=== PATIENT | female | born 1955 | race Caucasian/White ===

== ENCOUNTER → 2016-04-25 | Outpatient (CLI) | payer MEDICARE, OTHER ==
[2016-04-25 14:31] LABS: CH 32.6; CHCM 29.2; HCT 39.5 % (34.0-46.0); HDW 2.77; HGB 11.6 gm/dL (11.4-16.0); Hypochromasia Marked; MCHC 29.4 g/dL (31.0-37.0); MCV 112.2 fL (80.0-100.0); Macrocytosis Marked; Mean Platelet Volume 6.6; RBC 3.52 m/uL (3.80-5.40); RDW 13.8 % (11.5-15.5)
[2016-04-25 14:50] LABS: Bilirubin, Delta 0.5 mg/dL (0.0-0.2); Total Bilirubin 0.8 mg/dL (0.2-1.3); Total Protein 8.5 g/dL (6.3-8.2)
[2016-04-28 07:08] LABS: Hepatits C Virus RNA, Quant <12 IU/mL (<12); LOG HCV IU/mL <1.08 (<1.08)
== END | disposition home or self-care (01) ==
LOC: LABWHC1 13:56
PROVIDERS: ATTEND Physician Assistant
DX: B18.2 Chronic viral hepatitis C (principal)
CPT/HCPCS: 36415; 80076; 85027; 87522

== ENCOUNTER → 2016-06-02 | Outpatient (CLI) | payer MEDICARE, OTHER ==
[2016-06-02 11:44] LABS: CH 33.1; HDW 2.73; HGB 11.4 gm/dL (11.4-16.0); Hypochromasia Marked; MCH 33.3 pg (25.0-35.0); MCHC 30.1 g/dL (31.0-37.0); MCV 110.7 fL (80.0-100.0); Macrocytosis Marked; Mean Platelet Volume 6.9; RBC 3.43 m/uL (3.80-5.40); RDW 13.4 % (11.5-15.5); WBC 5.3 k/uL (3.8-10.6)
[2016-06-02 12:21] LABS: Bilirubin, Delta 0.4 mg/dL (0.0-0.2); Total Bilirubin 0.7 mg/dL (0.2-1.3)
[2016-06-03 15:25] LABS: Hepatits C Virus RNA, Quant <12 IU/mL (<12); LOG HCV IU/mL <1.08 (<1.08)
== END | disposition home or self-care (01) ==
LOC: LABWHC1 11:20
PROVIDERS: ATTEND Physician Assistant
DX: B18.2 Chronic viral hepatitis C (principal)
CPT/HCPCS: 36415; 80076; 85027; 87522

== ENCOUNTER → 2016-06-28 | Outpatient (CLI) | payer MEDICARE, OTHER ==
--- NOTE | 2016-06-30 15:29 | PE ---
Nuclear medicine PET/CT HISTORY: Lung carcinoma, solitary lung nodule Patient received 15 mCi F-18 FDG intravenously delayed scanning performed from the skull base to the mid thighs. Localization and attenuation correction CT scan was performed, exam correlated to prior n [facility] PET/CT 16 February 2016 Neck and chest: No evident cervical or mediastinal adenopathy. There are coronary artery calcificatio ns present. No pleural or pericardial effusion. Nodular density in the left upper lobe measures appro ximately 15 mm. This is diminished in size as compared to previous exam. Only minimal hypermetabolic uptake present, SUV 1.4 Abdomen pelvis: Patient is post cholecystectomy. No adrenal mass. No suspicious hypermetabolic uptake . Postop change status post aortic bypass graft. Ostomy present in the right lower quadrant containin g some bowel loop. IMPRESSION: There is improvement in the size and metabolic activity of patient's left upper lobe lung nodule.
== END | disposition home or self-care (01) ==
LOC: RADPETMAIN 09:40
PROVIDERS: ATTEND Radiology Radiation Oncology
DX: R91.1 Solitary pulmonary nodule (principal)
CPT/HCPCS: 78815; A9552

== ENCOUNTER → 2016-07-23 | Outpatient (CLI) | payer MEDICARE, OTHER ==
[2016-07-23 14:53] LABS: Bilirubin, Delta 0.4 mg/dL (0.0-0.2); Total Bilirubin 0.9 mg/dL (0.2-1.3); Total Protein 8.8 g/dL (6.3-8.2)
[2016-07-23 14:55] LABS: CHCM 29.2; HCT 42.5 % (34.0-46.0); HDW 2.57; HGB 12.5 gm/dL (11.4-16.0); Hypochromasia Marked; MCH 33.4 pg (25.0-35.0); MCHC 29.5 g/dL (31.0-37.0); MCV 113.3 fL (80.0-100.0); Macrocytosis Marked; Mean Platelet Volume 7.7; RBC 3.75 m/uL (3.80-5.40); RDW 12.9 % (11.5-15.5)
[2016-07-24 14:37] LABS: Hepatits C Virus RNA, Quant <12 IU/mL (<12); LOG HCV IU/mL <1.08 (<1.08)
== END | disposition home or self-care (01) ==
LOC: LABWHC1 13:49
PROVIDERS: ATTEND Physician Assistant
DX: B18.2 Chronic viral hepatitis C (principal)
CPT/HCPCS: 36415; 80076; 85027; 87522

== ENCOUNTER → 2016-09-17 | Outpatient (CLI) | payer MEDICARE, OTHER ==
[2016-09-17 13:10] LABS: Blood Urea Nitrogen 17 mg/dL (7-17); Non-African American GFR(MDRD) 59 (>60 ml/min/1.73 sqM)
--- NOTE | 2016-09-17 13:50 | CT ---
EXAMINATION TYPE: CT chest w con DATE OF EXAM: 09/17/2016 COMPARISON: 09/10/2015 HISTORY: Lung cancer CT DLP: 622 mGycm, Automated exposure control for dose reduction was used. CONTRAST: Performed injected with 100 ml mL of Omnipaque 300. TECHNIQUE: Axial images were obtained at 5 mm thick sections. Reconstructed images are reviewed on meevl computer in the coronal plane. FINDINGS: Portion of the thyroid visualized is normal. There is suspicious area of increased density with spiculated margins on lung windows within the post erior lingula series 4 image 25. This area measures approximately 1.4 x 1.1 cm size. This appears les s nodular than the comparison of previous year. No enlarged mediastinal or hilar adenopathy is evident. Small pretracheal lymph nodes are present. The ascending aorta diameter at the level of the main pulmonary artery is 3.4 cm. The main pulmonary artery diameter at the bifurcation is 2.[address] sections are obtained through the upper abdomen. Abdomen is essentially unremarkable. Postcontrast imaging is performed. The thyroid is visualized appears normal. IMPRESSIONS: 1. Focal area of pneumonitis or masslike area within the posterior lingula left midlung. This is impr oving in appearance from 09/10/2015. Continued follow-up is recommended.
== END | disposition home or self-care (01) ==
LOC: RADCTMAIN 12:16
PROVIDERS: ATTEND Radiology Radiation Oncology
DX: C34.10 Malignant neoplasm of upper lobe, unspecified bronchus or lung (principal)
CPT/HCPCS: 82565; 84520; 71260; 36415; Q9967

== ENCOUNTER → 2016-10-02 | Outpatient (CLI) | payer MEDICARE, OTHER ==
[2016-10-02 14:29] LABS: CH 32.3; CHCM 32.6; HCT 45.9 % (34.0-46.0); HDW 2.65; HGB 15.6 gm/dL (11.4-16.0); MCH 33.7 pg (25.0-35.0); MCV 99.2 fL (80.0-100.0); Mean Platelet Volume 7.4; RBC 4.63 m/uL (3.80-5.40); RDW 12.1 % (11.5-15.5); WBC 4.7 k/uL (3.8-10.6)
[2016-10-02 14:30] LABS: Bilirubin, Delta 0.4 mg/dL (0.0-0.2); Total Bilirubin 0.4 mg/dL (0.2-1.3); Total Protein 7.7 g/dL (6.3-8.2)
[2016-10-03 14:57] LABS: Hepatits C Virus RNA, Quant <12 IU/mL (<12); LOG HCV IU/mL <1.08 (<1.08)
== END | disposition home or self-care (01) ==
LOC: LABWHC1 13:41
PROVIDERS: ATTEND Physician Assistant
DX: B18.2 Chronic viral hepatitis C (principal)
CPT/HCPCS: 36415; 80076; 85027; 87522

== ENCOUNTER → 2016-12-26 | Outpatient (CLI) | payer MEDICARE, OTHER ==
[2016-12-26 10:32] LABS: Blood Urea Nitrogen 17 mg/dL (7-17); Non-African American GFR(MDRD) >60 (>60 ml/min/1.73 sqM)
--- NOTE | 2016-12-26 12:00 | CT ---
EXAMINATION TYPE: CT chest w con DATE OF EXAM: 12/26/2016 COMPARISON: 12/26/2016 HISTORY: Malignant neoplasm of upper lobe unspecified CT DLP: 499 mGycm Automated exposure control for dose reduction was used. CONTRAST: CT scan of the chest is performed with IV Contrast, patient injected with 100 ml mL of Omnipaque 300. FINDINGS: LUNGS: Hyperinflation of the lungs is compatible with COPD. Linear changes involving the lungs are co mpatible with scar or atelectasis. Groundglass changes and changes in density within the lingular seg ment left upper lobe are unchanged in appearance measuring 1.4 x 1 cm. MEDIASTINUM: There are no greater than 1 cm hilar or mediastinal lymph nodes. No pericardial effusi on is seen. The ascending aorta diameter at the level of the main pulmonary artery is 3.4 cm. The ma in pulmonary artery diameter at the bifurcation is 2.7 cm. OTHER: Limited CT sections are obtained through the upper abdomen. Abdomen is essentially unremarkab le. Apart 1 cm area of density along the anterior margin of the scapula on the right image 11. This m ay represent a small lymph node. Posterior to the axilla. Hypertrophic and degenerative change of the spine noted. There is eccentric irregular atherosclerotic changes involving the upper abdominal aort a and lower thoracic aorta. IMPRESSION: 1. Groundglass changes and vague nodular density left upper lobe issuable compared to the previous ex am. 2. There is a nodular density anterior to the scapula posterior to the axilla image 11 measuring 1.2 cm. May represent a area of lymph node or possibly intramuscular etiology. It is retrospectively stab le from the previous exam as well as the exam of 09/10/2015.
== END | disposition home or self-care (01) ==
LOC: RADCTMAIN 09:50
PROVIDERS: ATTEND Radiology Radiation Oncology
DX: C34.10 Malignant neoplasm of upper lobe, unspecified bronchus or lung (principal); J98.4 Other disorders of lung
CPT/HCPCS: 82565; 84520; 71260; 36415; Q9967

== ENCOUNTER → 2017-04-27 | Outpatient (CLI) | payer MEDICARE, OTHER ==
[2017-04-27 10:44] LABS: Blood Urea Nitrogen 16 mg/dL (7-17)
--- NOTE | 2017-04-27 11:44 | CT ---
EXAMINATION TYPE: CT soft tissue neck w con DATE OF EXAM: 04/27/2017 COMPARISON: PET CT 06/28/2016 and 02/16/2016. CT chest 12/26/2016 HISTORY: 62-year-old female Follow up study for known lung CA. TECHNIQUE: Contiguous axial scanning of the neck performed with IV Contrast, patient injected with 10 0 mL of Omnipaque 300. Coronal/sagittal reconstructions performed. CT DLP: 227.2 mGycm Automated exposure control for dose reduction was used. FINDINGS: Visualized intracranial structures show no gross abnormality. Orbits and globes and paranasal sinuses appear clear. Left mastoid air cells hypoplastic. Rightward nasal septal deviation. Nasopharynx appears relatively clear. There is some crowding of structures here due to an elevated so ft palate. Oropharynx appears clear. There is some right-sided posterior impression due to retropharyngeal cours e of the right ICA. Assessment of the glottic structures shows asymmetric thickening of the left aryepiglottic fold which may be positional (axial image 35). Small nodularity in the left visceral space fat at this same lev el is unchanged back to 02/16/2016 where no discrete FDG uptake was seen. The vertebral soft tissues and epiglottis appear normal. The tracheal column is clear. Thyroid and submandibular glands as well as the mildly atrophic parotid glands appear satisfactory. Mild to moderate prostatic calcifications at the carotid bifurcations. Scattered nonenlarged cervical lymph nodes are present on both sides measuring up to 7 mm on the left, coronal image 35. No suspici ous lymphadenopathy by CT size criteria. IMPRESSION: 1. SOME ASYMMETRIC THICKENING OF THE LEFT ARYEPIGLOTTIC FOLD MAY BE POSITIONAL. CONSIDER DIRECT VISUA LIZATION TO EXCLUDE A MUCOSAL LESION HERE. 2. CROWDED NASOPHARYNGEAL STRUCTURES DUE TO ELEVATION OF THE SOFT PALATE WITHOUT ANY DEFINITE SUSPIC IOUS FINDING. 3. NO CERVICAL LYMPHADENOPATHY.
--- NOTE | 2017-04-27 12:25 | CT ---
EXAMINATION TYPE: CT ChestAbdPelvis w con DATE OF EXAM: 04/27/2017 COMPARISON: CT chest 12/26/[address] 06/28/2016 HISTORY: 62-year-old female follow-up up study for known lung CA. TECHNIQUE: Contiguous axial scanning of the chest, abdomen, and pelvis performed with IV Contrast, pa tient injected with 100 mL of Omnipaque 300. Delayed images through the kidneys were obtained. Carter l/sagittal reconstructions performed. CT DLP: 543.9 mGycm Automated exposure control for dose reduction was used. FINDINGS: Chest: Heart normal size without pericardial effusion. Coronary vessel calcifications are present in remarka ble for coronary artery disease. [id number] aortic valvular calcifications are noted Aorta is normal caliber with a aberrant direct takeoff of the left vertebral artery directly from the aortic arch. Mild atherosclerotic arch calcifications. No thoracic lymphadenopathy by CT size criteria. Prominent 7 mm precarinal lymph node is unchanged. Evaluation the lungs redemonstrates the focal patchy peripheral left upper lobe density representing the site of patient's treated disease. Minimal nodularity appears unchanged. Mild diffuse bronchial wall thickening and mild centrilobular emphysema. No new pulmonary nodules are seen. No consolidation or pleural effusion. Some patchy atelectasis basilar right middle lobe. Some lateral periareolar left breast soft tissue thickening axial image 24, probably relates to ammon l fibroglandular tissue but may be slightly increased and can be correlated with physical exam findin gs and mammographic evaluation. ABDOMEN: No focal liver lesion or biliary ductal dilatation. Small amount of focal fat along the anterior falc iform ligament. Portal venous system is patent. Cholecystectomy clips. Adrenal glands, kidneys, spleen with anterior splenule, and pancreas appear within normal limits. Aortobifemoral bypass graft remains patent. Moderate focal areas of calcifications in the upper abdom inal aorta. No mesenteric or retroperitoneal lymphadenopathy. There appears to be prior colectomy with Mckinney's pouch. Right lower quadrant ostomy with similar mi ld ascites fluid within the small 3.5 cm parastomal hernia which also contains a couple small bowel l oops. Similar mild mass effect onto the underlying abdominal wall musculature. Pelvis: Uterus is retroverted. Multiple pelvic phleboliths. Ovaries are visualized. No abnormal fluid collect ion the pelvis or pelvic lymphadenopathy seen. Bones: Degenerative changes throughout the lumbar spine. No osseous destructive process seen. IMPRESSION: 1. COPD WITH MILD EMPHYSEMA AND RELATIVELY STABLE FOCAL PATCHY NODULARITY PERIPHERAL LEFT UPPER LOBE REPRESENTING SITE OF PATIENT'S TREATED DISEASE. NO INCREASING NODULARITY TO SUGGEST LOCAL RECURRENCE AT THIS TIME. 2. LEFT LATERAL SUBAREOLAR BREAST TISSUE DENSITY MAY BE SLIGHTLY INCREASED. CORRELATE WITH PHYSICAL E XAM FINDINGS AND DIAGNOSTIC MAMMOGRAM TO ENSURE STABLE FINDINGS. 3. STATUS POST COLECTOMY WITH MCKINNEY'S POUCH AND RIGHT-SIDED OSTOMY. STABLE 3.5 CM SMALL PARASTOMAL HERNIA CONTAINING MILD ASCITES AND A FEW SMALL BOWEL LOOPS. GIVEN THE FLUID IN THE HERNIA SAC, CORREL ATE FOR POSSIBLE CHRONIC HERNIA INCARCERATION.
== END | disposition home or self-care (01) ==
LOC: RADCTMAIN 10:01
PROVIDERS: ATTEND Radiology Radiation Oncology
DX: C34.90 Malignant neoplasm of unspecified part of unspecified bronchus or lung (principal); J44.9 Chronic obstructive pulmonary disease, unspecified; J43.9 Emphysema, unspecified; J98.4 Other disorders of lung; K43.5 Parastomal hernia without obstruction or gangrene; R18.8 Other ascites; Z90.49 Acquired absence of other specified parts of digestive tract; K82.8 Other specified diseases of gallbladder; Z98.890 Other specified postprocedural states; Z91.09 Other allergy status, other than to drugs and biological substances
CPT/HCPCS: 82565; 84520; 70491; 71260; 74177; 36415; Q9967

== ENCOUNTER → 2017-05-12 | Outpatient (CLI) | payer MEDICARE, OTHER ==
[2017-05-12 14:38] LABS: HCT 45.5 % (34.0-46.0); HGB 14.8 gm/dL (11.4-16.0); MCH 34.3 pg (25.0-35.0); MCHC 32.5 g/dL (31.0-37.0); MCV 105.6 fL (80.0-100.0); Macrocytosis Slight; Mean Platelet Volume 7.2; Platelet Count 207 k/uL (150-450); RBC 4.31 m/uL (3.80-5.40); RDW 12.7 % (11.5-15.5); WBC 5.5 k/uL (3.8-10.6)
[2017-05-12 14:45] LABS: Albumin 4.3 g/dL (3.5-5.0); Bilirubin, Delta 0.4 mg/dL (0.0-0.2); Total Bilirubin 0.4 mg/dL (0.2-1.3); Total Protein 7.2 g/dL (6.3-8.2)
[2017-05-13 15:50] LABS: Hepatits C Virus RNA Not detected (Not detected); Hepatits C Virus RNA, Quant <12 IU/mL (<12); LOG HCV IU/mL <1.08 (<1.08)
== END | disposition home or self-care (01) ==
LOC: LABWHC1 13:56
PROVIDERS: ATTEND Physician Assistant
DX: B18.2 Chronic viral hepatitis C (principal)
CPT/HCPCS: 36415; 80076; 85027; 87522

== ENCOUNTER → 2017-07-29 | Outpatient (CLI) | payer MEDICARE, OTHER ==
--- NOTE | 2017-07-29 15:27 | CT ---
EXAMINATION TYPE: CT chest abdomen wo con DATE OF EXAM: 07/29/2017 COMPARISON: Chest abdomen pelvis dated 04/27/2017 and PET/CT dated 06/28/2016. CT thorax dated 7. HISTORY: Lung Cancer CT DLP: 236 mGycm Automated exposure control for dose reduction was used. FINDINGS: LUNGS: There is mild centrilobular emphysematous changes of the lung apices. The previously seen foca l pleural thickening of the left upper lung posterior medially has resolved. There remains focal pleu ral thickening along the lateral left lung on series 4 image 24 that is similar to the prior exam wit h a focal area of nodularity measuring approximately 6 mm with surrounding groundglass attenuation. T his appears unchanged from the prior exam of 04/27/2017. Right apical pleural parenchymal scarring is noted. No new pulmonary nodules are identified. MEDIASTINUM: There are no greater than 1 cm hilar or mediastinal lymph nodes. No pericardial effusi on is seen. No cardiomegaly. Mild coronary artery calcifications. The left vertebral artery incident ally originates from the aortic arch, a normal anatomic variant. Ascending thoracic aorta is within n ormal limits of size measuring 3.3 cm. BONES: No suspicious osseous lesions. Grade 1 anterolisthesis of L3 on L4 is seen. Moderate multileve l degenerative changes of the thoracic spine and lumbar spine are present. LIVER/GALLBLADDER: No focal hepatic lesion is seen. Gallbladder surgically absent. No intrahepatic bi liary ductal dilatation. SPLEEN: No splenomegaly. ADRENAL GLANDS: No nodularity or thickening. KIDNEYS: No nephrolithiasis or hydronephrosis. Kidneys are overall symmetric. BOWEL: Right lower quadrant ostomy is seen. No bowel dilatation is noted. ADENOPATHY: Evaluation is slightly limited secondary to lack of intravenous contrast, however no marlene s evidence of lymph nodes greater than 1 cm in short axis seen within the abdomen. VASCULATURE: Extensive calcific atheromatous changes are seen of the distal descending thoracic aorta and upper abdominal aorta with aorto biiliac bypass graft material noted. IMPRESSION: 1. UNCHANGED FINDINGS WITHIN THE LEFT MIDLUNG AT THE SITE OF PRIOR RADIATION FOR A NEOPLASTIC PULMONA RY NODULE IN COMPARISON TO THE MOST RECENT EXAM DATED 04/27/2017, HOWEVER PLEURAL THICKENING IN THE NO DULAR COMPONENT APPEAR MORE PRONOUNCED THAN ON THE EXAM OF 12/26/2016 AND THEREFORE CONTINUED SURVEILL ANCE IS RECOMMENDED. 2. NO NEW ADENOPATHY WITHIN THE CHEST ARE ABDOMEN. 3. UNENHANCED ABDOMEN DEMONSTRATES NO GROSS EVIDENCE OF VISCERAL METASTASIS.
== END | disposition home or self-care (01) ==
LOC: RADCTMAIN 12:55
PROVIDERS: ATTEND Radiology Radiation Oncology
DX: C34.12 Malignant neoplasm of upper lobe, left bronchus or lung (principal); J92.9 Pleural plaque without asbestos
CPT/HCPCS: 71250; 74150

== ENCOUNTER → 2017-11-04 | Outpatient (CLI) | payer MEDICARE, OTHER ==
[2017-11-04 13:46] LABS: HCT 42.2 % (34.0-46.0); HGB 13.5 gm/dL (11.4-16.0); MCH 33.1 pg (25.0-35.0); MCHC 32.1 g/dL (31.0-37.0); MCV 103.3 fL (80.0-100.0); Macrocytosis Slight; Mean Platelet Volume 7.7; Platelet Count 249 k/uL (150-450); RBC 4.08 m/uL (3.80-5.40); RDW 12.8 % (11.5-15.5); WBC 6.6 k/uL (3.8-10.6)
[2017-11-04 13:51] LABS: Albumin 4.3 g/dL (3.5-5.0); Bilirubin, Delta 1.1 mg/dL (0.0-0.2); Bilirubin,Unconjugated 0.1 mg/dL (0.0-1.1); Total Bilirubin 1.2 mg/dL (0.2-1.3); Total Protein 7.4 g/dL (6.3-8.2)
--- NOTE | 2017-11-04 14:47 | CT ---
EXAMINATION TYPE: CT soft tissue neck w con DATE OF EXAM: 11/04/2017 HISTORY: F/U FOR LUNG CA COMPARISON: CT neck April 27, 2017 and older studies. PET/CT June 28, 2016. CT DLP: 302 mGycm. Automated Exposure Control for Dose Reduction was Utilized. TECHNIQUE: CT scan of the neck is performed with IV Contrast, patient injected with 50 mL of Isovue 300, axial images are obtained, coronal and sagittal reformatted images are reviewed. FINDINGS: Airway: There is new asymmetric thickening or near complete obliteration of the air filled left pirif orm sinus and left laryngeal ventricle axial image 36. No suspicious thickening left aryepiglottic fo ld on current study image 43 is present. Parotid/submandibular glands: No gross abnormality seen. Carotid/Vascular Structures: Mild to moderate calcified plaque left carotid bulb and mild calcified p laque at right carotid bulb are redemonstrated. Osseous Structures: Reversal of normal cervical curvature with moderate multilevel disc space narrowi ng C3-C4 through C6-C7 levels with mild to moderate multilevel spurring is redemonstrated. Other: No definitive new greater than 1 cm lymph nodes are identified. IMPRESSION: Worsening fullness left piriform sinus and left laryngeal ventricle without obvious mass or adenopathy. Consider repeat PET/CT or direct visualization to exclude malignant neoplastic involve ment at this level.
--- NOTE | 2017-11-04 15:06 | CT ---
EXAMINATION TYPE: CT chest abdomen w con DATE OF EXAM: 11/04/2017 COMPARISON: CT chest and abdomen July 29, 2017 and older studies. PET/CT June 28, 2016 and older [facility]. HISTORY: F/U FOR LUNG CA. Completed radiation treatment March 2016. CT DLP: 350.5 mGycm. Automated Exposure Control for Dose Reduction was Utilized. CONTRAST: CT scan of the thorax and abdomen are performed with oral and with IV Contrast, patient injected with 50 mL of Isovue 300. FINDINGS: LUNGS: Background mild underlying emphysematous change is redemonstrated. There is lateral left upper to midlung scarring again seen. No new suspicious nodularity is identified at this level. New anteri or mid lung linear scarring and/or atelectasis near axial image 35 now identified. There are scattere d bibasilar linear scarring and/or atelectasis near diaphragms redemonstrated. No pleural effusion or pneumothorax is present. No new suspicious nodules or masses are clearly seen. MEDIASTINUM: There are no new greater than 1 cm hilar or mediastinal lymph nodes. Prominent borderlin e paracarinal lymph node axial image 25 is unchanged from several prior studies. No cardiomegaly or pericardial effusion is seen. Some contrast noted in distal esophagus could reflect product of gastr oesophageal reflux, correlate clinically. OTHER: No additional significant abnormality is seen. LIVER/GB: Cholecystectomy clips are redemonstrated. PANCREAS: No significant abnormality is seen. SPLEEN: No significant abnormality is seen. ADRENALS: No significant abnormality is seen. KIDNEYS: Cortical scarring lower pole level right kidney is redemonstrated. BOWEL: Oral contrast does not reach the colostomy. There is prominence with mild to moderate wall thi ckening involving small bowel loops in the left mid to lower abdomen. Small bowel loops right abdomen show no suspicious dilatation. There is parastomal hernia redemonstrated containing fluid and bowel. Right mid abdominal colostomy is again seen. LYMPH NODES: No greater than 1cm abdominal or pelvic lymph nodes are appreciated. OSSEOUS STRUCTURES: Osseous structures are demineralized. Underlying levoconvex scoliosis in the uppe r mid lumbar spine is redemonstrated. There is moderate to advanced disc space narrowing with subchon dral cystic change and spurring right L2-L3 levels. There is disc space narrowing with vacuum disc ph enomenon and mild spurring at L5-S1 level. Multilevel facet arthropathy mid to lower lumbar levels is seen. OTHER: There is redemonstration of occluded distal abdominal aorta with patent stent graft into iliac arteries partially imaged. IMPRESSION: 1. No new suspicious mass or adenopathy is seen to suggest neoplastic recurrence.
[2017-11-05 15:36] LABS: Hepatits C Virus RNA Not detected (Not detected); Hepatits C Virus RNA, Quant <12 IU/mL (<12); LOG HCV IU/mL <1.08 (<1.08)
== END | disposition home or self-care (01) ==
LOC: RADCTMAIN 12:53
PROVIDERS: ATTEND Radiology Radiation Oncology
DX: C34.12 Malignant neoplasm of upper lobe, left bronchus or lung (principal)
CPT/HCPCS: 87522; 80076; 82565; 84520; 85027; 70491; 71260; 74160; 36415; Q9967

== ENCOUNTER → 2018-01-25 | Outpatient (CLI) | payer MEDICARE, OTHER ==
--- NOTE | 2018-01-26 09:28 | CT ---
EXAMINATION TYPE: CT ChestAbdPelvis w con DATE OF EXAM: 01/25/2018 COMPARISON: 11/04/2017 and 04/27/2017 HISTORY: Follow up for Lung CA. CT DLP: 451.2 mGycm. Automated Exposure Control for Dose Reduction was Utilized. CONTRAST: CT scan of the thorax, abdomen and pelvis is performed with IV Contrast, patient injected with 100ml mL of Isovue M300. FINDINGS: LUNGS: Linear left midlung pleural parenchymal scar is redemonstrated with pleural thickness unchange d from the prior measuring up to 3 mm. Mild centrilobular background emphysema is again noted. No pul monary mass or new pulmonary nodule. MEDIASTINUM: There are no greater than 1 cm hilar or mediastinal lymph nodes. Pretracheal lymph nodes node measures 8 mm in short axis. Precarinal lymph node also is again borderline measuring 8 mm in s hort axis unchanged from prior exams. No pericardial effusion is seen. There is normal variant anato my with the left vertebral artery originating directly from the aortic arch. LIVER/GB: No significant abnormality is appreciated. Gallbladder surgically absent. PANCREAS: No significant abnormality is seen. No pancreatic ductal dilatation. SPLEEN: No significant abnormality is seen. No splenomegaly. ADRENALS: No significant abnormality is seen. KIDNEYS: Lobulated contour and cortical scarring is again seen. No suspicious lesion. BOWEL: Right-sided colostomy is been performed with total colectomy. Small bowel appears unremarkable and nondilated. Small fat containing parastomal hernia is noted. LYMPH NODES: No greater than 1cm abdominal or pelvic lymph nodes are appreciated. OSSEOUS STRUCTURES: Multilevel degenerative changes of the thoracolumbar spine are again noted as wel l as a levoconvex curvature of the lumbar spine. No new suspicious osseous lesion is seen. Degenerati ve disc disease is greatest at L2-L3 and L5-S1. OTHER: Again there is severe atherosclerosis of the suprarenal abdominal aorta and an infrarenal aort oiliac stent graft with [place] aortic total occlusion. Single surgical clip is seen in the posterior cul-de-sac. IMPRESSION: Stable left pulmonary scarring and pleural thickening) posttreatment change) with no new findings to suggest metastatic disease in the chest, abdomen, or pelvis.
== END | disposition home or self-care (01) ==
LOC: RADCTMAIN 14:00
PROVIDERS: ATTEND Internal Medicine Hematology & Oncology
DX: C34.12 Malignant neoplasm of upper lobe, left bronchus or lung (principal); J92.9 Pleural plaque without asbestos
CPT/HCPCS: 71260; 74177; Q9967

== ENCOUNTER → 2018-03-08 | Outpatient (CLI) | payer MEDICARE, OTHER ==
--- NOTE | 2018-03-08 15:04 | CT ---
EXAMINATION TYPE: CT ChestAbdPelvis wo/w con DATE OF EXAM: 03/08/2018 COMPARISON: 01/25/2018 HISTORY: Malignant neoplasm of upper lobe CT DLP: 778.3 mGycm Automated exposure control for dose reduction was used. CONTRAST: CT scan of the chest, abdomen and pelvis is performed with Oral Contrast and without and with IV Cont rast, patient injected with 100 mL of Isovue 300. FINDINGS: LUNGS: Linear left midlung pleural parenchymal scar is redemonstrated with pleural thickness unchange d from the prior measuring up to 3 mm. Mild centrilobular background emphysema is again noted. There is a 2 mm nodule right middle lobe. MEDIASTINUM: There are no greater than 1 cm hilar or mediastinal lymph nodes. No pericardial effusi on is seen. Pretracheal lymph nodes node measures 8 mm in short axis. Precarinal lymph node also is again borderline measuring 8 mm in short axis unchanged from prior exams. No pericardial effusion is seen. There is normal variant anatomy with the left vertebral artery originating directly from the ao rtic arch OTHER: No additional significant abnormality is seen. LIVER/GB: No significant abnormality is appreciated. PANCREAS: No significant abnormality is seen. SPLEEN: No significant abnormality is seen. ADRENALS: No significant abnormality is seen. KIDNEYS: No hydronephrosis or nephrolithiasis. Lobulated contour and cortical scarring noted which is compatible with chronic medical renal disease. Subcentimeter hypodensities within both kidneys are t oo small to characterize but most typical of simple cysts and stable. BOWEL: Right-sided colostomy is been performed with total colectomy. Small bowel appears unremarkabl e and nondilated. Small fat containing parastomal hernia is noted. LYMPH NODES: No greater than 1 cm abdominal or pelvic lymph nodes are appreciated. OSSEOUS STRUCTURES: Multilevel degenerative changes of the thoracolumbar spine are again noted as wel l as a levoconvex curvature of the lumbar spine. No new suspicious osseous lesion is seen. Degenerati ve disc disease is greatest at L2- L3 and L5-S1. Air within the spinal canal likely related to vacuum disc and severe degenerative disc disease. Findings are suggestive central stenosis at L4-5 and L5-S 1. Central disc protrusions are suspected. Grade 1 anterolisthesis of L3 on L4 noted with central herberth nosis also suspected. Retrolisthesis at L2-L3 also suspicious for central stenosis with suspicion of central disc protrusion. OTHER: Again there is severe atherosclerosis of the suprarenal abdominal aorta and an infrarenal aort oiliac stent graft with [place] aortic total occlusion. Single surgical clip is seen in the posterior cul-de-sac. IMPRESSION: 1. Stable left pulmonary scarring and pleural thickening) posttreatment change) with no new findings to suggest metastatic disease in the chest, abdomen, or pelvis. 2. There is a 2 mm nodule right middle lobe axial image 29 not definitively seen on previous exam. To o small to characterize recommend 6 month follow-up for stability. 3. Multilevel severe degenerative disc disease and disc protrusions with suspected multilevel canal s tenosis.
== END | disposition home or self-care (01) ==
LOC: RADCTMAIN 12:10
PROVIDERS: ATTEND Radiology Radiation Oncology
DX: C34.12 Malignant neoplasm of upper lobe, left bronchus or lung (principal); J92.9 Pleural plaque without asbestos; R91.1 Solitary pulmonary nodule; F17.210 Nicotine dependence, cigarettes, uncomplicated; Z92.3 Personal history of irradiation
CPT/HCPCS: 71270; 74178; Q9967

== ENCOUNTER → 2018-05-27 | Outpatient (CLI) | payer MEDICARE, OTHER ==
[2018-05-27 13:09] LABS: HCT 42.7 % (34.0-46.0); MCH 34.4 pg (25.0-35.0); MCHC 32.8 g/dL (31.0-37.0); MCV 104.8 fL (80.0-100.0); Macrocytosis Slight; Mean Platelet Volume 7.2; Platelet Count 269 k/uL (150-450); RBC 4.08 m/uL (3.80-5.40); RDW 12.3 % (11.5-15.5); WBC 4.5 k/uL (3.8-10.6)
[2018-05-27 19:23] LABS: ALT 23 U/L (8-44); AST 27 U/L (13-35); Albumin/Globulin Ratio 1.71 (1.60-3.17); Alkaline Phosphatase 85 U/L (41-126); Bilirubin, Conjugated <0.20 mg/dL (0.20-0.40); Globulin 2.4 g/dL (1.6-3.3); Total Bilirubin 0.2 mg/dL (0.2-1.2); Total Protein 6.5 g/dL (6.2-8.2)
[2018-05-28 16:04] LABS: Hepatits C Virus RNA Not detected (Not detected); Hepatits C Virus RNA, Quant <12 IU/mL (<12); LOG HCV IU/mL <1.08 (<1.08)
== END | disposition home or self-care (01) ==
LOC: LABWHC1 12:35
PROVIDERS: ATTEND Physician Assistant
DX: B18.2 Chronic viral hepatitis C (principal)
CPT/HCPCS: 36415; 80076; 85027; 87522

== ENCOUNTER → 2018-06-15 | Outpatient (CLI) | payer MEDICARE, OTHER ==
--- NOTE | 2018-06-15 15:57 | CT ---
EXAMINATION TYPE: CT ChestAbdPelvis wo con DATE OF EXAM: 06/15/2018 COMPARISON: 03/08/2018 HISTORY: Hx Lt lobe lung ca. Malignant neoplasm. CT DLP: 707 mGycm. Automated Exposure Control for Dose Reduction was Utilized. TECHNIQUE: CT scan of the thorax, abdomen and pelvis is performed without IV contrast. Lack of contrast limits a ssessment of abdominal viscera mass or metastasis and limits evaluation of the bowel. FINDINGS: LUNGS: Linear left midlung pleural parenchymal scar is redemonstrated with pleural thickness unchange d from the prior measuring up to 3 mm. Mild centrilobular background emphysema is again noted. There is a 2 mm nodule right middle lobe. Emphysematous changes are noted and there is linear changes invol ving the right upper lobe pleural thickening scarring. MEDIASTINUM: There are no greater than 1 cm hilar or mediastinal lymph nodes. No pericardial effusi on is seen. Pretracheal lymph nodes node measures 8 mm in short axis. Precarinal lymph node also is again borderline measuring 8 mm in short axis unchanged from prior exams. No pericardial effusion is seen. There is normal variant anatomy with the left vertebral artery originating directly from the ao rtic arch Atherosclerotic change of the aorta and calcification the tracheobronchial tree noted. OTHER: No additional significant abnormality is seen. LIVER/GB: Postcholecystectomy changes noted. PANCREAS: No significant abnormality is seen. SPLEEN: No significant abnormality is seen. ADRENALS: No significant abnormality is seen. KIDNEYS:No hydronephrosis or nephrolithiasis. Lobulated contour and cortical scarring noted which is compatible with chronic medical renal disease. Subcentimeter hypodensities within both kidneys are to o small to characterize but most typical of simple cysts and stable. BOWEL: Right-sided colostomy is been performed with total colectomy. Small bowel appears unremarkabl e and nondilated. Small fat containing parastomal hernia is noted. Stomach is distended. LYMPH NODES: No greater than 1cm abdominal or pelvic lymph nodes are appreciated. OSSEOUS STRUCTURES: Multilevel degenerative changes of the thoracolumbar spine are again noted as wel l as a levoconvex curvature of the lumbar spine. No new suspicious osseous lesion is seen. Degenerati ve disc disease is greatest at L2- L3 and L5-S1. Air within the spinal canal likely related to vacuum disc and severe degenerative disc disease. Findings are suggestive central stenosis at L4 -5 and L5- S1. Central disc protrusions are suspected. Grade 1 anterolisthesis of L3 on L4 noted with central st enosis also suspected. Retrolisthesis at L2-L3 also suspicious for central stenosis with suspicion of central disc protrusion. OTHER: Severe atherosclerotic change of the abdominal aorta and there is a aortoiliac stent graft wit h [place] aortic occlusion. Surgical clip in the posterior cul-de-sac. IMPRESSION: 1. Stable left pulmonary scarring and pleural thickening ( posttreatment change ) with no new finding s to suggest metastatic disease in the chest, abdomen, or pelvis. 2. There is a 2 mm nodule right middle lobe too small to characterize but stable. 3. Multilevel severe degenerative disc disease and disc protrusions with suspected multilevel canal s tenosis. 4. Severe atherosclerotic changes of the aorta proximal to the aortic stent graft. 5. Multilevel degenerative severe disc disease with scoliotic curvature and suspected multilevel marcelo l stenosis. 6 the stomach is distended correlate for gastroparesis. Most likely consideration would b e gastric outlet obstruction.
== END | disposition home or self-care (01) ==
LOC: RADCTMAIN 15:09
PROVIDERS: ATTEND Radiology Radiation Oncology
DX: J98.4 Other disorders of lung (principal); J94.8 Other specified pleural conditions; R91.1 Solitary pulmonary nodule; I70.0 Atherosclerosis of aorta; C34.12 Malignant neoplasm of upper lobe, left bronchus or lung
CPT/HCPCS: 71250; 74176

== ENCOUNTER 2018-06-28 10:18 | Day surgery (SDC) | payer MEDICARE, OTHER ==
[2018-06-23 12:13] VITALS: BMI 19.7
[~2018-06-28 10:18] MED LIST: LACTATED RINGERS 1,000 ML IV SCH; LIDOCAINE 1% 20 ML VIAL (10MG/ML) FOR IV START INTRADERMA PRN; MIDAZOLAM (PF) 2 MG/2 ML VIAL IV PRN
[2018-06-28 10:34] VITALS: RESP 16; TEMP 97.1
[2018-06-28] MEDS ORDERED: LIDOCAINE 1% 20 ML VIAL (10MG/ML) FOR IV START SQ ONE (10:34)
[2018-06-28] MEDS ORDERED: LIDOCAINE 1% INJ 10MG/ML (20 ML MDV) ONE (10:53)
[2018-06-28] MEDS ORDERED: PROPOFOL 10 MG/ML 20 ML VIAL IV ONE (10:53)
--- NOTE | 2018-06-28 11:30 | P.PCN ---
Date of Procedure: 06/28/18 Procedure(s) Performed: Procedure: Esophagogastroduodenoscopy and biopsy. Preoperative diagnosis: Abnormal CT of the abdomen. Postoperative diagnosis: 1. Mild gastritis and duodenitis with no evidence of gastric outlet obstruction or gastroparesis. 2. Biopsies obtained from the antrum. Preparation and sedation: Was provided by anesthesia. Brief clinical history: The patient is 63-year-old female with history of lung cancer for which she received radiation therapy. The patient had regular follow-up computed tomography scan. On her exam earlier this month there was suggestion of gastroparesis versus gastric outlet obstruction. The patient is not having any specific GI complaints at this time. Procedure: With the patient on her left lateral decubitus position and after informed consent and adequate sedation, I passed the Olympus-GIF H 190 video upper endoscope through the cricopharyngeus down the esophagus. The esophagus appeared healthy with no obvious erosions, ulcers, strictures or Soni's esophagus. The endoscope was then passed into the stomach which was insufflated with air and inspected in detail including the retroflex view in the cardia. There was mottling and erythema noted in the stomach, mostly in the antrum and prepyloric, area but no ulcers or erosions. Pyloric channel did not show any ulcers. Duodenal bulb showed some erythema and friability but no ulcers or erosions. Post bulbar area and descending duodenum appeared within normal limits. There was no evidence of gastric outlet obstruction or gastroparesis. There were no retained food or phytobezoar in the stomach. I obtained biopsies from the antrum then the endoscope was withdrawn. The patient tolerated the procedure well. Plan: The patient was reassured. She will follow-up with you as planned. Further plans based on her course.
[2018-06-28 11:38] VITALS: BP 132/73; PULSE 64
== END 2018-06-28 11:53 | disposition home or self-care (01) ==
LOC: ORWHC2ENDO 10:18
DX: K29.50 Unspecified chronic gastritis without bleeding (principal); K29.80 Duodenitis without bleeding; Z85.118 Personal history of other malignant neoplasm of bronchus and lung; Z92.3 Personal history of irradiation; I25.10 Atherosclerotic heart disease of native coronary artery without angina pectoris; J44.9 Chronic obstructive pulmonary disease, unspecified; I10 Essential (primary) hypertension; M19.90 Unspecified osteoarthritis, unspecified site; F17.200 Nicotine dependence, unspecified, uncomplicated; Z79.1 Long term (current) use of non-steroidal anti-inflammatories (NSAID); Z79.82 Long term (current) use of aspirin; Z79.891 Long term (current) use of opiate analgesic; Z79.899 Other long term (current) drug therapy
CPT/HCPCS: 88305; 43239; J2001; J2704

== ENCOUNTER → 2018-09-23 | Outpatient (CLI) | payer MEDICARE, OTHER ==
--- NOTE | 2018-09-23 13:50 | CT ---
EXAMINATION TYPE: CT chest wo con DATE OF EXAM: 09/23/2018 COMPARISON: 06/15/2018 HISTORY: Lung CA CT DLP: 117.6 mGycm. Automated Exposure Control for Dose Reduction was Utilized. TECHNIQUE: CT scan of the thorax is performed without IV contrast. FINDINGS: Linear left midlung pleural parenchymal scar is redemonstrated with pleural thickness unchanged from the prior measuring up to 3 mm. Mild centrilobular background emphysema is again noted. There is a 2 mm nodule right middle lobe. Emphysematous changes are noted and there is linear changes involving th e right upper lobe pleural thickening scarring. Subsegmental changes are seen bilaterally most typica l scar or atelectasis. MEDIASTINUM: There are no greater than 1 cm hilar or mediastinal lymph nodes. No pericardial effusion is seen. Pretracheal lymph nodes node measures 8 mm in short axis. Precarinal lymph node also is aga in borderline measuring 8 mm in short axis unchanged from prior exams. No pericardial effusion is seen. There is normal variant anatomy with the left vertebral artery origi nating directly from the aortic arch. Atherosclerotic change of the aorta and calcification the tracheobronchial tree noted. Coronary uriah ry calcification noted. OTHER: Hypertrophic and degenerative change of the spine.. Post cholecystectomy changes are noted. At herosclerotic change of the aorta. Question aortic stent. IMPRESSION: 1. Stable bilateral pulmonary consolidation most typical scarring or atelectasis with no evidence to suggest metastatic disease. 2. Stable 2 mm right middle lobe pulmonary nodule. 3. There is severe calcified plaque within the upper abdominal aorta proximal to the aortic stent sug gested a significant stenosis of the aorta. Correlate clinically.
== END | disposition home or self-care (01) ==
LOC: RADCTMAIN 13:21
PROVIDERS: ATTEND Radiology Radiation Oncology
DX: R91.1 Solitary pulmonary nodule (principal); I70.0 Atherosclerosis of aorta; F17.210 Nicotine dependence, cigarettes, uncomplicated; Z92.3 Personal history of irradiation
CPT/HCPCS: 71250

== ENCOUNTER 2018-12-21 17:31 | Inpatient (IN) | payer MEDICARE, OTHER ==
[2018-12-21] MEDS ORDERED: SODIUM CHLORIDE 0.9% 1,000 ML IV STA ×2 (18:07)
[2018-12-21] MEDS ORDERED: MORPHINE SULFATE 4 MG/ML SYRINGE IV STA (18:07)
[2018-12-21] MEDS ORDERED: SODIUM CHLORIDE 0.9% 500 ML 500 ML IV STA (18:07)
--- NOTE | 2018-12-21 18:10 | ED ---
Weakness HPI - General Chief complaint: Weakness Stated complaint: Weak not able to walk Time Seen by Provider: 12/21/18 18:02 Source: patient, RN notes reviewed, old records reviewed Mode of arrival: wheelchair Limitations: no limitations - History of Present Illness Initial comments: This is a 63-year-old female the ER for evaluation. Patient presented with increasing weakness 3 days. Patient has history of lung cancer last treatment 3 years ago. Patient currently going to treatment denies fevers. Is complaining of increasing weakness decreased strength decreased ability to amylase. Patient is able to urinate but appetite has been severely diminished weight loss is increased as of late. She is continuing to lose weight secondary to no appetite. No recent change in medications. Family has noticed progressive weakness but over the last 3 days inability to get up and down vertigo downstairs activities of daily living significantly decreased MD Complaint: generalized weakness, lack of energy, difficulty walking -: days(s) (3) Location: generalized, LLE, RLE Severity: moderate Severity scale (1-10): 7 Quality: aching ((4 quadrant abdominal pain), sharp (Left lower quadrant abdomin al pain) Consistency: constant Improves with: none Worsens with: none Context: recent illness, history of similar Associated Symptoms: loss of appetite, nausea/vomiting - Related Data Home Medications Medication Instructions Recorded Confirmed ALPRAZolam [Xanax] 0.5 mg PO TID PRN 08/14/15 12/21/18 Aspirin EC [Ecotrin Low Dose] 81 mg PO BID 08/14/15 12/21/18 HYDROcodone/APAP 10-325MG [[place] 1 tab PO Q6H PRN 08/14/15 12/21/18 10-325] Methocarbamol [Robaxin] 500 mg PO BID PRN 08/14/15 12/21/18 Metoprolol Tartrate [Lopressor] 25 mg PO BID 08/14/15 12/21/18 Meloxicam [Mobic] 7.5 mg PO BID 03/14/16 12/21/18 Oxybutynin Chloride [Ditropan XL] 10 mg PO DAILY 06/23/18 12/21/18 Albuterol Sulfate [Proventil Hfa] 1 puff INHALATION RT-DAILY 12/21/18 12/21/18 Beclomethasone Dipropionate [Qvar 1 puff INHALATION RT-DAILY 12/21/18 12/21/18 40 mcg Redihaler] Calcium Carbonate [Calcium] 1,200 mg PO DAILY 12/21/18 12/21/18 Cholecalciferol (Vitamin D3) 2,000 unit PO DAILY 12/21/18 12/21/18 [Vitamin D3] Dronabinol [Marinol] 5 mg PO HS 12/21/18 12/21/18 Ipratropium-Albuterol Nebulize 3 ml INHALATION RT-DAILY 12/21/18 12/21/18 [Duoneb 0.5 mg-3 mg/3 ml Soln] traZODone HCL [Desyrel] 100 mg PO HS 12/21/18 12/21/18 Allergies Allergy/AdvReac Type Severity Reaction Status Date / Time No Known Allergies Allergy Verified 12/21/18 17:57 Review of Systems ROS Statement: Those systems with pertinent positive or pertinent negative responses have been documented in the HPI. ROS Other: All systems not noted in ROS Statement are negative. Past Medical History Past Medical History: Coronary Artery Disease (CAD), Cancer, Chest Pain / Angina, COPD, Hearing Disorder / Deafness, Hypertension, Liver Disease, Osteoarthritis (OA) Additional Past Medical History / Comment(s): HX of Hepatitis C with [place]., emphysema, restless leg syndrome, has colostomy. lung cancer with radiation tx (2016), oxygen prn ? 2 liters, Hx stomach ulcer., Back pain, left leg numb., Hearing loss right ear. History of Any Multi-Drug Resistant Organisms: None Reported Past Surgical History: Appendectomy, Bowel Resection, Cholecystectomy Additional Past Surgical History / Comment(s): HX OF AORTO BIFEMORAL GRAFT- FEM PAP BYPASS (THIS INFORMATION TAKEN FROM PREVIOUS HEALTH HX), COLOSTOMY. Past Anesthesia/Blood Transfusion Reactions: No Reported Reaction Past Psychological History: Anxiety Smoking Status: Current every day smoker Past Alcohol Use History: Occasional Past Drug Use History: Marijuana - Past Family History Father Family Medical History: Cancer Additional Family Medical History / Comment(s): Prostate CA. Daughter(s) Family Medical History: Cancer Additional Family Medical History / Comment(s): BONE CANCER General Exam Limitations: no limitations General appearance: alert, in no apparent distress Head exam: Present: atraumatic, normocephalic, normal inspection Eye exam: Present: normal appearance, EOMI. Absent: scleral icterus, conjunctival injection, periorbital swelling ENT exam: Present: normal exam, mucous membranes dry Neck exam: Present: normal inspection. Absent: tenderness, meningismus, lymphadenopathy Respiratory exam: Present: normal lung sounds bilaterally. Absent: respiratory distress, wheezes, rales, rhonchi, stridor Cardiovascular Exam: Present: normal rhythm, tachycardia, normal heart sounds. Absent: systolic murmur, diastolic murmur, rubs, gallop, clicks GI/Abdominal exam: Present: soft, tenderness (Left lower quadrant tenderness), normal bowel sounds. Absent: distended, guarding, rebound, rigid Extremities exam: Present: normal inspection, full ROM, normal capillary refill. Absent: tenderness, pedal edema, joint swelling, calf tenderness Back exam: Present: normal inspection Neurological exam: Present: alert, oriented X3, CN II-XII intact Psychiatric exam: Present: normal affect, normal mood Skin exam: Present: warm, dry, intact, normal color. Absent: rash Course Vital Signs 12/21/18 17:44 Temperature 97.7 F Pulse Rate 103 H Respiratory 18 Rate Blood Pressure 90/66 O2 Sat by Pulse 95 Oximetry - Reevaluation(s) Reevaluation #1: 12/21/18 18:10 Medical records reviewed Reevaluation #2: 12/21/18 19:42 Patient feeling better with pain control and hydration - Consultations Consultation #1: spoke with Dr. Skaggs, will admit to ICU spoke with Dr. Arreaga agreeable for ICU placement EKG Findings - EKG Comments: EKG Findings:: EKG shows sinus rhythm rate of 94, MD 120, QRS 90, QTc 445 Medical Decision Making - Medical Decision Making 53 female the ER for evaluation of weakness difficulty medication Acute renal failure hyponatremia. Patient be admitted for continued pain control hydration and nephrology evaluation, place ICU for significant left foot drainage - Lab Data Result diagrams: 12/21/18 18:13 12/21/18 18:13 Lab Results 12/21/18 12/21/18 12/21/18 Range/Units 18:13 18:13 18:13 WBC 11.1 H (3.8-10.6) k/uL RBC 4.73 (3.80-5.40) m/uL Hgb 16.3 H (11.4-16.0) gm/dL Hct 45.9 (34.0-46.0) % MCV 97.2 (80.0-100.0) fL MCH 34.4 (25.0-35.0) pg MCHC 35.4 (31.0-37.0) g/dL RDW 13.9 (11.5-15.5) % Plt Count 287 (150-450) k/uL Neutrophils % 78 % Lymphocytes % 13 % Monocytes % 5 % Eosinophils % 2 % Basophils % 1 % Neutrophils # 8.7 H (1.3-7.7) k/uL Lymphocytes # 1.5 (1.0-4.8) k/uL Monocytes # 0.6 (0-1.0) k/uL Eosinophils # 0.2 (0-0.7) k/uL Basophils # 0.1 (0-0.2) k/uL PT (9.0-12.0) sec INR (<1.2) APTT (22.0-30.0) sec Sodium 119 L* (137-145) mmol/L Potassium 6.6 H* (3.5-5.1) mmol/L Chloride 83 L (98-107) mmol/L Carbon Dioxide 16 L (22-30) mmol/L Anion Gap 20 mmol/L BUN 54 H (7-17) mg/dL Creatinine 3.07 H (0.52-1.04) mg/dL Est GFR (CKD-EPI)AfAm 18 (>60 ml/min/1.73 sqM) Est GFR (CKD-EPI)NonAf 16 (>60 ml/min/1.73 sqM) Glucose 117 H (74-99) mg/dL Plasma Lactic Acid Adarsh 1.4 (0.7-2.0) mmol/L Calcium 9.2 (8.4-10.2) mg/dL Phosphorus 6.2 H (2.5-4.5) mg/dL Magnesium 1.4 L (1.6-2.3) mg/dL Total Bilirubin 0.8 (0.2-1.3) mg/dL AST 75 H (14-36) U/L ALT 37 (9-52) U/L Alkaline Phosphatase 66 (38-126) U/L Creatine Kinase 1261 H* (30-135) U/L Troponin I (0.000-0.034) ng/mL NT-Pro-B Natriuret Pep pg/mL Total Protein 8.3 H (6.3-8.2) g/dL Albumin 4.9 (3.5-5.0) g/dL 12/21/18 12/21/18 12/21/18 Range/Units 18:13 18:13 18:13 WBC (3.8-10.6) k/uL RBC (3.80-5.40) m/uL Hgb (11.4-16.0) gm/dL Hct (34.0-46.0) % MCV (80.0-100.0) fL MCH (25.0-35.0) pg MCHC (31.0-37.0) g/dL RDW (11.5-15.5) % Plt Count (150-450) k/uL Neutrophils % % Lymphocytes % % Monocytes % % Eosinophils % % Basophils % % Neutrophils # (1.3-7.7) k/uL Lymphocytes # (1.0-4.8) k/uL Monocytes # (0-1.0) k/uL Eosinophils # (0-0.7) k/uL Basophils # (0-0.2) k/uL PT 9.7 (9.0-12.0) sec INR 0.9 (<1.2) APTT 24.3 (22.0-30.0) sec Sodium (137-145) mmol/L Potassium (3.5-5.1) mmol/L Chloride (98-107) mmol/L Carbon Dioxide (22-30) mmol/L Anion Gap mmol/L BUN (7-17) mg/dL Creatinine (0.52-1.04) mg/dL Est GFR (CKD-EPI)AfAm (>60 ml/min/1.73 sqM) Est GFR (CKD-EPI)NonAf (>60 ml/min/1.73 sqM) Glucose (74-99) mg/dL Plasma Lactic Acid Adarsh (0.7-2.0) mmol/L Calcium (8.4-10.2) mg/dL Phosphorus (2.5-4.5) mg/dL Magnesium (1.6-2.3) mg/dL Total Bilirubin (0.2-1.3) mg/dL AST (14-36) U/L ALT (9-52) U/L Alkaline Phosphatase (38-126) U/L Creatine Kinase (30-135) U/L Troponin I 0.029 (0.000-0.034) ng/mL NT-Pro-B Natriuret Pep 1880 pg/mL Total Protein (6.3-8.2) g/dL Albumin (3.5-5.0) g/dL - Radiology Data Radiology results: report reviewed (CT of pelvis negative for significant acute disease), image reviewed Critical Care Time Critical Care Time: Yes Total Critical Care Time: 31 Disposition Clinical Impression: Hyponatremia, Dehydration, Acute renal failure, Rhabdomyolysis Disposition: ADMITTED IP TO THIS [facility] Condition: Fair Is patient prescribed a controlled substance at d/c from ED?: No Referrals: Anton Skaggs MD [Primary Care Provider] - 1-2 days
[2018-12-21 18:28] LABS: Basophils # (A) 0.1 k/uL (0-0.2); Basophils % (A) 1 %; Eosinophils # (A) 0.2 k/uL (0-0.7); Eosinophils % (A) 2 %; HCT 45.9 % (34.0-46.0); HGB 16.3 gm/dL (11.4-16.0); Lymphocytes # (A) 1.5 k/uL (1.0-4.8); Lymphocytes % (A) 13 %; MCH 34.4 pg (25.0-35.0); MCHC 35.4 g/dL (31.0-37.0); MCV 97.2 fL (80.0-100.0); Mean Platelet Volume 7.6; Monocytes # (A) 0.6 k/uL (0-1.0); Monocytes % (A) 5 %; Neutrophils # (A) 8.7 k/uL (1.3-7.7); Neutrophils % (A) 78 %; Platelet Count 287 k/uL (150-450); RBC 4.73 m/uL (3.80-5.40); RDW 13.9 % (11.5-15.5); WBC 11.1 k/uL (3.8-10.6)
[2018-12-21 18:34] LABS: Albumin 4.9 g/dL (3.5-5.0); Calcium 9.2 mg/dL (8.4-10.2); Magnesium 1.4 mg/dL (1.6-2.3); Phosphorus 6.2 mg/dL (2.5-4.5); Total Bilirubin 0.8 mg/dL (0.2-1.3); Total Protein 8.3 g/dL (6.3-8.2)
[2018-12-21 18:39] LABS: INR 0.9 (<1.2); Partial Thromboplastin Time 24.3 sec (22.0-30.0); Prothrombin Time 9.7 sec (9.0-12.0)
[2018-12-21 18:42] LABS: Potassium 6.6 mmol/L (3.5-5.1)
--- NOTE | 2018-12-21 19:16 | XR ---
EXAMINATION TYPE: XR chest 2V DATE OF EXAM: 12/21/2018 COMPARISON: 08/14/2015 HISTORY: Weakness TECHNIQUE: Frontal and lateral views of the chest are obtained. FINDINGS: There is some mild linear 3 x 1 cm infiltrate in the periphery left midlung. The other teetee g andrews are clear. There is flattening of the diaphragm. There is pulmonary hyperinflation. Heart si ze is normal. There is no pleural effusion. Bony thorax is intact. IMPRESSION: Linear infiltrate and atelectasis left upper lobe. This is seen area of nodular infiltra te on old chest x-ray. This could relate to old scarring. Normal heart. COPD.
--- NOTE | 2018-12-21 19:22 | CT ---
EXAMINATION TYPE: CT abdomen pelvis wo con DATE OF EXAM: 12/21/2018 COMPARISON: 06/15/2018 HISTORY: Weakness, nausea and vomiting x3 days. CT DLP: 259 mGycm Automated exposure control for dose reduction was used. TECHNIQUE: Helical acquisition of images was performed from the lung bases through the pelvis. FINDINGS: Lung bases are clear of consolidation. Heart size is normal. Liver shows no focal defect. Spleen appe ars normal. Stomach is intact. There are clips from cholecystectomy. There is extensive calcification in the abdominal aorta. There is aorto femoral bypass graft. There is no evidence of pancreatic mass. There is no adrenal mass. Kidneys have normal size. There is no hydronephrosis. There is no retroperitoneal adenopathy. There is ileostomy in the right mid abdom en. There is peristomal hernia that contains loops of bowel. I see no evidence of a mechanical bowel obstruction. There is no ascites. There is no sign of free air. There is spondylotic changes in the l umbar spine with sclerosis and spur formation. There is disc space narrowing at L2-3 and L4-5 with sp urring and vacuum disc. There is no compression fracture. Bony pelvis appears intact. IMPRESSION: EXTENSIVE ATHEROSCLEROTIC OCCLUSIVE DISEASE OF THE ABDOMINAL AORTA AND ILIAC ARTERIES. ILEOSTOMY. THE RE IS A NEW PARASTOMAL HERNIA COMPARED TO OLD EXAM. NO EVIDENCE OF A BOWEL OBSTRUCTION.
[2018-12-21] MEDS ORDERED: NALOXONE 0.4 MG/ML 1 ML VIAL IV PRN (19:36)
[2018-12-21] MEDS ORDERED: MORPHINE SULFATE 4 MG/ML SYRINGE IV PRN (19:36)
[2018-12-21] MEDS ORDERED: DEXTROSE 5%-0.9% NACL 1,000 ML IV SCH (19:45)
[2018-12-21 21:13] LABS: Glucose,Whole Blood 116 mg/dL (75-99)
[2018-12-21] MEDS ORDERED: ALBUTEROL NEBULIZED (CONC) 10 MG, SODIUM CHLORIDE 0.9% NEBULIZ 3 ML INHALATION STA ×4 (22:36→23:50)
[2018-12-21] MEDS ORDERED: INSULIN REGULAR 100 UNIT/ML VIAL IV ONE (22:38)
[2018-12-21] MEDS ORDERED: DEXTROSE 50% SYRINGE 50 ML IVP STA (22:39)
[2018-12-21] MEDS ORDERED: SODIUM POLYSTYRENE SULFONATE 15 GM/60 ML BOTTLE PO STA (22:41)
[2018-12-21] MEDS ORDERED: FUROSEMIDE 10 MG/ML 2 ML VIAL IV STA (22:43)
[2018-12-21] MEDS ORDERED: CALCIUM GLUCONATE 2 GM in SODIUM CHLORIDE 0.9% 100 ML IVPB ONE (22:45)
[2018-12-21] MEDS: DEXTROSE 10 % IN WATER 250 ML IV SCH ×2 (23:19→23:28)
[2018-12-21] MEDS ORDERED: ALBUTEROL NEBULIZED 2.5 MG/3 ML INHALATION STA (23:54)
[2018-12-22 03:18] LABS: Basophils % (A) 1 %; Eosinophils # (A) 0.1 k/uL (0-0.7); Eosinophils % (A) 2 %; HCT 40.4 % (34.0-46.0); HGB 13.8 gm/dL (11.4-16.0); Lymphocytes # (A) 0.9 k/uL (1.0-4.8); Lymphocytes % (A) 16 %; MCH 33.9 pg (25.0-35.0); MCV 99.6 fL (80.0-100.0); Monocytes # (A) 0.5 k/uL (0-1.0); Monocytes % (A) 8 %; Neutrophils % (A) 72 %; Platelet Count 189 k/uL (150-450); RBC 4.06 m/uL (3.80-5.40); RDW 13.7 % (11.5-15.5); WBC 5.6 k/uL (3.8-10.6)
[2018-12-22 03:33] LABS: Albumin 3.4 g/dL (3.5-5.0); Calcium 8.4 mg/dL (8.4-10.2); Magnesium 1.3 mg/dL (1.6-2.3); Phosphorus 4.6 mg/dL (2.5-4.5); Potassium 4.4 mmol/L (3.5-5.1); Total Bilirubin 0.4 mg/dL (0.2-1.3); Total Protein 6.1 g/dL (6.3-8.2)
[2018-12-22] MEDS ORDERED: SODIUM CHLORIDE 0.45% 1,000 ML IV SCH (04:00)
[2018-12-22] MEDS ORDERED: Magnesium Replacement Protocol 1 EACH MISC MISCELLANE PRN (04:13)
[2018-12-22] MEDS: MAGNESIUM SULFATE-D5W PMX 1 GM in DEXTROSE/WATER 1 100ML.BAG IVPB SCH ×3 (04:28→06:36)
[2018-12-22] MEDS ORDERED: ONDANSETRON 4 MG/2 ML VIAL IVP PRN (04:42)
[2018-12-22] MEDS: ALPRAZolam 0.5 MG TAB PO PRN ×3 (05:21→20:42)
[2018-12-22 07:26] LABS: Glucose,Whole Blood 144 mg/dL (75-99)
[2018-12-22] MEDS: IPRATROPIUM-ALBUTEROL 3 ML NEB INHALATION PRN ×2 (07:26→20:10)
[2018-12-22] MEDS: HYDROcodone/APAP 10-325MG 1 EACH TAB PO PRN ×3 (07:37→20:42)
[2018-12-22] MEDS ORDERED: ENOXAPARIN 40 MG/0.4 ML SYRINGE SQ SCH (09:00)
[2018-12-22] MEDS ORDERED: PANTOPRAZOLE 40 MG/10 ML VIAL IV SCH (09:00)
[2018-12-22 10:26] VITALS: BMI 18.6
[2018-12-22 13:16] LABS: Calcium 8.1 mg/dL (8.4-10.2); Potassium 5.4 mmol/L (3.5-5.1)
--- NOTE | 2018-12-22 13:29 | P.NPCON ---
History of Present Illness - Reason for Consult acute renal failure, hyponatremia - History of Present Illness Reason for consultation: Acute kidney injury and hyponatremia History of present illness: Patient is a 63-year-old female seen in renal consultation for acute kidney injury and hyponatremia. Patient's sodium level on admission on December 21 at 6 PM was 119. She was started on normal saline and sodium level increased to 126. Diabetes fluids were switched to half-normal saline and repeat sodium level from noon today is 129. Creatinine was 3.07 on admission and is down to 1.24 today. Hyperkalemia has improved significantly. She is nonoliguric. She denies hematuria or dysuria. Patient was brought to the hospital by the family due to generalized weakness. Patient states her oral intake has been quite poor and she's been losing weight as well. She denies regular use of nonsteroidals. Denies any prior history of kidney disease. No family history of renal disease. She did undergo CT of the abdomen and pelvis in the ER which revealed a new parastomal hernia. No evidence of hydronephrosis was noted. No evidence of bowel obstruction was noted either Vital signs are stable. General: The patient appeared well nourished and normally developed. HEENT: Head exam is unremarkable. Neck is without jugular venous distension. LUNGS: Lungs are clear to auscultation and percussion. Breath sounds decreased. HEART: Rate and Rhythm are regular. First and second heart sounds normal. No murmurs, rubs or gallops. ABDOMEN: Abdominal exam reveals normal bowel sounds. Non-tender and non- distended. No evidence of peritonitis. EXTREMITITES: No clubbing, cyanosis, or edema. Past Medical History Past Medical History: Coronary Artery Disease (CAD), Cancer, Chest Pain / Angina, COPD, Hearing Disorder / Deafness, Hypertension, Liver Disease, Os teoarthritis (OA) Additional Past Medical History / Comment(s): HX of Hepatitis C with TX., emphysema, restless leg syndrome, has colostomy. lung cancer with radiation tx (2016), oxygen prn 2 liters, Hx stomach ulcer., Back pain, hearing loss right ear History of Any Multi-Drug Resistant Organisms: None Reported Past Surgical History: Appendectomy, Bowel Resection, Cholecystectomy Additional Past Surgical History / Comment(s): HX OF AORTO BIFEMORAL GRAFT- FEM PAP BYPASS, COLOSTOMY . Past Anesthesia/Blood Transfusion Reactions: No Reported Reaction Past Psychological History: Anxiety Smoking Status: Current every day smoker Past Alcohol Use History: Occasional Additional Past Alcohol Use History / Comment(s): SMOKES 1/2 PPD, HX OF 1 PPD., SMOKING FOR OVER 50 years. Past Drug Use History: Marijuana Additional Drug Use History / Comment(s): CURRENT MARIJUANA USE. - Past Family History Father Family Medical History: Cancer Additional Family Medical History / Comment(s): Prostate CA. Daughter(s) Family Medical History: Cancer Additional Family Medical History / Comment(s): BONE CANCER Medications and Allergies Home Medications Medication Instructions Recorded Confirmed Type ALPRAZolam [Xanax] 0.5 mg PO TID PRN 08/14/15 12/21/18 History Aspirin EC [Ecotrin Low Dose] 81 mg PO BID 08/14/15 12/21/18 History HYDROcodone/APAP 10-325MG [[place] 1 tab PO Q6H PRN 08/14/15 12/21/18 History 10-325] Methocarbamol [Robaxin] 500 mg PO BID PRN 08/14/15 12/21/18 History Metoprolol Tartrate [Lopressor] 25 mg PO BID 08/14/15 12/21/18 History Meloxicam [Mobic] 7.5 mg PO BID 03/14/16 12/21/18 History Oxybutynin Chloride [Ditropan XL] 10 mg PO DAILY 06/23/18 12/21/18 History Albuterol Sulfate [Proventil Hfa] 1 puff INHALATION RT-DAILY 12/21/18 12/21/18 History Beclomethasone Dipropionate [Qvar 1 puff INHALATION RT-DAILY 12/21/18 12/21/18 History 40 mcg Redihaler] Calcium Carbonate [Calcium] 1,200 mg PO DAILY 12/21/18 12/21/18 History Cholecalciferol (Vitamin D3) 2,000 unit PO DAILY 12/21/18 12/21/18 History [Vitamin D3] Dronabinol [Marinol] 5 mg PO HS 12/21/18 12/21/18 History Ipratropium-Albuterol Nebulize 3 ml INHALATION RT-DAILY 12/21/18 12/21/18 History [Duoneb 0.5 mg-3 mg/3 ml Soln] traZODone HCL [Desyrel] 100 mg PO HS 12/21/18 12/21/18 History Allergies Allergy/AdvReac Type Severity Reaction Status Date / Time No Known Allergies Allergy Verified 12/21/18 17:57 Physical Exam Vitals: Vital Signs Temp Pulse Resp BP Pulse Ox 12/22/18 12:00 98 F 67 12 129/78 97 12/22/18 11:30 77 14 111/55 98 12/22/18 11:00 74 15 101/61 95 12/22/18 10:30 69 15 90/65 97 12/22/18 10:00 82 18 99/61 96 12/22/18 09:30 82 19 112/65 96 12/22/18 09:00 80 17 112/77 97 12/22/18 08:30 82 15 91/63 97 12/22/18 08:00 98.2 F 83 13 123/70 99 12/22/18 07:37 97 12/22/18 07:30 79 15 91/74 96 12/22/18 07:29 100 12/22/18 07:00 90 13 100/79 96 12/22/18 06:00 87 14 126/75 99 12/22/18 05:00 95 14 144/80 95 12/22/18 04:00 98.2 F 72 13 110/64 98 12/22/18 03:00 77 13 107/64 94 L 12/22/18 02:00 92 16 101/53 97 12/22/18 01:00 98 19 102/59 96 12/22/18 00:02 74 16 12/22/18 00:00 97.6 F 86 15 91/55 96 12/21/18 23:00 80 20 96/65 95 12/21/18 22:00 73 12 96/63 96 12/21/18 21:30 97.5 F L 94 14 98/75 94 L 12/21/18 17:44 97.7 F 103 H 18 90/66 95 Intake and Output 12/21/18 12/22/18 12/22/18 22:59 06:59 14:59 Intake Total 185 1630 600 Output Total 0 2300 550 Balance 185 -670 50 Intake: IV 500 Sodium Chloride 0.45% 1, 500 000 ml @ 100 mls/hr IV . Q10H [facility] Rx#:[id number] Intake, IV Titration 185 1630 100 Amount Calcium Gluconate 2 gm In 100 Sodium Chloride 0.9% 100 ml @ 100 mls/hr IVPB ONCE ONE Rx#:[id number] Dextrose 10 % in Water 250 250 ml @ 1000 mls/hr IV . Q15M [facility] Rx#:[id number] Dextrose 5%-0.9% NaCl 1, 85 380 000 ml @ 85 mls/hr IV . [id number] [facility] Rx#:[id number] Magnesium Sulfate-D5w Pmx 100 1 gm In Dextrose/Water 1 100ml.bag @ 100 mls/hr IVPB Q1H [facility] Rx#: [id number] Sodium Chloride 0.45% 1, 200 100 000 ml @ 100 mls/hr IV . Q10H [facility] Rx#:[id number] Sodium Chloride 0.9% 1, 100 600 000 ml @ 100 mls/hr IV . Q10H [facility] Rx#:[id number] Output: Urine 0 2150 550 Stool 150 Other: Voiding Method Bedpan Bedpan # Voids 0 Weight 40.823 kg 46.2 kg 46.2 kg Results - Lab Results Most recent lab results Calcium 8.1 mg/dL (8.4-10.2) L 12/22/18 11:56 Phosphorus 4.6 mg/dL (2.5-4.5) H 12/22/18 02:44 Magnesium 1.3 mg/dL (1.6-2.3) L 12/22/18 02:44 12/22/18 02:44 12/22/18 11:56 Assessment and Plan Plan: Assessment: 1. Hypovolemic hyponatremia improving with IV hydration. Sodium level was 119 on admission as of yesterday evening and was up to 129 when checked at noon today. 2. Hyperkalemia secondary to acute kidney injury and metabolic acidosis. Improved. 3. Acute kidney injury mostly prerenal due to poor oral intake and hypotension improving with IV hydration. Creatinine was over 3 on admission and is down to 1.24 today. Baseline creatinine near 1. No evidence of hydronephrosis noted. Patient denies use of nonsteroidals however I do not meloxicam and her home medications. 4. Hypomagnesemia from poor oral intake. Being replaced. 5. Poor oral intake and weight loss. No acute changes noted on CAT scan. 6. Metabolic acidosis secondary to acute kidney injury. Better. Plan: I will change IV fluids to D5W at 100 mL an hour to slowly correction of hyponatremia. Repeat sodium level at 6 PM today. Encouraged oral intake. Avoid nephrotoxins. Check urinalysis. Thank you for the consultation. I will continue to follow the patient with you during her hospital stay.
[2018-12-22] MEDS ORDERED: DEXTROSE 5% IN WATER 1,000 ML IV SCH (13:30)
--- NOTE | 2018-12-22 14:49 | HP ---
HISTORY AND PHYSICAL CHIEF COMPLAINT: Weakness, inability to ambulate, dehydration, COPD and history of carcinoma of the lung. HISTORY OF PRESENT ILLNESS: This is another admission for this 63-year-old white female with COPD and CA of the lung. She has been doing reasonably well at home since her diagnosis of her malignancy. She continues to smoke. She came in the emergency room because she became progressively weak and was unable ambulate. In the ER, she was extremely dehydrated and electrolytes are abnormal. Sodium was 119 and potassium 6.6. Chloride is 83 and CO2 is 16. BNP was 1880 and BUN was 54 with a creatinine of 3.07. REVIEW OF SYSTEMS: She denied headaches, chest pain, hemoptysis, abdominal pain, nausea, vomiting, diarrhea, etc. Past medical history, family history personal and social histories reveal that she is not ALLERGIES: Any medication and she has been on metoprolol 25 mg twice a day, Ropinirole 0.5 one or two tablets at bedtime, meloxicam 7.5 twice a day, updrafts with DuoNeb q.i.d. p.r.n., trazodone 150 mg at bedtime, oxybutynin ER 10 mg once a day, methocarbamol 500 mg twice a day p.r.n., vitamin D 50,000 units a month, Ventolin HFA MDI, benazepril 10 mg once a day, Symbicort 160/4.5 two puffs twice a day, 81 mg aspirin, Vicodin 10-325 q.4 p.r.n., and Xanax 0.5 t.i.d. p.r.n. Remainder of her history is unremarkable. PHYSICAL EXAMINATION: Blood pressure is 91/63 with a pulse of 103. She is afebrile. In general, she appeared to be dehydrated and chronically ill. Skin was tanned. Head, ears, eyes, nose, mouth, and throat were normal except for dry mucous membranes. Chest is clear. Cardiac exam demonstrates sinus tachycardia. Abdomen is soft, nontender without any masses. Extremities are normal and neurologically she was intact but very weak. She is admitted to the hospital with diagnosis:: 1. Generalized weakness and debility. 2. Dehydration. 3. Electrolyte imbalance. 4. Hypotension. 5. Renal failure. 6. Possible congestive heart failure. PLAN: 1. Bed rest. 2. Rehydrate. 3. Correct electrolyte imbalance. 4. Consider consult with Oncology and Nephrology depending on how she responds to IV fluids. MMODL / IJN: [id number] /
--- NOTE | 2018-12-22 15:10 | PN ---
PROGRESS NOTE CHIEF COMPLAINT: General debility, weakness and dehydration. HISTORY OF PRESENT ILLNESS: This lady still feels extremely weak. She is not nauseated. She has no pain. She is not short of breath. PHYSICAL EXAM: Breath sounds are heard bilaterally with occasional rales and rhonchi. Cardiac exam is normal and the. Abdomen is soft. She remains dehydrated. IMPRESSION: 1. Dehydration. 2. General debility and weakness. 3. History of carcinoma of the lung. 4. Chronic obstructive pulmonary disease. 5. Renal failure. PLAN: Continue with IV fluids and rehydration and continue to follow labs. MMODL / IJN: [id number] /
[2018-12-22 17:31] LABS: Hemoglobin A1C 5.5 % (4.0-6.0)
--- NOTE | 2018-12-22 17:41 | P.CNPUL ---
History of Present Illness Consult date: 12/22/18 (Critical care time spent 45 minutes) Reason for consult: dyspnea, cough, COPD, lung mass Chief complaint: Feeling weak and not eating or drinking for last 3 days History of present illness: This is a 63-year-old female well-known to me patient has a long-standing history of end-stage lung disease. 2 COPD emphysema on chronic nocturnal oxygen and breathing treatments he also has a history of ischemic bowel requiring colostomy postoperatively, patient has a history of lung cancer treated with radiation therapy 3 years ago she is being actively followed closely with radiation therapist and oncologist and myself as well her respiratory status remains marginal require breathing treatments for the last 3 days she has not been eating and drinking much, feeling poor appetite, complaining of increasing weakness decreased strength decreased ability to ambulate. Patient is able to urinate but appetite has been severely diminished weight loss is increased as of late. She is continuing to lose weight secondary to no appetite. No recent change in medications. Family has noticed progressive weakness but over the last 3 days inability to get up and down vertigo downstairs activities of daily living significantly decreased, on arrival her laboratory data was significant for leukocytosis severe hyponatremia and hyperkalemia with acute renal failure of urine were 54 and creatinine 3.07 total CK were elevated to over 1200 highly suggests suggestive of acute rhabdomyolysis phosphorous was 6.2 as well potassium was noted to be 6.6 with T-wave changes on EKG requiring emergent treatment of hyperkalemia, sodium was noted to 119, her chest x-ray did not show any acute finding but 80 of left upper lobe bandlike scar was seen likely related to prior radiation-induced lung injury, her abdominal CT noted to have atherosclerosis in the abdominal aorta and iliac artery some parastomal hernia was noted Review of Systems All systems: negative Past Medical History Past Medical History: Coronary Artery Disease (CAD), Cancer, Chest Pain / Angina, COPD, Hearing Disorder / Deafness, Hypertension, Liver Disease, Osteoarthritis (OA) Additional Past Medical History / Comment(s): HX of Hepatitis C with TX., emph ysema, restless leg syndrome, has colostomy. lung cancer with radiation tx (2016), oxygen prn 2 liters, Hx stomach ulcer., Back pain, hearing loss right ear History of Any Multi-Drug Resistant Organisms: None Reported Past Surgical History: Appendectomy, Bowel Resection, Cholecystectomy Additional Past Surgical History / Comment(s): HX OF AORTO BIFEMORAL GRAFT- FEM PAP BYPASS, COLOSTOMY . Past Anesthesia/Blood Transfusion Reactions: No Reported Reaction Past Psychological History: Anxiety Smoking Status: Current every day smoker Past Alcohol Use History: Occasional Additional Past Alcohol Use History / Comment(s): SMOKES 1/2 PPD, HX OF 1 PPD., SMOKING FOR OVER 50 years. Past Drug Use History: Marijuana Additional Drug Use History / Comment(s): CURRENT MARIJUANA USE. - Past Family History Father Family Medical History: Cancer Additional Family Medical History / Comment(s): Prostate CA. Daughter(s) Family Medical History: Cancer Additional Family Medical History / Comment(s): BONE CANCER Medications and Allergies Home Medications Medication Instructions Recorded Confirmed Type ALPRAZolam [Xanax] 0.5 mg PO TID PRN 08/14/15 12/21/18 History Aspirin EC [Ecotrin Low Dose] 81 mg PO BID 08/14/15 12/21/18 History HYDROcodone/APAP 10-325MG [[place] 1 tab PO Q6H PRN 08/14/15 12/21/18 History 10-325] Methocarbamol [Robaxin] 500 mg PO BID PRN 08/14/15 12/21/18 History Metoprolol Tartrate [Lopressor] 25 mg PO BID 08/14/15 12/21/18 History Meloxicam [Mobic] 7.5 mg PO BID 03/14/16 12/21/18 History Oxybutynin Chloride [Ditropan XL] 10 mg PO DAILY 06/23/18 12/21/18 History Albuterol Sulfate [Proventil Hfa] 1 puff INHALATION RT-DAILY 12/21/18 12/21/18 History Beclomethasone Dipropionate [Qvar 1 puff INHALATION RT-DAILY 12/21/18 12/21/18 History 40 mcg Redihaler] Calcium Carbonate [Calcium] 1,200 mg PO DAILY 12/21/18 12/21/18 History Cholecalciferol (Vitamin D3) 2,000 unit PO DAILY 12/21/18 12/21/18 History [Vitamin D3] Dronabinol [Marinol] 5 mg PO HS 12/21/18 12/21/18 History Ipratropium-Albuterol Nebulize 3 ml INHALATION RT-DAILY 12/21/18 12/21/18 History [Duoneb 0.5 mg-3 mg/3 ml Soln] traZODone HCL [Desyrel] 100 mg PO HS 12/21/18 12/21/18 History Allergies Allergy/AdvReac Type Severity Reaction Status Date / Time No Known Allergies Allergy Verified 12/21/18 17:57 Physical Exam Vitals: Vital Signs Temp Pulse Resp BP Pulse Ox 12/22/18 16:00 98.2 F 67 17 114/83 95 12/22/18 15:00 94 13 103/83 94 L 12/22/18 14:00 87 16 104/71 96 12/22/18 13:30 90 15 89/61 96 12/22/18 13:00 87 13 111/80 95 12/22/18 12:30 87 15 95 12/22/18 12:00 98 F 67 12 129/78 97 12/22/18 11:30 77 14 111/55 98 12/22/18 11:00 74 15 101/61 95 12/22/18 10:30 69 15 90/65 97 12/22/18 10:00 82 18 99/61 96 12/22/18 09:30 82 19 112/65 96 12/22/18 09:00 80 17 112/77 97 12/22/18 08:30 82 15 91/63 97 12/22/18 08:00 98.2 F 83 13 123/70 99 12/22/18 07:37 97 12/22/18 07:30 79 15 91/74 96 12/22/18 07:29 100 12/22/18 07:00 90 13 100/79 96 12/22/18 06:00 87 14 126/75 99 12/22/18 05:00 95 14 144/80 95 12/22/18 04:00 98.2 F 72 13 110/64 98 12/22/18 03:00 77 13 107/64 94 L 12/22/18 02:00 92 16 101/53 97 12/22/18 01:00 98 19 102/59 96 12/22/18 00:02 74 16 12/22/18 00:00 97.6 F 86 15 91/55 96 12/21/18 23:00 80 20 96/65 95 12/21/18 22:00 73 12 96/63 96 12/21/18 21:30 97.5 F L 94 14 98/75 94 L 12/21/18 17:44 97.7 F 103 H 18 90/66 95 Intake and Output 12/22/18 12/22/18 12/22/18 06:59 14:59 22:59 Intake Total 1630 800 200 Output Total 2300 550 400 Balance -670 250 -200 Intake: IV 700 200 Dextrose 5% in Water 1, 100 200 000 ml @ 100 mls/hr IV . Q10H [facility] Rx#:[id number] Sodium Chloride 0.45% 1, 600 000 ml @ 100 mls/hr IV . Q10H [facility] Rx#:[id number] Intake, IV Titration 1630 100 Amount Calcium Gluconate 2 gm In 100 Sodium Chloride 0.9% 100 ml @ 100 mls/hr IVPB ONCE ONE Rx#:[id number] Dextrose 10 % in Water 250 250 ml @ 1000 mls/hr IV . Q15M [facility] Rx#:[id number] Dextrose 5%-0.9% NaCl 1, 380 000 ml @ 85 mls/hr IV . [id number] [facility] Rx#:[id number] Magnesium Sulfate-D5w Pmx 100 1 gm In Dextrose/Water 1 100ml.bag @ 100 mls/hr IVPB Q1H [facility] Rx#: [id number] Sodium Chloride 0.45% 1, 200 100 000 ml @ 100 mls/hr IV . Q10H [facility] Rx#:[id number] Sodium Chloride 0.9% 1, 600 000 ml @ 100 mls/hr IV . Q10H [facility] Rx#:[id number] Output: Urine 2150 550 250 Stool 150 150 Other: Voiding Method Bedpan Bedpan # Voids 0 0 Weight 46.2 kg 46.2 kg - Constitutional General appearance: average body habitus, cooperative, disheveled, no acute distress, thin - EENT Eyes: EOMI, PERRLA, poor dentition ENT: normal oropharynx Ears: bilateral: normal - Neck Neck: normal ROM Carotids: bilateral: upstroke normal Thyroid: bilateral: normal size - Respiratory Respiratory: bilateral: diminished, wheezing (Findings bilateral), negative: dullness, rales, rhonchi - Cardiovascular Rhythm: regular Heart sounds: normal: S1, S2 - Gastrointestinal General gastrointestinal: decreased bowel sounds, soft - Neurologic Neurologic: CNII-XII intact - Musculoskeletal Musculoskeletal: gait normal, generalized weakness, strength equal bilaterally - Psychiatric Psychiatric: A&O x's 3, appropriate affect, intact judgment & insight Colostomy intact Results - Laboratory Findings CBC and BMP: 12/22/18 02:44 12/22/18 11:56 PT/INR, D-dimer PT 9.7 sec (9.0-12.0) 12/21/18 18:13 INR 0.9 (<1.2) 12/21/18 18:13 Abnormal lab findings: Abnormal Labs 12/21/18 12/21/18 12/21/18 18:13 18:13 21:11 WBC 11.1 H Hgb 16.3 H Neutrophils # 8.7 H Lymphocytes # Sodium 119 L* Potassium 6.6 H* Chloride 83 L Carbon Dioxide 16 L BUN 54 H Creatinine 3.07 H Glucose 117 H POC Glucose (mg/dL) 116 H Calcium Phosphorus 6.2 H Magnesium 1.4 L AST 75 H Creatine Kinase 1261 H* Total Protein 8.3 H Albumin 12/22/18 12/22/18 12/22/18 02:44 02:44 07:07 WBC Hgb Neutrophils # Lymphocytes # 0.9 L Sodium 126 L Potassium Chloride 96 L Carbon Dioxide 20 L BUN 44 H Creatinine 1.67 H Glucose POC Glucose (mg/dL) 144 H Calcium Phosphorus 4.6 H Magnesium 1.3 L AST 57 H Creatine Kinase Total Protein 6.1 L Albumin 3.4 L 12/22/18 11:56 WBC Hgb Neutrophils # Lymphocytes # Sodium 129 L Potassium 5.4 H Chloride 95 L Carbon Dioxide 21 L BUN 35 H Creatinine 1.24 H Glucose POC Glucose (mg/dL) Calcium 8.1 L Phosphorus Magnesium AST Creatine Kinase Total Protein Albumin - Diagnostic Findings Chest x-ray: report reviewed, image reviewed (Area of the radiation-induced lung injury on left upper lobe) Assessment and Plan Assessment: Acute rhabdomyolysis Acute hyperkalemia Acute renal failure Severe hyponatremia Hypophosphatemia Cachexia and weight loss 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 oxygen dependent and nebulizer dependent History of left upper lobe multiple nodular is, lung cancer status post XRT Plan: Therapy of hyperkalemia and hyponatremia given potassium is normalized, sodium levels are improved see orders for details Continue bronchodilators Hold on steroids Hold on antibiotics Continue gentle hydration Obtain a computed tomography scan of the chest as she is due for computed tomography scan of the chest Further evaluations pending further recommendations as per clinical response DVT prophylaxis Peptic ulcer disease prophylaxis Time with Patient: Greater than 30
--- NOTE | 2018-12-22 18:17 | CT ---
EXAMINATION TYPE: CT chest wo con DATE OF EXAM: 12/22/2018 COMPARISON: 09/23/2018 HISTORY: Coughing, DAVID mass CT DLP: 196.9 mGycm. Automated Exposure Control for Dose Reduction was Utilized. TECHNIQUE: CT scan of the thorax is performed without IV contrast. FINDINGS: There is pulmonary hyperinflation and flattening of the diaphragm. There is no pleural effusion. Hear t size is normal. There is no pericardial effusion. Thoracic aorta is atheromatous. There are no valentino r masses. There is no mediastinal adenopathy. There is coarse linear interstitial density in the late ral aspect of the left midlung. This is involving mainly the posterior segment of the left upper lobe and extends to the superior segment of the left lower lobe. There is no discrete mass. Total area of density is approximately 7 x 3 cm. The thoracic spine is intact. Ribs appear intact. I see no bony d estructive process. There is moderate spondylosis at L1-2 disc. There are clips from cholecystectomy. IMPRESSION: There is chronic coarse interstitial density in the lateral aspect left upper lobe consis tent with scarring that is unchanged compared to old exam. There is clearing of the patchy atelectasi s lateral left lung base compared to old exam. No suspicious pulmonary density. There is probably RN CHARGE D. Significant atherosclerotic plaque formation in the upper abdominal aorta. Aortic stent noted.
[2018-12-22 20:20] LABS: Appearance,Urine Clear (Clear); Bacteria,Urine Occasional /hpf; Bilirubin,Urine Negative (Negative); Blood,Urine Negative (Negative); Budding Yeast,Urine Occasional /hpf; Color,Urine Light Yellow; Glucose,Urine (UA) Negative (Negative); Hyaline Casts,Urine 1 /lpf (0-2); Ketones,Urine Negative (Negative); Leukocyte Esterase,Urine Large (Negative); Nitrite,Urine Negative (Negative); PH, Urine 5.5 (5.0-8.0); Protein,Urine Negative (Negative); RBC,Urine 1 /hpf (0-5); Specific Gravity,Urine 1.007 (1.001-1.035); Squamous Epithelial Cell,Urine 7 /hpf (0-4); Urobilinogen,Urine <2.0 mg/dL (<2.0)
[2018-12-23] MEDS: HYDROcodone/APAP 10-325MG 1 EACH TAB PO PRN ×4 (05:05→23:32)
[2018-12-23 06:49] LABS: Calcium 8.3 mg/dL (8.4-10.2); Potassium 4.6 mmol/L (3.5-5.1)
[2018-12-23] MEDS: ALPRAZolam 0.5 MG TAB PO PRN ×3 (06:59→20:36)
[2018-12-23] MEDS: PANTOPRAZOLE 40 MG TABLET PO SCH (07:47)
[2018-12-23] MEDS: ENOXAPARIN 30 MG/0.3 ML SYRINGE SQ SCH (07:47)
[2018-12-23] MEDS: IPRATROPIUM-ALBUTEROL 3 ML NEB INHALATION PRN ×2 (07:53→16:10)
--- NOTE | 2018-12-23 13:08 | PN ---
PROGRESS NOTE DATE OF SERVICE: 12/23/2018. CHIEF COMPLAINT: Dehydration, exacerbation of COPD and pneumonitis. HISTORY OF PRESENT ILLNESS: This lady is doing a little bit better. Hydration is improved and she feels better. She is not having any trouble with abdominal pain, nausea, vomiting, etc. Renal function is improving. PHYSICAL EXAMINATION: Chest demonstrates poor breath sounds, but there are no significant rales or rhonchi. Cardiac exam is normal. Abdomen is soft, nontender. Hydration is improved. IMPRESSION: 1. Pneumonitis. 2. Chronic obstructive pulmonary disease. 3. Dehydration. 4. Electrolyte imbalance. PLAN: 1. Repeat laboratory studies. 2. Increase activity and diet. 3. She wants to be a DO NOT RESUSCITATE in this order was given. MMODL / IJN: [id number] /
--- NOTE | 2018-12-23 15:09 | CDI ---
Documentation Clarification Form Date: 12/23/2018 3:01:30 PM From: Tawny BeckerFLORY fraga, CCDS Admit Date: 12/21/2018 7:37:00 PM Patient Name: Madeline Zapata V Visit Number: [id number] Discharge Date: ATTENTION: The Clinical Documentation Specialists (CDI) and [facility] Coding Staff appreciate your assistance in clarifying documentation. Please respond to the clarification below the line at the bottom and electronically sign. The CDI & [facility] Coding staff will review the response and follow-up if needed. Please note: Queries are made part of the Legal Health Record. If you have any questions, please contact the author of this message via ITS. Dr. Anton Skaggs: Per the Nephrology Consult: Poor oral intake & weight loss. Per the Pulmonary Consult: Cachexia & weight loss. History/Risk Factors: Lung CA, Hypertension, CAD, OA, COPD, O2 dependent. Clinical Indicators: Presented with weakness & inability to walk. Appetite severely diminished, not eating or drinking x3 days. Labs: WBC 11.1^, Hgb 16.3^, Neut 8.7^, Na 119, K 6.6^^, CO2 16*, BUN 54^, Cr 3.07^, Glucose 117^, Phosphorus 6.2^, Mag 1.4*, AST 75^, Creatine Kinase 1261^^, Total Protein 8.3^. Current BMI: 18.6* Nutritional assessment: Unintended weight loss, decreased appetite & intake past year. 11% involuntary weight loss. Treatment: IV Ms, IV fluid bolus, IV fluid 100, INH Albuterol, IV Dextrose, IV Insulin, IV Lasix, IV Calcium gluconate, Ensure Enlive TID. In your professional opinion, can you please clarify if these findings signify one of the following conditions? Mild Protein-Calorie Malnutrition Moderate Protein-Calorie Malnutrition Severe Protein-Calorie Malnutrition Other condition, please specify Unable to determine (Last Revision: October 2018) MTDD
--- NOTE | 2018-12-23 15:17 | P.PN ---
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 oxygen dependent and nebulizer dependent History of left upper lobe multiple nodular is, lung cancer status post XRT 12/23/2018, patient seen and evaluated examined during the rounds computed tomography scan of the chest has been reviewed there is radiation scar is present, consistent with the radiation induced lung injury which is about 7 x 3 cm in size no discrete mass is present no significant hilar or mediastinal adenopathy has been identified overall finding on the computed tomography scan are very much similar to the prior scan This is a 63-year-old female well-known to me patient has a long-standing history of end-stage lung disease. 2 COPD emphysema on chronic nocturnal oxygen and breathing treatments he also has a history of ischemic bowel requiring colo stomy postoperatively, patient has a history of lung cancer treated with radiation therapy 3 years ago she is being actively followed closely with radiation therapist and oncologist and myself as well her respiratory status remains marginal require breathing treatments for the last 3 days she has not been eating and drinking much, feeling poor appetite, complaining of increasing weakness decreased strength decreased ability to ambulate. Patient is able to urinate but appetite has been severely diminished weight loss is increased as of late. She is continuing to lose weight secondary to no appetite. No recent change in medications. Family has noticed progressive weakness but over the last 3 days inability to get up and down vertigo downstairs activities of daily living significantly decreased, on arrival her laboratory data was significant for leukocytosis severe hyponatremia and hyperkalemia with acute renal failure of urine were 54 and creatinine 3.07 total CK were elevated to over 1200 highly suggests suggestive of acute rhabdomyolysis phosphorous was 6.2 as well potassium was noted to be 6.6 with T-wave changes on EKG requiring emergent treatment of hyperkalemia, sodium was noted to 119, her chest x-ray did not show any acute finding but 80 of left upper lobe bandlike scar was seen likely related to prior radiation-induced lung injury, her abdominal CT noted to have atherosclerosis in the abdominal aorta and iliac artery some parastomal hernia was noted Objective - Vital Signs Vital signs: Vital Signs Temp 97.7 F 12/23/18 06:53 Pulse 112 H 12/23/18 08:07 Resp 17 12/23/18 06:53 BP 120/80 12/23/18 06:53 Pulse Ox 93 L 12/23/18 06:53 Intake & Output 12/22/18 12/23/18 12/23/18 18:59 06:59 18:59 Intake Total 1000 400 Output Total 950 602 Balance 50 -202 Weight 46.2 kg Intake: IV 900 400 Dextrose 5% in Water 1, 300 400 000 ml @ 100 mls/hr IV . Q10H ELLEN Rx#:[id number] Sodium Chloride 0.45% 1, 600 000 ml @ 100 mls/hr IV . Q10H ELLEN Rx#:[id number] Intake, IV Titration 100 Amount Sodium Chloride 0.45% 1, 100 000 ml @ 100 mls/hr IV . Q10H ELLEN Rx#:[id number] Output: Urine 800 Stool 150 602 Other: Voiding Method Bedpan Bedpan Bedside Commode # Voids 0 3 - Exam - Constitutional General appearance: average body habitus, cooperative, disheveled, no acute distress, thin - EENT Eyes: EOMI, PERRLA, poor dentition ENT: normal oropharynx Ears: bilateral: normal - Neck Neck: normal ROM Carotids: bilateral: upstroke normal Thyroid: bilateral: normal size - Respiratory Respiratory: bilateral: diminished, wheezing (Findings bilateral), negative: dullness, rales, rhonchi - Cardiovascular Rhythm: regular Heart sounds: normal: S1, S2 - Gastrointestinal General gastrointestinal: decreased bowel sounds, soft - Neurologic Neurologic: CNII-XII intact - Musculoskeletal Musculoskeletal: gait normal, generalized weakness, strength equal bilaterally - Psychiatric Psychiatric: A&O x's 3, appropriate affect, intact judgment & insight Colostomy intact - Labs CBC & Chem 7: 12/22/18 02:44 12/23/18 05:15 Labs: Abnormal Lab Results - Last 24 Hours (Table) 12/22/18 12/22/18 12/23/18 Range/Units 18:50 20:07 05:15 Sodium 127 L 132 L (137-145) mmol/L Chloride 96 L (98-107) mmol/L BUN 37 H (7-17) mg/dL Calcium 8.3 L (8.4-10.2) mg/dL Ur Leukocyte Esterase Large H (Negative) Urine WBC 7 H (0-5) /hpf Ur Squamous Epith Cells 7 H (0-4) /hpf Urine Bacteria Occasional H (None) /hpf Urine Yeast (Budding) Occasional H (None) /hpf Assessment and Plan Assessment: Acute rhabdomyolysis Acute hyperkalemia Acute renal failure Severe hyponatremia Hypophosphatemia Cachexia and weight loss 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 oxygen dependent and nebulizer dependent History of left upper lobe multiple nodular is, lung cancer status post XRT, now residual left upper lobe scarring due to radiation-induced lung injury Plan: Therapy of hyperkalemia and hyponatremia given potassium is normalized, sodium levels are improved see orders for details Continue bronchodilators Hold on steroids Hold on antibiotics Continue gentle hydration Computed tomography scan of the chest reviewed finding as noted above Further evaluations pending further recommendations as per clinical response DVT prophylaxis Peptic ulcer disease prophylaxis Time with Patient: Greater than 30
[2018-12-23] MEDS: ASPIRIN 81 MG PO SCH (20:19)
[2018-12-24] MEDS: HYDROcodone/APAP 10-325MG 1 EACH TAB PO PRN ×4 (05:15→23:58)
[2018-12-24] MEDS: ALPRAZolam 0.5 MG TAB PO PRN ×3 (05:34→20:57)
[2018-12-24] MEDS: IPRATROPIUM-ALBUTEROL 3 ML NEB INHALATION SCH (08:00)
[2018-12-24] MEDS: CALCIUM CARBONATE 500 MG CHEWABLE PO SCH (09:57)
[2018-12-24] MEDS: ASPIRIN 81 MG PO SCH ×2 (09:57→20:56)
[2018-12-24] MEDS: PANTOPRAZOLE 40 MG TABLET PO SCH (09:57)
[2018-12-24] MEDS: ENOXAPARIN 30 MG/0.3 ML SYRINGE SQ SCH (09:58)
--- NOTE | 2018-12-24 14:30 | P.PN ---
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 oxygen dependent and nebulizer dependent History of left upper lobe multiple nodular is, lung cancer status post XRT 12/24/2018, and seen eval reexamined during the rounds labs reviewed medications reviewed renal function continued to improve so as the electrolytes respiratory status stable patient likely will be discharged later on today computed tomography scan finding as noted previously 12/23/2018, patient seen and evaluated examined during the rounds computed tomog sylvia scan of the chest has been reviewed there is radiation scar is present, consistent with the radiation induced lung injury which is about 7 x 3 cm in size no discrete mass is present no significant hilar or mediastinal adenopathy has been identified overall finding on the computed tomography scan are very much similar to the prior scan This is a 63-year-old female well-known to me patient has a long-standing history of end-stage lung disease. 2 COPD emphysema on chronic nocturnal oxygen and breathing treatments he also has a history of ischemic bowel requiring colostomy postoperatively, patient has a history of lung cancer treated with radiation therapy 3 years ago she is being actively followed closely with radiation therapist and oncologist and myself as well her respiratory status remains marginal require breathing treatments for the last 3 days she has not been eating and drinking much, feeling poor appetite, complaining of increasing weakness decreased strength decreased ability to ambulate. Patient is able to urinate but appetite has been severely diminished weight loss is increased as of late. She is continuing to lose weight secondary to no appetite. No recent pacheco nge in medications. Family has noticed progressive weakness but over the last 3 days inability to get up and down vertigo downstairs activities of daily living significantly decreased, on arrival her laboratory data was significant for leukocytosis severe hyponatremia and hyperkalemia with acute renal failure of urine were 54 and creatinine 3.07 total CK were elevated to over 1200 highly suggests suggestive of acute rhabdomyolysis phosphorous was 6.2 as well potassium was noted to be 6.6 with T-wave changes on EKG requiring emergent treatment of hyperkalemia, sodium was noted to 119, her chest x-ray did not show any acute finding but 80 of left upper lobe bandlike scar was seen likely relat ed to prior radiation-induced lung injury, her abdominal CT noted to have atherosclerosis in the abdominal aorta and iliac artery some parastomal hernia was noted Objective - Vital Signs Vital signs: Vital Signs Temp 98.2 F 12/24/18 05:47 Pulse 96 12/24/18 08:16 Resp 18 12/24/18 05:47 BP 119/75 12/24/18 05:47 Pulse Ox 94 L 12/24/18 05:47 Intake & Output 12/23/18 12/24/18 12/24/18 18:59 06:59 18:59 Output Total 3 Balance -3 Weight 46.2 kg Output: Urine 3 Other: Voiding Method Bedside Commode Toilet Toilet # Voids 4 2 # Bowel Movements 1 - Exam - Constitutional General appearance: average body habitus, cooperative, disheveled, no acute distress, thin - EENT Eyes: EOMI, PERRLA, poor dentition ENT: normal oropharynx Ears: bilateral: normal - Neck Neck: normal ROM Carotids: bilateral: upstroke normal Thyroid: bilateral: normal size - Respiratory Respiratory: bilateral: diminished, wheezing (Findings bilateral), negative: dullness, rales, rhonchi - Cardiovascular Rhythm: regular Heart sounds: normal: S1, S2 - Gastrointestinal General gastrointestinal: decreased bowel sounds, soft - Neurologic Neurologic: CNII-XII intact - Musculoskeletal Musculoskeletal: gait normal, generalized weakness, strength equal bilaterally - Psychiatric Psychiatric: A&O x's 3, appropriate affect, intact judgment & insight Colostomy intact - Labs CBC & Chem 7: 12/22/18 02:44 12/23/18 05:15 Assessment and Plan Assessment: Acute rhabdomyolysis Acute hyperkalemia Acute renal failure Severe hyponatremia Hypophosphatemia Cachexia and weight loss 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 oxygen dependent and nebulizer dependent History of left upper lobe multiple nodular is, lung cancer status post XRT, now residual left upper lobe scarring due to radiation-induced lung injury Plan: Therapy of hyperkalemia and hyponatremia given potassium is normalized, sodium levels are improved see orders for details Continue bronchodilators Hold on steroids Hold on antibiotics Continue gentle hydration Computed tomography scan of the chest reviewed finding as noted above Further evaluations pending further recommendations as per clinical response DVT prophylaxis Peptic ulcer disease prophylaxis Reviewed discharge planning follow-up in office in 1-2 weeks Time with Patient: Greater than 30
--- NOTE | 2018-12-24 15:02 | P.CONS ---
History of Present Illness - Reason for Consult Consult date: 12/24/18 Hx NSCLCA Requesting physician: Anton Skaggs - Chief Complaint Weakness - History of Present Illness Madeline was diagnosed with NSCLC in January 2016: then was discovered to have DAVID nodule > was seen by Dr Stinson at [facility], PET Scan revealed SUV of 14.6 with overall size in DAVID. CT-Guided Bx at [facility] revealed poorly-differentiated NSCLC favoring Adenocarcinoma. The patient was then seen by Dr Corey at [facility] > had SBRT with excellent overall tolerance > repeat PET Scan June 2016 revealed decreased lesion size to 1.5cm with SUV of only 1.4. Known to smoke 1/2 PPD, smoked 1 PPD X 40 years and is known to have advanced COPD, FEV1 0.44. She was last seen by De. Moran in July 2018. Imaging in June 2018 failed to show evidence of recurrent or active disease. Review of Systems A 14 point review of systems was assessed and completed and are all negative except for HPI Past Medical History Past Medical History: Coronary Artery Disease (CAD), Cancer, Chest Pain / Angina, COPD, Hearing Disorder / Deafness, Hypertension, Liver Disease, Osteoart hritis (OA) Additional Past Medical History / Comment(s): HX of Hepatitis C with [place]., emphysema, restless leg syndrome, has colostomy. lung cancer with radiation tx (2015), oxygen prn 2 liters, Hx stomach ulcer., Back pain, hearing loss right ear History of Any Multi-Drug Resistant Organisms: None Reported Past Surgical History: Appendectomy, Bowel Resection, Cholecystectomy Additional Past Surgical History / Comment(s): HX OF AORTO BIFEMORAL GRAFT- FEM PAP BYPASS, COLOSTOMY . Past Anesthesia/Blood Transfusion Reactions: No Reported Reaction Past Psychological History: Anxiety Smoking Status: Current every day smoker Past Alcohol Use History: Occasional Additional Past Alcohol Use History / Comment(s): SMOKES 1/2 PPD, HX OF 1 PPD., SMOKING FOR OVER 50 years. Past Drug Use History: Marijuana Additional Drug Use History / Comment(s): CURRENT MARIJUANA USE. - Past Family History Father Family Medical History: Cancer Additional Family Medical History / Comment(s): Prostate CA. Daughter(s) Family Medical History: Cancer Additional Family Medical History / Comment(s): BONE CANCER Medications and Allergies Home Medications Medication Instructions Recorded Confirmed Type ALPRAZolam [Xanax] 0.5 mg PO TID PRN 08/14/15 12/21/18 History Aspirin EC [Ecotrin Low Dose] 81 mg PO BID 08/14/15 12/21/18 History HYDROcodone/APAP 10-325MG [Derby 1 tab PO Q6H PRN 08/14/15 12/21/18 History 10-325] Methocarbamol [Robaxin] 500 mg PO BID PRN 08/14/15 12/21/18 History Metoprolol Tartrate [Lopressor] 25 mg PO BID 08/14/15 12/21/18 History Meloxicam [Mobic] 7.5 mg PO BID 03/14/16 12/21/18 History Oxybutynin Chloride [Ditropan XL] 10 mg PO DAILY 06/23/18 12/21/18 History Albuterol Sulfate [Proventil Hfa] 1 puff INHALATION RT-DAILY 12/21/18 12/21/18 History Beclomethasone Dipropionate [Qvar 1 puff INHALATION RT-DAILY 12/21/18 12/21/18 History 40 mcg Redihaler] Calcium Carbonate [Calcium] 1,200 mg PO DAILY 12/21/18 12/21/18 History Cholecalciferol (Vitamin D3) 2,000 unit PO DAILY 12/21/18 12/21/18 History [Vitamin D3] Dronabinol [Marinol] 5 mg PO HS 12/21/18 12/21/18 History Ipratropium-Albuterol Nebulize 3 ml INHALATION RT-DAILY 12/21/18 12/21/18 History [Duoneb 0.5 mg-3 mg/3 ml Soln] traZODone HCL [Desyrel] 100 mg PO HS 12/21/18 12/21/18 History Allergies Allergy/AdvReac Type Severity Reaction Status Date / Time No Known Allergies Allergy Verified 12/21/18 17:57 Physical Exam Vitals: Vital Signs Temp Pulse Pulse Resp BP Pulse Ox 12/24/18 08:16 96 12/24/18 08:02 88 12/24/18 05:47 98.2 F 89 18 119/75 94 L 12/23/18 21:28 97.9 F 89 16 116/79 97 12/23/18 16:21 94 12/23/18 16:10 95 12/23/18 15:00 97.9 F 84 16 143/83 93 L Intake and Output 12/23/18 12/24/18 12/24/18 22:59 06:59 14:59 Output Total 3 Balance -3 Output: Urine 3 Other: Voiding Method Toilet Toilet Toilet # Voids 1 2 Gen: Alert and Oriented, NAD Head: NCNT Neck Supple Heart RRR Lungs No increased effort CTA B Abdomen: S/ND/NT Ext: No Rash, No Edema, unilateral weakness Results CBC & Chem 7: 12/22/18 02:44 12/23/18 05:15 CT scan - abdomen: report reviewed CT scan - chest: report reviewed CT scan - pelvis: report reviewed Assessment and Plan Plan: Assessment and recommendations: Hx: Adenocarcinoma of the Lung - Non-small Cell lung cancer diagnosed 2015 - SRS radiation. - Observation, Last CT NIMA - With new symptoms of weakness and Hyponatremia and CT C/A/P neg for recurrence MRI would need to be completed to assess for metastatic disease brain. Hyponatremia: Improving Weakness. Unilateral Anorexia: - Restart marinol Thank you for allowing us to participate in the care of this patient we will follow along with you
--- NOTE | 2018-12-24 18:45 | MR ---
EXAMINATION TYPE: MR brain wo/w con DATE OF EXAM: 12/24/2018 COMPARISON: None HISTORY: Possible metastatic disease. Lung cancer. TECHNIQUE: Multiplanar, multisequence images of the brain and brainstem is performed without and with IV contras t, utilizing mL intravenous . Gadolinium FINDINGS: There is some disc few cerebral cortical atrophy. There is no mass effect nor midline shift . There is no evidence of intracranial hemorrhage. There is no evidence of acute cortical infarct. Th ere are scattered multiple small foci of increased signal in the cerebral hemispheres at the james-whi te matter junction. These measure up to 7 mm. Total number is approximately 15. Contrast images show no pathologic enhancement. There is no evidence of posterior fossa mass. The brainstem is intact. The re is no evidence of orbital mass. There is normal contrast opacification of the venous sinuses. IMPRESSION: Mild atrophy. Multiple white matter scattered high signal foci probably due to chronic sm all vessel ischemia. Demyelinating disease is possible. No evidence of cortical infarct. No evidence of metastatic disease.
[2018-12-24] MEDS: IPRATROPIUM-ALBUTEROL 3 ML NEB INHALATION PRN (20:28)
[2018-12-24] MEDS: DRONABINOL 2.5 MG CAP PO SCH (20:56)
--- NOTE | 2018-12-24 21:58 | PN ---
PROGRESS NOTE CHIEF COMPLAINT: Hyponatremia, weakness, dehydration and prerenal azotemia. HISTORY OF PRESENT ILLNESS: This lady is doing better. She is hydrating better and she feels better. Renal function is improving. It did look as though she had a urinary tract infection and a culture is ordered. She is also awaiting a consult with Oncology, but she is definitely doing much better and can probably go home tomorrow. PHYSICAL EXAMINATION: Her color is improved. Hydration is better. Head, ears, eyes, nose, mouth and throat are normal. Chest is clear. Cardiac exam is normal. Abdomen is soft, nontender. IMPRESSION: 1. Dehydration. 2. Prerenal azotemia. 3. Chronic obstructive pulmonary disease. 4. Carcinoma of the lung. 5. Urinary tract infection. 6. Hyponatremia. PLAN: Await oncology evaluation and obtain C&S and urine and probably home tomorrow. MMODL / IJN: [id number] /
--- NOTE | 2018-12-24 22:09 | PN ---
PROGRESS NOTE Patient is seen for followup for acute kidney injury. Her renal function has improved significantly, with serum creatinine down to 0.9 from 3.0 on initial admission. Patient was also hyponatremic, and her sodium has also improved to 132 now; it was as low as 119 on initial admission. Patient had been maintained on normal saline, which is now discontinued. She is eating well and wants to go home. On examination, blood pressure was 119/75, heart rate 89 per minute. She is afebrile. EXAMINATION OF THE HEART: S1 and S2. EXAMINATION OF LUNGS: Bilateral breath sounds are heard. ABDOMEN: Soft, non-tender. Examination of lower extremities shows no significant edema. KEY WORKER exam is grossly intact. Labs show sodium 132, potassium 4.6, BUN 37, serum creatinine 0.93. ASSESSMENT: 1. Hypovolemic hyponatremia, currently improved. Patient is encouraged to maintain adequate oral intake. Currently she is not on any IV fluids. 2. Lung cancer, adenocarcinoma, [id number], diagnosed in 2016, status post radiation therapy, being followed by Oncology. PLAN: Continue to encourage oral intake. Increase oral intake. Repeat labs in a.m. MMODL / IJN: [id number] /
[2018-12-25] MEDS: ALPRAZolam 0.5 MG TAB PO PRN ×2 (05:07→13:31)
[2018-12-25] MEDS: CALCIUM CARBONATE 500 MG CHEWABLE PO SCH (08:01)
[2018-12-25] MEDS: HYDROcodone/APAP 10-325MG 1 EACH TAB PO PRN ×2 (08:02→14:40)
[2018-12-25] MEDS: ASPIRIN 81 MG PO SCH (08:03)
[2018-12-25] MEDS: PANTOPRAZOLE 40 MG TABLET PO SCH (08:03)
[2018-12-25] MEDS: DRONABINOL 2.5 MG CAP PO SCH (08:05)
[2018-12-25] MEDS: IPRATROPIUM-ALBUTEROL 3 ML NEB INHALATION SCH (08:30)
[2018-12-25] MEDS ORDERED: ENOXAPARIN 40 MG/0.4 ML SYRINGE SQ SCH (09:00)
--- NOTE | 2018-12-25 11:13 | DS ---
DISCHARGE SUMMARY CHIEF COMPLAINT: Weakness, dehydration, prerenal azotemia. HISTORY OF PRESENT ILLNESS AND PHYSICAL EXAM: Details of this lady's history and physical can be found in the initial workup. COURSE IN HOSPITAL: After admission, she was placed on bedrest, started on intravenous fluids and was watched for renal failure. BUN and creatinine improved and her hyponatremia was also corrected. At that point, she felt much better, strength returned. Her appetite also returned. She was seen by Oncology and activity gradually increased and she was doing well enough it was felt that she could go home on the . She will be seen in a few days. She will go home on usual diet and activity. FINAL DIAGNOSES: 1. Dehydration. 2. Prerenal azotemia. 3. Hyponatremia. 4. Chronic obstructive pulmonary disease. 5. Carcinoma of the lung. OPERATIONS: None. CONSULTATIONS: Oncology. She is improved. MMODL / PHILLIPN: [id number] /
[2018-12-25 12:53] VITALS: BP 149/77; PULSE 68; RESP 18; TEMP 97.2
--- NOTE | 2018-12-27 14:42 | CDI ---
Documentation Clarification Form Date: 12/27/18 From: Kristen Vásquez Phone: If questions call Kae Reynoso @ [phone], Hours-8:30 am & 5 pm M- F Admit Date: 12/21/2018 7:37:00 PM Patient Name: Madeline Zapata V Visit Number: [id number] Discharge Date: 12/25/2018 3:47:00 PM ATTENTION: The Clinical Documentation Specialists (CDI) and [facility] Coding Staff appreciate your assistance in clarifying documentation. Please respond to the clarification below the line at the bottom and electronically sign. The CDI & [facility] Coding staff will review the response and follow-up if needed. Please note: Queries are made part of the Legal Health Record. If you have any questions, please contact the author of this message via ITS. Dr. Anton Skaggs The diagnosis acute renal failure/injury was documented in the record - ED note, both consults on 12/22, 12/22, 12/[address] Keating , but is not consistently noted in subsequent documentation. History/Risk Factors: lung ca, rhabdomyolysis, cachexia, UTI, hyponatremia, hypomagnesemia Clinical Indicators: Cr-3.07,1.67, 0.93 Treatment: rehydrate, correct ellectrolyte imbalance, Please clarify if the acute renal failure/injury was: Present/active/treated this admission Ruled out Other, please specify Clinically unable to determine MTDD
--- NOTE | 2019-01-13 05:03 | MISC ---
MISCELLANOUS REPORT QUERY Moderate protein calorie malnutrition. MMODL / IJN: [id number] /
--- NOTE | 2019-01-13 05:07 | MISC ---
MISCELLANOUS REPORT QUERY Acute renal failure is ruled out. MMODL / IJN: [id number] /
== END 2018-12-25 15:47 | disposition home or self-care (01) | DRG 641 ==
LOC: EC 17:31 → 2SICU 19:37 → 3NMEDONC 12-23 18:16
PROVIDERS: ADMIT Family Medicine; ATTEND Family Medicine
DX: E86.0 Dehydration (principal); E44.0 Moderate protein-calorie malnutrition; M62.82 Rhabdomyolysis; R64 Cachexia; Z68.1 Body mass index [BMI] 19.9 or less, adult; N39.0 Urinary tract infection, site not specified; J70.1 Chronic and other pulmonary manifestations due to radiation; Z66 Do not resuscitate; E87.2 Acidosis; I95.9 Hypotension, unspecified; J43.9 Emphysema, unspecified; J98.4 Other disorders of lung; E87.1 Hypo-osmolality and hyponatremia; E83.42 Hypomagnesemia; E83.39 Other disorders of phosphorus metabolism; E87.5 Hyperkalemia; E86.1 Hypovolemia; S27.391 Other injuries of lung, unilateral; E11.9 Type 2 diabetes mellitus without complications; K43.5 Parastomal hernia without obstruction or gangrene; I25.10 Atherosclerotic heart disease of native coronary artery without angina pectoris; I10 Essential (primary) hypertension; G25.81 Restless legs syndrome; F41.9 Anxiety disorder, unspecified; M54.9 Dorsalgia, unspecified; M19.90 Unspecified osteoarthritis, unspecified site; H91.91 Unspecified hearing loss, right ear; Z93.3 Colostomy status; F17.210 Nicotine dependence, cigarettes, uncomplicated; Z71.6 Tobacco abuse counseling; Z99.81 Dependence on supplemental oxygen; Z79.1 Long term (current) use of non-steroidal anti-inflammatories (NSAID); Z79.82 Long term (current) use of aspirin; Z79.51 Long term (current) use of inhaled steroids; Z79.899 Other long term (current) drug therapy; Z85.118 Personal history of other malignant neoplasm of bronchus and lung; Z92.3 Personal history of irradiation; Z86.19 Personal history of other infectious and parasitic diseases; Z90.49 Acquired absence of other specified parts of digestive tract; Z87.11 Personal history of peptic ulcer disease; Z95.828 Presence of other vascular implants and grafts; Y84.2 Radiological procedure and radiotherapy as the cause of abnormal reaction of the patient, or of later complication, without mention of misadventure at the time of the procedure; Z80.42 Family history of malignant neoplasm of prostate; Z80.8 Family history of malignant neoplasm of other organs or systems
CPT/HCPCS: 36415; 70553; 71046; 71250; 74176; 80048; 80053; 81001; 82550; 83036; 83605; 83735; 83880; 84100; 84295; 84484; 85025; 85610; 85730; 87077; 87086; 87186; 93005; 94640; 94644; 94760; 96361; 96374; 99291

== ENCOUNTER → 2019-01-17 | Outpatient (CLI) | payer MEDICARE, OTHER ==
--- NOTE | 2019-01-17 15:05 | CT ---
EXAMINATION TYPE: CT chest wo con DATE OF EXAM: 01/17/2019 COMPARISON: 12/22/2018 HISTORY: Malignant neoplasm left upper lobe CT DLP: 113.4 mGycm, Automated exposure control for dose reduction was used. CONTRAST: Performed injected with 0 mL of Isovue 300. TECHNIQUE: Axial images were obtained at 5 mm thick sections. Reconstructed images are reviewed on [facility] computer in the coronal plane. FINDINGS: Portion of the thyroid visualized is normal. There is an infiltrate through the left mid lung could be related to the patient's cancer. Finding is stable from comparison. There is a consolidation in the right middle lobe which has the appearance o f atelectasis. Follow-up is recommended. There is a stable enlarged 1.1 cm pretracheal lymph node at the level of the yessi. The ascending a eddie diameter at the level of the main pulmonary artery is 3.5 cm. The main pulmonary artery diamete r at the bifurcation is 2.4 cm. Coronary artery calcifications noted. Dense calcification is within [facility] aorta. An aortic bypass is in the upper abdomen. The distal portion is not visualized. Limited CT sections are obtained through the upper abdomen. Abdomen is essentially unremarkable. IMPRESSIONS: 1. Suspect atelectasis of the right mid lung. Follow-up is recommended. 2. Stable increased lung markings to the left lung could be related to the patient's reported cancer.
== END | disposition home or self-care (01) ==
LOC: RADCTMAIN 13:33
PROVIDERS: ATTEND Radiology Radiation Oncology
DX: C34.12 Malignant neoplasm of upper lobe, left bronchus or lung (principal); F17.210 Nicotine dependence, cigarettes, uncomplicated; Z92.3 Personal history of irradiation
CPT/HCPCS: 71250

== ENCOUNTER → 2019-04-23 | Outpatient (CLI) | payer MEDICARE, OTHER ==
--- NOTE | 2019-04-24 15:27 | PE ---
Nuclear medicine PET/CT HISTORY: Left lung carcinoma, subsequent Patient received 8.4 mCi F-18 FDG intravenously in delayed scanning was performed from the skull base to the mid thighs. An attenuation correction and localization CT scan was performed the exam is dominik elated to prior nuclear medicine PET/CT 06/28/2016, CT chest 01/17/2019 Neck and chest: There is no evident lung mass. Some probable basilar atelectatic changes or scarring noted. No cervical, supraclavicular, mediastinal, axillary, or hilar adenopathy. No suspicious hyperm etabolic uptake. ABDOMEN: There is no evident adrenal mass, no liver mass. Patient is post cholecystectomy. No retrope ritoneal adenopathy. Postop changes are noted to the aorta status post aortobifemoral bypass graft. N o suspicious hypermetabolic uptake. There is an ostomy in the right lower quadrant. Osseous structures are unchanged. IMPRESSION: No suspicious hypermetabolic uptake to suggest recurrence.
== END | disposition home or self-care (01) ==
LOC: RADPETMAIN 12:29
PROVIDERS: ATTEND Radiology Radiation Oncology
DX: C34.12 Malignant neoplasm of upper lobe, left bronchus or lung (principal); F17.210 Nicotine dependence, cigarettes, uncomplicated; Z92.3 Personal history of irradiation
CPT/HCPCS: 78815; A9552

== ENCOUNTER → 2019-06-07 | Outpatient (CLI) | payer MEDICARE, OTHER ==
[2019-06-07 14:30] LABS: HCT 49.3 % (34.0-46.0); HGB 15.6 gm/dL (11.4-16.0); MCH 32.8 pg (25.0-35.0); MCHC 31.7 g/dL (31.0-37.0); MCV 103.3 fL (80.0-100.0); Macrocytosis Slight; Mean Platelet Volume 7.8; Platelet Count 247 k/uL (150-450); RBC 4.77 m/uL (3.80-5.40); RDW 13.1 % (11.5-15.5); WBC 4.3 k/uL (3.8-10.6)
[2019-06-07 18:22] LABS: ALT 17 U/L (8-44); AST 26 U/L (13-35); Albumin/Globulin Ratio 1.91 (1.60-3.17); Alkaline Phosphatase 66 U/L (41-126); Bilirubin, Conjugated <0.20 mg/dL (0.20-0.40); Globulin 2.3 g/dL (1.6-3.3); Total Bilirubin 0.3 mg/dL (0.3-1.2); Total Protein 6.7 g/dL (6.2-8.2)
== END | disposition home or self-care (01) ==
LOC: LABWHC1 13:23
PROVIDERS: ATTEND Physician Assistant
DX: B18.2 Chronic viral hepatitis C (principal)
CPT/HCPCS: 36415; 80076; 85027; 87522

== ENCOUNTER 2019-06-20 13:28 | Inpatient (IN) | payer MEDICARE, OTHER ==
[2019-06-20] MEDS ORDERED: SODIUM CHLORIDE 0.9% 500 ML 500 ML IV STA (13:53)
[2019-06-20] MEDS ORDERED: SODIUM CHLORIDE 0.9% 1,000 ML IV STA (13:53)
[2019-06-20] MEDS ORDERED: ONDANSETRON 4 MG/2 ML VIAL IVP STA (13:53)
[2019-06-20] MEDS ORDERED: MORPHINE SULFATE 4 MG/ML SYRINGE IV STA (13:53)
[2019-06-20 14:19] LABS: Basophils % (A) 0 %; Eosinophils # (A) 0.1 k/uL (0-0.7); Eosinophils % (A) 1 %; HCT 54.8 % (34.0-46.0); HGB 18.1 gm/dL (11.4-16.0); Lymphocytes # (A) 0.6 k/uL (1.0-4.8); Lymphocytes % (A) 5 %; MCHC 32.9 g/dL (31.0-37.0); MCV 100.3 fL (80.0-100.0); Mean Platelet Volume 8.1; Monocytes # (A) 0.5 k/uL (0-1.0); Monocytes % (A) 4 %; Neutrophils # (A) 10.4 k/uL (1.3-7.7); Neutrophils % (A) 89 %; Platelet Count 231 k/uL (150-450); RBC 5.47 m/uL (3.80-5.40); RDW 12.9 % (11.5-15.5); WBC 11.7 k/uL (3.8-10.6)
[2019-06-20 14:28] LABS: Amorphous Sediment,Urine Rare /hpf; Appearance,Urine Cloudy (Clear); Bacteria,Urine Many /hpf; Bilirubin,Urine Negative (Negative); Blood,Urine Moderate (Negative); Color,Urine Yellow; Glucose,Urine (UA) Negative (Negative); Ketones,Urine 1+ (Negative); Leukocyte Esterase,Urine Negative (Negative); Mucus,Urine Rare /hpf; Nitrite,Urine Positive (Negative); Partial Thromboplastin Time 24.5 sec (22.0-30.0); Protein,Urine 3+ (Negative); RBC,Urine 5 /hpf (0-5); Specific Gravity,Urine 1.017 (1.001-1.035); Squamous Epithelial Cell,Urine 1 /hpf (0-4); Urobilinogen,Urine <2.0 mg/dL (<2.0); WBC,Urine 7 /hpf (0-5)
[2019-06-20 14:32] LABS: ALT 21 U/L (4-34); AST 45 U/L (14-36); African American GFR (CKD) >90 (>60 ml/min/1.73 sqM); Alkaline Phosphatase 91 U/L (38-126); Anion Gap 13 mmol/L; Blood Urea Nitrogen 15 mg/dL (7-17); Calcium 9.8 mg/dL (8.4-10.2); Carbon Dioxide 29 mmol/L (22-30); Chloride 92 mmol/L (98-107); Glucose 123 mg/dL (74-99); Magnesium 1.9 mg/dL (1.6-2.3); Non-African American GFR(CKD) >90 (>60 ml/min/1.73 sqM); Potassium 3.8 mmol/L (3.5-5.1); Sodium 134 mmol/L (137-145); Total Bilirubin 0.6 mg/dL (0.2-1.3); Total Protein 8.5 g/dL (6.3-8.2)
[2019-06-20] MEDS ORDERED: cefTRIAXone IN SWFI 1,000 MG/10 ML SYRINGE IVP STA (14:36)
--- NOTE | 2019-06-20 14:52 | XR ---
EXAMINATION TYPE: XR chest 2V DATE OF EXAM: 06/20/2019 COMPARISON: 12/21/2018 HISTORY: Weakness TECHNIQUE: Frontal and lateral views of the chest are obtained. FINDINGS: Linear platelike opacity in the left upper lung is similar. New right middle lobe atelecta sis is seen on the lateral view not well visualized on the frontal view. Pulmonary hyperinflation of underlying COPD is seen. Mild degenerative change of the spine. Cardiomediastinal silhouette is nonen larged. IMPRESSION: 1. New right middle lobe atelectasis seen on the lateral view. This could be postobstructive due to m ucous plugging or endobronchial lesion. 2. Underlying COPD. 3. Stable left upper lung atelectasis and/or scarring.
[2019-06-20] MEDS ORDERED: MORPHINE SULFATE 4 MG/ML SYRINGE IV PRN (15:40)
[2019-06-20] MEDS ORDERED: NALOXONE 0.4 MG/ML 1 ML VIAL IV PRN (15:40)
--- NOTE | 2019-06-20 15:40 | ED ---
Nausea/Vomiting/Diarrhea HPI - General Source: patient, EMS, RN notes reviewed Mode of arrival: EMS Limitations: no limitations <Sandoval Hackett - Last Filed: 06/20/19 15:38> <Edwin Chery - Last Filed: 06/20/19 15:43> - General Chief complaint: Nausea/Vomiting/Diarrhea Stated complaint: weakness Time Seen by Provider: 06/20/19 13:35 - History of Present Illness Initial comments: This a 64-year-old female presents emergency Department chief complaint of nausea vomiting. Patient states she feels very weak, run down. Patient does have underlying cancer. Patient states that she just feels very achy, complains of pain which is not out of the usual for her. Patient presented via EMS given her weakness at this time. Patient denies chest pain or shortness of breath. Family states that she is more lethargic than usual. (Sandoval Hackett) - Related Data Home Medications Medication Instructions Recorded Confirmed ALPRAZolam [Xanax] 0.5 mg PO TID PRN 08/14/15 12/21/18 Aspirin EC [Ecotrin Low Dose] 81 mg PO BID 08/14/15 12/21/18 HYDROcodone/APAP 10-325MG [Lamar 1 tab PO Q6H PRN 08/14/15 12/21/18 10-325] Methocarbamol [Robaxin] 500 mg PO BID PRN 08/14/15 12/21/18 Metoprolol Tartrate [Lopressor] 25 mg PO BID 08/14/15 12/21/18 Meloxicam [Mobic] 7.5 mg PO BID 03/14/16 12/21/18 Oxybutynin Chloride [Ditropan XL] 10 mg PO DAILY 06/23/18 12/21/18 Albuterol Sulfate [Proventil Hfa] 1 puff INHALATION RT-DAILY 12/21/18 12/21/18 Beclomethasone Dipropionate [Qvar 1 puff INHALATION RT-DAILY 12/21/18 12/21/18 40 mcg Redihaler] Calcium Carbonate [Calcium] 1,200 mg PO DAILY 12/21/18 12/21/18 Cholecalciferol (Vitamin D3) 2,000 unit PO DAILY 12/21/18 12/21/18 [Vitamin D3] Dronabinol [Marinol] 5 mg PO HS 12/21/18 12/21/18 Ipratropium-Albuterol Nebulize 3 ml INHALATION RT-DAILY 12/21/18 12/21/18 [Duoneb 0.5 mg-3 mg/3 ml Soln] traZODone HCL [Desyrel] 100 mg PO HS 12/21/18 12/21/18 Allergies Allergy/AdvReac Type Severity Reaction Status Date / Time No Known Allergies Allergy Verified 12/21/18 17:57 Review of Systems ROS Other: All systems not noted in ROS Statement are negative. <Sandoval Hackett - Last Filed: 06/20/19 15:38> ROS Other: All systems not noted in ROS Statement are negative. <Edwin Chery - Last Filed: 06/20/19 15:43> ROS Statement: Those systems with pertinent positive or pertinent negative responses have been documented in the HPI. Past Medical History Past Medical History: Coronary Artery Disease (CAD), Cancer, Chest Pain / Angina, COPD, Hearing Disorder / Deafness, Hypertension, Liver Disease, Osteoarthritis (OA) Additional Past Medical History / Comment(s): HX of Hepatitis C with [place]., emphysema, restless leg syndrome, has colostomy. lung cancer with radiation tx (2016), oxygen prn 2 liters, Hx stomach ulcer., Back pain, hearing loss right ear History of Any Multi-Drug Resistant Organisms: None Reported Past Surgical History: Appendectomy, Bowel Resection, Cholecystectomy Additional Past Surgical History / Comment(s): HX OF AORTO BIFEMORAL GRAFT- FEM PAP BYPASS, COLOSTOMY . Past Anesthesia/Blood Transfusion Reactions: No Reported Reaction Past Psychological History: Anxiety Smoking Status: Current every day smoker Past Alcohol Use History: None Reported Past Drug Use History: Marijuana - Past Family History Father Family Medical History: Cancer Additional Family Medical History / Comment(s): Prostate CA. Daughter(s) Family Medical History: Cancer Additional Family Medical History / Comment(s): BONE CANCER <Sandoval Hackett - Last Filed: 06/20/19 15:38> General Exam Limitations: no limitations General appearance: alert, in no apparent distress, cachectic Head exam: Present: atraumatic, normocephalic, normal inspection Eye exam: Present: normal appearance, PERRL, EOMI. Absent: scleral icterus, conjunctival injection, periorbital swelling ENT exam: Present: normal exam, normal oropharynx, mucous membranes moist Neck exam: Present: normal inspection, full ROM. Absent: tenderness, meningismus, lymphadenopathy Respiratory exam: Present: normal lung sounds bilaterally. Absent: respiratory distress, wheezes, rales, rhonchi, stridor Cardiovascular Exam: Present: regular rate, normal rhythm, normal heart sounds. Absent: systolic murmur, diastolic murmur, rubs, gallop, clicks GI/Abdominal exam: Present: soft, tenderness, normal bowel sounds. Absent: distended, guarding, rebound, rigid Back exam: Absent: CVA tenderness (R), CVA tenderness (L) Neurological exam: Present: alert, oriented X3, CN II-XII intact <Sandoval Hackett - Last Filed: 06/20/19 15:38> Course <Edwin Chery - Last Filed: 06/20/19 15:43> Vital Signs 06/20/19 13:30 Temperature 97.9 F Pulse Rate 86 Respiratory 18 Rate Blood Pressure 161/105 O2 Sat by Pulse 97 Oximetry - Reevaluation(s) Reevaluation #1: 06/20/19 15:42 PA supervision: I proceeded [id number] evaluation the patient she does present with complaints of not feeling well she does demonstrate evidence of dehydration as well as a urinary tract infection. Visual be admitted I did discuss case with her and her family were present. Also with Dr. Skaggs. (Edwin Chery) Medical Decision Making - Lab Data Result diagrams: 06/20/19 13:55 06/20/19 13:55 - EKG Data -: EKG Interpreted by Me <Sandoval Hackett - Last Filed: 06/20/19 15:38> - Lab Data Result diagrams: 06/20/19 13:55 06/20/19 13:55 <Edwin Chery - Last Filed: 06/20/19 15:43> - Medical Decision Making Patient's found to be acutely dehydrated related to nausea vomiting. Patient also has signs of UTI, patient not take his elevated patient was hydrated, given Rocephin at this time. (Sandoval Hackett) - Lab Data Lab Results 06/20/19 06/20/19 06/20/19 Range/Units 13:55 13:55 13:55 WBC 11.7 H (3.8-10.6) k/uL RBC 5.47 H (3.80-5.40) m/uL Hgb 18.1 H (11.4-16.0) gm/dL Hct 54.8 H (34.0-46.0) % MCV 100.3 H (80.0-100.0) fL MCH 33.0 (25.0-35.0) pg MCHC 32.9 (31.0-37.0) g/dL RDW 12.9 (11.5-15.5) % Plt Count 231 (150-450) k/uL Neutrophils % 89 % Lymphocytes % 5 % Monocytes % 4 % Eosinophils % 1 % Basophils % 0 % Neutrophils # 10.4 H (1.3-7.7) k/uL Lymphocytes # 0.6 L (1.0-4.8) k/uL Monocytes # 0.5 (0-1.0) k/uL Eosinophils # 0.1 (0-0.7) k/uL Basophils # 0.0 (0-0.2) k/uL PT 10.0 (9.0-12.0) sec INR 1.0 (<1.2) APTT 24.5 (22.0-30.0) sec Sodium 134 L (137-145) mmol/L Potassium 3.8 (3.5-5.1) mmol/L Chloride 92 L (98-107) mmol/L Carbon Dioxide 29 (22-30) mmol/L Anion Gap 13 mmol/L BUN 15 (7-17) mg/dL Creatinine 0.64 (0.52-1.04) mg/dL Est GFR (CKD-EPI)AfAm >90 (>60 ml/min/1.73 sqM) Est GFR (CKD-EPI)NonAf >90 (>60 ml/min/1.73 sqM) Glucose 123 H (74-99) mg/dL Plasma Lactic Acid Aadrsh (0.7-2.0) mmol/L Calcium 9.8 (8.4-10.2) mg/dL Magnesium 1.9 (1.6-2.3) mg/dL Total Bilirubin 0.6 (0.2-1.3) mg/dL AST 45 H (14-36) U/L ALT 21 (4-34) U/L Alkaline Phosphatase 91 (38-126) U/L Troponin I (0.000-0.034) ng/mL Total Protein 8.5 H (6.3-8.2) g/dL Albumin 5.0 (3.5-5.0) g/dL Urine Color Urine Appearance (Clear) Urine pH (5.0-8.0) Ur Specific [place] (1.001-1.035) Urine Protein (Negative) Urine Glucose (UA) (Negative) Urine Ketones (Negative) Urine Blood (Negative) Urine Nitrite (Negative) Urine Bilirubin (Negative) Urine Urobilinogen (<2.0) mg/dL Ur Leukocyte Esterase (Negative) Urine RBC (0-5) /hpf Urine WBC (0-5) /hpf Ur Squamous Epith Cells (0-4) /hpf Amorphous Sediment (None) /hpf Urine Bacteria (None) /hpf Urine Mucus (None) /hpf 06/20/19 06/20/19 06/20/19 Range/Units 13:55 13:55 13:55 WBC (3.8-10.6) k/uL RBC (3.80-5.40) m/uL Hgb (11.4-16.0) gm/dL Hct (34.0-46.0) % MCV (80.0-100.0) fL MCH (25.0-35.0) pg MCHC (31.0-37.0) g/dL RDW (11.5-15.5) % Plt Count (150-450) k/uL Neutrophils % % Lymphocytes % % Monocytes % % Eosinophils % % Basophils % % Neutrophils # (1.3-7.7) k/uL Lymphocytes # (1.0-4.8) k/uL Monocytes # (0-1.0) k/uL Eosinophils # (0-0.7) k/uL Basophils # (0-0.2) k/uL PT (9.0-12.0) sec INR (<1.2) APTT (22.0-30.0) sec Sodium (137-145) mmol/L Potassium (3.5-5.1) mmol/L Chloride (98-107) mmol/L Carbon Dioxide (22-30) mmol/L Anion Gap mmol/L BUN (7-17) mg/dL Creatinine (0.52-1.04) mg/dL Est GFR (CKD-EPI)AfAm (>60 ml/min/1.73 sqM) Est GFR (CKD-EPI)NonAf (>60 ml/min/1.73 sqM) Glucose (74-99) mg/dL Plasma Lactic Acid Adarsh 2.1 H* (0.7-2.0) mmol/L Calcium (8.4-10.2) mg/dL Magnesium (1.6-2.3) mg/dL Total Bilirubin (0.2-1.3) mg/dL AST (14-36) U/L ALT (4-34) U/L Alkaline Phosphatase (38-126) U/L Troponin I <0.012 (0.000-0.034) ng/mL Total Protein (6.3-8.2) g/dL Albumin (3.5-5.0) g/dL Urine Color Yellow Urine Appearance Cloudy H (Clear) Urine pH 6.0 (5.0-8.0) Ur Specific [place] 1.017 (1.001-1.035) Urine Protein 3+ H (Negative) Urine Glucose (UA) Negative (Negative) Urine Ketones 1+ H (Negative) Urine Blood Moderate H (Negative) Urine Nitrite Positive H (Negative) Urine Bilirubin Negative (Negative) Urine Urobilinogen <2.0 (<2.0) mg/dL Ur Leukocyte Esterase Negative (Negative) Urine RBC 5 (0-5) /hpf Urine WBC 7 H (0-5) /hpf Ur Squamous Epith Cells 1 (0-4) /hpf Amorphous Sediment Rare H (None) /hpf Urine Bacteria Many H (None) /hpf Urine Mucus Rare H (None) /hpf - EKG Data EKG Comments: EKG performed at 14:20 1 normal sinus rhythm is a right bundle with a rate of 81 FL 138 QRS 124 QTC is QTC 434/504 (Sandoval Hackett) Disposition <Sandoval Hackett - Last Filed: 06/20/19 15:38> <Edwin Chery - Last Filed: 06/20/19 15:43> Clinical Impression: Dehydration, UTI (urinary tract infection), Nausea & vomiting, Weakness Disposition: ADMITTED IP TO THIS HOSP Condition: Fair Referrals: Anton Skaggs MD [Primary Care Provider] - 1-2 days
[2019-06-20] MEDS: ONDANSETRON 4 MG/2 ML VIAL IVP PRN (16:15)
[2019-06-20] MEDS: SODIUM CHLORIDE 0.9% 1,000 ML IV SCH (16:16)
[2019-06-20] MEDS ORDERED: ALPRAZolam 0.5 MG TAB PO PRN (17:24)
[2019-06-20] MEDS: METOPROLOL TARTRATE 25 MG TAB PO SCH (19:30)
[2019-06-20] MEDS: HYDROcodone/APAP 5-325MG 1 EACH TAB PO PRN (19:36)
[2019-06-20] MEDS: LEVOFLOXACIN 250 MG TAB PO SCH (19:37)
[2019-06-20] MEDS: SYMBICORT 160-4.5 MCG INHALER INHALATION SCH (20:33)
[2019-06-20] MEDS: traZODone HCL 50 MG TAB PO SCH (20:53)
[2019-06-20] MEDS: ASPIRIN 81 MG PO SCH (20:53)
[2019-06-21] MEDS: HYDROcodone/APAP 5-325MG 1 EACH TAB PO PRN ×4 (02:45→20:12)
[2019-06-21] MEDS: ONDANSETRON 4 MG/2 ML VIAL IVP PRN (05:54)
[2019-06-21] MEDS: SODIUM CHLORIDE 0.9% 1,000 ML IV SCH ×2 (05:57→17:13)
[2019-06-21] MEDS: LEVOFLOXACIN 250 MG TAB PO SCH (08:24)
[2019-06-21] MEDS: LISINOPRIL 10 MG TAB PO SCH (08:24)
[2019-06-21] MEDS: PANTOPRAZOLE 40 MG/10 ML VIAL IV SCH (08:24)
[2019-06-21] MEDS: METOPROLOL TARTRATE 25 MG TAB PO SCH ×2 (08:24→20:15)
[2019-06-21] MEDS: ASPIRIN 81 MG PO SCH ×2 (08:24→20:14)
[2019-06-21] MEDS: OXYBUTYNIN 10 MG TAB.ER.24 PO SCH (08:29)
[2019-06-21] MEDS: IPRATROPIUM-ALBUTEROL 3 ML NEB INHALATION SCH (10:13)
[2019-06-21] MEDS: SYMBICORT 160-4.5 MCG INHALER INHALATION SCH ×2 (10:13→20:30)
[2019-06-21 11:33] VITALS: BMI 16.5
--- NOTE | 2019-06-21 17:37 | HP ---
HISTORY AND PHYSICAL CHIEF COMPLAINT: General weakness, chills, nausea and vomiting. HISTORY OF PRESENT ILLNESS: This is another admission for this 64-year-old white female with a history of COPD and carcinoma of the lung. HISTORY OF PRESENT ILLNESS: She presented to the emergency room after she developed chills and lower extremity weakness along with nausea and vomiting. In the emergency room she was found to have a urinary tract infection. She had not had a particularly more difficult time with breathing, sputum production, etc. REVIEW OF SYSTEMS: She has had no syncope, confusion, hemoptysis, abdominal pain, hematemesis, melena, hematochezia, jaundice, vaginal discharge or bleeding, hematuria, etc. Past medical history, family history, and personal and social histories demonstrate that she has NO ALLERGIES. They are otherwise unremarkable. She is on: 1. Metoprolol 25 mg twice a day. 2. Albuterol HFA. 3. Robaxin 500 mg twice a day p.r.n. 4. Meloxicam 7.5 mg twice a day. 5. Benazepril 10 mg once a day. 6. Ropinirole 0.5 mg 1 or 2 tablets at night. 7. Oxybutynin 10 mg twice a day. 8. Trazodone 150 mg at bedtime. 9. DuoNeb q.i.d. and p.r.n. 10.Vitamin D. 11.Symbicort 160/4.5 two puffs twice a day. 12.Aspirin 81 mg. 13.Vicodin 10 mg q.i.d. p.r.n. 14.Xanax 0.5 t.i.d. p.r.n. The patient has carcinoma of the right lung which has been treated and remains stable. She still smokes. PHYSICAL EXAMINATION: Blood pressure 128/76, pulse of 118, respirations of 38, and she was afebrile. In general she appeared to be slightly dehydrated and older than her stated age. Skin color was normal. Skin was warm and dry. Lymph nodes were not enlarged. Head, ears, eyes, nose, mouth and throat were normal. Neck veins were not distended. Thyroid was not enlarged. Chest demonstrated very poor breath sounds throughout with scattered wheezes, rales and rhonchi and an increased AP diameter. Cardiac exam demonstrated sinus tachycardia with no murmurs or extra sounds. Abdomen was soft and flat and nontender without visceromegaly or masses. Bowel sounds were present. Extremities were normal. Neurologically she was intact. She is admitted to the hospital with diagnoses: 1. Urinary tract infection. 2. Exacerbation of chronic obstructive pulmonary disease. 3. Carcinoma of the right lung. 4. Hypertension. PLAN: 1. Bed rest. 2. IV fluids. 3. Antibiotics. 4. Updrafts. MMODL / PHILLIPN: [id number] /
[2019-06-21] MEDS: traZODone HCL 50 MG TAB PO SCH (20:12)
--- NOTE | 2019-06-21 20:22 | PN ---
PROGRESS NOTE CHIEF COMPLAINT: Urinary tract infection. HISTORY OF PRESENT ILLNESS: This lady is still feeling very weak. She has not been nauseated and she has had no chills. PHYSICAL EXAMINATION: Chest clear. Cardiac exam is normal. The abdomen is soft and non-tender. IMPRESSION: 1. Urinary tract infection. 2. Chronic obstructive pulmonary disease. 3. Carcinoma of the lung. PLAN: Continue with IV fluids and antibiotics and continue to follow her pulmonary status. MMODL / IJN: [id number] /
[2019-06-22] MEDS: SODIUM CHLORIDE 0.9% 1,000 ML IV SCH ×2 (00:12→21:53)
[2019-06-22] MEDS: HYDROcodone/APAP 5-325MG 1 EACH TAB PO PRN ×4 (02:53→20:35)
[2019-06-22] MEDS: SYMBICORT 160-4.5 MCG INHALER INHALATION SCH ×2 (07:37→19:58)
[2019-06-22] MEDS: IPRATROPIUM-ALBUTEROL 3 ML NEB INHALATION SCH (07:37)
[2019-06-22] MEDS: LISINOPRIL 10 MG TAB PO SCH (07:57)
[2019-06-22] MEDS: PANTOPRAZOLE 40 MG/10 ML VIAL IV SCH (07:57)
[2019-06-22] MEDS: LEVOFLOXACIN 250 MG TAB PO SCH (07:58)
[2019-06-22] MEDS: ASPIRIN 81 MG PO SCH ×2 (07:58→20:36)
[2019-06-22] MEDS: OXYBUTYNIN 10 MG TAB.ER.24 PO SCH (07:58)
[2019-06-22] MEDS: METOPROLOL TARTRATE 25 MG TAB PO SCH ×2 (07:58→20:36)
--- NOTE | 2019-06-22 12:03 | PN ---
PROGRESS NOTE CHIEF COMPLAINT: Urinary tract infection, COPD, CA of the lung, and dizziness. HISTORY OF PRESENT ILLNESS: This lady is having quite a bit of difficulty with dizziness. Seems to be positional. She is having no headache, earache, tinnitus, etc. PHYSICAL EXAMINATION: Her vital signs are normal. Chest is clear but breath sounds are poor. Cardiac exam is normal and the abdomen is soft and nontender. IMPRESSION: 1. Urinary tract infection. 2. Chronic obstructive pulmonary disease. 3. CA lung. 4. Vertigo. PLAN: 1. Repeat laboratory studies. 2. Antivert 25 1 q.i.d. p.r.n. MMODL / IJN: [id number] /
[2019-06-22 12:08] LABS: Potassium 4.9 mmol/L (3.5-5.1)
[2019-06-22] MEDS: MECLIZINE 25 MG TAB PO PRN (15:09)
[2019-06-22] MEDS: ALBUTEROL NEBULIZED 2.5 MG/3 ML INHALATION PRN (19:58)
[2019-06-22] MEDS: traZODone HCL 50 MG TAB PO SCH (20:36)
[2019-06-23] MEDS: HYDROcodone/APAP 5-325MG 1 EACH TAB PO PRN ×4 (02:10→20:50)
[2019-06-23] MEDS: SYMBICORT 160-4.5 MCG INHALER INHALATION SCH ×2 (07:11→19:27)
[2019-06-23] MEDS: IPRATROPIUM-ALBUTEROL 3 ML NEB INHALATION SCH (07:11)
[2019-06-23] MEDS: LEVOFLOXACIN 250 MG TAB PO SCH (08:04)
[2019-06-23] MEDS: PANTOPRAZOLE 40 MG TABLET PO SCH (08:04)
[2019-06-23] MEDS: METOPROLOL TARTRATE 25 MG TAB PO SCH ×2 (08:04→20:48)
[2019-06-23] MEDS: ASPIRIN 81 MG PO SCH ×2 (08:04→20:47)
[2019-06-23] MEDS: OXYBUTYNIN 10 MG TAB.ER.24 PO SCH (08:04)
[2019-06-23] MEDS: LISINOPRIL 10 MG TAB PO SCH (08:04)
[2019-06-23] MEDS: SODIUM CHLORIDE 0.9% 1,000 ML IV SCH ×2 (11:32→20:48)
[2019-06-23] MEDS: LISINOPRIL 20 MG TAB PO SCH (11:32)
--- NOTE | 2019-06-23 11:58 | PN ---
PROGRESS NOTE DATE OF SERVICE: 06/23/2019 CHIEF COMPLAINT: Urinary tract infection, COPD, CA of the lung and dizziness. HISTORY OF PRESENT ILLNESS: This lady is still complaining of dizziness. It is noted that blood pressure is elevated. She is not having any headaches, visual changes, chest pain, or shortness of breath, etc. PHYSICAL EXAMINATION: Breath sounds are still diminished due to her COPD. Cardiac exam is normal. Abdomen is soft, nontender. IMPRESSION: 1. Vertigo. 2. Hypertension. 3. Urinary tract infection. 4. Chronic obstructive pulmonary disease. 5. Carcinoma of the lung. PLAN: Increase lisinopril from 10 to 40 mg once a day to see if vertigo improves with dropping her blood pressure. MMODL / IJN: [id number] /
[2019-06-23] MEDS: ALBUTEROL NEBULIZED 2.5 MG/3 ML INHALATION PRN (19:27)
[2019-06-23] MEDS: traZODone HCL 50 MG TAB PO SCH (20:47)
[2019-06-24] MEDS: HYDROcodone/APAP 5-325MG 1 EACH TAB PO PRN ×4 (02:48→20:20)
[2019-06-24] MEDS: METOPROLOL TARTRATE 25 MG TAB PO SCH ×2 (08:38→20:21)
[2019-06-24] MEDS: OXYBUTYNIN 10 MG TAB.ER.24 PO SCH (08:38)
[2019-06-24] MEDS: LEVOFLOXACIN 250 MG TAB PO SCH (08:38)
[2019-06-24] MEDS: PANTOPRAZOLE 40 MG TABLET PO SCH (08:39)
[2019-06-24] MEDS: LISINOPRIL 20 MG TAB PO SCH (08:39)
[2019-06-24] MEDS: ASPIRIN 81 MG PO SCH ×2 (08:39→20:20)
[2019-06-24] MEDS: SYMBICORT 160-4.5 MCG INHALER INHALATION SCH ×2 (09:05→20:16)
[2019-06-24] MEDS: IPRATROPIUM-ALBUTEROL 3 ML NEB INHALATION SCH ×2 (09:05→20:16)
[2019-06-24] MEDS: SODIUM CHLORIDE 0.9% 1,000 ML IV SCH ×2 (12:27→22:55)
[2019-06-24] MEDS: MECLIZINE 25 MG TAB PO PRN (14:47)
--- NOTE | 2019-06-24 17:29 | PN ---
PROGRESS NOTE DATE OF SERVICE: 06/24/2019 CHIEF COMPLAINT: Urinary tract infection and vertigo. HISTORY OF PRESENT ILLNESS: This lady is still having trouble with vertigo. It is slightly better than yesterday, she is very unsteady on her feet. She has no headache, focal neurologic problems, earache, tinnitus, etc. PHYSICAL EXAM: Head, ears, eyes, nose, mouth, and throat seem to be normal. Neck veins are not distended. Carotids normal. Chest demonstrated very poor breath sounds. Cardiac exam is normal. Abdomen is soft and nontender. IMPRESSION: 1. Urinary tract infection. 2. Chronic obstructive pulmonary disease. 3. Carcinoma of the lung. 4. Vertigo. PLAN: Postpone discharge until vertigo is improved enough that she is able to ambulate safely after which she can go home. MMODL / IJN: [id number] /
[2019-06-24] MEDS: traZODone HCL 50 MG TAB PO SCH (20:21)
[2019-06-24 21:45] VITALS: RESP 20; TEMP 98
[2019-06-25] MEDS: HYDROcodone/APAP 5-325MG 1 EACH TAB PO PRN ×3 (02:47→11:54)
[2019-06-25 05:25] VITALS: BP 133/76
[2019-06-25] MEDS: OXYBUTYNIN 10 MG TAB.ER.24 PO SCH (08:07)
[2019-06-25] MEDS: LEVOFLOXACIN 250 MG TAB PO SCH (08:07)
[2019-06-25] MEDS: ASPIRIN 81 MG PO SCH (08:07)
[2019-06-25] MEDS: LISINOPRIL 20 MG TAB PO SCH (08:07)
[2019-06-25] MEDS: METOPROLOL TARTRATE 25 MG TAB PO SCH (08:07)
[2019-06-25] MEDS: PANTOPRAZOLE 40 MG TABLET PO SCH (08:07)
[2019-06-25] MEDS: MECLIZINE 25 MG TAB PO PRN (08:18)
[2019-06-25] MEDS: IPRATROPIUM-ALBUTEROL 3 ML NEB INHALATION SCH (08:52)
[2019-06-25] MEDS: SYMBICORT 160-4.5 MCG INHALER INHALATION SCH (08:53)
[2019-06-25 08:58] VITALS: PULSE 96
--- NOTE | 2019-06-25 14:33 | DS ---
DISCHARGE SUMMARY CHIEF COMPLAINT: Generalized weakness and urinary tract infection. HISTORY OF PRESENT ILLNESS AND PHYSICAL EXAM: Details of this lady's history and physical can be found in the initial workup. LABORATORY STUDIES: While she was in the hospital, she had laboratory studies, the details of which can be found in the laboratory section of her chart. COURSE IN HOSPITAL: After admission, she was placed on bed rest, started on intravenous fluids, and antibiotic used for her urinary tract infection. She improved. She was rehydrated and had gotten stronger. She did not develop any respiratory issues. She did develop acute labyrinthitis which slowly began to subside to the point it was safe for her to ambulate. She will go home on her usual activity and diet, along with Antivert. She will be seen in seven days. FINAL DIAGNOSES: 1. Urinary tract infection. 2. Dehydration. 3. Generalized weakness. 4. Nausea and vomiting. 5. Labyrinthitis. 6. Chronic obstructive pulmonary disease. 7. Carcinoma of the lung. OPERATIONS: None. CONSULTATIONS: None. She is improved. MMODL / PHILLIPN: [id number] /
== END 2019-06-25 12:33 | disposition home or self-care (01) | DRG 690 ==
LOC: EC 13:28 → 6NMEDSUR 15:41 → OBSVTOIN 06-22 12:53 → 6NMEDSUR 06-23 01:11
PROVIDERS: ADMIT Family Medicine; ATTEND Family Medicine
DX: N39.0 Urinary tract infection, site not specified (principal); C34.91 Malignant neoplasm of unspecified part of right bronchus or lung; E86.0 Dehydration; I25.10 Atherosclerotic heart disease of native coronary artery without angina pectoris; I10 Essential (primary) hypertension; M19.90 Unspecified osteoarthritis, unspecified site; J43.9 Emphysema, unspecified; H91.91 Unspecified hearing loss, right ear; F41.9 Anxiety disorder, unspecified; F17.200 Nicotine dependence, unspecified, uncomplicated; H83.09 Labyrinthitis, unspecified ear; G25.81 Restless legs syndrome; Z87.11 Personal history of peptic ulcer disease; Z79.1 Long term (current) use of non-steroidal anti-inflammatories (NSAID); Z79.899 Other long term (current) drug therapy; Z85.118 Personal history of other malignant neoplasm of bronchus and lung; Z93.3 Colostomy status; Z90.49 Acquired absence of other specified parts of digestive tract; Z98.890 Other specified postprocedural states; Z80.42 Family history of malignant neoplasm of prostate; Z80.8 Family history of malignant neoplasm of other organs or systems
CPT/HCPCS: 36415; 71046; 80051; 80053; 81001; 83605; 83735; 84484; 85025; 85610; 85730; 87040; 87077; 87086; 87186; 93005; 94640; 94760; 96361; 96374; 96375; 96376; 99285

== ENCOUNTER → 2019-08-30 | Outpatient (CLI) | payer MEDICARE, OTHER ==
--- NOTE | 2019-08-30 09:57 | CT ---
EXAMINATION TYPE: CT chest wo con DATE OF EXAM: 08/30/2019 COMPARISON: PET/CT dated 04/23/[address] chest dated 01/17/2019 HISTORY: Follow up per patient CT DLP: 116 mGycm. Automated Exposure Control for Dose Reduction was Utilized. TECHNIQUE: CT scan of the thorax is performed without IV contrast. FINDINGS: LUNGS: There are stable presumably post therapy/post radiation change in the peripheral left upper lo be and superior segment of the left lower lobe that is curvilinear in shape with most focal consolida tive density on image 24 measuring approximately 8 mm and has slightly changed in morphology from the prior where this was more elongated measuring only 4 mm in thickness. Surveillance is recommended at this location given the slight interval change. There is background mild centrilobular emphysematous change of the lungs. Multifocal pleural parenchy mal scarring seen. No new suspicious pulmonary nodule or mass identified. Atelectatic change of the right middle lobe with internal calcified bronchi is unchanged from the allison or. There is no pleural effusion or pneumothorax seen. Endobronchial debris is seen within a segmenta l bronchus to the left lower lobe. Improved reticular nodular opacity of the left lower lobe and ling omer in comparison to the prior. MEDIASTINUM: Lack of IV contrast is noted to limit evaluation for mediastinal and especially hilar ad enopathy. There are no definitive greater than 1 cm hilar or mediastinal lymph nodes. No cardiomega ly or pericardial effusion is seen. The left vertebral artery originates directly from the aortic arc h, normal anatomic variant. Mild coronary artery calcification seen. OTHER: Advanced atherosclerosis of the distal thoracic and upper abdominal aorta. Partial visualizat ion of abdominal aortic stent. Partially visualized right parastomal hernia. Mild multilevel degenera tive change of the spine. IMPRESSION: 1. Post therapy changes of the left lung are similar to the prior however there is slight increase in the most solid component from 4 mm to 8 mm with change in morphology. Short-term follow-up CT thorax and/or PET CT are recommended to ensure no recurrence. 2. Endobronchial debris in a segmental bronchus of the left lower lobe. Mucous plugging, aspiration, or less likely endobronchial tumor are possibilities. No significant postobstructive atelectasis down stream. 3. Partially visualized bowel containing right parastomal hernia.
== END | disposition home or self-care (01) ==
LOC: RADCTMAIN 09:02
PROVIDERS: ATTEND Internal Medicine Sleep Medicine
DX: J98.11 Atelectasis (principal); J98.09 Other diseases of bronchus, not elsewhere classified
CPT/HCPCS: 71250

== ENCOUNTER 2019-09-14 12:54 | Day surgery (SDC) | payer MEDICARE, OTHER ==
[2019-09-14 13:20] VITALS: RESP 16
[2019-09-14] MEDS ORDERED: LACTATED RINGERS 1,000 ML IV ONE (13:24)
[2019-09-14] MEDS ORDERED: LIDOCAINE 2% INJ 20 MG/ML INTRATRACH ONE (15:29)
[2019-09-14] MEDS ORDERED: PROPOFOL 10 MG/ML 20 ML VIAL IV ONE (15:46)
[2019-09-14] MEDS ORDERED: SUCCINYLCHOLINE CHLORIDE 100 MG/5 ML SYR IV ONE (15:46)
[2019-09-14] MEDS ORDERED: LIDOCAINE 1% INJ 10MG/ML (20 ML MDV) ONE (15:46)
[2019-09-14] MEDS ORDERED: MIDAZOLAM 2 MG/2 ML VIAL ONE (15:46)
[2019-09-14 16:25] VITALS: TEMP 98.5
--- NOTE | 2019-09-14 16:26 | P.PCN ---
Date of Procedure: 09/14/19 Preoperative Diagnosis: Endobronchial mass, endobronchial debris in the left bronchus intermedius, lung cancer, pulmonary nodule in left upper lobe Postoperative Diagnosis: As above but no endobronchial mass noted Procedure(s) Performed: #1 bronchoscopy #2 bronchoalveolar lavage of both lower lobes Anesthesia: MAC Surgeon: Osman Keating Condition: stable Disposition: same day Indications for Procedure: Rule out endobronchial mass on the left bronchus intermedius Operative Findings: No endobronchial mass noted but extensive mucus plugging seen see operative note below Description of Procedure: Patient draped in a usual fashion anesthesia provided from the anesthesia service patient was intubated due to cold with 19, fiberoptic bronchoscope was passed through the endotracheal tube, axes obtain into the trachea which was normal structure appearance tip of the scope was passed on the right side right upper lobe middle lobe and lower lobe was seen no endobronchial mass or lesion was found, however extensive mucus plugging is seen, tip of the scope was taken to the left side left upper lobe lingular lobe and left lower lobe subsegments were inspected no endobronchial mass or lesion was seen again extensive mucus plugging seen on the left side, BAL was performed from the left lower lobe as well as the right lower lobe patient tolerated procedure well no complication noted
[2019-09-14 16:54] VITALS: PULSE 75
[2019-09-14 17:14] VITALS: BP 134/88
[2019-09-14 20:25] LABS: Appearance,BF Cloudy; Color,BF Colorless
== END 2019-09-14 17:26 | disposition home or self-care (01) ==
LOC: ORWHC2ENDO 12:54
PROVIDERS: ATTEND Internal Medicine Sleep Medicine
DX: J40 Bronchitis, not specified as acute or chronic (principal); J44.9 Chronic obstructive pulmonary disease, unspecified; Z85.118 Personal history of other malignant neoplasm of bronchus and lung; Z92.3 Personal history of irradiation; I10 Essential (primary) hypertension; F41.9 Anxiety disorder, unspecified; G25.81 Restless legs syndrome; Z86.19 Personal history of other infectious and parasitic diseases; Z79.899 Other long term (current) drug therapy
CPT/HCPCS: 87798 ×4; 87541; 87496; 87498; 87529; 82150; 88108; 88305; 89050; 87252; 87502; 87634; 87070; 87205; 87116; 87206; 31624; J2250; J2001; J0330; J2704

== ENCOUNTER → 2019-10-24 | Outpatient (CLI) | payer MEDICARE, OTHER ==
--- NOTE | 2019-10-24 11:45 | CT ---
EXAMINATION TYPE: CT chest w con DATE OF EXAM: 10/24/2019 COMPARISON: 08/30/[address] 04/23/2019 HISTORY: 64-year-old female Left lung cancer TECHNIQUE: Contiguous axial scanning of the chest after the administration of 90 mL of Isovue 300. C oronal/sagittal reconstructions performed. CT DLP: 112.3mGycm. Automatic exposure control utilized for a dose reduction. FINDINGS: Heart normal size with trace anterior pericardial fluid. Mild aortic valvular calcifications. RCA cor onary artery calcifications. Aorta normal caliber with mild atherosclerotic calcifications scattered throughout and very direct ta keoff of the left vertebral artery. An 8 mm precarinal lymph node is relatively unchanged. No new or progressive thoracic lymphadenopathy identified. Right apical pleural parenchymal scarring. Mild to moderate upper lung emphysematous change. Focal bandlike and irregular thickening along the left upper lobe contacting the major fissure. Irreg ular thickening embedded within this region measures 1.5 x 1.3 cm versus 1.0 x 0.9 cm on 08/30/2019 an d 1.9 x 1.1 cm on 04/23/2019. Some stable patchy atelectasis subpleural right middle lobe. No consolidation or pleural effusion. Visualized upper abdomen shows cholecystectomy clips in moderate to severe atherosclerotic change in the upper abdominal aorta, possible moderate to severe stenosis just above and below the renal artery takeoff, axial image 62 and 67. Bones: Severe degenerative disc disease towards the right at L2-L3. Grade 1 retrolisthesis here. Panchito tional moderate degenerative disc disease C6/C7. Degenerative change left glenohumeral joint. IMPRESSION: 1. COPD with mild to moderate emphysema. 2. Site of previous treated disease along the left upper lobe. There is some irregular soft tissue th ickening here currently measuring 1.5 x 1.3 cm versus 1.0 x 0.9 cm, previously. Continued follow-up r ecommended. This could represent progressive scarring or early local recurrence. 3. [place] atherosclerotic calcifications may contribute to moderate to severe stenoses in the abdomin al aorta above and below the renal artery takeoff.
== END ==
LOC: RADCTMAIN 10:32
PROVIDERS: ATTEND Radiology Radiation Oncology
DX: C34.12 Malignant neoplasm of upper lobe, left bronchus or lung (principal); J43.9 Emphysema, unspecified; M79.89 Other specified soft tissue disorders; I25.10 Atherosclerotic heart disease of native coronary artery without angina pectoris; F17.210 Nicotine dependence, cigarettes, uncomplicated; Z92.3 Personal history of irradiation
CPT/HCPCS: 71260; Q9967

== ENCOUNTER → 2020-04-13 | Outpatient (CLI) | payer MEDICARE, OTHER ==
--- NOTE | 2020-04-13 12:38 | PE ---
EXAMINATION TYPE: PET CT fusion skull to thigh DATE OF EXAM: 04/13/2020 COMPARISON: Prior PET/CT April 23, 2019. Most recent CT chest October 24, 2019 and older studies. HISTORY: Left-sided lung cancer diagnosed in 2016. TECHNIQUE: Following the intravenous administration of 10.37 mCi of F-18 FDG, whole body images are performed from the skull base to the midthigh. Images are reviewed on the computer in the coronal, a xial, and sagittal planes. Reconstructed rotating images are created on independent workstation and reviewed on the computer. A localization and attenuation correction CT is performed in conjunction with the PET scan. SCAN: Subsequent Scan FINDINGS: SKULL BASE AND NECK: No new areas of abnormal hypermetabolic uptake. CHEST, MEDIASTINUM, AND HILAR REGION: Background mild to moderate underlying emphysematous change red emonstrated. Persistent irregular and slightly thickened but low dense scarring in the left upper to midlung area of treated neoplasm. No new abnormal hypermetabolic uptake at this level. No new areas o f abnormal hypermetabolic uptake in the thorax. ABDOMEN AND PELVIS: No new areas of abnormal hypermetabolic uptake. Normal excretion. No adrenal mass es. OSSEOUS STRUCTURES: No new areas of abnormal hypermetabolic uptake. OTHER CT: Moderate calcified plaque bilateral carotid bulb level redemonstrated. Calcification at lev el of aortic valve again seen. There is coronary artery calcification and/or stents redemonstrated. Cholecystectomy clips redemonstrated. Surgical changes from aortobifemoral bypass redemonstrated. Per sistent right-sided colostomy. Scattered bilateral pelvic phleboliths redemonstrated. Underlying scol iosis in the spine. Multilevel disc space narrowing and spurring greatest at L2-L3 and lower lumbar l evels. IMPRESSION: No suspicious hypermetabolic uptake to suggest local or metastatic neoplastic recurrence.
== END | disposition home or self-care (01) ==
LOC: RADPETMAIN 09:06
PROVIDERS: ATTEND Radiology Radiation Oncology
DX: C34.12 Malignant neoplasm of upper lobe, left bronchus or lung (principal); F17.210 Nicotine dependence, cigarettes, uncomplicated; Z92.3 Personal history of irradiation
CPT/HCPCS: 78815; A9552

== ENCOUNTER → 2020-06-13 | Outpatient (CLI) | payer MEDICARE, OTHER ==
[2020-06-13 21:33] LABS: HCT 43.8 % (37.2-46.3); HGB 14.2 g/dL (12.0-15.0); MCH 34.7 pg (27.0-32.0); MCHC 32.4 g/dL (32.0-37.0); MCV 107.1 fL (80.0-97.0); Mean Platelet Volume 10.5 fL (9.5-12.2); Platelet Count 270 X 10*3/uL (140-440); RBC 4.09 X 10*6/uL (4.10-5.20); RDW 11.9 % (11.5-14.5); WBC 4.87 X 10*3/uL (4.50-10.00)
[2020-06-13 22:39] LABS: Basophils # (A) 0.02 X 10*3/uL (0.00-0.10); Basophils % (A) 0.4 %; Eosinophils # (A) 0.12 X 10*3/uL (0.04-0.35); Eosinophils % (A) 2.5 %; Lymphocytes # (A) 0.91 X 10*3/uL (0.90-5.00); Lymphocytes % (A) 18.7 %; Monocytes # (A) 0.37 X 10*3/uL (0.20-1.00); Monocytes % (A) 7.6 %; Neutrophils # (A) 3.44 X 10*3/uL (1.80-7.70); Neutrophils % (A) 70.6 %
[2020-06-13 22:40] LABS: Crenated RBC 2+; Macrocytosis (M) 2+
[2020-06-14 01:08] LABS: ALT 14 U/L (8-44); AST 23 U/L (13-35); Albumin/Globulin Ratio 1.62 (1.60-3.17); Alkaline Phosphatase 75 U/L (41-126); Bilirubin, Conjugated <0.20 mg/dL (0.20-0.40); Globulin 2.6 g/dL (1.6-3.3); Total Bilirubin 0.2 mg/dL (0.2-1.2); Total Protein 6.8 g/dL (6.2-8.2)
== END | disposition home or self-care (01) ==
LOC: LABWHC1 12:58
PROVIDERS: ATTEND Physician Assistant
DX: B19.20 Unspecified viral hepatitis C without hepatic coma (principal)
CPT/HCPCS: 36415; 80076; 85025; 87522

== ENCOUNTER 2020-08-24 14:06 | Inpatient (IN) | payer MEDICARE, OTHER ==
[2020-08-24] MEDS ORDERED: SODIUM CHLORIDE 0.9% 1,000 ML IV STA ×3 (14:44→16:26)
[2020-08-24] MEDS ORDERED: ALPRAZolam 1 MG TAB PO STA (14:44)
--- NOTE | 2020-08-24 15:05 | ED ---
General Adult HPI - General Source: patient, EMS Mode of arrival: EMS Limitations: no limitations <GingerMelchor Eduard - Last Filed: 08/24/20 15:16> <Edwin Ventura - Last Filed: 08/24/20 16:48> - General Chief complaint: Neuro Symptoms/Deficit Stated complaint: shaking Time Seen by Provider: 08/24/20 14:21 - History of Present Illness Initial comments: Dictation was produced using [employer] dictation software. please excuse any grammatical, word or spelling errors. Chief Complaint: 65-year-old female with past medical history of alcohol abuse, coronary artery disease, COPD and hypertension. History of Present Illness: 65-year-old female she presents stable tremors. She was with her family when she was told nose about her sister be admitted to the ICU for double pneumonia. Patient became hysterical and began having shaking episodes. She fell down and struck her head on a swing. Patient is a regular alcohol user. She drinks 3 beers a day. She has history of colostomy. States that she is really upset about her sister. Daughter is at bedside who witnessed the events. Do not share patient had a seizure. Patient states she has had withdrawal symptoms before. Her last on-call beverages yesterday. The ROS documented in this emergency department record has been reviewed and confirmed by me. Those systems with pertinent positive or negative responses have been documented in the HPI. All other systems are other negative and/or noncontributory. PHYSICAL EXAM: General Impression: Alert and oriented x3, not in acute distress HEENT: Normocephalic atraumatic, extra-ocular movements intact, pupils equal and reactive to light bilaterally, mucous membranes moist. Cardiovascular: Heart regular rate and rhythm Chest: Able to complete full sentences, no retractions, no tachypnea Abdomen: abdomen soft, non-tender, non-distended, no organomegaly Musculoskeletal: Pulses present and equal in all extremities, no peripheral edema Motor: no focal deficits noted Neurological: CN II-XII grossly intact, no focal motor or sensory deficits noted Skin: Intact with no visualized rashes Psych: Normal affect and mood ED course: 65-year-old female presents with tremor episodes, fall. Vital signs upon arrival shows blood pressure 87/69, worse vital signs within acceptable limits. Patient given 1 L normal saline bolus. Patient care is signed out to Dr. Ventura EKG interpretation: Ventricular rate 87, normal sinus rhythm,. 144, right bundle branch block, QRS 120, QTC 478. No MD prolongation, no QTC prolongation, no ST or T-wave changes noted. EKG compared to 06/20/2019 showing no changes. Overall, this EKG is unremarkable (Melchor Miles) The patient relates that she went from a sitting to standing position. She felt dizzy and presyncopal. She then apparently fell and hit her head but denies any actual definitive syncope. She is denying any other injuries. She denies any previous similar incidents. (Edwin Ventura) - Related Data Home Medications Medication Instructions Recorded Confirmed ALPRAZolam [Xanax] 0.5 mg PO TID PRN 08/14/15 06/20/19 Aspirin EC [Ecotrin Low Dose] 81 mg PO BID 08/14/15 06/20/19 HYDROcodone/APAP 10-325MG [[place] 1 tab PO Q6H PRN 08/14/15 06/20/19 10-325] Metoprolol Tartrate [Lopressor] 25 mg PO BID 08/14/15 06/20/19 methocarbamoL [Robaxin] 500 mg PO BID PRN 08/14/15 06/20/19 Meloxicam [Mobic] 7.5 mg PO BID 03/14/16 06/20/19 Oxybutynin Chloride [Ditropan XL] 10 mg PO DAILY 06/23/18 06/20/19 Calcium Carbonate [Calcium] 1,200 mg PO DAILY 12/21/18 06/20/19 Cholecalciferol (Vitamin D3) 2,000 unit PO DAILY 12/21/18 06/20/19 [Vitamin D3] Ipratropium-Albuterol Nebulize 3 ml INHALATION RT-DAILY 12/21/18 06/20/19 [Duoneb 0.5 mg-3 mg/3 ml Soln] dronabinoL [Marinol] 5 mg PO HS 12/21/18 06/20/19 Albuterol Sulfate [Ventolin HFA] 1 - 2 puff INHALATION RT-QID PRN 06/20/19 06/20/19 Benazepril HCl 10 mg PO DAILY 06/20/19 06/20/19 Budesonide/Formoterol Fumarate 2 puff INHALATION RT-BID 06/20/19 06/20/19 [Symbicort 160-4.5 Mcg Inhaler] Nicotine Polacrilex [Nicotine Gum] 4 - 8 mg BUCCAL Q2H PRN 06/20/19 06/20/19 rOPINIRole HCL [Requip] 0.5 - 1 mg PO HS PRN 06/20/19 06/20/19 traZODone HCL 150 mg PO HS 06/20/19 06/20/19 Previous Rx's Medication Instructions Recorded Levofloxacin [Levaquin] 250 mg PO DAILY #7 tab 06/25/19 Meclizine [Antivert] 25 mg PO QID PRN #30 tab 06/25/19 Allergies Allergy/AdvReac Type Severity Reaction Status Date / Time No Known Allergies Allergy Verified 08/24/20 14:19 Review of Systems ROS Other: All systems not noted in ROS Statement are negative. <Melchor Miles - Last Filed: 08/24/20 15:16> ROS Other: All systems not noted in ROS Statement are negative. <Edwin Ventura - Last Filed: 08/24/20 16:48> ROS Statement: Those systems with pertinent positive or pertinent negative responses have been documented in the HPI. Past Medical History Past Medical History: Coronary Artery Disease (CAD), Cancer, Chest Pain / Angina, COPD, Hypertension, Liver Disease, Osteoarthritis (OA) Additional Past Medical History / Comment(s): HX of Hepatitis C with [place]., emphysema, restless leg syndrome, has colostomy. lung cancer with radiation tx (2016), oxygen prn 2 liters, Hx stomach ulcer., Back pain, hearing loss right ear History of Any Multi-Drug Resistant Organisms: None Reported Past Surgical History: Appendectomy, Bowel Resection, Cholecystectomy Additional Past Surgical History / Comment(s): HX OF AORTO BIFEMORAL GRAFT- FEM PAP BYPASS, COLOSTOMY . Past Anesthesia/Blood Transfusion Reactions: No Reported Reaction Past Psychological History: Anxiety Smoking Status: Current every day smoker Past Alcohol Use History: Occasional Past Drug Use History: Marijuana - Past Family History Father Family Medical History: Cancer Additional Family Medical History / Comment(s): Prostate CA. Daughter(s) Family Medical History: Cancer Additional Family Medical History / Comment(s): BONE CANCER <Melchor Miles - Last Filed: 08/24/20 15:16> General Exam Limitations: no limitations <Melchor Miles - Last Filed: 08/24/20 15:16> Course Vital Signs 08/24/20 08/24/20 14:10 16:23 Temperature 97.7 F Pulse Rate 99 79 Respiratory 18 17 Rate Blood Pressure 87/69 85/62 O2 Sat by Pulse 95 95 Oximetry Medical Decision Making - Lab Data Result diagrams: 08/24/20 14:59 <Melchor Miles - Last Filed: 08/24/20 15:16> - Lab Data Result diagrams: 08/24/20 14:59 08/24/20 14:59 <Edwin Ventura - Last Filed: 08/24/20 16:48> - Medical Decision Making The patient was seen and examined. All diagnostics were reviewed. The computed tomography scan of the brain and cervical spine shows age-related changes as well as some degenerative changes in the cervical spine. No acute process is identified. The laboratory overall is fairly unremarkable except for mild hyperglycemia. On recheck, she states that she is feeling much improved. Her blood pressure was low initially and on recheck it is 85 systolic after 1 L of IV fluids. It is felt as though she will require admission due to the hypotension and presyncope. Additional IV fluids are given. She is agreeable. Case is discussed with Dr. Skaggs and he is agreeable with admission. (Edwin Ventura) - Lab Data Lab Results 08/24/20 08/24/20 Range/Units 14:59 14:59 WBC 5.6 (3.8-10.6) k/uL RBC 4.19 (3.80-5.40) m/uL Hgb 13.8 (11.4-16.0) gm/dL Hct 43.0 (34.0-46.0) % MCV 102.6 H (80.0-100.0) fL MCH 32.9 (25.0-35.0) pg MCHC 32.1 (31.0-37.0) g/dL RDW 12.6 (11.5-15.5) % Plt Count 221 (150-450) k/uL MPV 7.0 Neutrophils % 81 % Lymphocytes % 12 % Monocytes % 5 % Eosinophils % 2 % Basophils % 0 % Neutrophils # 4.5 (1.3-7.7) k/uL Lymphocytes # 0.7 L (1.0-4.8) k/uL Monocytes # 0.3 (0-1.0) k/uL Eosinophils # 0.1 (0-0.7) k/uL Basophils # 0.0 (0-0.2) k/uL Macrocytosis Slight Sodium 137 (137-145) mmol/L Potassium 4.0 (3.5-5.1) mmol/L Chloride 106 (98-107) mmol/L Carbon Dioxide 24 (22-30) mmol/L Anion Gap 7 mmol/L BUN 26 H (7-17) mg/dL Creatinine 1.15 H (0.52-1.04) mg/dL Est GFR (CKD-EPI)AfAm 58 (>60 ml/min/1.73 sqM) Est GFR (CKD-EPI)NonAf 50 (>60 ml/min/1.73 sqM) Glucose 221 H (74-99) mg/dL Calcium 8.8 (8.4-10.2) mg/dL Magnesium 1.7 (1.6-2.3) mg/dL Total Bilirubin 0.3 (0.2-1.3) mg/dL AST 28 (14-36) U/L ALT 16 (4-34) U/L Alkaline Phosphatase 59 (38-126) U/L Total Protein 6.6 (6.3-8.2) g/dL Albumin 3.9 (3.5-5.0) g/dL Disposition <Melchor Miles - Last Filed: 08/24/20 15:16> Is patient prescribed a controlled substance at d/c from ED?: No Time of Disposition: 16:48 Decision Date: 08/24/20 Decision Time: 16:48 <Edwin Ventura - Last Filed: 08/24/20 16:48> Clinical Impression: Fall, Head injury, Hypotension, Pre-syncope, Alcohol use disorder Disposition: ADMITTED IP TO THIS [facility] Condition: Fair Referrals: Anton Skaggs MD [Primary Care Provider] - 1-2 days
[2020-08-24 15:09] LABS: Basophils % (A) 0 %; Eosinophils # (A) 0.1 k/uL (0-0.7); Eosinophils % (A) 2 %; HGB 13.8 gm/dL (11.4-16.0); Lymphocytes # (A) 0.7 k/uL (1.0-4.8); Lymphocytes % (A) 12 %; MCH 32.9 pg (25.0-35.0); MCHC 32.1 g/dL (31.0-37.0); MCV 102.6 fL (80.0-100.0); Macrocytosis Slight; Monocytes # (A) 0.3 k/uL (0-1.0); Monocytes % (A) 5 %; Neutrophils # (A) 4.5 k/uL (1.3-7.7); Neutrophils % (A) 81 %; Platelet Count 221 k/uL (150-450); RBC 4.19 m/uL (3.80-5.40); RDW 12.6 % (11.5-15.5); WBC 5.6 k/uL (3.8-10.6)
--- NOTE | 2020-08-24 15:13 | XR ---
EXAMINATION TYPE: XR chest 1V portable DATE OF EXAM: 08/24/2020 COMPARISON: Chest x-ray dated 06/20/2019, PET/CT 04/25/2020 HISTORY: History COPD, tremors TECHNIQUE: Single frontal view of the chest is obtained. FINDINGS: There is no focal air space opacity, pleural effusion, or pneumothorax seen. The cardiac silhouette size is within normal limits. There are prominent lung volumes consistent with COPD, the re is underlying emphysema. Bandlike area of increased attenuation is again noted within the mid lung on the left. The osseous structures are intact. IMPRESSION: No acute process.
[2020-08-24 15:17] LABS: Albumin 3.9 g/dL (3.5-5.0); Calcium 8.8 mg/dL (8.4-10.2); Magnesium 1.7 mg/dL (1.6-2.3); Total Bilirubin 0.3 mg/dL (0.2-1.3); Total Protein 6.6 g/dL (6.3-8.2)
--- NOTE | 2020-08-24 15:40 | CT ---
EXAMINATION TYPE: CT brain ayleen dodson DATE OF EXAM: 08/24/2020 COMPARISON: None HISTORY: Fall with injury today. Possible seizure CT DLP: 1149.[address] of the brain was performed. The ventricles, basal cisterns and sulci overlying the cerebral convexities demonstrate mild enlargem ent. There is no evidence for intracranial hemorrhage or sulcal effacement. There is decreased attenuatio n about the periventricular white matter and deep white matter of both cerebral hemispheres, compatib le with chronic small vessel ischemia. No mass effects are seen. If symptoms persist consider MRI. Osseous calvarium is intact. IMPRESSION: 1. Age related atrophic and chronic small vessel ischemic change without acute intracranial process seen at this time. CT Cervical Spine: Unenhanced CT of the cervical spine was performed with bone and soft tissue window settings submitted . Coronal and sagittal reconstruction is obtained. There is normal alignment and prevertebral soft tissues. No evidence for acute cervical fracture . Scattered degenerative disc disease and spondylosis. Biapical scarring. IMPRESSION: 1. No evidence for acute fracture or subluxation of the cervical spine.
[2020-08-24] MEDS ORDERED: ONDANSETRON 4 MG/2 ML VIAL IVP PRN (16:51)
[2020-08-24] MEDS ORDERED: NALOXONE 0.4 MG/ML 1 ML VIAL IV PRN (16:51)
[2020-08-24] MEDS: traZODone HCL 50 MG TAB PO SCH (22:25)
[2020-08-24] MEDS: MELOXICAM 7.5 MG TAB PO SCH (22:25)
[2020-08-24] MEDS: ALPRAZolam 1 MG TAB PO SCH (22:25)
[2020-08-24] MEDS: HYDROcodone/APAP 10-325MG 1 EACH TAB PO PRN (22:26)
[2020-08-24] MEDS: OXYBUTYNIN 10 MG TAB.ER.24 PO SCH (23:49)
[2020-08-25 06:25] LABS: Glucose,Whole Blood 92 mg/dL (75-99)
[2020-08-25 08:39] LABS: Albumin 3.6 g/dL (3.5-5.0); Calcium 8.2 mg/dL (8.4-10.2); Potassium 4.4 mmol/L (3.5-5.1); Total Bilirubin 0.1 mg/dL (0.2-1.3); Total Protein 6.3 g/dL (6.3-8.2)
[2020-08-25] MEDS: METOPROLOL TARTRATE 25 MG TAB PO SCH (09:23)
[2020-08-25] MEDS: MELOXICAM 7.5 MG TAB PO SCH ×2 (09:23→20:45)
[2020-08-25] MEDS: ALPRAZolam 1 MG TAB PO SCH ×3 (09:23→20:46)
[2020-08-25] MEDS: PANTOPRAZOLE 40 MG TABLET PO SCH (09:23)
[2020-08-25] MEDS: HYDROcodone/APAP 10-325MG 1 EACH TAB PO PRN ×3 (09:24→22:31)
[2020-08-25] MEDS: OXYBUTYNIN 10 MG TAB.ER.24 PO SCH ×2 (09:24→20:46)
[2020-08-25] MEDS: ENOXAPARIN 40 MG/0.4 ML SYRINGE SQ SCH (09:24)
[2020-08-25 11:43] VITALS: BMI 16.9
--- NOTE | 2020-08-25 16:26 | HP ---
HISTORY AND PHYSICAL CHIEF COMPLAINT: Near-syncope, muscle twitching and tremors. HISTORY OF PRESENT ILLNESS: This is another admission for this 65-year-old white female. She has a history of pulmonary carcinoma and she has been doing fairly well. She does continue to smoke. Apparently, she was somewhere either with or heard about a sister who was very ill with pneumonia and became very agitated. It is not clear if she actually passed out, had a seizure, or what, but she did strike her head. Family brought her to the emergency room where she had no focal neurologic problems, headaches, chest pain, etc. Blood pressure was 87/62. It does not sound like a seizure. She did not have any injury or loss of sphincter control. REVIEW OF SYSTEMS: She denies headaches, change in vision hearing, chest pain, shortness of breath, abdominal pain, nausea, vomiting, diarrhea, melena, hematochezia, incontinence, dysuria, frequency, urgency, etc. Past medical history, family history and personal and social histories are insignificant except for history of COPD and carcinoma. MEDICATIONS: Include: Requip, Toprol, lisinopril, albuterol, oxybutynin, trazodone, Ventolin, Xanax, Symbicort, methocarbamol, DuoNeb, vitamin D, aspirin and Vicodin occasionally. The remainder of her history is unremarkable. PHYSICAL EXAMINATION: Blood pressure is 84/50. Head, ears, eyes, nose, mouth and throat are normal. Chest is clear. Cardiac exam is normal. Abdomen is soft and nontender. Extremities: Normal. Neurologically: She seems to be intact present. At present time, speech is normal and gaze is normal. She has no lateralizing signs or symptoms. IMPRESSION: 1. Syncopal episode with head injury. 2. Chronic obstructive pulmonary disease. 3. History of carcinoma of the lung. PLAN: 1. Bedrest. 2. IV fluids. 3. Frequent monitoring of her neurologic status and vital signs. 4. Progress activity. MMODL / IJN: [id number] /
--- NOTE | 2020-08-25 16:38 | PN ---
PROGRESS NOTE DATE OF SERVICE: 08/25/2020 CHIEF COMPLAINT: Syncopal episode with head injury. HISTORY OF PRESENT ILLNESS: This lady seems fine today. She has no headaches, neurologic problems, dizziness, lightheadedness, etc. PHYSICAL EXAMINATION: Chest is clear. Cardiac exam is normal. Abdomen is soft, nontender. She is still hypotensive with a blood pressure around 90. IMPRESSION: 1. Syncopal episode with head injury. 2. Chronic obstructive pulmonary disease. 3. Carcinoma of the lung. PLAN: Increase activity and diet and follow vital signs and neurologic status and she can probably go home tomorrow. MMODL / IJN: [id number] /
[2020-08-25 17:07] LABS: Glucose,Whole Blood 118 mg/dL (75-99)
[2020-08-25] MEDS: traZODone HCL 50 MG TAB PO SCH (20:46)
[2020-08-26 02:40] VITALS: RESP 18
[2020-08-26] MEDS: HYDROcodone/APAP 10-325MG 1 EACH TAB PO PRN ×2 (06:24→12:52)
[2020-08-26] MEDS: PANTOPRAZOLE 40 MG TABLET PO SCH (06:24)
[2020-08-26] MEDS: ALPRAZolam 1 MG TAB PO SCH (09:18)
[2020-08-26] MEDS: MELOXICAM 7.5 MG TAB PO SCH (09:18)
[2020-08-26] MEDS: METOPROLOL TARTRATE 25 MG TAB PO SCH (09:18)
[2020-08-26] MEDS: ENOXAPARIN 40 MG/0.4 ML SYRINGE SQ SCH (09:19)
[2020-08-26] MEDS: OXYBUTYNIN 10 MG TAB.ER.24 PO SCH (09:19)
[2020-08-26 11:11] VITALS: TEMP 97.9
[2020-08-26 13:39] VITALS: BP 100/54; PULSE 52
--- NOTE | 2020-08-27 18:50 | DS ---
DISCHARGE SUMMARY DATE OF DISCHARGE: 08/26/2020 CHIEF COMPLAINT: Near-syncope with tremors, fall, head injury and hypotension. HISTORY OF PRESENT ILLNESS AND PHYSICAL EXAMINATION: Details of this lady's history and physical can be found in the initial workup. LABORATORY STUDIES: While she was in the hospital she had laboratory studies, details of which can be found in the laboratory section of her chart. COURSE IN THE HOSPITAL: After admission she was placed on bedrest and started on intravenous fluids and frequent monitoring of her neurologic status and vital signs. She had no further problems. Blood pressure remained stable. Cardiac enzymes were normal. Neurologically she was intact. It was felt this may have been due to a panic attack. She was doing well and stable enough that it was felt that she could go home on August 26. She will go home on her usual activity, diet and medications, and we will contact her through the office in a day or so. FINAL DIAGNOSIS: Syncope, hypotension, closed-head injury. OPERATIONS: None. CONSULTATIONS: 1. Neurology. 2. Cardiology. She is improved. SAMANTHA / JP: [id number] /
[2020-09-02] MEDS ORDERED: ERGOCALCIFEROL 1,250 MCG (50,000 IU) CAPSULE PO SCH (09:00)
== END 2020-08-26 14:00 | disposition home or self-care (01) | DRG 880 ==
LOC: EC 14:06 → 3SCARD 17:39
PROVIDERS: ADMIT Family Medicine; ATTEND Family Medicine
DX: F41.0 Panic disorder [episodic paroxysmal anxiety] (principal); I95.9 Hypotension, unspecified; R25.1 Tremor, unspecified; F10.10 Alcohol abuse, uncomplicated; I25.10 Atherosclerotic heart disease of native coronary artery without angina pectoris; J43.9 Emphysema, unspecified; W19.XXXA Unspecified fall, initial encounter; Z93.3 Colostomy status; Z79.1 Long term (current) use of non-steroidal anti-inflammatories (NSAID); Z79.51 Long term (current) use of inhaled steroids; F17.200 Nicotine dependence, unspecified, uncomplicated; R73.9 Hyperglycemia, unspecified; Z20.822 Contact with and (suspected) exposure to COVID-19; Z85.118 Personal history of other malignant neoplasm of bronchus and lung; S09.90XA Unspecified injury of head, initial encounter; G25.81 Restless legs syndrome; H91.91 Unspecified hearing loss, right ear; I10 Essential (primary) hypertension; I45.10 Unspecified right bundle-branch block; Z87.11 Personal history of peptic ulcer disease; M47.812 Spondylosis without myelopathy or radiculopathy, cervical region
CPT/HCPCS: 36415; 70450; 71045; 72125; 80053; 83735; 84484; 85025; 87635; 93005; 96360; 99285

== ENCOUNTER 2021-03-18 10:57 | Inpatient (IN) | payer MEDICARE, OTHER ==
[2021-03-18] MEDS ORDERED: SODIUM CHLORIDE 0.9% 1,000 ML IV STA (11:15)
[2021-03-18] MEDS ORDERED: HYDROmorphone 0.5 MG/0.5 ML SYRINGE IVP STA (11:16)
[2021-03-18] MEDS ORDERED: cefTRIAXone IN SWFI 1,000 MG/10 ML SYRINGE IVP STA (11:16)
[2021-03-18] MEDS ORDERED: IPRATROPIUM-ALBUTEROL 3 ML NEB INHALATION STA (11:16)
--- NOTE | 2021-03-18 11:20 | ED ---
General Adult HPI - General Chief complaint: Weakness Stated complaint: Abdominal pain Time Seen by Provider: 03/18/21 11:00 Source: patient, RN notes reviewed, old records reviewed Mode of arrival: ambulatory Limitations: no limitations - History of Present Illness Initial comments: This is a 66-year-old female has a past medical history significant for alcoholism. According to the daughter the patient stopped drinking about 5 years ago. Patient is a smoker. Patient also has a colostomy but they're not sure why. Patient states she's had a colostomy since 2014. Patient comes in today because she's had difficulty breathing since 1 week ago and been complaining of right upper quadrant abdominal pain for one week. Patient did vomit one time and there's been no changes in her bowel habits. Patient denies any chest pain. Patient denies any fever chills. Patient does states she has occasional cough. Patient denies any swelling to the legs or calf tenderness. - Related Data Home Medications Medication Instructions Recorded Confirmed HYDROcodone/APAP 10-325MG [[place] 1 tab PO TID PRN 08/14/15 03/18/21 10-325] Metoprolol Tartrate [Lopressor] 25 mg PO DAILY 08/14/15 03/18/21 Meloxicam [Mobic] 7.5 mg PO BID 03/14/16 03/18/21 Oxybutynin Chloride [Ditropan XL] 10 mg PO BID 06/23/18 03/18/21 traZODone HCL 150 mg PO HS 06/20/19 03/18/21 ALPRAZolam [Xanax] 1 mg PO TID 08/24/20 03/18/21 Ergocalciferol [Vitamin D2 (1250 1,250 mcg PO Q30D 08/24/20 03/18/21 Mcg = 39179 Iu)] lisinopriL [Zestril] 2.5 mg PO DAILY 08/24/20 03/18/21 Albuterol Sulfate [Ventolin HFA] 1 puff INHALATION RT-QID PRN 03/18/21 03/18/21 Amoxic-Pot Clav 875-125Mg 1 tab PO Q12HR 03/18/21 03/18/21 [Augmentin 875-125] Aspirin EC [Ecotrin Low Dose] 81 mg PO DAILY 03/18/21 03/18/21 Budesonide/Formoterol Fumarate 2 puff INHALATION RT-BID 03/18/21 03/18/21 [Symbicort 160-4.5 Mcg Inhaler] Hydrocortisone Cream 1 applic TOPICAL QID PRN 03/18/21 03/18/21 [Hydrocortisone 2.5% Cream] Ipratropium-Albuterol Nebulize 3 ml INHALATION RT-QID PRN 03/18/21 03/18/21 [Duoneb 0.5 mg-3 mg/3 ml Soln] Latanoprost [Xalatan 0.005%] 1 drop BOTH EYES HS 03/18/21 03/18/21 Meclizine [Antivert] 25 mg PO DAILY 03/18/21 03/18/21 Potassium Chloride [Klor-Con 10 ER] 10 meq PO DAILY 03/18/21 03/18/21 methocarbamoL [Robaxin] 500 mg PO BID PRN 03/18/21 03/18/21 rOPINIRole HCL [Requip] 1 mg PO HS 03/18/21 03/18/21 Allergies Allergy/AdvReac Type Severity Reaction Status Date / Time No Known Allergies Allergy Verified 03/18/21 13:59 Review of Systems ROS Statement: Those systems with pertinent positive or pertinent negative responses have been documented in the HPI. ROS Other: All systems not noted in ROS Statement are negative. Past Medical History Past Medical History: Coronary Artery Disease (CAD), Cancer, Chest Pain / Angina, COPD, Hypertension, Liver Disease, Osteoarthritis (OA) Additional Past Medical History / Comment(s): HX of Hepatitis C with [place]., emphysema, restless leg syndrome, has colostomy. lung cancer with radiation tx (2016), oxygen prn 2 liters, Hx stomach ulcer., Back pain, hearing loss right ear, hx of ETOH abuse History of Any Multi-Drug Resistant Organisms: None Reported Past Surgical History: Appendectomy, Bowel Resection, Cholecystectomy Additional Past Surgical History / Comment(s): HX OF AORTO BIFEMORAL GRAFT- FEM PAP BYPASS, COLOSTOMY . Past Anesthesia/Blood Transfusion Reactions: No Reported Reaction Past Psychological History: Anxiety Smoking Status: Current every day smoker Past Alcohol Use History: None Reported, Occasional Past Drug Use History: Marijuana - Past Family History Father Family Medical History: Cancer Additional Family Medical History / Comment(s): Prostate CA. Daughter(s) Family Medical History: Cancer Additional Family Medical History / Comment(s): BONE CANCER General Exam - General Exam Comments Initial Comments: GENERAL: Patient is well-developed and well-nourished. Patient is nontoxic and well- hydrated and is in mild distress. ENT: Neck is soft and supple. No significant lymphadenopathy is noted. Oropharynx is clear. Moist mucous membranes. Neck has full range of motion without eliciting any pain. EYES: The sclera were anicteric and conjunctiva were pink and moist. Extraocular movements were intact and pupils were equal round and reactive to light. Eyelids were unremarkable. PULMONARY: Patient has diminished breath sounds. CARDIOVASCULAR: There is a regular rate and rhythm without any murmurs gallops or rubs. Femoral pulses are equal bilaterally ABDOMEN: Mild right upper quadrant abdominal tenderness SKIN: Skin is clear with no lesions or rashes and otherwise unremarkable. NEUROLOGIC: Patient is alert and oriented x3. Cranial nerves II through XII are grossly intact. Motor and sensory are also intact. Normal speech, volume and content. Symmetrical smile. MUSCULOSKELETAL: Normal extremities with adequate strength and full range of motion. No lower extremity swelling or edema. No calf tenderness. LYMPHATICS: No significant lymphadenopathy is noted PSYCHIATRIC: Normal psychiatric evaluation. Limitations: no limitations Course Vital Signs 03/18/21 03/18/21 03/18/21 10:59 11:42 12:04 Temperature 97.1 F L Pulse Rate 92 95 90 Respiratory 18 22 18 Rate Blood Pressure 66/49 90/69 136/70 O2 Sat by Pulse 87 L 93 L 94 L Oximetry Medical Decision Making - Medical Decision Making EKG shows sinus rhythm at 100 beats a minute QRS is 142 QT interval is 274 QTC is 510. EKG shows no significant ST segment elevation Chest x-ray shows COPD. Patient's d-dimer is elevated so started the patient heparin. Patient's potassium was elevated so I gave the patient calcium chloride and Kayexalate sodium bicarb and insulin and D50. Patient's creatinine is elevated as well. I spoke with Dr. Keslser and he was in agreement with the heparin the Kayexalate until nephrology saw the patient I also called pulmonary because of the elevated d-dimer COPD history - Lab Data Result diagrams: 03/18/21 11:23 03/18/21 12:55 Lab Results 03/18/21 03/18/21 03/18/21 Range/Units 11:23 11:23 11:23 WBC 16.0 H (3.8-10.6) k/uL RBC 5.03 (3.80-5.40) m/uL Hgb 17.1 H (11.4-16.0) gm/dL Hct 50.4 H (34.0-46.0) % MCV 100.2 H (80.0-100.0) fL MCH 34.0 (25.0-35.0) pg MCHC 33.9 (31.0-37.0) g/dL RDW 11.3 L (11.5-15.5) % Plt Count 319 (150-450) k/uL MPV 8.4 Neutrophils % 90 % Lymphocytes % 4 % Monocytes % 3 % Eosinophils % 1 % Basophils % 0 % Neutrophils # 14.4 H (1.3-7.7) k/uL Lymphocytes # 0.7 L (1.0-4.8) k/uL Monocytes # 0.6 (0-1.0) k/uL Eosinophils # 0.2 (0-0.7) k/uL Basophils # 0.0 (0-0.2) k/uL PT 10.2 (9.0-12.0) sec INR 0.9 (<1.2) APTT 24.0 (22.0-30.0) sec D-Dimer 2.99 H (<0.60) mg/L FEU Sodium 123 L (137-145) mmol/L Potassium 7.4 H* (3.5-5.1) mmol/L Chloride 92 L (98-107) mmol/L Carbon Dioxide 9 L* (22-30) mmol/L Anion Gap 22 mmol/L BUN 151 H* (7-17) mg/dL Creatinine 5.53 H (0.52-1.04) mg/dL Est GFR (CKD-EPI)AfAm 9 (>60 ml/min/1.73 sqM) Est GFR (CKD-EPI)NonAf 7 (>60 ml/min/1.73 sqM) Glucose 121 H (74-99) mg/dL Plasma Lactic Acid Adarsh (0.7-2.0) mmol/L Calcium 9.7 (8.4-10.2) mg/dL Magnesium 2.4 H (1.6-2.3) mg/dL Total Bilirubin 1.3 (0.2-1.3) mg/dL AST 32 (14-36) U/L ALT 24 (4-34) U/L Alkaline Phosphatase 92 (38-126) U/L Troponin I (0.000-0.034) ng/mL Total Protein 8.2 (6.3-8.2) g/dL Albumin 4.7 (3.5-5.0) g/dL Urine Color Urine Appearance (Clear) Urine pH (5.0-8.0) Ur Specific [place] (1.001-1.035) Urine Protein (Negative) Urine Glucose (UA) (Negative) Urine Ketones (Negative) Urine Blood (Negative) Urine Nitrite (Negative) Urine Bilirubin (Negative) Urine Urobilinogen (<2.0) mg/dL Ur Leukocyte Esterase (Negative) Urine RBC (0-5) /hpf Urine WBC (0-5) /hpf Ur Squamous Epith Cells (0-4) /hpf Urine Bacteria (None) /hpf Hyaline Casts (0-2) /lpf Urine Mucus (None) /hpf Coronavirus (PCR) (Not Detectd) 03/18/21 03/18/21 03/18/21 Range/Units 11:23 11:23 11:23 WBC (3.8-10.6) k/uL RBC (3.80-5.40) m/uL Hgb (11.4-16.0) gm/dL Hct (34.0-46.0) % MCV (80.0-100.0) fL MCH (25.0-35.0) pg MCHC (31.0-37.0) g/dL RDW (11.5-15.5) % Plt Count (150-450) k/uL MPV Neutrophils % % Lymphocytes % % Monocytes % % Eosinophils % % Basophils % % Neutrophils # (1.3-7.7) k/uL Lymphocytes # (1.0-4.8) k/uL Monocytes # (0-1.0) k/uL Eosinophils # (0-0.7) k/uL Basophils # (0-0.2) k/uL PT (9.0-12.0) sec INR (<1.2) APTT (22.0-30.0) sec D-Dimer (<0.60) mg/L FEU Sodium (137-145) mmol/L Potassium (3.5-5.1) mmol/L Chloride (98-107) mmol/L Carbon Dioxide (22-30) mmol/L Anion Gap mmol/L BUN (7-17) mg/dL Creatinine (0.52-1.04) mg/dL Est GFR (CKD-EPI)AfAm (>60 ml/min/1.73 sqM) Est GFR (CKD-EPI)NonAf (>60 ml/min/1.73 sqM) Glucose (74-99) mg/dL Plasma Lactic Acid Adarsh 1.5 (0.7-2.0) mmol/L Calcium (8.4-10.2) mg/dL Magnesium (1.6-2.3) mg/dL Total Bilirubin (0.2-1.3) mg/dL AST (14-36) U/L ALT (4-34) U/L Alkaline Phosphatase (38-126) U/L Troponin I 0.039 H* (0.000-0.034) ng/mL Total Protein (6.3-8.2) g/dL Albumin (3.5-5.0) g/dL Urine Color Urine Appearance (Clear) Urine pH (5.0-8.0) Ur Specific [place] (1.001-1.035) Urine Protein (Negative) Urine Glucose (UA) (Negative) Urine Ketones (Negative) Urine Blood (Negative) Urine Nitrite (Negative) Urine Bilirubin (Negative) Urine Urobilinogen (<2.0) mg/dL Ur Leukocyte Esterase (Negative) Urine RBC (0-5) /hpf Urine WBC (0-5) /hpf Ur Squamous Epith Cells (0-4) /hpf Urine Bacteria (None) /hpf Hyaline Casts (0-2) /lpf Urine Mucus (None) /hpf Coronavirus (PCR) Not Detected (Not Detectd) 03/18/21 03/18/21 Range/Units 12:30 12:55 WBC (3.8-10.6) k/uL RBC (3.80-5.40) m/uL Hgb (11.4-16.0) gm/dL Hct (34.0-46.0) % MCV (80.0-100.0) fL MCH (25.0-35.0) pg MCHC (31.0-37.0) g/dL RDW (11.5-15.5) % Plt Count (150-450) k/uL MPV Neutrophils % % Lymphocytes % % Monocytes % % Eosinophils % % Basophils % % Neutrophils # (1.3-7.7) k/uL Lymphocytes # (1.0-4.8) k/uL Monocytes # (0-1.0) k/uL Eosinophils # (0-0.7) k/uL Basophils # (0-0.2) k/uL PT (9.0-12.0) sec INR (<1.2) APTT (22.0-30.0) sec D-Dimer (<0.60) mg/L FEU Sodium (137-145) mmol/L Potassium 6.9 H* (3.5-5.1) mmol/L Chloride (98-107) mmol/L Carbon Dioxide (22-30) mmol/L Anion Gap mmol/L BUN (7-17) mg/dL Creatinine (0.52-1.04) mg/dL Est GFR (CKD-EPI)AfAm (>60 ml/min/1.73 sqM) Est GFR (CKD-EPI)NonAf (>60 ml/min/1.73 sqM) Glucose (74-99) mg/dL Plasma Lactic Acid [place] (0.7-2.0) mmol/L Calcium (8.4-10.2) mg/dL Magnesium (1.6-2.3) mg/dL Total Bilirubin (0.2-1.3) mg/dL AST (14-36) U/L ALT (4-34) U/L Alkaline Phosphatase (38-126) U/L Troponin I (0.000-0.034) ng/mL Total Protein (6.3-8.2) g/dL Albumin (3.5-5.0) g/dL Urine Color Yellow Urine Appearance Clear (Clear) Urine pH 5.0 (5.0-8.0) Ur Specific [place] 1.014 (1.001-1.035) Urine Protein 1+ H (Negative) Urine Glucose (UA) Negative (Negative) Urine Ketones Trace H (Negative) Urine Blood Small H (Negative) Urine Nitrite Negative (Negative) Urine Bilirubin Negative (Negative) Urine Urobilinogen <2.0 (<2.0) mg/dL Ur Leukocyte Esterase Negative (Negative) Urine RBC <1 (0-5) /hpf Urine WBC 1 (0-5) /hpf Ur Squamous Epith Cells <1 (0-4) /hpf Urine Bacteria Rare H (None) /hpf Hyaline Casts 9 H (0-2) /lpf Urine Mucus Rare H (None) /hpf Coronavirus (PCR) (Not Detectd) Critical Care Time Critical Care Time: Yes Total Critical Care Time: 35 Disposition Clinical Impression: Renal failure, Hyperkalemia, COPD (chronic obstructive pulmonary disease), Elevated d-dimer Disposition: ADMITTED IP TO THIS HOSP Referrals: Anton Skaggs MD [Primary Care Provider] - 1-2 days Time of Disposition: 14:50
[2021-03-18 11:35] LABS: Basophils % (A) 0 %; Eosinophils # (A) 0.2 k/uL (0-0.7); Eosinophils % (A) 1 %; HCT 50.4 % (34.0-46.0); HGB 17.1 gm/dL (11.4-16.0); Lymphocytes # (A) 0.7 k/uL (1.0-4.8); Lymphocytes % (A) 4 %; MCHC 33.9 g/dL (31.0-37.0); MCV 100.2 fL (80.0-100.0); Mean Platelet Volume 8.4; Monocytes # (A) 0.6 k/uL (0-1.0); Monocytes % (A) 3 %; Neutrophils # (A) 14.4 k/uL (1.3-7.7); Neutrophils % (A) 90 %; Platelet Count 319 k/uL (150-450); RBC 5.03 m/uL (3.80-5.40); RDW 11.3 % (11.5-15.5)
--- NOTE | 2021-03-18 11:35 | XR ---
EXAMINATION TYPE: XR chest 2V DATE OF EXAM: 03/18/2021 COMPARISON: 08/25/2019 INDICATION: Difficulty breathing short of breath TECHNIQUE: Frontal and lateral views of the chest are obtained. FINDINGS: The heart size is normal. The pulmonary vasculature is normal. There is a triangular density in the peripheral left upper lung field is present previously. Underlyi ng mass should be considered. There is hyperinflation flattening the diaphragms compatible with COPD.. IMPRESSION: 1. Stable appearing density left peripheral left upper lung field. 2. COPD
[2021-03-18] MEDS ORDERED: ALBUTEROL NEBULIZED 2.5 MG/3 ML INHALATION STA (11:40)
[2021-03-18] MEDS ORDERED: ALBUTEROL HFA INHALER INHALATION STA (11:40)
[2021-03-18 11:49] LABS: INR 0.9 (<1.2); Prothrombin Time 10.2 sec (9.0-12.0)
[2021-03-18 11:51] LABS: Albumin 4.7 g/dL (3.5-5.0); Calcium 9.7 mg/dL (8.4-10.2); Magnesium 2.4 mg/dL (1.6-2.3); Total Bilirubin 1.3 mg/dL (0.2-1.3); Total Protein 8.2 g/dL (6.3-8.2)
[2021-03-18 12:04] LABS: Potassium 7.4 mmol/L (3.5-5.1)
[2021-03-18] MEDS ORDERED: CALCIUM CHLORIDE 100 MG/ML 10 ML SYRINGE IVP STA (12:10)
[2021-03-18] MEDS ORDERED: SODIUM BICARB 8.4% 50 ML SYR (1 MEQ/ML) IV STA (12:11)
[2021-03-18] MEDS ORDERED: SODIUM POLYSTYRENE SULFONATE 15 GM/60 ML BOTTLE PO STA (12:12)
[2021-03-18] MEDS ORDERED: INSULIN REGULAR 100 UNIT/ML VIAL (IV) IV ONE (12:13)
[2021-03-18] MEDS ORDERED: DEXTROSE 50% SYRINGE 50 ML IVP STA (12:13)
[2021-03-18 12:47] LABS: Appearance,Urine Clear (Clear); Bacteria,Urine Rare /hpf; Bilirubin,Urine Negative (Negative); Blood,Urine Small (Negative); Color,Urine Yellow; Glucose,Urine (UA) Negative (Negative); Hyaline Casts,Urine 9 /lpf (0-2); Ketones,Urine Trace (Negative); Leukocyte Esterase,Urine Negative (Negative); Mucus,Urine Rare /hpf; Nitrite,Urine Negative (Negative); Protein,Urine 1+ (Negative); RBC,Urine <1 /hpf (0-5); Specific Gravity,Urine 1.014 (1.001-1.035); Squamous Epithelial Cell,Urine <1 /hpf (0-4); Urobilinogen,Urine <2.0 mg/dL (<2.0); WBC,Urine 1 /hpf (0-5)
[2021-03-18] MEDS ORDERED: HEPARIN SODIUM 1,000 UN/ML (10ML VL) IV ONE (14:53)
[2021-03-18] MEDS: HEPARIN SOD,PORK IN 0.45% NACL 25,000 UNIT in 0.45% NACL 1 250ML.BAG IV SCH (15:25)
--- NOTE | 2021-03-18 19:05 | HP ---
HISTORY AND PHYSICAL CHIEF COMPLAINT: Abdominal pain and shortness of breath. HISTORY OF PRESENT ILLNESS: This is another admission for this 66-year-old female. She has a history of COPD and continues to smoke. She also has a history of carcinoma in the lung without evidence of recurrence to date. She was in the office recently complaining of malaise and it did look like she was losing weight. She has had some vague abdominal pain. She has had no vomiting, melena, hematochezia, etc. She has a colostomy. In the emergency room she had a BUN of 151, creatinine of 5.5. Her bicarb was only 9. Potassium was 7.4 and her troponin was up slightly. D-dimer was also slightly elevated at 2.99. Sodium was 123. REVIEW OF SYSTEMS: She denies any headaches, chest pain, hemoptysis, hematemesis, melena, hematochezia, jaundice, hematuria, frequency, urgency, dysuria, etc. Past medical history, family history, and personal and social histories reveal that she is on Ventolin updrafts, potassium, ropinirole, metoprolol, Symbicort, oxybutynin, lisinopril, meclizine, trazodone, Xanax, methocarbamol, vitamin D and aspirin. PHYSICAL EXAMINATION: Her blood pressure is 128/60 with a pulse of 94, respirations of 36, and she is afebrile. In general she appeared to be chronically ill and dehydrated. Skin was somewhat ashen. Head, ears, eyes, nose, mouth and throat were unremarkable except for dry mucous membranes. Neck was supple. There is no neck vein distention. Chest demonstrates poor breath sounds with occasional rales and rhonchi. Cardiac exam demonstrated tachycardia. The abdomen was soft and she had some generalized mild abdominal tenderness without any masses. There was a colostomy on the right. Extremities are normal. Neurologically she is intact. She is admitted to the hospital with the diagnoses: 1. Abdominal pain and shortness of breath. 2. Chronic obstructive pulmonary disease. 3. History of carcinoma of the lung. 4. Renal failure. 5. Metabolic acidosis. 6. Hyperkalemia. 7. Elevated troponin. 8. Elevated D-dimer. 9. Hyponatremia. PLAN: 1. Bedrest. 2. IV fluids. 3. Consult with Nephrology. 4. Correct hyperkalemia and hyponatremia. MMODL / IJN: [id number] /
[2021-03-18] MEDS: IPRATROPIUM-ALBUTEROL 3 ML NEB INHALATION SCH ×2 (20:28→21:12)
[2021-03-18] MEDS ORDERED: IPRATROPIUM-ALBUTEROL 3 ML NEB INHALATION PRN ×2 (21:10→21:55)
[2021-03-18] MEDS ORDERED: traZODone HCL 50 MG TAB PO PRN (21:55)
[2021-03-18] MEDS ORDERED: TRIAMCINOLONE 0.1% CREAM 80 GM TUBE TOPICAL PRN (21:55)
[2021-03-18] MEDS: LACTATED RINGERS 500 ML IV SCH ×3 (22:29→23:48)
[2021-03-18] MEDS: LACTATED RINGERS 1,000 ML IV SCH (22:30)
[2021-03-18] MEDS ORDERED: SODIUM POLYSTYRENE SULFONATE 15 GM/60 ML BOTTLE PO SCH (22:45)
--- NOTE | 2021-03-18 23:34 | CT ---
EXAMINATION TYPE: CT chest abdomen wo con DATE OF EXAM: 03/18/2021 COMPARISON: Chest CT scan 10/24/2019 HISTORY: R/O PE Chest pain. Short of breath. Abdominal pain images obtained from the thoracic inlet to the iliac alexander ts with no contrast. FINDINGS: There is pulmonary hyperinflation with flattening of the diaphragm. There is some linear infiltrate i n the left midlung field anterior to the major fissure in the left upper lobe. This measures approxim ately 4 x 2 cm. There is no pleural effusion. There is no pericardial effusion. There are no hilar ma sses. There is no mediastinal adenopathy. There is no evidence of pleural effusion. There are clips from cholecystectomy. Liver and spleen are intact. The bile ducts are not dilated. Th e stomach is intact. There is no adrenal mass. There is no evidence of pancreatic mass. Kidneys have normal size. There is no hydronephrosis. There is extensive ossification in the abdominal aorta. There is aorto iliac bypa ss graft noted. There is no retroperitoneal adenopathy. There is significant calcification within the lumen of the upper abdominal aorta with probably severe stenosis. There is no sign of mesenteric edema. There is no ascites. The thoracic spine shows normal alignment of the vertebra. There is no compression fracture. There is mild spur formation. Sternum is intact. There are some spondylotic changes in the lumbar spine with moderate narrowing at L2-3 disc with sclerosis and spurring. There is similar change at L4-5. There i s no lumbar compression fracture. IMPRESSION: There is some elongated infiltrate left upper lobe adjacent to the major fissure which is not signifi cantly changed compared to PET CT scan of 04/13/2020. Emphysema. Extensive atherosclerotic vascular disease. Significant calcification at the lumen of the upper abdom inal aorta and probably hemodynamic stenosis. There is probably subtotal occlusion of the upper abdom inal aorta at the level of the celiac artery. This exam does not evaluate the degree of stenosis of the abdominal aorta without any contrast. If th ere is indication to detect pulmonary embolism then lung scan is recommended. There are spondylotic changes in the lumbar spine with probably multilevel spinal stenosis. Calcifica tion in the abdominal aorta not significantly different than old CT scan. CT DLP: 247.30 mGycm Automated exposure control for dose reduction was used.
[2021-03-19] MEDS: LATANOPROST 0.005% OPHTH DROPS 2.5 ML BTL BOTH EYES SCH ×2 (00:24→19:38)
[2021-03-19] MEDS: HYDROcodone/APAP 10-325MG 1 EACH TAB PO PRN ×2 (01:15→09:34)
[2021-03-19] MEDS: LACTATED RINGERS 500 ML IV SCH (02:03)
[2021-03-19] MEDS: ALPRAZolam 1 MG TAB PO PRN ×2 (03:31→09:34)
[2021-03-19 05:22] LABS: Basophils % (A) 0 %; Eosinophils # (A) 0.1 k/uL (0-0.7); Eosinophils % (A) 1 %; HCT 38.2 % (34.0-46.0); Lymphocytes # (A) 0.7 k/uL (1.0-4.8); Lymphocytes % (A) 5 %; Mean Platelet Volume 8.5; Monocytes # (A) 0.7 k/uL (0-1.0); Monocytes % (A) 6 %; Neutrophils # (A) 10.6 k/uL (1.3-7.7); Neutrophils % (A) 87 %; Platelet Count 229 k/uL (150-450); RBC 3.82 m/uL (3.80-5.40); RDW 12.2 % (11.5-15.5); WBC 12.2 k/uL (3.8-10.6)
[2021-03-19 05:39] LABS: Calcium 8.5 mg/dL (8.4-10.2); Potassium 4.9 mmol/L (3.5-5.1)
[2021-03-19] MEDS: LACTATED RINGERS 1,000 ML IV SCH ×3 (05:42→19:31)
[2021-03-19] MEDS: IPRATROPIUM-ALBUTEROL 3 ML NEB INHALATION SCH ×4 (07:59→21:22)
[2021-03-19] MEDS: SYMBICORT 160-4.5 MCG INHALER INHALATION SCH ×2 (08:00→21:22)
[2021-03-19] MEDS ORDERED: IPRATROPIUM-ALBUTEROL 3 ML NEB INHALATION SCH (08:00)
[2021-03-19] MEDS: ASPIRIN 81 MG PO SCH (09:34)
--- NOTE | 2021-03-19 09:35 | NM ---
EXAMINATION TYPE: NM pul vent and perfuse DATE OF EXAM: 03/19/2021 COMPARISON: Radiograph 03/18/2021 HISTORY: 66 year-old female elevated d-dimer, shortness of breath TECHNIQUE: Utilizing inhalation of 61.4 mCi Tc 99m DTPA aerosol and intravenous injection of 4.3 mCi of Tc 99m MAA, ventilation and perfusion images are acquired post injection in multiple projections. FINDINGS: There is a triple matched defect of ventilation, perfusion, and chest x-ray opacity involving the lat eral left upper lobe. No other discrete perfusion abnormality is seen. IMPRESSION: Triple matched defect in the left upper lobe translates to a very low probability for pulmonary embol us by PIOPED criteria.
--- NOTE | 2021-03-19 12:43 | P.CNPUL ---
History of Present Illness Consult date: 03/19/21 Requesting physician: Anton Skaggs Reason for consult: dyspnea, COPD, hypoxemia Chief complaint: Shortness of breath. History of present illness: Pulmonary/critical care consult dated 03/19/2021. 66-year-old female, poor historian, who apparently presented to the emergency department on March 18, with weakness and abdominal pain. She apparently has a prior history of heavy alcohol abuse in the past, but apparently stopped drinking 5 years ago. She does continue to smoke cigarettes. In the room, seeing her, she mostly complains of leg pain. She feels like her legs are very painful and very weak. She also admits to being slightly short of breath. She's in no respiratory distress. Currently, she is getting lactated Ringer's at 150 mL an hour, and O2 by nasal cannula at 4 L. She denies any chest pain. She also denies any fever or chills. She does complain of occasional dry cough. In addition, she apparently has a history of CAD, hepatitis C, angina, COPD, hypertension, alcoholic liver disease, and lung cancer. She apparently has chronic hypoxemic respiratory failure and does use oxygen at home 27/10. White count is 12.2, hemoglobin 13, hematocrit 38.2, and platelet count 229,000. D- dimer is 2.99. Sodium 127, potassium 4.9, chlorides 99, CO2 16, anion gap 12, BUN 111, and creatinine 2.64. The BUN and creatinine yesterday were 151 and 5.53. Coronavirus testing was negative. Chest x-rays consistent with COPD, and a stable appearing density, left upper lung field. Computed tomography scan of the chest shows some emphysematous changes, and a stable lesion, and a left upper lobe. A pulmonary perfusion scan is low probability for pulmonary embolism. Review of Systems REVIEW OF SYSTEMS: CONSTITUTIONAL: Weakness, dehydration. NEUROLOGIC: [ Negative.] HEENT: [ Negative.] CARDIAC: [Negative.] PULMONARY: Chronic shortness of breath, dry cough. GI: Poor oral intake. : [Negative.] RHEUMATOLOGIC: Leg weakness and pain. IMMUNOLOGIC: [ Negative.] ENDOCRINE: [Negative. ] DERMATOLOGIC: [Negative.] Past Medical History Past Medical History: Coronary Artery Disease (CAD), Cancer, Chest Pain / Angina, COPD, Hypertension, Liver Disease, Osteoarthritis (OA) Additional Past Medical History / Comment(s): HX of Hepatitis C with [place]., emphysema, restless leg syndrome, has colostomy. lung cancer with radiation tx (2016), oxygen prn 2 liters, Hx stomach ulcer., Back pain, hearing loss right ear, hx of ETOH abuse History of Any Multi-Drug Resistant Organisms: None Reported Past Surgical History: Appendectomy, Bowel Resection, Cholecystectomy Additional Past Surgical History / Comment(s): HX OF AORTO BIFEMORAL GRAFT- FEM PAP BYPASS, COLOSTOMY . Past Anesthesia/Blood Transfusion Reactions: No Reported Reaction Past Psychological History: Anxiety Smoking Status: Current every day smoker Past Alcohol Use History: Daily Additional Past Alcohol Use History / Comment(s): SMOKES 1 PPD ., SMOKING FOR OVER 50 years. Drinks 2 beers per day. Past Drug Use History: Marijuana Additional Drug Use History / Comment(s): CURRENT MARIJUANA USE. - Past Family History Father Family Medical History: Cancer Additional Family Medical History / Comment(s): Prostate CA. Daughter(s) Family Medical History: Cancer Additional Family Medical History / Comment(s): BONE CANCER Medications and Allergies Home Medications Medication Instructions Recorded Confirmed Type HYDROcodone/APAP 10-325MG [[place] 1 tab PO TID PRN 08/14/15 03/18/21 History 10-325] Metoprolol Tartrate [Lopressor] 25 mg PO DAILY 08/14/15 03/18/21 History Meloxicam [Mobic] 7.5 mg PO BID 03/14/16 03/18/21 History Oxybutynin Chloride [Ditropan XL] 10 mg PO BID 06/23/18 03/18/21 History traZODone HCL 150 mg PO HS 06/20/19 03/18/21 History ALPRAZolam [Xanax] 1 mg PO TID 08/24/20 03/18/21 History Ergocalciferol [Vitamin D2 (1250 1,250 mcg PO Q30D 08/24/20 03/18/21 History Mcg = 29271 Iu)] lisinopriL [Zestril] 2.5 mg PO DAILY 08/24/20 03/18/21 History Albuterol Sulfate [Ventolin HFA] 1 puff INHALATION RT-QID PRN 03/18/21 03/18/21 History Amoxic-Pot Clav 875-125Mg 1 tab PO Q12HR 03/18/21 03/18/21 History [Augmentin 875-125] Aspirin EC [Ecotrin Low Dose] 81 mg PO DAILY 03/18/21 03/18/21 History Budesonide/Formoterol Fumarate 2 puff INHALATION RT-BID 03/18/21 03/18/21 History [Symbicort 160-4.5 Mcg Inhaler] Hydrocortisone Cream 1 applic TOPICAL QID PRN 03/18/21 03/18/21 History [Hydrocortisone 2.5% Cream] Ipratropium-Albuterol Nebulize 3 ml INHALATION RT-QID PRN 03/18/21 03/18/21 History [Duoneb 0.5 mg-3 mg/3 ml Soln] Latanoprost [Xalatan 0.005%] 1 drop BOTH EYES HS 03/18/21 03/18/21 History Meclizine [Antivert] 25 mg PO DAILY 03/18/21 03/18/21 History Potassium Chloride [Klor-Con 10 ER] 10 meq PO DAILY 03/18/21 03/18/21 History methocarbamoL [Robaxin] 500 mg PO BID PRN 03/18/21 03/18/21 History rOPINIRole HCL [Requip] 1 mg PO HS 03/18/21 03/18/21 History Allergies Allergy/AdvReac Type Severity Reaction Status Date / Time No Known Allergies Allergy Verified 03/18/21 13:59 Physical Exam Osteopathic Statement: *. No significant issues noted on an osteopathic structural exam other than those noted in the History and Physical/Consult. Vitals: Vital Signs Temp Pulse Pulse Resp BP BP BP 03/19/21 08:00 97.4 F L 96 20 82/57 03/19/21 03:17 97.8 F 110 H 20 97/58 03/19/21 01:10 91/64 03/19/21 00:22 82/53 85/56 03/18/21 23:15 97.6 F 100 23 85/55 03/18/21 21:22 110 H 03/18/21 21:13 112 H 03/18/21 20:36 97.8 F 95 22 78/50 03/18/21 20:12 114 H 16 145/84 03/18/21 19:00 87 16 03/18/21 15:00 96 18 93/68 Pulse Ox 03/19/21 08:00 99 03/19/21 03:17 97 03/19/21 01:10 03/19/21 00:22 03/18/21 23:15 98 03/18/21 21:22 03/18/21 21:13 03/18/21 20:36 98 03/18/21 20:12 93 L 03/18/21 19:00 93 L 03/18/21 15:00 96 Intake and Output 03/18/21 03/19/21 03/19/21 22:59 06:59 14:59 Intake Total 44.075 Output Total 875 Balance 44.075 -875 Intake: Intake, IV Titration 44.075 Amount Heparin Sod,Pork in 0.45% 44.075 NaCl 25,000 unit In 0.45 % NaCl 1 250ml.bag @ 18 UNITS/KG/HR 6.695 mls/hr IV .Q24H [facility] Rx#: [id number] Output: Urine 875 Other: Voiding Method Indwelling Catheter Indwelling Catheter Indwelling Catheter # Bowel Movements 2 1 Weight 42 kg No acute distress, oriented 3. Very frail appearing, cachectic female, in no respiratory distress. She is not a particularly good historian. HEENT examination is grossly unremarkable. Neck supple. Full range of motion. No adenopathy thyromegaly or neck vein distention. Cardiovascular examination reveals regular rhythm rate. S1-S2 normal. No S3 or S4. No discernible murmur noted. Heart rate 96 bpm. Heart sounds distant. Lungs reveal mild scattered rhonchi. No wheezes. No crackles. She does not take deep breaths. Abdomen soft, without tenderness on palpation. Extremities are intact. No cyanosis clubbing or edema. Skin is without rash or lesion. Neurologic examination is brief but nonfocal. Results - Laboratory Findings CBC and BMP: 03/19/21 04:52 03/19/21 04:52 PT/INR, D-dimer PT 10.2 sec (9.0-12.0) 03/18/21 11:23 INR 0.9 (<1.2) 03/18/21 11:23 D-Dimer 2.99 mg/L FEU (<0.60) H 03/18/21 11:23 Abnormal lab findings: Abnormal Labs 03/18/21 03/18/21 03/18/21 11:23 11:23 11:23 WBC 16.0 H Hgb 17.1 H Hct 50.4 H MCV 100.2 H RDW 11.3 L Neutrophils # 14.4 H Lymphocytes # 0.7 L D-Dimer 2.99 H Sodium 123 L Potassium 7.4 H* Chloride 92 L Carbon Dioxide 9 L* BUN 151 H* Creatinine 5.53 H Glucose 121 H Magnesium 2.4 H Troponin I Urine Protein Urine Ketones Urine Blood Urine Bacteria Hyaline Casts Urine Mucus Stool Occult Blood 03/18/21 03/18/21 03/18/21 11:23 12:30 12:55 WBC Hgb Hct MCV RDW Neutrophils # Lymphocytes # D-Dimer Sodium Potassium 6.9 H* Chloride Carbon Dioxide BUN Creatinine Glucose Magnesium Troponin I 0.039 H* Urine Protein 1+ H Urine Ketones Trace H Urine Blood Small H Urine Bacteria Rare H Hyaline Casts 9 H Urine Mucus Rare H Stool Occult Blood 03/18/21 03/19/21 03/19/21 22:40 04:52 04:52 WBC 12.2 H Hgb Hct MCV RDW Neutrophils # 10.6 H Lymphocytes # 0.7 L D-Dimer Sodium 127 L Potassium Chloride Carbon Dioxide 16 L BUN 111 H* Creatinine 2.64 H Glucose 101 H Magnesium Troponin I Urine Protein Urine Ketones Urine Blood Urine Bacteria Hyaline Casts Urine Mucus Stool Occult Blood Positive H - Diagnostic Findings Chest x-ray: image reviewed CT scan - chest: image reviewed Assessment and Plan Assessment: Acute dehydration, with acute kidney injury/ATN. COPD, secondary to chronic and ongoing tobacco use and nicotine addiction. History of hepatitis C. History of alcoholic liver disease. History of CAD. History of hypertension. Restless leg syndrome. History of lung cancer with prior radiation therapy, 2016. Chronic hypoxemic respiratory failure. Multiple other medical problems and comorbidities. Plan: Plan dated 03/19/2021. Currently, the patient's COPD appears to be relatively stable. I'll review the medications and adjust them accordingly. The patient's kidney function has greatly improved with fluids administration. We will continue to follow make recommendations were appropriate. The patient's counseled about the importance of smoking cessation. Additional recommendations and suggestions are forthcoming. Prognosis is guarded. The lesion in the left lung, likely represents the residual lung cancer, which was previously irradiated. It appears stable on most recent chest x-rays and CAT scans. Time with Patient: Greater than 30
[2021-03-19] MEDS: HEPARIN SOD,PORK IN 0.45% NACL 25,000 UNIT in 0.45% NACL 1 250ML.BAG IV SCH (16:59)
--- NOTE | 2021-03-19 19:04 | CONS ---
CONSULTATION REASON FOR CONSULT: Renal failure, hyperkalemia. HISTORY OF PRESENT ILLNESS: The patient is a 66-year-old female who was admitted to the hospital with complaints of abdominal pain. She has a history of lung cancer in the past with no evidence of recurrence. The patient has a colostomy. She denied any previous history of kidney diseases. The patient stated that she has noticed increased output from a colostomy recently. Blood pressure has been low with systolic blood pressure 82-79 mmHg. It was actually 66/49 on her initial admission. Serum creatinine was 5.5. It is now down to 2.6. Patient was severely acidotic with CO2 of 9, now improved to 16. Potassium was 7.4 now down to 4.9. Currently patient has an indwelling Beaulieu catheter. She is voiding. She has had about 875 cc of urine out. PAST MEDICAL HISTORY: Significant for coronary artery disease, COPD, angina, hypertension, chronic liver disease, history of lung cancer with radiation therapy 2015, peptic ulcer, history of EtOH abuse, chronic back pain, right ear hearing loss, emphysema, hepatitis C, restless leg syndrome. PAST SURGICAL HISTORY: Appendectomy, bowel resection, cholecystectomy, history of aortobifemoral graft, colostomy. SOCIAL HISTORY: Positive for smoking and marijuana use. No history of alcohol abuse. MEDICATIONS: Medications prior to admission included Lopressor, [place], Mobic, Ditropan, Xanax, trazodone, Zestril, Ventolin, Augmentin, Antivert, potassium, Robaxin, Requip. ALLERGIES: None. EXAMINATION: Patient is currently comfortable, awake, she is not in any acute distress. Oriented x2. Blood pressure this morning was 82/57, heart rate of 113 per minute. Patient is afebrile. Examination of the heart S1, S2. Examination of the lungs, bilateral breath sounds are heard. Abdomen is soft, nontender. Examination of lower extremities shows no evidence of edema. Colostomy is noted. VIRTUALIZATION CONSULTANT exam grossly intact. Examination lower extremities shows no evidence of edema. LABS: This morning show sodium 127, potassium 4.9, CO2 is 16, BUN 111, creatinine 2.64, hemoglobin 13.0. ASSESSMENT: 1. Acute kidney injury, ATN associated with hypotension, volume depletion, currently improved significantly with IV hydration. Continue with the IV fluids. 2. Hypovolemic, hyponatremia, improved with IV hydration. 3. Severe hyperkalemia, multifactorial including acute kidney injury, severe metabolic acidosis, potassium supplementation at home, use of nonsteroidal anti-inflammatory agents as well. Currently improved. 4. Volume depletion, maintained on Ringer lactate. Will continue for now. 5. Severe metabolic acidosis associated with renal failure and GI fluid loss. Lactic acid level was 1.5. Continue with the current IV fluids. Acidosis has improved with improving renal function. Repeat labs in a.m. If patient remains acidotic, will switch to IV bicarb. PLAN: Continue with the current IV fluids. Repeat labs in a.m. Avoid nephrotoxic agents. Monitor urine output. Hold all antihypertensive medications. Thank you for this consultation. We will continue to follow the patient with you during her hospitalization. ANTL / PHILLIPN: [id number] /
[2021-03-19] MEDS ORDERED: SODIUM CHLORIDE 0.9% 500 ML 500 ML IV ONE (21:45)
[2021-03-20] MEDS: LACTATED RINGERS 1,000 ML IV SCH ×5 (02:27→22:02)
[2021-03-20] MEDS: SYMBICORT 160-4.5 MCG INHALER INHALATION SCH ×2 (08:50→20:55)
[2021-03-20] MEDS: IPRATROPIUM-ALBUTEROL 3 ML NEB INHALATION SCH ×4 (08:50→20:55)
[2021-03-20] MEDS: ASPIRIN 81 MG PO SCH (11:05)
--- NOTE | 2021-03-20 11:05 | PN ---
PROGRESS NOTE DATE OF SERVICE: 03/19/2021 CHIEF COMPLAINT: Abdominal pain, pain in the feet, and hypotension with dehydration. HISTORY OF PRESENT ILLNESS: This lady is still complaining of a lot of discomfort in the feet. Etiology is not clear; however, there is a CT suggesting that she has narrowing of the abdominal aorta. She is not complaining of a great deal of abdominal pain right now. She has had no nausea or vomiting, and temperature has been normal. Her numbers have improved with hydration. Potassium is down and renal function is improved. REVIEW OF SYSTEMS: She is only complaining of pain in the feet. She has no chest pain, abdominal pain, etc. PHYSICAL EXAMINATION: She remains pale and dehydrated. Blood pressure is running around 90 and lower. Chest demonstrates decreased breath sounds with scattered rales. The cardiac exam is normal. The abdomen is soft and nontender. The extremities are normal. She does not present with physical findings suggesting significant ischemia. IMPRESSION: 1. Pain in the feet. 2. Aortic aortic narrowing? 3. Chronic obstructive pulmonary disease. 4. Dehydration. 5. Renal failure. 6. Hyperkalemia. PLAN: 1. Continue with IV fluids. 2. Continue to monitor blood pressure. 3. Vascular surgery consult. MMODL / IJN: [id number] /
--- NOTE | 2021-03-20 11:15 | ECHOF ---
Referral Reason:LV function MEASUREMENTS -------- HEIGHT: 154.9 cm WEIGHT: 43.1 kg BP: 109/70 RVIDd: 3.5 cm (< 3.3) IVSd: 1.2 cm (0.6 - 1.1) LVIDd: 2.9 cm (3.9 - 5.3) LVPWd: 1.1 cm (0.6 - 1.1) IVSs: 1.4 cm LVIDs: 1.4 cm LVPWs: 1.4 cm LAESV Index (A-L): 27.54 ml/m Ao Diam: 1.6 cm (2.0 - 3.7) AV Cusp: 1.0 cm (1.5 - 2.6) LA Diam: 1.9 cm (2.7 - 3.8) MV E Buck: 0.79 m/s MV DecT: 177 ms MV A Buck: 1.39 m/s MV E/A Ratio: 0.57 AV maxP.52 mmHg AV meanP.04 mmHg RAP: 5.00 mmHg RVSP: 33.99 mmHg FINDINGS -------- Sinus rhythm. This was a technically adequate study. Parasternal and apical views unable to be obtained. Entire study performed from subcostal window. The left ventricular size is normal. There is borderline concentric left ventricular hypertrophy. Overall left ventricular systolic function is normal with, an EF between 55 - 60 %. The right ventricle is mildly enlarged. Normal LA size by volume 22+/-6 ml/m2. The right atrial size is normal. Mobile interatrial septum. There is no evidence of aortic regurgitation. There is mild aortic stenosis present. The maximum velocity across the aortic valve is 2.21m/s. Peak/mean gradient across the Aortic Valve is 19.52mmH g / 9.04mmHg. There is trace to mild mitral regurgitation. Mild tricuspid regurgitation present. There is no evidence of pulmonary hypertension. The right v entricular systolic pressure, as measured by Doppler, is 33.99mmHg. There is no pulmonic regurgitation present. The aortic root size is normal. Normal inferior vena cava with normal inspiratory collapse consistent with estimated right atrial pre ssure of 5 mmHg. There is no pericardial effusion. CONCLUSIONS -------- 1. The left ventricular size is normal. 2. There is borderline concentric left ventricular hypertrophy. 3. Overall left ventricular systolic function is normal with, an EF between 55 - 60 %. 4. The right ventricle is mildly enlarged. 5. Mobile interatrial septum. 6. There is mild aortic stenosis present. 7. The maximum velocity across the aortic valve is 2.21m/s. 8. Peak/mean gradient across the Aortic Valve is 19.52mmHg / 9.04mmHg. 9. There is trace to mild mitral regurgitation. 10. Mild tricuspid regurgitation present. CRACKER OFF: Anna Sanders RDCS
--- NOTE | 2021-03-20 11:27 | P.CRDCN ---
History of Present Illness History of present illness: HISTORY OF PRESENTING ILLNESS This is a pleasant 66-year-old female past medical history significant for lung cancer, chronic nicotine dependence, COPD, peripheral artery disease, etoh use, hypertension, hepatitis c, colostomy unknown details of surgery. 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 She did see Dr. Benavidez in 2012 for lower extremity vascular disease We have been asked to see in consultation for hypotension. Patient presents to the emergency department on 03/18/2021 with complaints of abdominal pain and generalized weakness. Found to be dehydrated and with acute kidney injury, severe hyperkalemia, and metabolic acidosis. She was started on IV fluids. She is feeling somewhat better. She denies any chest pain, shortness of breath, lightheadedness or dizziness. She does have bilateral lower extremity pain with movement and to touch. She denies history of CAD, [place], Stroke, or diabetes. She states she does have a family history of heart problems, her father and sister have had pacemakers but she does not know the details. She does continue to smoker, currently states she smokes 1 cigarrette per day. She also is a daily alcohol drinking, about 3 beers per day. She denies illicit drug use. EKG revealed sinus tachycardia, LBBB and right bundle branch block, no significant ST-T wave abnormalities. DIAGNOSTICS Chest xray stable. Dense left peripheral left upper lung field. COPD. CT chest and abdomen revealed elongated infiltrate left upper lobe adjacent to major fissure, which is not significantly changed from PET scan on 04/2020. Emphysema. Extensive atherosclerotic vascular disease. Significant calcification of the lumen at the upper abdominal aorta and probably hemodynamic stenosis. Probable subtotal occlusion of the upper abdominal aorta at the level of the celiac artery. In 2012 patient underwent abdominal aortogram with run off which revealed se stefania peripheral artery disease with infrarenal occluded aorta, severe disease involving the proximal left subclavian vein graft Laboratory reviewed, WBC 12.2, hemoglobin 13, platelets 229, sodium 127, potassium 4.9, BUN 11, serum creatinine 2.64. Current home cardiac medications include lisinopril 2.5 mg daily, potassium chloride, metoprolol titrate 25 mg daily, meloxicam, meclizine, aspirin 81 mg daily REVIEW OF SYSTEMS At the time of my exam: CONSTITUTIONAL: Denies fever or chills. CARDIOVASCULAR: Denies chest pain, shortness of breath, orthopnea, PND or palpitations. RESPIRATORY: Denies cough. GASTROINTESTINAL: Denies abdominal pain, diarrhea, constipation, nausea or vomiting. MUSCULOSKELETAL: Denies myalgias. NEUROLOGIC: Denies numbness, tingling, headacbe or weakness. ENDOCRINE: Denies fatigue, weight change, polydipsia or polyurina. GENITOURINARY: Denies burning, hematuria or urgency with micturation. HEMATOLOGIC: Denies history of anemia or bleeding. PHYSICAL EXAMINATION Blood pressure 90/60 HR 89, afebile SpO2 97% on 4L nasal cannula CONSTITUTIONAL: No apparent distress. HEENT: Head is normocephalic. Pupils are equal, round. Sclerae anicteric. Mucous membranes of the mouth are moist. No JVD. No carotid bruit. CHEST EXAMINATION: Lungs are clear to auscultation. No chest wall tenderness is noted on palpation or with deep breathing. HEART EXAMINATION: Regular rate and rhythm. S1, S2 heard. Systolic ejection murmur noted. No gallops or rub. ABDOMEN: Soft, nontender. Positive bowel sounds. EXTREMITIES: no lower extremity edema. Difficult to appreciate pulses in bilateral dorsal pedis and posterior tibial pulses NEUROLOGIC EXAMINATION: Patient is awake, alert and oriented x3. ASSESSMENT Hypotension, likely related to volume depletion and dehydration Acute Kidney Injury History of Lung Cancer Chronic nicotine dependence ETOH use COPD Peripheral artery disease PLAN Agree with IV fluids Will hold all antihypertensives Obtain 2D echocardiogram Further recommendations based on clinical course Nurse Practitioner note has been reviewed, I agree with a documented findings and plan of care. Patient was seen and examined. Past Medical History Past Medical History: Coronary Artery Disease (CAD), Cancer, Chest Pain / Angina, COPD, Hypertension, Liver Disease, Osteoarthritis (OA) Additional Past Medical History / Comment(s): HX of Hepatitis C with TX., emphysema, restless leg syndrome, has colostomy. lung cancer with radiation tx (2016), oxygen prn 2 liters, Hx stomach ulcer., Back pain, hearing loss right ear, hx of ETOH abuse History of Any Multi-Drug Resistant Organisms: None Reported Past Surgical History: Appendectomy, Bowel Resection, Cholecystectomy Additional Past Surgical History / Comment(s): HX OF AORTO BIFEMORAL GRAFT- FEM PAP BYPASS, COLOSTOMY . Past Anesthesia/Blood Transfusion Reactions: No Reported Reaction Past Psychological History: Anxiety Smoking Status: Current every day smoker Past Alcohol Use History: Daily Additional Past Alcohol Use History / Comment(s): SMOKES 1 PPD ., SMOKING FOR OVER 50 years. Drinks 2 beers per day. Past Drug Use History: Marijuana Additional Drug Use History / Comment(s): CURRENT MARIJUANA USE. - Past Family History Father Family Medical History: Cancer Additional Family Medical History / Comment(s): Prostate CA. Daughter(s) Family Medical History: Cancer Additional Family Medical History / Comment(s): BONE CANCER Medications and Allergies Home Medications Medication Instructions Recorded Confirmed Type HYDROcodone/APAP 10-325MG [[place] 1 tab PO TID PRN 08/14/15 03/18/21 History 10-325] Metoprolol Tartrate [Lopressor] 25 mg PO DAILY 08/14/15 03/18/21 History Meloxicam [Mobic] 7.5 mg PO BID 03/14/16 03/18/21 History Oxybutynin Chloride [Ditropan XL] 10 mg PO BID 06/23/18 03/18/21 History traZODone HCL 150 mg PO HS 06/20/19 03/18/21 History ALPRAZolam [Xanax] 1 mg PO TID 08/24/20 03/18/21 History Ergocalciferol [Vitamin D2 (1250 1,250 mcg PO Q30D 08/24/20 03/18/21 History Mcg = 46135 Iu)] lisinopriL [Zestril] 2.5 mg PO DAILY 08/24/20 03/18/21 History Albuterol Sulfate [Ventolin HFA] 1 puff INHALATION RT-QID PRN 03/18/21 03/18/21 History Amoxic-Pot Clav 875-125Mg 1 tab PO Q12HR 03/18/21 03/18/21 History [Augmentin 875-125] Aspirin EC [Ecotrin Low Dose] 81 mg PO DAILY 03/18/21 03/18/21 History Budesonide/Formoterol Fumarate 2 puff INHALATION RT-BID 03/18/21 03/18/21 History [Symbicort 160-4.5 Mcg Inhaler] Hydrocortisone Cream 1 applic TOPICAL QID PRN 03/18/21 03/18/21 History [Hydrocortisone 2.5% Cream] Ipratropium-Albuterol Nebulize 3 ml INHALATION RT-QID PRN 03/18/21 03/18/21 History [Duoneb 0.5 mg-3 mg/3 ml Soln] Latanoprost [Xalatan 0.005%] 1 drop BOTH EYES HS 03/18/21 03/18/21 History Meclizine [Antivert] 25 mg PO DAILY 03/18/21 03/18/21 History Potassium Chloride [Klor-Con 10 ER] 10 meq PO DAILY 03/18/21 03/18/21 History methocarbamoL [Robaxin] 500 mg PO BID PRN 03/18/21 03/18/21 History rOPINIRole HCL [Requip] 1 mg PO HS 03/18/21 03/18/21 History Allergies Allergy/AdvReac Type Severity Reaction Status Date / Time No Known Allergies Allergy Verified 03/18/21 13:59 Physical Exam Vitals: Vital Signs Temp Pulse Pulse Resp BP BP Pulse Ox 03/20/21 06:29 100 03/20/21 03:45 95 20 94/60 100 03/20/21 01:25 109/70 03/19/21 23:31 102 H 19 82/58 99 03/19/21 21:32 84 03/19/21 21:22 80 03/19/21 21:00 80/50 03/19/21 19:30 97.8 F 106 H 20 81/51 78/52 100 03/19/21 16:59 102 H 03/19/21 16:52 108 H 03/19/21 16:00 97.4 F L 113 H 19 93/64 97 03/19/21 14:00 96 19 03/19/21 12:00 97.7 F 96 20 95/53 97 Intake and Output 03/19/21 03/20/21 03/20/21 22:59 06:59 14:59 Output Total 1150 1000 Balance -1150 -1000 Output: Urine 750 600 Stool 400 400 Other: Voiding Method Indwelling Catheter Indwelling Catheter Weight 43.5 kg Results 03/19/21 04:52 03/19/21 04:52 Current Medications Generic Name Dose Route Start Last Admin Trade Name Freq PRN Reason Stop Dose Admin Hydrocodone Bitart/Acetaminophen 1 each 03/18/21 21:55 03/19/21 09:34 Hydrocodone/Apap 10-325mg 1 Each Tab PO 1 each Q8HR PRN Administration Pain Albuterol/Ipratropium 3 ml 03/18/21 21:10 Ipratropium-Albuterol 3 Ml Neb INHALATION RT-Q2H PRN Shortness Of Breath Or Wheezing Albuterol/Ipratropium 3 ml 03/20/21 08:00 Ipratropium-Albuterol 3 Ml Neb INHALATION RT-QID ELLEN Alprazolam 1 mg 03/18/21 21:55 03/19/21 09:34 Alprazolam 1 Mg Tab PO 1 mg TID PRN Administration Anxiety Aspirin 81 mg 03/19/21 09:00 03/19/21 09:34 Aspirin 81 Mg PO 81 mg DAILY ELLEN Administration Budesonide/Formoterol Fumarate 2 puff 03/19/21 08:00 03/19/21 21:22 Symbicort 160-4.5 Mcg Inhaler INHALATION 2 puff RT-BID ELLEN Administration Lactated Ringer's 1,000 mls @ 200 mls/hr 03/18/21 22:15 03/20/21 05:43 Lactated Ringers IV Not Given .Q5H ELLEN Latanoprost 1 drops 03/18/21 22:05 03/19/21 19:38 Latanoprost 0.005% Ophth Drops 2.5 Ml Btl BOTH EYES 1 drops HS ELLEN Administration Trazodone HCl 150 mg 03/18/21 21:55 Trazodone Hcl 50 Mg Tab PO HS PRN Insomnia Triamcinolone Acetonide 1 applic 03/18/21 21:55 Triamcinolone 0.1% Cream 80 Gm Tube TOPICAL QID PRN Rash Intake and Output 03/19/21 03/20/21 03/20/21 22:59 06:59 14:59 Output Total 1150 1000 Balance -1150 -1000 Output: Urine 750 600 Stool 400 400 Other: Voiding Method Indwelling Catheter Indwelling Catheter Weight 43.5 kg 03/19/21 04:52 03/19/21 04:52
--- NOTE | 2021-03-20 14:12 | P.GSCN ---
History of Present Illness Consult date: 03/20/21 Reason for Consult: Aortic occlusive disease Requesting physician: Anton Skaggs History of present illness: This is 66-year-old female who presented to the emergency department with complaints of shortness of breath and abdominal pain. She also states she has complaints of bilateral lower extremity pain for which she's had for the last 2- 3 weeks. Past medical history of COPD, coronary artery disease status post stenting, alcohol abuse, tobacco abuse and hepatitis C, hypertension, hyperlipidemia, lung cancer with radiation treatment in 2016, bowel resection with colostomy and history of aorto bifem graft with fem-pop bypass. Patient states the former was done by Dr. Reeves several years ago. There are no reports present in the chart at this time. She states that she follows up with him regularly and has regular ultrasounds and sounds like regular arterial studies in the office. She states that she still drinks at least 2 beers a day. She states that she was a heavy drinker in the past but quit drinking for 5 years ago and then restarted recently. She smokes at least a half a pack to 1 pack a day and has been smoking for greater than 40-50 years. She currently denies any chest pain or shortness of breath. States she has intermittent abdominal pain. No nausea or vomiting. States that she still has pain in bilateral lower extremities for which she states has been worse over the last 2- [address] of the chest and abdomen without contrast due to her kidney poor function which showed extensive arthrosclerotic vascular disease. Significant calcification at the lumen of the upper abdominal aorta and probably hemodynamic stenosis. There is probably subtotal occlusion of the upper abdominal aorta at the level of the celiac artery. Vascular surgery was consulted for aortic occlusive disease. He also underwent a pulmonary perfusion test that was low probability for pulmonary embolism. Review of Systems 14 point review of systems was completed all pertinent positives and negatives as stated in the HPI Past Medical History Past Medical History: Coronary Artery Disease (CAD), Cancer, Chest Pain / Angina, COPD, Hypertension, Liver Disease, Osteoarthritis (OA) Additional Past Medical History / Comment(s): HX of Hepatitis C with TX., emphysema, restless leg syndrome, has colostomy. lung cancer with radiation tx (2016), oxygen prn 2 liters, Hx stomach ulcer., Back pain, hearing loss right ear, hx of ETOH abuse History of Any Multi-Drug Resistant Organisms: None Reported Past Surgical History: Appendectomy, Bowel Resection, Cholecystectomy Additional Past Surgical History / Comment(s): HX OF AORTO BIFEMORAL GRAFT- FEM PAP BYPASS, COLOSTOMY . Past Anesthesia/Blood Transfusion Reactions: No Reported Reaction Past Psychological History: Anxiety Smoking Status: Current every day smoker Past Alcohol Use History: Daily Additional Past Alcohol Use History / Comment(s): SMOKES 1 PPD ., SMOKING FOR OVER 50 years. Drinks 2 beers per day. Past Drug Use History: Marijuana Additional Drug Use History / Comment(s): CURRENT MARIJUANA USE. - Past Family History Father Family Medical History: Cancer Additional Family Medical History / Comment(s): Prostate CA. Daughter(s) Family Medical History: Cancer Additional Family Medical History / Comment(s): BONE CANCER Medications and Allergies Home Medications Medication Instructions Recorded Confirmed Type HYDROcodone/APAP 10-325MG [[place] 1 tab PO TID PRN 08/14/15 03/18/21 History 10-325] Metoprolol Tartrate [Lopressor] 25 mg PO DAILY 08/14/15 03/18/21 History Meloxicam [Mobic] 7.5 mg PO BID 03/14/16 03/18/21 History Oxybutynin Chloride [Ditropan XL] 10 mg PO BID 06/23/18 03/18/21 History traZODone HCL 150 mg PO HS 06/20/19 03/18/21 History ALPRAZolam [Xanax] 1 mg PO TID 08/24/20 03/18/21 History Ergocalciferol [Vitamin D2 (1250 1,250 mcg PO Q30D 08/24/20 03/18/21 History Mcg = [id number] Iu)] lisinopriL [Zestril] 2.5 mg PO DAILY 08/24/20 03/18/21 History Albuterol Sulfate [Ventolin HFA] 1 puff INHALATION RT-QID PRN 03/18/21 03/18/21 History Amoxic-Pot Clav 875-125Mg 1 tab PO Q12HR 03/18/21 03/18/21 History [Augmentin 875-125] Aspirin EC [Ecotrin Low Dose] 81 mg PO DAILY 03/18/21 03/18/21 History Budesonide/Formoterol Fumarate 2 puff INHALATION RT-BID 03/18/21 03/18/21 History [Symbicort 160-4.5 Mcg Inhaler] Hydrocortisone Cream 1 applic TOPICAL QID PRN 03/18/21 03/18/21 History [Hydrocortisone 2.5% Cream] Ipratropium-Albuterol Nebulize 3 ml INHALATION RT-QID PRN 03/18/21 03/18/21 History [Duoneb 0.5 mg-3 mg/3 ml Soln] Latanoprost [Xalatan 0.005%] 1 drop BOTH EYES HS 03/18/21 03/18/21 History Meclizine [Antivert] 25 mg PO DAILY 03/18/21 03/18/21 History Potassium Chloride [Klor-Con 10 ER] 10 meq PO DAILY 03/18/21 03/18/21 History methocarbamoL [Robaxin] 500 mg PO BID PRN 03/18/21 03/18/21 History rOPINIRole HCL [Requip] 1 mg PO HS 03/18/21 03/18/21 History Allergies Allergy/AdvReac Type Severity Reaction Status Date / Time No Known Allergies Allergy Verified 03/18/21 13:59 Surgical - Exam Vital Signs Temp Pulse Resp BP Pulse Ox 97.1 F L 92 18 66/49 87 L 03/18/21 10:59 03/18/21 10:59 03/18/21 10:59 03/18/21 10:59 03/18/21 10:59 General appearance: The patient is alert, oriented, appears in no acute distress. HET: Head is normocephalic and atraumatic. Neck: Supple without lymphadenopathy. Trachea midline. Heart: S1 S2. Regular rate and rhythm. Lungs: Diminished with scattered rhonchi. Abdomen: Soft, mild epigastric tenderness, nondistended. No Guarding or rigidity. Extremities: Normal skin color and turgor. No cyanosis, rash, ulceration, clubbing, or edema. Palpable bilateral femoral pulses. Multiphasic popliteal posterior tibialis and dorsalis pedis signal. Neurological: No focal deficits. Strength and sensation are grossly intact. Results - Labs 03/19/21 04:52 03/19/21 04:52 Microbiology - Last 24 Hours (Table) 03/18/21 11:30 Blood Culture - Preliminary Blood No Growth after 24 hours 03/18/21 11:45 Blood Culture - Preliminary Blood No Growth after 24 hours - Imaging Comments: Reviewed. As stated in HPI. Assessment and Plan Assessment: 1. Chronic arthrosclerotic vascular disease. Abnormal computed tomography scan without contrast shows significant calcification lumen of upper abdominal aorta and probably hemodynamic stenosis with probably subtotal occlusion of the upper abdominal aorta at the level of the celiac artery 2. Shortness of breath 3. Abdominal pain 4. History of peripheral arterial disease 5. History of aorto bi-fem bypass graft and fem-pop bypass 6. COPD, emphysema 7. History of coronary artery disease 8. History of hypertension and hyperlipidemia Plan: CT of the abdomen reviewed. Patient is known to Dr. Reeves and has been under his care for history of aorto bifemoral graft and fem-pop bypass. She follows with him regularly. There is no indication for any acute vascular surgical intervention. Continue current medical management. Patient is to follow-up with Dr. Reeves as scheduled. Thank you for this consultation, we will sign off at this time. The impression and plan of care has been dictated as directed. I performed a history and examination of this patient, discussed the same with the dictator. I agree with the dictator's note ,documented as a scribe. Any additional findings or plans will be noted.
--- NOTE | 2021-03-20 14:17 | PN ---
PROGRESS NOTE CHIEF COMPLAINT: Abdominal pain, chest pain, dehydration, prerenal azotemia and pain to the feet. HISTORY OF PRESENT ILLNESS: This lady is about the same. Her biochemical numbers are improving. BUN and creatinine have come down markedly. She is still complaining of a lot of pain in her feet. During the night she became quite hypotensive but was asymptomatic. Because she was FULL CODE, there was consideration as to whether or not she should be moved to ICU. Today she remains comfortable, but her blood pressure is still in the high 80s. She is still complaining of a lot of pain in the feet. PHYSICAL EXAMINATION: Chest demonstrates poor breath sounds with scattered rales. Cardiac exam is normal. The abdomen is flat and soft. Extremities demonstrate no edema. There is good capillary fill in the feet and the feet are warm. Feet are quite painful and tender. There is no sign of infection. IMPRESSION: 1. Dehydration. 2. Prerenal azotemia. 3. Hyperkalemia. 4. Chronic obstructive pulmonary disease. 5. History of carcinoma of the left lung. 6. Pain in the feet; etiology unknown. 7. Abdominal aortic occlusion. PLAN: 1. Obtain uric acid. 2. She is being followed by Cardiology. A consult has been placed with Vascular Surgery as well. MMODL / IJN: [id number] /
--- NOTE | 2021-03-20 15:07 | P.PN ---
Subjective Progress Note Date: 03/20/21 Principal diagnosis: Weakness. Pulmonary/critical care consult dated 03/19/2021. 66-year-old female, poor historian, who apparently presented to the emergency department on March 18, with weakness and abdominal pain. She apparently has a prior history of heavy alcohol abuse in the past, but apparently stopped drinking 5 years ago. She does continue to smoke cigarettes. In the room, seeing her, she mostly complains of leg pain. She feels like her legs are very painful and very weak. She also admits to being slightly short of breath. She's in no respiratory distress. Currently, she is getting lactated Ringer's at 150 mL an hour, and O2 by nasal cannula at 4 L. She denies any chest pain. She also denies any fever or chills. She does complain of occasional dry cough. In addition, she apparently has a history of CAD, hepatitis C, angina, COPD, hypertension, alcoholic liver disease, and lung cancer. She apparently has chronic hypoxemic respiratory failure and does use oxygen at home 27/10. White count is 12.2, hemoglobin 13, hematocrit 38.2, and platelet count 229,000. D- dimer is 2.99. Sodium 127, potassium 4.9, chlorides 99, CO2 16, anion gap 12, B UN 111, and creatinine 2.64. The BUN and creatinine yesterday were 151 and 5.53. Coronavirus testing was negative. Chest x-rays consistent with COPD, and a stable appearing density, left upper lung field. Computed tomography scan of the chest shows some emphysematous changes, and a stable lesion, and a left upper lobe. A pulmonary perfusion scan is low probability for pulmonary embolism. Progress note dated 03/20/2021. 66-year-old female, poor historian, who was initially seen in the emergency department on March 18, with weakness and abdominal pain. The patient was not really having any respiratory issues. Currently, she is on 3 L nasal cannula. She appears very comfortable. She apparently is getting lactated Ringer's at 200 mL an hour. I did write for some DuoNeb, and Symbicort. The patient has no specific complaints today other than weakness. No new labs today. Potassium is down from 6.9 to 4.9. BUN is improved, going from 151 down to 111. Also, creatinine is 2.64, and it was 5.53 yesterday. Objective - Vital Signs Vital signs: Vital Signs Temp 98 F 03/20/21 12:32 Pulse 113 H 03/20/21 12:32 Resp 16 03/20/21 12:32 BP 86/59 03/20/21 12:32 Pulse Ox 98 03/20/21 12:32 Intake & Output 03/19/21 03/20/21 03/20/21 18:59 06:59 18:59 Intake Total 180 Output Total 1150 1000 1300 Balance -970 -1000 -1300 Weight 42 kg 43.5 kg Intake: Oral 180 Output: Urine 750 600 900 Stool 400 400 400 Other: Voiding Method Indwelling Catheter Indwelling Catheter Indwelling Catheter # Bowel Movements 1 - Exam No acute distress, oriented 3. Very frail appearing, cachectic female, in no respiratory distress. She is not a particularly good historian. She is currently on 3 L. Saturations are 98%. HEENT examination is grossly unremarkable. Neck supple. Full range of motion. No adenopathy thyromegaly or neck vein distention. Cardiovascular examination reveals regular rhythm rate. S1-S2 normal. No S3 or S4. No discernible murmur noted. Heart rate 99 bpm. Heart sounds distant. Lungs reveal mild scattered rhonchi. No wheezes. No crackles. She does not take deep breaths. Abdomen soft, without tenderness on palpation. Extremities are intact. No cyanosis clubbing or edema. Skin is without rash or lesion. Neurologic examination is brief but nonfocal. - Labs CBC & Chem 7: 03/19/21 04:52 03/19/21 04:52 Labs: Microbiology - Last 24 Hours (Table) 03/18/21 11:30 Blood Culture - Preliminary Blood No Growth after 48 hours 03/18/21 11:45 Blood Culture - Preliminary Blood No Growth after 48 hours Assessment and Plan Assessment: Acute dehydration, with acute kidney injury/ATN. COPD, secondary to chronic and ongoing tobacco use and nicotine addiction, stable. History of hepatitis C. History of alcoholic liver disease. History of CAD. History of hypertension. Restless leg syndrome. History of lung cancer with prior radiation therapy, 2016. Chronic hypoxemic respiratory failure. Multiple other medical problems and comorbidities. Plan: Plan dated 03/19/2021. Currently, the patient's COPD appears to be relatively stable. I'll review the medications and adjust them accordingly. The patient's kidney function has greatly improved with fluids administration. We will continue to follow make recommendations were appropriate. The patient's counseled about the importance of smoking cessation. Additional recommendations and suggestions are fort [place]. Prognosis is guarded. The lesion in the left lung, likely represents the residual lung cancer, which was previously irradiated. It appears stable on most recent chest x-rays and CAT scans. Plan dated 03/20/2021. Currently, the patient's doing well. The pulmonary standpoint, she stable. Her kidney function is much improved just with IV fluid resuscitation. We will continue to follow make recommendations where appropriate. The patient remains on DuoNeb's, and Symbicort. Her pulmonary status is stable. She's counseled about the importance of smoking cessation. Unfortunately, she continues to smoke, despite the fact that she has lung cancer, and COPD. Time with Patient: Less than 30
[2021-03-20 15:08] LABS: Calcium 8.1 mg/dL (8.4-10.2); Potassium 4.9 mmol/L (3.5-5.1)
--- NOTE | 2021-03-20 15:41 | PN ---
PROGRESS NOTE Patient is seen for followup for acute kidney injury. Her renal function has been improving. I do not have any labs back from today yet. The patient is maintained on IV fluids. PHYSICAL EXAMINATION: On examination today, blood pressure 86/59, heart rate 113 per minute. She is afebrile. Examination of the heart S1, S2. Examination of the lungs, bilateral breath sounds are heard. Abdomen is soft, nontender. Examination of lower extremities shows no significant edema. LAB: Show sodium 127 from March 19. Creatinine down to 2.6, BUN 111. Potassium was 4.9 yesterday. ASSESSMENT: 1. Acute kidney injury currently improving mostly prerenal associated with hypotension and hypovolemia. 2. Hypovolemic, hyponatremia, improved with IV hydration. 3. Hyperkalemia associated with acute kidney injury, severe metabolic acidosis, potassium supplementation and use of NSAIDs, now improved. 4. Volume depletion. 5. Severe metabolic acidosis associated with renal failure, GI fluid loss, maintained on IV fluids and currently improved with improving renal function. Check labs today. If the patient is acidotic, we will switch IV fluids to IV bicarb. PLAN: Continue Ringer lactate for now. Check labs today and repeat in a.m. MMODL / IJN: [id number] /
[2021-03-20] MEDS: LATANOPROST 0.005% OPHTH DROPS 2.5 ML BTL BOTH EYES SCH (22:03)
[2021-03-20] MEDS: ALPRAZolam 1 MG TAB PO PRN (22:07)
[2021-03-21] MEDS: LACTATED RINGERS 1,000 ML IV SCH ×5 (04:08→20:38)
[2021-03-21] MEDS: SYMBICORT 160-4.5 MCG INHALER INHALATION SCH ×2 (09:11→19:18)
[2021-03-21] MEDS: IPRATROPIUM-ALBUTEROL 3 ML NEB INHALATION SCH ×4 (09:11→19:18)
[2021-03-21 09:18] LABS: ALT 17 U/L (4-34); AST 20 U/L (14-36); African American GFR (CKD) >90 (>60 ml/min/1.73 sqM); Albumin 2.5 g/dL (3.5-5.0); Alkaline Phosphatase 53 U/L (38-126); Anion Gap 7 mmol/L; Blood Urea Nitrogen 22 mg/dL (7-17); Calcium 7.7 mg/dL (8.4-10.2); Carbon Dioxide 27 mmol/L (22-30); Chloride 104 mmol/L (98-107); Glucose 168 mg/dL (74-99); Non-African American GFR(CKD) 89 (>60 ml/min/1.73 sqM); Potassium 4.8 mmol/L (3.5-5.1); Sodium 138 mmol/L (137-145); Total Bilirubin 0.2 mg/dL (0.2-1.3); Total Protein 5.2 g/dL (6.3-8.2)
[2021-03-21] MEDS: METOPROLOL TARTRATE 12.5 MG TAB PO SCH ×2 (10:06→20:37)
[2021-03-21] MEDS: ATORVASTATIN 40 MG TAB PO SCH (10:06)
[2021-03-21] MEDS: ASPIRIN 81 MG PO SCH (10:07)
[2021-03-21] MEDS: HYDROcodone/APAP 10-325MG 1 EACH TAB PO PRN ×2 (10:07→20:41)
--- NOTE | 2021-03-21 11:31 | P.PN ---
Subjective This is a pleasant 66-year-old female past medical history significant for lung cancer, chronic nicotine dependence, COPD, peripheral artery disease, etoh use, hypertension, hepatitis c, colostomy unknown details of surgery. She does not follow with a outsole splicer. She did see Dr. Benavidez in 2012 for lower extremity vascular disease We have been asked to see in consultation for hypotension. Patient presents to the emergency department on 03/18/2021 with complaints of abdominal pain and generalized weakness. Found to be dehydrated and with acute kidney injury, severe hyperkalemia, and metabolic acidosis. She was started on IV fluids and has a significant improvement in her renal function which has returned to normal. She is feeling well. She denies any chest pain, shortness of breath, lightheadedness or dizziness. She continues to have bilateral lower extremity pain with movement and to touch. Her blood pressure has improved. Echocardiogram revealed EF 55-60%, mobile interatrial septum, mild aortic stenosis peak/mean gradient 19mmHg/9mmHg. She continues to be in sinus mechanism. Tachycardia has improved. PHYSICAL EXAMINATION Blood pressure 91/59 HR 111 afebrile, SpO2 98% on 3 nasal cannula. CONSTITUTIONAL: No apparent distress. HEENT: Neck Supple. No JVD. CHEST EXAMINATION: Lungs are clear to auscultation. HEART EXAMINATION: Regular rate and rhythm. S1, S2 heard. Systolic ejection murmur noted. No gallops or rub. ABDOMEN: Soft, nontender. Positive bowel sounds. EXTREMITIES: no lower extremity edema. Difficult to appreciate pulses in bilateral dorsal pedis and posterior tibial pulses NEUROLOGIC EXAMINATION: Patient is awake, alert and oriented x3. ASSESSMENT Hypotension, likely related to volume depletion and dehydration Acute Kidney Injury History of Lung Cancer Chronic nicotine dependence ETOH use COPD Peripheral artery disease PLAN Echocardiogram with normal LV function and no significant wall motion abnormalities. We will start patient back on her beta santa at 12.5mg BID. Start atorvastatin 40mg daily. Continue aspirin. Patient is stable from cardiology perspective, we will follow the patient as needed. Please reconsult if needed Patient to follow up outpatient with Dr. Stoll Nurse Practitioner note has been reviewed, I agree with a documented findings and plan of care. Patient was seen and examined. Objective - Vital Signs Vital signs: Vital Signs Temp 98.7 F 03/21/21 09:54 Pulse 111 H 03/21/21 09:54 Resp 20 03/21/21 09:54 BP 91/59 03/21/21 09:54 Pulse Ox 98 03/21/21 09:54 Intake & Output 03/20/21 03/21/21 03/21/21 18:59 06:59 18:59 Intake Total 118 Output Total 7011 0745 827 Balance -0565 -1043 -707 Weight 46 kg Intake: Oral 118 Output: Urine 900 1575 675 Stool 400 150 Other: Voiding Method Indwelling Catheter Indwelling Catheter # Bowel Movements 1 - Labs CBC & Chem 7: 03/19/21 04:52 03/21/21 08:04 Labs: Abnormal Lab Results - Last 24 Hours (Table) 03/20/21 03/21/21 Range/Units 13:25 08:04 BUN 47 H 22 H (7-17) mg/dL Glucose 100 H 168 H (74-99) mg/dL Calcium 8.1 L 7.7 L (8.4-10.2) mg/dL Total Protein 5.2 L (6.3-8.2) g/dL Albumin 2.5 L (3.5-5.0) g/dL Microbiology - Last 24 Hours (Table) 03/18/21 11:30 Blood Culture - Preliminary Blood No Growth after 48 hours 03/18/21 11:45 Blood Culture - Preliminary Blood No Growth after 48 hours
[2021-03-21 13:40] VITALS: BMI 19.1
--- NOTE | 2021-03-21 14:39 | P.PN ---
Subjective Progress Note Date: 03/21/21 Principal diagnosis: Weakness. Pulmonary/critical care consult dated 03/19/2021. 66-year-old female, poor historian, who apparently presented to the emergency department on March 18, with weakness and abdominal pain. She apparently has a prior history of heavy alcohol abuse in the past, but apparently stopped drinking 5 years ago. She does continue to smoke cigarettes. In the room, seeing her, she mostly complains of leg pain. She feels like her legs are very painful and very weak. She also admits to being slightly short of breath. She's in no respiratory distress. Currently, she is getting lactated Ringer's at 150 mL an hour, and O2 by nasal cannula at 4 L. She denies any chest pain. She also denies any fever or chills. She does complain of occasional dry cough. In addition, she apparently has a history of CAD, hepatitis C, angina, COPD, hypertension, alcoholic liver disease, and lung cancer. She apparently has chronic hypoxemic respiratory failure and does use oxygen at home 27/10. White count is 12.2, hemoglobin 13, hematocrit 38.2, and platelet count 229,000. D- dimer is 2.99. Sodium 127, potassium 4.9, chlorides 99, CO2 16, anion gap 12, B UN 111, and creatinine 2.64. The BUN and creatinine yesterday were 151 and 5.53. Coronavirus testing was negative. Chest x-rays consistent with COPD, and a stable appearing density, left upper lung field. Computed tomography scan of the chest shows some emphysematous changes, and a stable lesion, and a left upper lobe. A pulmonary perfusion scan is low probability for pulmonary embolism. Progress note dated 03/20/2021. 66-year-old female, poor historian, who was initially seen in the emergency department on March 18, with weakness and abdominal pain. The patient was not really having any respiratory issues. Currently, she is on 3 L nasal cannula. She appears very comfortable. She apparently is getting lactated Ringer's at 200 mL an hour. I did write for some DuoNeb, and Symbicort. The patient has no specific complaints today other than weakness. No new labs today. Potassium is down from 6.9 to 4.9. BUN is improved, going from 151 down to 111. Also, creatinine is 2.64, and it was 5.53 yesterday. Progress note dated 03/21/2021. 66-year-old female, again seen in room 362. Currently, she is on 2 L nasal cannula. She's getting lactated Ringer's at 200 mL an hour. The patient's most recent laboratory data includes a sodium 138, calcium 4.8, chlorides 104, CO2 2 7, BUN 22, and creatinine 0.71. She's doing much better. She is much more awake and alert. She denies any shortness of breath, cough, wheezing, or phlegm production. Objective - Vital Signs Vital signs: Vital Signs Temp 98.6 F 03/21/21 12:00 Pulse 93 03/21/21 12:05 Resp 18 03/21/21 12:00 BP 95/57 03/21/21 12:00 Pulse Ox 98 03/21/21 12:00 Intake & Output 03/20/21 03/21/21 03/21/21 18:59 06:59 18:59 Intake Total 358 Output Total 1300 1575 825 Balance -1300 -1575 -467 Weight 46 kg 46 kg Intake: Oral 358 Output: Urine 900 1575 675 Stool 400 150 Other: Voiding Method Indwelling Catheter Indwelling Catheter Indwelling Catheter # Bowel Movements 1 - Exam No acute distress, oriented 3. Very frail appearing, cachectic female, in no respiratory distress. She is not a particularly good historian. She is currently on 2 - 3 L. Saturations are 98%. HEENT examination is grossly unremarkable. Neck supple. Full range of motion. No adenopathy thyromegaly or neck vein distention. Cardiovascular examination reveals regular rhythm rate. S1-S2 normal. No S3 or S4. No discernible murmur noted. Heart rate 93 bpm. Heart sounds distant. Lungs reveal mild scattered rhonchi. No wheezes. No crackles. She does not take deep breaths. Abdomen soft, without tenderness on palpation. Extremities are intact. No cyanosis clubbing or edema. Skin is without rash or lesion. Neurologic examination is brief but nonfocal. - Labs CBC & Chem 7: 03/19/21 04:52 03/21/21 08:04 Labs: Abnormal Lab Results - Last 24 Hours (Table) 03/20/21 03/21/21 Range/Units 13:25 08:04 BUN 47 H 22 H (7-17) mg/dL Glucose 100 H 168 H (74-99) mg/dL Calcium 8.1 L 7.7 L (8.4-10.2) mg/dL Total Protein 5.2 L (6.3-8.2) g/dL Albumin 2.5 L (3.5-5.0) g/dL Microbiology - Last 24 Hours (Table) 03/18/21 11:45 Blood Culture - Preliminary Blood No Growth after 72 hours 03/18/21 11:30 Blood Culture - Preliminary Blood No Growth after 72 hours Assessment and Plan Assessment: Acute dehydration, with acute kidney injury/ATN. COPD, secondary to chronic and ongoing tobacco use and nicotine addiction, stable. History of hepatitis C. History of alcoholic liver disease. History of CAD. History of hypertension. Restless leg syndrome. History of lung cancer with prior radiation therapy, 2016. Chronic hypoxemic respiratory failure. Multiple other medical problems and comorbidities. Plan: Plan dated 03/19/2021. Currently, the patient's COPD appears to be relatively stable. I'll review the medications and adjust them accordingly. The patient's kidney function has greatly improved with fluids administration. We will continue to follow make recommendations were appropriate. The patient's counseled about the importance of smoking cessation. Additional recommendations and suggestions are forthcoming. Prognosis is guarded. The lesion in the left lung, likely represents the residual lung cancer, which was previously irradiated. It ayla ears stable on most recent chest x-rays and CAT scans. Plan dated 03/20/2021. Currently, the patient's doing well. The pulmonary standpoint, she stable. Her kidney function is much improved just with IV fluid resuscitation. We will continue to follow make recommendations where appropriate. The patient remains on DuoNeb's, and Symbicort. Her pulmonary status is stable. She's counseled about the importance of smoking cessation. Unfortunately, she continues to smoke, despite the fact that she has lung cancer, and COPD. Plan dated 03/21/2021. The patient is on 2 L nasal cannula. Saturations are 98%. She is much more awake and alert. Her laboratory data has improved day by day. Her renal function is back to normal. We will continue to follow make recommendations where appropriate. The patient remains on DuoNeb's, and Symbicort. Her respiratory status is stable. She does continue to smoke cigarettes. We counseled her about the importance of smoking cessation. Time with Patient: Less than 30
[2021-03-21] MEDS: ALPRAZolam 1 MG TAB PO PRN (16:31)
--- NOTE | 2021-03-21 16:54 | PN ---
PROGRESS NOTE Patient is seen for followup for acute kidney injury and hyponatremia and hyperkalemia. Her electrolytes have improved. Serum creatinine is down to 0.7 mg/dL. Overall patient states she is feeling better. PHYSICAL EXAMINATION: On examination today, blood pressure 95/57, heart rate 98 per minute, she is afebrile. Examination of the heart S1, S2. Examination of the lungs, decreased breath sounds at the bases. Abdomen is soft, nontender. Examination of lower extremities shows no evidence of edema. LAB: Show sodium 138, potassium 4.8, chloride 104, BUN 22, creatinine 0.7. ASSESSMENT: 1. Acute kidney injury, prerenal, associated with severe volume depletion, currently resolved with IV hydration. 2. Hypovolemic, hyponatremia, improved with IV hydration. 3. Hyperkalemia associated with acute kidney injury, severe metabolic acidosis, potassium supplementation and use of NSAIDs now resolved. 4. Volume depletion. 5. Severe metabolic acidosis associated with renal failure and GI fluid loss, maintained on IV fluids and improved post bicarb drip. PLAN: Decrease rate to Ringer lactate. Encourage increased oral intake. MMODL / IJN: [id number] /
[2021-03-21] MEDS: LATANOPROST 0.005% OPHTH DROPS 2.5 ML BTL BOTH EYES SCH (20:38)
[2021-03-22] MEDS: METOPROLOL TARTRATE 12.5 MG TAB PO SCH ×2 (08:29→20:31)
[2021-03-22] MEDS: ASPIRIN 81 MG PO SCH (08:29)
[2021-03-22] MEDS: ATORVASTATIN 40 MG TAB PO SCH (08:29)
[2021-03-22] MEDS: HYDROcodone/APAP 10-325MG 1 EACH TAB PO PRN ×2 (08:35→20:30)
[2021-03-22] MEDS: IPRATROPIUM-ALBUTEROL 3 ML NEB INHALATION SCH ×4 (09:06→20:15)
[2021-03-22] MEDS: SYMBICORT 160-4.5 MCG INHALER INHALATION SCH ×2 (09:06→20:15)
[2021-03-22] MEDS: ALPRAZolam 1 MG TAB PO PRN ×2 (10:48→20:31)
--- NOTE | 2021-03-22 11:52 | PN ---
PROGRESS NOTE DATE OF SERVICE: 03/21/2021 CHIEF COMPLAINT: Hypotension, dehydration, prerenal azotemia, COPD, carcinoma of the lung and pain in the feet. HISTORY OF PRESENT ILLNESS: This lady is still complaining of a lot of pain in the feet. She has been cleared by Vascular Surgery. It will be difficult for her to go home under the current circumstances because she is living in a detention with her daughter and there is not adequate food, hydration, or any help with ambulation. She was told that she will be referred to [facility] for the possibility of placement in a rehab unit temporarily. PHYSICAL EXAMINATION: Breath sounds are still diminished. Cardiac exam is normal. Abdomen is soft. There is no significant cellulitis, redness or deformity in the feet or ankles. IMPRESSION: 1. Dehydration. 2. Prerenal azotemia. 3. Pain in both feet, etiology unknown. 4. Partial occlusion of abdominal aorta. 5. Chronic obstructive pulmonary disease. 6. Carcinoma of the left lung. PLAN: Referral for discharge planning and continue to try to manage her discomfort. MMODL / IJN: [id number] /
--- NOTE | 2021-03-22 12:31 | P.PN ---
Subjective Progress Note Date: 03/22/21 Principal diagnosis: Weakness. Pulmonary/critical care consult dated 03/19/2021. 66-year-old female, poor historian, who apparently presented to the emergency department on March 18, with weakness and abdominal pain. She apparently has a prior history of heavy alcohol abuse in the past, but apparently stopped drinking 5 years ago. She does continue to smoke cigarettes. In the room, seeing her, she mostly complains of leg pain. She feels like her legs are very painful and very weak. She also admits to being slightly short of breath. She's in no respiratory distress. Currently, she is getting lactated Ringer's at 150 mL an hour, and O2 by nasal cannula at 4 L. She denies any chest pain. She also denies any fever or chills. She does complain of occasional dry cough. In addition, she apparently has a history of CAD, hepatitis C, angina, COPD, hypertension, alcoholic liver disease, and lung cancer. She apparently has chronic hypoxemic respiratory failure and does use oxygen at home 27/10. White count is 12.2, hemoglobin 13, hematocrit 38.2, and platelet count 229,000. D- dimer is 2.99. Sodium 127, potassium 4.9, chlorides 99, CO2 16, anion gap 12, B UN 111, and creatinine 2.64. The BUN and creatinine yesterday were 151 and 5.53. Coronavirus testing was negative. Chest x-rays consistent with COPD, and a stable appearing density, left upper lung field. Computed tomography scan of the chest shows some emphysematous changes, and a stable lesion, and a left upper lobe. A pulmonary perfusion scan is low probability for pulmonary embolism. Progress note dated 03/20/2021. 66-year-old female, poor historian, who was initially seen in the emergency department on March 18, with weakness and abdominal pain. The patient was not really having any respiratory issues. Currently, she is on 3 L nasal cannula. She appears very comfortable. She apparently is getting lactated Ringer's at 200 mL an hour. I did write for some DuoNeb, and Symbicort. The patient has no specific complaints today other than weakness. No new labs today. Potassium is down from 6.9 to 4.9. BUN is improved, going from 151 down to 111. Also, creatinine is 2.64, and it was 5.53 yesterday. Progress note dated 03/21/2021. 66-year-old female, again seen in room 362. Currently, she is on 2 L nasal cannula. She's getting lactated Ringer's at 200 mL an hour. The patient's most recent laboratory data includes a sodium 138, calcium 4.8, chlorides 104, CO2 2 7, BUN 22, and creatinine 0.71. She's doing much better. She is much more awake and alert. She denies any shortness of breath, cough, wheezing, or phlegm production. Progress note dated 03/22/2021. 66-year-old female, again seen in room 362. The patient is on room air. Her lactated Ringer's IV has been turned on the 70 mL an hour. Apparently, they are evaluating the patient for gout. She denies any respiratory distress. No cough, no wheezing, no phlegm production. No chest congestion. No chest pain. Family members in the room with her. She does continue to smoke cigarettes. Objective - Vital Signs Vital signs: Vital Signs Temp 98.4 F 03/22/21 08:30 Pulse 94 03/22/21 12:00 Resp 18 03/22/21 12:00 BP 115/74 03/22/21 12:00 Pulse Ox 97 03/22/21 12:00 Intake & Output 03/21/21 03/22/21 03/22/21 18:59 06:59 18:59 Intake Total 598 560 180 Output Total 1675 1150 400 Balance -1077 -590 -220 Weight 46 kg 46 kg Intake: Intake, IV Titration 560 Amount Lactated Ringers 1,000 ml 560 @ 70 mls/hr IV .[id number] [facility] Rx#:[id number] Oral 598 180 Output: Urine 1225 850 400 Uretheral (Beaulieu) 200 400 Stool 450 200 Urine/Stool Mix 100 Other: Voiding Method Indwelling Catheter Indwelling Catheter Indwelling Catheter - Exam No acute distress, oriented 3. Very frail appearing, cachectic female, in no respiratory distress. She is not a particularly good historian. She is currently on room air, with saturations of 97%. HEENT examination is grossly unremarkable. Neck supple. Full range of motion. No adenopathy thyromegaly or neck vein distention. Cardiovascular examination reveals regular rhythm rate. S1-S2 normal. No S3 or S4. No discernible murmur noted. Heart rate 94 bpm. Heart sounds distant. Lungs reveal mild scattered rhonchi. No wheezes. No crackles. She does not take deep breaths. Abdomen soft, without tenderness on palpation. Extremities are intact. No cyanosis clubbing or edema. Skin is without rash or lesion. Neurologic examination is brief but nonfocal. - Labs CBC & Chem 7: 03/19/21 04:52 03/21/21 08:04 Labs: Microbiology - Last 24 Hours (Table) 03/18/21 11:45 Blood Culture - Preliminary Blood No Growth after 72 hours 03/18/21 11:30 Blood Culture - Preliminary Blood No Growth after 72 hours Assessment and Plan Assessment: Acute dehydration, with acute kidney injury/ATN. COPD, secondary to chronic and ongoing tobacco use and nicotine addiction, stable. History of hepatitis C. History of alcoholic liver disease. History of CAD. History of hypertension. Restless leg syndrome. History of lung cancer with prior radiation therapy, 2016. Chronic hypoxemic respiratory failure. Multiple other medical problems and comorbidities. Plan: Plan dated 03/19/2021. Currently, the patient's COPD appears to be relatively stable. I'll review the medications and adjust them accordingly. The patient's kidney function has greatly improved with fluids administration. We will continue to follow make recommendations were appropriate. The patient's counseled about the importance of smoking cessation. Additional recommendations and suggestions are forthcoming. Prognosis is guarded. The lesion in the left lung, likely represents the residual lung cancer, which was previously irradiated. It appears stable on most recent chest x-rays and CAT scans. Plan dated 03/20/2021. Currently, the patient's doing well. The pulmonary standpoint, she stable. Her kidney function is much improved just with IV fluid resuscitation. We will continue to follow make recommendations where appropriate. The patient remains on DuoNeb's, and Symbicort. Her pulmonary status is stable. She's counseled about the importance of smoking cessation. Unfortunately, she continues to smoke, despite the fact that she has lung cancer, and COPD. Plan dated 03/21/2021. The patient is on 2 L nasal cannula. Saturations are 98%. She is much more awake and alert. Her laboratory data has improved day by day. Her renal function is back to normal. We will continue to follow make recommendations where appropriate. The patient remains on DuoNeb's, and Symbicort. Her respiratory status is stable. She does continue to smoke cigarettes. We counseled her about the importance of smoking cessation. Plan dated 03/22/2021. Clinically, the patient's doing well. She's on room air. She's getting lactated Ringer's at 70 mL an hour. I do not see any lab work from today. Yesterday, her kidney function returned essentially back to normal, with a BUN of 22, and creatinine 0.71. She denies any shortness of breath, cough, wheezing, or phlegm production. She does continue to smoke. We counseled about the importance of smoking cessation. Additional recommendations and suggestions are forthcoming. Prognosis is guarded. Time with Patient: Less than 30
[2021-03-22] MEDS: predniSONE 20 MG TAB PO SCH (15:58)
--- NOTE | 2021-03-22 16:58 | PN ---
PROGRESS NOTE Patient is seen for followup for acute kidney injury and hyperkalemia. Her renal function has improved significantly. Creatinine down to 0.7 today. The patient is tolerating oral intake. She is complaining of significant pain in her left foot. There is also redness noted on the lateral part of the foot at the ankle. The patient states that she is not able to put her foot down. No fever is noted. EXAMINATION: Today blood pressure was 115/74, heart rate 94 per minute. She is afebrile. Examination of the heart S1, S2. Examination of the lungs, bilateral breath sounds are heard. Abdomen is soft, nontender. Examination of lower extremities shows no edema. Some redness and swelling noted on the lateral aspect of her left foot at the lateral malleolus. SCALER PACKER exam grossly intact. LAB: Show sodium 138, potassium 4.8, chloride 104, BUN 22, creatinine 0.7, hemoglobin 13.0 g/dL. Stool for occult blood was positive. ASSESSMENT: 1. Acute kidney injury, currently resolved. The patient remains on IV fluids, fluids have been decreased to 70 mL an hour. 2. Metabolic acidosis, improved, status post bicarb drip. 3. Hyperkalemia associated with acute kidney injury, metabolic acidosis, now resolved. 4. Left foot pain, possibly gout. We will treat with anti-inflammatory agents. Renal function has now improved. We can give NSAIDs. However, if there is worsening of renal function, patient will need to take steroids. Check uric acid levels as well. 5. Hyponatremia which was hypovolemic, now improved with IV hydration. MMODL / IJN: [id number] /
--- NOTE | 2021-03-22 19:49 | PN ---
PROGRESS NOTE CHIEF COMPLAINT: Weakness, dehydration, prerenal azotemia, COPD, CA of the lung and pain in the feet. HISTORY OF PRESENT ILLNESS: This lady is about the same. She is still complaining of pain in the feet. We discussed going to a [facility] for rehab, by I received a call from her daughter later in the day that she absolutely refuses this. REVIEW OF SYSTEMS: She is feeling better. Hydration is improved. Chemistries are nearly back to normal. PHYSICAL EXAMINATION: Breath sounds are diminished throughout due to her emphysema. Cardiac exam is normal. The abdomen is flat, soft and nontender. Examination of the feet today find that there is some edema and erythema around the heels and up in the ankles. Pulses are good. IMPRESSION: 1. Dehydration. 2. Prerenal azotemia. 3. Chronic obstructive pulmonary disease. 4. CA of the lung. 5. Aortic occlusion. 6. Pain and inflammation in the heels. PLAN: Try steroids and continue to work on physical therapy and ambulation in hopes that she will be able to go home. MMODL / IJN: [id number] /
[2021-03-22] MEDS: LATANOPROST 0.005% OPHTH DROPS 2.5 ML BTL BOTH EYES SCH (22:45)
[2021-03-23] MEDS: IPRATROPIUM-ALBUTEROL 3 ML NEB INHALATION SCH ×4 (07:37→19:57)
[2021-03-23] MEDS: SYMBICORT 160-4.5 MCG INHALER INHALATION SCH ×2 (07:37→19:57)
[2021-03-23] MEDS: METOPROLOL TARTRATE 12.5 MG TAB PO SCH ×2 (09:19→20:30)
[2021-03-23] MEDS: predniSONE 20 MG TAB PO SCH ×4 (09:19→20:31)
[2021-03-23] MEDS: ASPIRIN 81 MG PO SCH (09:19)
[2021-03-23] MEDS: ATORVASTATIN 40 MG TAB PO SCH (09:19)
[2021-03-23] MEDS: LACTATED RINGERS 1,000 ML IV SCH ×2 (09:22→16:07)
[2021-03-23] MEDS: HYDROcodone/APAP 10-325MG 1 EACH TAB PO PRN ×3 (09:25→23:57)
[2021-03-23] MEDS: ALPRAZolam 1 MG TAB PO PRN ×3 (09:26→23:57)
--- NOTE | 2021-03-23 10:09 | P.PN ---
Subjective Patient is seen in follow-up for acute kidney injury. Renal function is back to baseline. Complaining of foot pain. Uric acid normal. Oral intake fair. No vomiting or diarrhea. Good urine output. No hematuria. Vital signs are stable. General: The patient appeared well nourished and normally developed. HEENT: Head exam is unremarkable. LUNGS: Breath sounds decreased. HEART: Rate and Rhythm are regular. ABDOMEN: Soft, no distention. EXTREMITITES: No edema. Objective - Vital Signs Vital signs: Vital Signs Temp 96.9 F L 03/23/21 08:00 Pulse 117 H 03/23/21 08:00 Resp 16 03/23/21 08:00 BP 104/69 03/23/21 08:00 Pulse Ox 96 03/23/21 08:00 Intake & Output 03/22/21 03/23/21 03/23/21 18:59 06:59 18:59 Intake Total 780 180 Output Total 1650 2500 Balance -870 -2500 180 Weight 42.9 kg Intake: Oral 780 180 Output: Urine 1450 2200 Uretheral (Beaulieu) 400 Stool 200 300 Other: Voiding Method Indwelling Catheter Indwelling Catheter # Voids 2 # Bowel Movements 1 - Labs CBC & Chem 7: 03/19/21 04:52 03/21/21 08:04 Labs: Microbiology - Last 24 Hours (Table) 03/18/21 11:45 Blood Culture - Preliminary Blood No Growth after 96 hours 03/18/21 11:30 Blood Culture - Preliminary Blood No Growth after 96 hours Assessment and Plan Plan: Assessment: 1. Acute kidney injury mostly prerenal improved with IV hydration. Renal function back to baseline. 2. Metabolic acidosis secondary to acute kidney injury status post bicarb drip. Resolved. 3. Hypovolemic hyponatremia. Improved. 4. Left foot pain. Uric acid normal. On prednisone. Plan: Encouraged oral intake. Decreased IV fluids to 50 mL an hour. I will sign off. Please call with any questions or concerns.
--- NOTE | 2021-03-23 15:02 | P.PN ---
Subjective Progress Note Date: 03/23/21 Principal diagnosis: Weakness. Pulmonary/critical care consult dated 03/19/2021. 66-year-old female, poor historian, who apparently presented to the emergency department on March 18, with weakness and abdominal pain. She apparently has a prior history of heavy alcohol abuse in the past, but apparently stopped drinking 5 years ago. She does continue to smoke cigarettes. In the room, seeing her, she mostly complains of leg pain. She feels like her legs are very painful and very weak. She also admits to being slightly short of breath. She's in no respiratory distress. Currently, she is getting lactated Ringer's at 150 mL an hour, and O2 by nasal cannula at 4 L. She denies any chest pain. She also denies any fever or chills. She does complain of occasional dry cough. In addition, she apparently has a history of CAD, hepatitis C, angina, COPD, hypertension, alcoholic liver disease, and lung cancer. She apparently has chronic hypoxemic respiratory failure and does use oxygen at home 27/10. White count is 12.2, hemoglobin 13, hematocrit 38.2, and platelet count 229,000. D- dimer is 2.99. Sodium 127, potassium 4.9, chlorides 99, CO2 16, anion gap 12, B UN 111, and creatinine 2.64. The BUN and creatinine yesterday were 151 and 5.53. Coronavirus testing was negative. Chest x-rays consistent with COPD, and a stable appearing density, left upper lung field. Computed tomography scan of the chest shows some emphysematous changes, and a stable lesion, and a left upper lobe. A pulmonary perfusion scan is low probability for pulmonary embolism. Progress note dated 03/20/2021. 66-year-old female, poor historian, who was initially seen in the emergency department on March 18, with weakness and abdominal pain. The patient was not really having any respiratory issues. Currently, she is on 3 L nasal cannula. She appears very comfortable. She apparently is getting lactated Ringer's at 200 mL an hour. I did write for some DuoNeb, and Symbicort. The patient has no specific complaints today other than weakness. No new labs today. Potassium is down from 6.9 to 4.9. BUN is improved, going from 151 down to 111. Also, creatinine is 2.64, and it was 5.53 yesterday. Progress note dated 03/21/2021. 66-year-old female, again seen in room 362. Currently, she is on 2 L nasal cannula. She's getting lactated Ringer's at 200 mL an hour. The patient's most recent laboratory data includes a sodium 138, calcium 4.8, chlorides 104, CO2 2 7, BUN 22, and creatinine 0.71. She's doing much better. She is much more awake and alert. She denies any shortness of breath, cough, wheezing, or phlegm production. Progress note dated 03/22/2021. 66-year-old female, again seen in room 362. The patient is on room air. Her lactated Ringer's IV has been turned on the 70 mL an hour. Apparently, they are evaluating the patient for gout. She denies any respiratory distress. No cough, no wheezing, no phlegm production. No chest congestion. No chest pain. Family members in the room with her. She does continue to smoke cigarettes. Progress note dated 03/23/2021. 66-year-old female, who looks much older than her stated age, is again seen in room 362. The patient is currently on room air. The patient is receiving lactated Ringer's at 70 mL an hour. The patient is doing much better. She denies any shortness of breath, cough, wheezing, or phlegm production. She also denies any chest pain or chest discomfort. No new labs today. Objective - Vital Signs Vital signs: Vital Signs Temp 96.9 F L 03/23/21 08:00 Pulse 87 03/23/21 12:00 Resp 16 03/23/21 12:00 BP 99/56 03/23/21 12:00 Pulse Ox 97 03/23/21 12:00 Intake & Output 03/22/21 03/23/21 03/23/21 18:59 06:59 18:59 Intake Total 780 360 Output Total 1650 2500 Balance -870 -2500 360 Weight 42.9 kg Intake: Oral 780 360 Output: Urine 1450 2200 Uretheral (Beaulieu) 400 Stool 200 300 Other: Voiding Method Indwelling Catheter Indwelling Catheter Indwelling Catheter # Voids 2 # Bowel Movements 1 - Exam No acute distress, oriented 3. Very frail appearing, cachectic female, in no respiratory distress. She is not a particularly good historian. She is currently on room air, with saturations of 97%. HEENT examination is grossly unremarkable. Neck supple. Full range of motion. No adenopathy thyromegaly or neck vein distention. Cardiovascular examination reveals regular rhythm rate. S1-S2 normal. No S3 or S4. No discernible murmur noted. Heart rate 87 bpm. Heart sounds distant. Lungs reveal mild scattered rhonchi. No wheezes. No crackles. She does not take deep breaths. Abdomen soft, without tenderness on palpation. Extremities are intact. No cyanosis clubbing or edema. Skin is without rash or lesion. Neurologic examination is brief but nonfocal. - Labs CBC & Chem 7: 03/19/21 04:52 03/21/21 08:04 Labs: Microbiology - Last 24 Hours (Table) 03/18/21 11:30 Blood Culture - Preliminary Blood No Growth after 120 hours 03/18/21 11:45 Blood Culture - Preliminary Blood No Growth after 120 hours Assessment and Plan Assessment: Acute dehydration, with acute kidney injury/ATN. COPD, secondary to chronic and ongoing tobacco use and nicotine addiction, stable. History of hepatitis C. History of alcoholic liver disease. History of CAD. History of hypertension. Restless leg syndrome. History of lung cancer with prior radiation therapy, 2016. Chronic hypoxemic respiratory failure. Multiple other medical problems and comorbidities. Plan: Plan dated 03/19/2021. Currently, the patient's COPD appears to be relatively stable. I'll review the medications and adjust them accordingly. The patient's kidney function has greatly improved with fluids administration. We will continue to follow make recommendations were appropriate. The patient's counseled about the importance of smoking cessation. Additional recommendations and suggestions are forthcoming. Prognosis is guarded. The lesion in the left lung, likely represents the residual lung cancer, which was previously irradiated. It appears stable on most recent chest x-rays and CAT scans. Plan dated 03/20/2021. Currently, the patient's doing well. The pulmonary standpoint, she stable. Her kidney function is much improved just with IV fluid resuscitation. We will continue to follow make recommendations where appropriate. The patient remains on DuoNeb's, and Symbicort. Her pulmonary status is stable. She's counseled about the importance of smoking cessation. Unfortunately, she continues to smoke, despite the fact that she has lung cancer, and COPD. Plan dated 03/21/2021. The patient is on 2 L nasal cannula. Saturations are 98%. She is much more awake and alert. Her laboratory data has improved day by day. Her renal function is back to normal. We will continue to follow make recommendations where appropriate. The patient remains on DuoNeb's, and Symbicort. Her respiratory status is stable. She does continue to smoke cigarettes. We c ounseled her about the importance of smoking cessation. Plan dated 03/22/2021. Clinically, the patient's doing well. She's on room air. She's getting lactated Ringer's at 70 mL an hour. I do not see any lab work from today. Yesterday, her kidney function returned essentially back to normal, with a BUN of 22, and creatinine 0.71. She denies any shortness of breath, cough, wheezing, or phlegm production. She does continue to smoke. We counseled about the importance of smoking cessation. Additional recommendations and suggestions are forthcoming. Prognosis is guarded. Plan dated 03/23/2021. Currently, from the pulmonary standpoint, she is doing well. With hydration, her renal function is returning back to normal. The patient is currently not requiring any oxygen therapy. She's getting lactated Ringer's at 70 mL an hour. Additional recommendations and suggestions are forthcoming. Prognosis is guarded. We will continue to follow make recommendations where appropriate. Clint cagle does continue to smoke. We counseled her about the importance of smoking cessation. Prognosis is certainly guarded. Time with Patient: Less than 30
--- NOTE | 2021-03-23 16:02 | PN ---
PROGRESS NOTE CHIEF COMPLAINT: Dehydration, prerenal azotemia, COPD and carcinoma of the lung. HISTORY OF PRESENT ILLNESS: This lady's feet and ankles are still bothering her, and I will increase her steroid dose. Other than that, she is doing well. PHYSICAL EXAMINATION: Chest is clear, but breath sounds are poor. The cardiac exam is normal. The abdomen is flat, soft and nontender. Extremities are normal. There is still some swelling and redness in the ankles. IMPRESSION: 1. Arthritis of the ankles. 2. Prerenal azotemia. 3. Chronic obstructive pulmonary disease. 4. Dehydration. 5. Malnutrition. 6. Carcinoma of the lung. PLAN: Increase prednisone to 20 mg q.i.d. temporarily to see if it helps her ankle pain and swelling. MMODL / IJN: [id number] /
[2021-03-23] MEDS: LATANOPROST 0.005% OPHTH DROPS 2.5 ML BTL BOTH EYES SCH (23:59)
[2021-03-24] MEDS: ATORVASTATIN 40 MG TAB PO SCH (08:18)
[2021-03-24] MEDS: predniSONE 20 MG TAB PO SCH ×4 (08:18→21:06)
[2021-03-24] MEDS: METOPROLOL TARTRATE 12.5 MG TAB PO SCH ×2 (08:18→21:06)
[2021-03-24] MEDS: ALPRAZolam 1 MG TAB PO PRN ×2 (08:18→17:10)
[2021-03-24] MEDS: HYDROcodone/APAP 10-325MG 1 EACH TAB PO PRN ×2 (08:18→17:10)
[2021-03-24] MEDS: ASPIRIN 81 MG PO SCH (08:18)
[2021-03-24] MEDS: SYMBICORT 160-4.5 MCG INHALER INHALATION SCH ×2 (08:48→20:29)
[2021-03-24] MEDS: IPRATROPIUM-ALBUTEROL 3 ML NEB INHALATION SCH ×4 (08:49→20:29)
[2021-03-24] MEDS: LACTATED RINGERS 1,000 ML IV SCH (09:55)
--- NOTE | 2021-03-24 13:45 | PN ---
PROGRESS NOTE DATE OF SERVICE: 03/24/2021 CHIEF COMPLAINT: Dehydration, prerenal azotemia, COPD, carcinoma of the lung and pain in both feet. HISTORY OF PRESENT ILLNESS: This lady's foot and ankle pain is really not any better despite increasing steroids. She is having some trouble with diarrhea now. Other than that she seems to be doing well. REVIEW OF SYSTEMS: She has no other complaints. Laboratory studies reveal that her kidney functions have returned completely to normal. PHYSICAL EXAM: She remains chronically ill in appearance. She has good breath sounds bilaterally, though they are decreased. Cardiac exam is normal. Abdomen is soft. Feet are slightly less edematous and swollen. She does have some loose stool in her colostomy bag. IMPRESSION: 1. Dehydration. 2. Prerenal azotemia. 3. Chronic obstructive pulmonary disease. 4. Carcinoma of the lung. 5. Pain in the feet and ankles, etiology unknown. 6. Subtotal occlusion of the abdominal aorta. PLAN: No change in program. She is able to ambulate somewhat and she should be able to go back to the long-term soon, although this is not a safe place for her to be, given that she does not have free access to food and liquids. MMODL / IJN: [id number] /
--- NOTE | 2021-03-24 15:08 | P.PN ---
Subjective Progress Note Date: 03/24/21 Principal diagnosis: Weakness. Pulmonary/critical care consult dated 03/19/2021. 66-year-old female, poor historian, who apparently presented to the emergency department on March 18, with weakness and abdominal pain. She apparently has a prior history of heavy alcohol abuse in the past, but apparently stopped drinking 5 years ago. She does continue to smoke cigarettes. In the room, seeing her, she mostly complains of leg pain. She feels like her legs are very painful and very weak. She also admits to being slightly short of breath. She's in no respiratory distress. Currently, she is getting lactated Ringer's at 150 mL an hour, and O2 by nasal cannula at 4 L. She denies any chest pain. She also denies any fever or chills. She does complain of occasional dry cough. In addition, she apparently has a history of CAD, hepatitis C, angina, COPD, hypertension, alcoholic liver disease, and lung cancer. She apparently has chronic hypoxemic respiratory failure and does use oxygen at home 27/10. White count is 12.2, hemoglobin 13, hematocrit 38.2, and platelet count 229,000. D- dimer is 2.99. Sodium 127, potassium 4.9, chlorides 99, CO2 16, anion gap 12, B UN 111, and creatinine 2.64. The BUN and creatinine yesterday were 151 and 5.53. Coronavirus testing was negative. Chest x-rays consistent with COPD, and a stable appearing density, left upper lung field. Computed tomography scan of the chest shows some emphysematous changes, and a stable lesion, and a left upper lobe. A pulmonary perfusion scan is low probability for pulmonary embolism. Progress note dated 03/20/2021. 66-year-old female, poor historian, who was initially seen in the emergency department on March 18, with weakness and abdominal pain. The patient was not really having any respiratory issues. Currently, she is on 3 L nasal cannula. She appears very comfortable. She apparently is getting lactated Ringer's at 200 mL an hour. I did write for some DuoNeb, and Symbicort. The patient has no specific complaints today other than weakness. No new labs today. Potassium is down from 6.9 to 4.9. BUN is improved, going from 151 down to 111. Also, creatinine is 2.64, and it was 5.53 yesterday. Progress note dated 03/21/2021. 66-year-old female, again seen in room 362. Currently, she is on 2 L nasal cannula. She's getting lactated Ringer's at 200 mL an hour. The patient's most recent laboratory data includes a sodium 138, calcium 4.8, chlorides 104, CO2 2 7, BUN 22, and creatinine 0.71. She's doing much better. She is much more awake and alert. She denies any shortness of breath, cough, wheezing, or phlegm production. Progress note dated 03/22/2021. 66-year-old female, again seen in room 362. The patient is on room air. Her lactated Ringer's IV has been turned on the 70 mL an hour. Apparently, they are evaluating the patient for gout. She denies any respiratory distress. No cough, no wheezing, no phlegm production. No chest congestion. No chest pain. Family members in the room with her. She does continue to smoke cigarettes. Progress note dated 03/23/2021. 66-year-old female, who looks much older than her stated age, is again seen in room 362. The patient is currently on room air. The patient is receiving lactated Ringer's at 70 mL an hour. The patient is doing much better. She denies any shortness of breath, cough, wheezing, or phlegm production. She also denies any chest pain or chest discomfort. No new labs today. Progress note dated 03/24/2021. 66-year-old female, again seen in room 362. She sitting up in bed. She's currently not on any supplemental oxygen. Her IV fluids have been discontinued. She came in with renal fire, secondary to dehydration. In addition, she has a history of COPD. Her COPD appears to be relatively stable at this time. No labs were done on this patient today. No recent chest x-ray to report. The patient's currently on prednisone, updrafts, and Symbicort. From the pulmonary standpoint, she is very stable. Objective - Vital Signs Vital signs: Vital Signs Temp 97.9 F 03/24/21 13:13 Pulse 103 H 03/24/21 13:13 Resp 18 03/24/21 14:40 BP 115/68 03/24/21 13:13 Pulse Ox 97 03/24/21 13:13 Intake & Output 03/23/21 03/24/21 03/24/21 18:59 06:59 18:59 Intake Total 600 118 Output Total 1100 3450 Balance -500 -3450 118 Weight 43.5 kg Intake: Oral 600 118 Output: Urine 1100 2550 Stool 900 Other: Voiding Method Indwelling Catheter Indwelling Catheter Indwelling Catheter # Voids 2 # Bowel Movements 1 1 1 - Exam No acute distress, oriented 3. Very frail appearing, cachectic female, in no respiratory distress. She is not a particularly good historian. She is c urrently on room air, with saturations of 97%. HEENT examination is grossly unremarkable. Neck supple. Full range of motion. No adenopathy thyromegaly or neck vein distention. Cardiovascular examination reveals regular rhythm rate. S1-S2 normal. No S3 or S4. No discernible murmur noted. Heart rate 78 bpm. Heart sounds distant. Lungs reveal mild scattered rhonchi. No wheezes. No crackles. She does not take deep breaths. Breath sounds are severely diminished throughout. Saturatio ns are 97% on room air. Abdomen soft, without tenderness on palpation. Extremities are intact. No cyanosis clubbing or edema. Skin is without rash or lesion. Neurologic examination is brief but nonfocal. - Labs CBC & Chem 7: 03/19/21 04:52 03/21/21 08:04 Labs: Microbiology - Last 24 Hours (Table) 03/18/21 11:45 Blood Culture - Final Blood No Growth after 144 hours 03/18/21 11:30 Blood Culture - Final Blood No Growth after 144 hours Assessment and Plan Assessment: Acute dehydration, with acute kidney injury/ATN. COPD, secondary to chronic and ongoing tobacco use and nicotine addiction, stable. History of hepatitis C. History of alcoholic liver disease. History of CAD. History of hypertension. Restless leg syndrome. History of lung cancer with prior radiation therapy, 2016. Chronic hypoxemic respiratory failure. Multiple other medical problems and comorbidities. Plan: Plan dated 03/19/2021. Currently, the patient's COPD appears to be relatively stable. I'll review the medications and adjust them accordingly. The patient's kidney function has greatly improved with fluids administration. We will continue to follow make recommendations were appropriate. The patient's counseled about the importance of smoking cessation. Additional recommendations and suggestions are fo rthcoming. Prognosis is guarded. The lesion in the left lung, likely represents the residual lung cancer, which was previously irradiated. It appears stable on most recent chest x-rays and CAT scans. Plan dated 03/20/2021. Currently, the patient's doing well. The pulmonary standpoint, she stable. Her kidney function is much improved just with IV fluid resuscitation. We will continue to follow make recommendations where appropriate. The patient remains on DuoNeb's, and Symbicort. Her pulmonary status is stable. She's counseled about the importance of smoking cessation. Unfortunately, she continues to smoke, despite the fact that she has lung cancer, and COPD. Plan dated 03/21/2021. The patient is on 2 L nasal cannula. Saturations are 98%. She is much more awake and alert. Her laboratory data has improved day by day. Her renal function is back to normal. We will continue to follow make recommendations where appropriate. The patient remains on DuoNeb's, and Symbicort. Her respiratory status is stable. She does continue to smoke cigarettes. We counseled her about the importance of smoking cessation. Plan dated 03/22/2021. Clinically, the patient's doing well. She's on room air. She's getting lactated Ringer's at 70 mL an hour. I do not see any lab work from today. Yesterday, her kidney function returned essentially back to normal, with a BUN of 22, and creatinine 0.71. She denies any shortness of breath, cough, wheezing, or phlegm production. She does continue to smoke. We counseled about the importance of smoking cessation. Additional recommendations and suggestions are forthcoming. Prognosis is guarded. Plan dated 03/23/2021. Currently, from the pulmonary standpoint, she is doing well. With hydration, her renal function is returning back to normal. The patient is currently not requiring any oxygen therapy. She's getting lactated Ringer's at 70 mL an hour. Additional recommendations and suggestions are forthcoming. Prognosis is guarded. We will continue to follow make recommendations where appropriate. She does continue to smoke. We counseled her about the importance of smoking cessation. Prognosis is certainly guarded. Plan dated 03/24/2021. From the pulmonary standpoint, the patient's doing well. She is on Symbicort, updrafts, and a small dose of prednisone, 20 mg a day. Her kidney function is returning to normal. The patient is not on any supplemental oxygen. She does continue to smoke and may do disability counselor her about the importance of smoking cessation. There were no new labs today. We will continue to follow this patient and make recommendations where appropriate. She will need follow-up in the pulmonary office, for pulmonary function testing. Time with Patient: Less than 30
[2021-03-24] MEDS: LATANOPROST 0.005% OPHTH DROPS 2.5 ML BTL BOTH EYES SCH (19:51)
[2021-03-25] MEDS: HYDROcodone/APAP 10-325MG 1 EACH TAB PO PRN ×3 (00:45→17:44)
[2021-03-25] MEDS: ALPRAZolam 1 MG TAB PO PRN ×3 (01:34→17:44)
[2021-03-25] MEDS: LACTATED RINGERS 1,000 ML IV SCH (04:29)
[2021-03-25] MEDS: IPRATROPIUM-ALBUTEROL 3 ML NEB INHALATION SCH ×3 (07:14→15:40)
[2021-03-25] MEDS: SYMBICORT 160-4.5 MCG INHALER INHALATION SCH (07:15)
[2021-03-25] MEDS: predniSONE 20 MG TAB PO SCH ×3 (09:20→17:22)
[2021-03-25] MEDS: ASPIRIN 81 MG PO SCH (09:20)
[2021-03-25] MEDS: ATORVASTATIN 40 MG TAB PO SCH (09:20)
[2021-03-25] MEDS: METOPROLOL TARTRATE 12.5 MG TAB PO SCH (09:20)
[2021-03-25 13:11] VITALS: RESP 18; TEMP 97.8
--- NOTE | 2021-03-25 13:27 | P.PN ---
Subjective Progress Note Date: 03/25/21 On today's evaluation of 03/25/2021 seeing the patient for a follow-up. Is a 66-year-old here patient with known history of COPD was been maintained on Symbicort regarding her COPD and she also has a home O2 and home nebulizer. The patient seen Dr. Keating on outpatient basis regarding her COPD. She is gradually improving. She is doing well. No specific complaints she is currently on room air oxygen. She is weak. She is moving around with the help of a walker and she also wants to go to [facility] for further rehabilitation. Otherwise, no new complaints. She is being taken off the IV Solu Medrol and she is currently on a prednisone burst taper. He is taking prednisone 20 mg 4 times a day which I'm going to reduce it to twice a day. I'm also going to support this patient discharged to [facility] today. Objective - Vital Signs Vital signs: Vital Signs Temp 97.8 F 03/25/21 12:07 Pulse 112 H 03/25/21 12:07 Resp 18 03/25/21 12:07 BP 133/77 03/25/21 12:07 Pulse Ox 97 03/25/21 12:07 Intake & Output 03/24/21 03/25/21 03/25/21 18:59 06:59 18:59 Intake Total 236 240 Balance 236 240 Weight 42.6 kg Intake: Oral 236 240 Other: Voiding Method Indwelling Catheter Toilet Toilet # Voids 1 1 # Bowel Movements 1 - Exam No acute distress, oriented 3. Very frail appearing, cachectic female, in no respiratory distress. She is not a particularly good historian. She is currently on room air, with saturations of 97%. HEENT examination is grossly unremarkable. Neck supple. Full range of motion. No adenopathy thyromegaly or neck vein distention. Cardiovascular examination reveals regular rhythm rate. S1-S2 normal. No S3 or S4. No discernible murmur noted. Heart rate 78 bpm. Heart sounds distant. Lungs reveal mild scattered rhonchi. No wheezes. No crackles. She does not ta ke deep breaths. Breath sounds are severely diminished throughout. Saturations are 97% on room air. Abdomen soft, without tenderness on palpation. Extremities are intact. No cyanosis clubbing or edema. Skin is without rash or lesion. - Labs CBC & Chem 7: 12/14/21 04:52 03/21/21 08:04 Labs: Microbiology - Last 24 Hours (Table) 03/18/21 11:45 Blood Culture - Final Blood No Growth after 144 hours 03/18/21 11:30 Blood Culture - Final Blood No Growth after 144 hours Assessment and Plan Plan: Acute COPD exacerbation, improved. Noted the patient has chronic COPD, secondary to chronic and ongoing tobacco use and nicotine addiction Acute dehydration, with acute kidney injury/ATN. This has recovered and the patient renal function is normalized. History of hepatitis C. History of alcoholic liver disease. History of CAD. History of hypertension. Restless leg syndrome. History of lung cancer with prior radiation therapy, 2016. Chronic hypoxemic respiratory failure. Multiple other medical problems and comorbidities. Plan: Smoking cessation counseling was done. The patient can be discharged home on a prednisone burst taper starting with 40 mg to be tapered by 10 the grams every 4 days. Symbicort as maintenance. This she has home O2. She has home nebulizer. Her electrodes improved. Her renal function is normalized. Patient is being considered for ECF discharge for further rehabilitation. Pulmonary critical care services we'll sign off and the patient can follow-up with her soda room operator, Dr. Keating.
--- NOTE | 2021-03-25 15:07 | DS ---
DISCHARGE SUMMARY CHIEF COMPLAINT: Dehydration, renal failure. HISTORY OF PRESENT ILLNESS AND PHYSICAL EXAMINATION: Details of this lady's history and physical can be found in the initial workup. LABORATORY STUDIES: While she was in the hospital she had laboratory studies, details of which can be found in the laboratory section of her chart. COURSE IN THE HOSPITAL: After admission she was placed on bedrest and started on intravenous fluids. Potassium was quite high and this was treated and brought back to normal. She responded fairly rapidly to fluids and her blood pressure came up. Gradually her renal function returned to normal. The balance of her hospitalization was spent in trying to rehab her to the point that she could be discharged. She complained of a lot of pain in the feet and underwent a vascular evaluation. She was found to have good peripheral circulation. She did, however, have narrowing of the proximal abdominal aorta. Vascular Surgery felt that this did not require any further intervention. Her ankles became somewhat swollen and erythematous and the uric acid was obtained. It was normal. She was started on steroids and she seemed to be getting some benefit. It was hoped that she could be discharged, but she would likely have had to go back to the assisted, where she could not receive adequate nutrition and hydration. Arrangements were made for her to go to [facility] for rehab. FINAL DIAGNOSES: 1. 15% dehydration. 2. Prerenal azotemia. 3. Hyperkalemia. 4. Chronic obstructive pulmonary disease. 5. Carcinoma of the left lung. 6. Proximal narrowing of the abdominal aorta. 7. Arthralgias of the feet and ankles, etiology unknown. OPERATIONS: None. CONSULTATIONS: 1. Vascular Surgery. 2. Pulmonology. \She is improved. MMODL / IJN: [id number] /
[2021-03-25 17:23] VITALS: BP 152/97; PULSE 115
[2021-03-26] MEDS ORDERED: methylPREDNISolone 4 MG TAB TAPER PO SCH (09:00)
== END 2021-03-25 18:28 | DRG 683 ==
LOC: EC 10:57 → 3SCARD 14:51
PROVIDERS: ADMIT Family Medicine; ATTEND Family Medicine
DX: N17.0 Acute kidney failure with tubular necrosis (principal); E46 Unspecified protein-calorie malnutrition; Z68.1 Body mass index [BMI] 19.9 or less, adult; I45.2 Bifascicular block; J96.11 Chronic respiratory failure with hypoxia; C34.92 Malignant neoplasm of unspecified part of left bronchus or lung; E87.1 Hypo-osmolality and hyponatremia; E87.2 Acidosis; E86.0 Dehydration; R10.9 Unspecified abdominal pain; E78.5 Hyperlipidemia, unspecified; E86.1 Hypovolemia; E87.5 Hyperkalemia; F17.210 Nicotine dependence, cigarettes, uncomplicated; G25.81 Restless legs syndrome; H91.91 Unspecified hearing loss, right ear; I10 Essential (primary) hypertension; I25.10 Atherosclerotic heart disease of native coronary artery without angina pectoris; I73.9 Peripheral vascular disease, unspecified; J43.9 Emphysema, unspecified; K70.9 Alcoholic liver disease, unspecified; M19.90 Unspecified osteoarthritis, unspecified site; I95.9 Hypotension, unspecified; Z20.822 Contact with and (suspected) exposure to COVID-19; Z59.01 Sheltered homelessness; Z79.1 Long term (current) use of non-steroidal anti-inflammatories (NSAID); Z79.51 Long term (current) use of inhaled steroids; Z79.82 Long term (current) use of aspirin; Z79.899 Other long term (current) drug therapy; Z85.118 Personal history of other malignant neoplasm of bronchus and lung; Z87.11 Personal history of peptic ulcer disease; Z90.49 Acquired absence of other specified parts of digestive tract; Z92.3 Personal history of irradiation; Z93.3 Colostomy status; Z95.5 Presence of coronary angioplasty implant and graft; I70.0 Atherosclerosis of aorta; Z86.19 Personal history of other infectious and parasitic diseases; M79.672 Pain in left foot; M19.072 Primary osteoarthritis, left ankle and foot; M19.071 Primary osteoarthritis, right ankle and foot
CPT/HCPCS: 36415; 71046; 71250; 74150; 78582; 80048; 80053; 81001; 82272; 83605; 83735; 84132; 84484; 84550; 85025; 85379; 85610; 85730; 87040; 87635; 93005; 93306; 94640; 94760; 96361; 96374; 96375; 99291

== ENCOUNTER → 2021-03-28 | Outpatient (CLI) | payer MEDICARE, OTHER ==
--- NOTE | 2021-03-29 06:38 | PE ---
EXAMINATION TYPE: PET CT fusion skull to thigh DATE OF EXAM: 03/28/2021 COMPARISON: Prior PET/CT April 13, 2020 and older studies HISTORY: Left-sided lung cancer diagnosed and treated 2016 TECHNIQUE: Following the intravenous administration of 9.37 mCi of F-18 FDG, whole body images are p erformed from the skull base to the midthigh. Images are reviewed on the computer in the coronal, ax ial, and sagittal planes. Reconstructed rotating images are created on independent workstation and r eviewed on the computer. A localization and attenuation correction CT is performed in conjunction w ith the PET scan. Blood glucose level was 92. SCAN: Subsequent Scan FINDINGS: SKULL BASE AND NECK: No new areas of abnormal hypermetabolic uptake. CHEST, MEDIASTINUM, AND HILAR REGION: Background mild to moderate underlying emphysematous change is redemonstrated. Persistent irregular and slightly thickened but low dense scarring in the left upper to midlung area of treated neoplasm axial image 75 is unchanged. There are however new mildly hyperme tabolic nodules or nodular consolidation in the right lower lobe for reference more regular 2.2 x 1.4 cm Central anterior lesion axial image 105 and 1.4 cm more rounded lesion same image posteriorly lat eral to this with smaller area of involvement focally axial image 115 noted. Max SUV is less than 2.5 . ABDOMEN AND PELVIS: No new areas of abnormal hypermetabolic uptake. Normal excretion. No new adrenal masses. OSSEOUS STRUCTURES: No new areas of abnormal hypermetabolic uptake. OTHER CT: Moderate calcified plaque bilateral carotid bulb level redemonstrated. Calcification at lev el of aortic valve again seen. There is coronary artery calcification and/or stents redemonstrated. S mall pericardial effusion is now seen. Cholecystectomy clips redemonstrated. Surgical changes from aortobifemoral bypass redemonstrated. Per sistent right-sided colostomy. Scattered bilateral pelvic phleboliths redemonstrated. Underlying scol iosis in the spine. Multilevel disc space narrowing and spurring greatest at L2-L3 in the lumbar spin e with underlying scoliosis. IMPRESSION: New minimally hypermetabolic nodules and/or multifocal nodular consolidation right lower lobe. The latter is favored. Correlate for developing multifocal right lower lobe pneumonia. Short te rm CT and/or PET CT follow-up in 6-8 weeks time is advised to reassess.
== END | disposition home or self-care (01) ==
LOC: RADPETMAIN 09:25
PROVIDERS: ATTEND Radiology Radiation Oncology
DX: C34.12 Malignant neoplasm of upper lobe, left bronchus or lung (principal)
CPT/HCPCS: 78815; A9552

== ENCOUNTER → 2021-06-10 | Outpatient (CLI) | payer MEDICARE, OTHER ==
--- NOTE | 2021-06-10 18:23 | CT ---
EXAMINATION TYPE: CT chest wo con DATE OF EXAM: 06/10/2021 INDICATION: lung CA and right lower lobe pneumonia. CT DLP: 128.40 mGy.cm Automated Exposure Control for Dose Reduction was Utilized. TECHNIQUE AND CONTRAST: CT scan of the chest is performed without IV contrast administration. COMPARISON: CT dated 03/18/2021 FINDINGS: Grossly stable soft tissue thickening in the left upper lung lobe measuring 3.6 cm as well as the pos terior component extending for about 1.9 cm. Thick atelectasis with air bronchogram/traction bronchie ctasis and mild groundglass opacity are seen at the anterior and posterolateral aspects of the right lower lobe corresponding to the previously seen soft tissue lesions on March 2021 PET scan. This c ould represent regressing metastatic lesions or resolving pneumonia, attention on follow-up. Persistent advanced COPD changes. No definite new or progressive lung lesion. Patent central airways. No pericardial effusion or pleural effusion. No gross cardiomegaly. Aortic and coronary arterial ath erosclerotic calcifications with other scattered arterial atherosclerotic calcifications. More promin ent precarinal lymph node measuring 10 mm compared to 6 cm previously. No other progressive lymphaden opathy in the chest. Hilar lymph nodes are suboptimally assessed. Previous cholecystectomy. Dense atherosclerotic calcification of the upper abdominal aorta with suspe cted severe stenosis. Suspected right abdominal colostomy, not completely included in the scan. Sever e degenerative changes at T6-7 level as well as L2-3 level. Mild anterolisthesis of L3 over L4. Quest ionable sequela of previous spondylodiscitis at L2-3 level. IMPRESSION: Grossly stable left upper lobe soft tissue thickening without interval progression. Smaller soft tiss ue lesions in the right lower lung lobe with residual atelectasis, minimal soft tissue thickening and groundglass opacities as described above. They could represent regressing metastatic lesions versus resolving pneumonia, please correlate clinically. Recommend short-term follow-up in 2-3 months for re assessment. No new or progressive lung lesion. More prominent precarinal lymph node as described abov e, attention on follow-up. Alternatively, further PET scan assessment can be considered. Other incide ntal findings as described above.
== END | disposition home or self-care (01) ==
LOC: RADCTMAIN 13:06
PROVIDERS: ATTEND Radiology Radiation Oncology
DX: C34.12 Malignant neoplasm of upper lobe, left bronchus or lung (principal); Z85.118 Personal history of other malignant neoplasm of bronchus and lung; J98.11 Atelectasis
CPT/HCPCS: 71250

== ENCOUNTER → 2021-12-16 | Outpatient (CLI) | payer MEDICARE, OTHER ==
--- NOTE | 2021-12-16 11:59 | CT ---
EXAMINATION TYPE: CT chest wo con DATE OF EXAM: 12/16/2021 COMPARISON: 06/10/2021 HISTORY: f/u lung ca CT DLP: 124 mGycm. Automated Exposure Control for Dose Reduction was Utilized. TECHNIQUE: CT scan of the thorax is performed without IV contrast. FINDINGS: Grossly stable soft tissue thickening in the left upper lung lobe measuring 3.6 cm as well as the pos terior component extending for about 1.9 cm. Finding stable. The groundglass opacity are seen at the anterior and posterolateral aspects of the right lower lobe c orresponding to the previously seen soft tissue lesions on March 2021 PET scan. As demonstrated in terval marked improvement with near complete resolution. Persistent advanced COPD changes. No definite new or progressive lung lesion. Patent central airways. Tiny pericardial effusion. No gross cardiomegaly. Coronary arterial atherosclerotic calcifications with other scattered arterial atherosclerotic calcif ications. More prominent precarinal lymph node measuring 10 mm and stable relative to prior seen. No other progressive lymphadenopathy in the chest. Hilar lymph nodes are suboptimally assessed. Extensive atherosclerotic change of the descending thoracic aorta with occlusion or near complete occ lusion of the upper abdominal aorta. Correlate for previous aortic surgery. Similar to prior exam. Previous cholecystectomy. Dense atherosclerotic calcification of the upper abdominal aorta with suspe cted severe stenosis. Suspected right abdominal colostomy, not completely included in the scan. Sever e degenerative changes at T6-7 level as well as L2-3 level. Mild anterolisthesis of L3 over L4. Quest ionable sequela of previous spondylodiscitis at L2-3 level. Subpleural 5 mm or less nodularity involving the apices stable. Arthropathy of the shoulders. IMPRESSION: 1. Grossly stable left upper lobe soft tissue thickening without interval progression. 2. Interval near complete resolution of right lower lobe findings 3. COPD. 4. There is suggestion of some occlusion or near complete occlusion of the upper abdominal aorta at t he junction of the thoracic aorta. Correlate clinically. 5. Stable mediastinal adenopathy
== END | disposition home or self-care (01) ==
LOC: RADCTMAIN 10:50
PROVIDERS: ATTEND Radiology Radiation Oncology
DX: C34.12 Malignant neoplasm of upper lobe, left bronchus or lung (principal); J44.9 Chronic obstructive pulmonary disease, unspecified; F17.210 Nicotine dependence, cigarettes, uncomplicated; Z92.3 Personal history of irradiation
CPT/HCPCS: 71250

== ENCOUNTER → 2021-12-16 | Outpatient (CLI) | payer MEDICARE, OTHER ==
[2021-12-16 18:17] LABS: African American GFR (CKD) 59.3 (60.0-200.0); Albumin 4.3 g/dL (3.8-4.9); Albumin/Globulin Ratio 1.61 (1.60-3.17); Anion Gap 8.2 mmol/L (10.00-18.00); BUN/Creat Ratio 20.8 Ratio (12.00-20.00); Blood Urea Nitrogen 23.3 mg/dL (9.0-27.0); Calcium 9.2 mg/dL (8.7-10.3); Carbon Dioxide 27.3 mmol/L (20.0-27.5); Globulin 2.7 g/dL (1.6-3.3); HDL Cholesterol 74.7 mg/dL (40.00-60.00); Non-African American GFR(CKD) 51.2 (60.0-200.0); Potassium 4.8 mmol/L (3.5-5.5); Total Bilirubin 0.2 mg/dL (0.30-1.20); Triglycerides 47.6 mg/dL (0.00-149.00)
[2021-12-16 18:32] LABS: Chol/HDL Ratio 1.67 Ratio; LDL Cholesterol,Direct Reflex 39.7 mg/dL (0.00-129.00)
== END | disposition home or self-care (01) ==
LOC: LABWHC1 11:19
PROVIDERS: ATTEND Internal Medicine Interventional Cardiology
DX: I10 Essential (primary) hypertension (principal); E78.2 Mixed hyperlipidemia
CPT/HCPCS: 36415; 80053; 80061; 83721

== ENCOUNTER → 2021-12-23 | Outpatient (CLI) | payer MEDICARE, OTHER ==
--- NOTE | 2021-12-23 18:01 | XR ---
EXAMINATION TYPE: XR chest 2V DATE OF EXAM: 12/23/2021 COMPARISON: 03/18/2021 HISTORY: 66-year-old female J98.11, yearly checkup, atelectasis. TECHNIQUE: Frontal and lateral views FINDINGS: Heart normal size. Aortopulmonary vasculature within normal limits. Blunted posterior costophrenic an gles likely reflecting pleural parenchymal scarring. Hyperinflation. Chronic bandlike thickening left upper lobe. Cholecystectomy clips. Urinary changes w ith dextroconvex gliosis centered on the thoracic lumbar junction. IMPRESSION: COPD and stable bandlike thickening left upper lobe.
== END | disposition home or self-care (01) ==
LOC: RADXRMAIN 14:01
PROVIDERS: ATTEND Internal Medicine Sleep Medicine
DX: J44.9 Chronic obstructive pulmonary disease, unspecified (principal)
CPT/HCPCS: 71046

== ENCOUNTER → 2022-03-14 | Outpatient (CLI) | payer MEDICARE, OTHER ==
[2022-03-14 14:30] LABS: ALT 22 U/L (8-44); AST 33 U/L (13-35); African American GFR (CKD) 55.3 (60.0-200.0); Albumin/Globulin Ratio 1.62 (1.60-3.17); Alkaline Phosphatase 89 U/L (41-126); BUN/Creat Ratio 20.93 Ratio (12.00-20.00); Blood Urea Nitrogen 24.7 mg/dL (9.0-27.0); Calcium 8.9 mg/dL (8.7-10.3); Carbon Dioxide 27.8 mmol/L (20.0-27.5); Chloride 108 mmol/L (96-109); Chol/HDL Ratio 2.12 Ratio; Globulin 2.5 g/dL (1.6-3.3); Glucose 91 mg/dL (70-110); LDL Cholesterol,Calculated 33.2 mg/dL (0.0-131.0); Non-African American GFR(CKD) 47.7 (60.0-200.0); Potassium 5.1 mmol/L (3.5-5.5); Sodium 144 mmol/L (135-145); Total Bilirubin <0.15 mg/dL (0.30-1.20); Total Protein 6.4 g/dL (6.2-8.2)
== END | disposition home or self-care (01) ==
LOC: LABWHC1 09:32
PROVIDERS: ATTEND Internal Medicine Interventional Cardiology
DX: E78.2 Mixed hyperlipidemia (principal)
CPT/HCPCS: 36415; 80053; 80061

== ENCOUNTER 2022-07-02 22:40 | Emergency (ER) | payer MEDICARE, OTHER ==
[2022-07-02 22:51] VITALS: TEMP 97.5
--- NOTE | 2022-07-02 23:38 | CT ---
EXAMINATION TYPE: CT brain cspine wo con DATE OF EXAM: 07/02/2022 COMPARISON: None HISTORY: fall, had injury CT DLP: 1245.8 mGycm Automated exposure control for dose reduction was used. Images obtained of the brain and cervical spine with no contrast. Ventricles have normal size. There is no mass effect or midline shift. No sign of intracranial hemorr rod. Calvarium is intact. No evidence of cerebral edema. Skull base is intact. There is normal aerat ion of the mastoid sinuses. The cervical vertebra have normal alignment. There is moderate narrowing of disc spaces from level of C3-C7 with spurring of the endplates. There is mild multilevel cervical facet arthropathy. Preverteb ral soft tissues are intact. No compression fracture. IMPRESSION: Negative unenhanced head CT scan. Negative CT scan of the cervical spine. No traumatic injury. Spondylotic multilevel changes.
--- NOTE | 2022-07-03 00:06 | ED ---
General Adult HPI - General Chief complaint: Fall Stated complaint: Fall, Head Injury, Vomiting Time Seen by Provider: 07/02/22 23:01 Source: patient, RN notes reviewed, old records reviewed Mode of arrival: wheelchair Limitations: no limitations - History of Present Illness Initial comments: 67-year-old female presents status post fall which occurred yesterday with head injury or loss consciousness per patient was in the bathroom. She fell striking her forehead. Uncertain duration of LOC. No anticoagulation. Patient had one episode of vomiting this morning. There was concern for vomiting after head injury and the patient was brought in. This is approximately 24 hours after the fall. - Related Data Home Medications Medication Instructions Recorded Confirmed Metoprolol Tartrate [Lopressor] 25 mg PO DAILY 08/14/15 03/18/21 traZODone HCL 150 mg PO HS 06/20/19 03/18/21 Ergocalciferol [Vitamin D2 (1250 1,250 mcg PO Q30D 08/24/20 03/18/21 Mcg = 22262 Iu)] lisinopriL [Zestril] 2.5 mg PO DAILY 08/24/20 03/18/21 Albuterol Sulfate [Ventolin HFA] 1 puff INHALATION RT-QID PRN 03/18/21 03/18/21 Aspirin EC [Ecotrin Low Dose] 81 mg PO DAILY 03/18/21 03/18/21 Budesonide/Formoterol Fumarate 2 puff INHALATION RT-BID 03/18/21 03/18/21 [Symbicort 160-4.5 Mcg Inhaler] Hydrocortisone Cream 1 applic TOPICAL QID PRN 03/18/21 03/18/21 [Hydrocortisone 2.5% Cream] Ipratropium-Albuterol Nebulize 3 ml INHALATION RT-QID PRN 03/18/21 03/18/21 [Duoneb 0.5 mg-3 mg/3 ml Soln] Latanoprost [Xalatan 0.005%] 1 drop BOTH EYES HS 03/18/21 03/18/21 Potassium Chloride [Klor-Con 10 ER] 10 meq PO DAILY 03/18/21 03/18/21 rOPINIRole HCL [Requip] 1 mg PO HS 03/18/21 03/18/21 Previous Rx's Medication Instructions Recorded methylPREDNISolone Dose Pack 1 pack PO DAILY 7 Days #1 pack 03/25/21 [Medrol Dose Pack] Allergies Allergy/AdvReac Type Severity Reaction Status Date / Time No Known Allergies Allergy Verified 07/02/22 22:51 Review of Systems ROS Statement: Those systems with pertinent positive or pertinent negative responses have been documented in the HPI. ROS Other: All systems not noted in ROS Statement are negative. Past Medical History Past Medical History: Coronary Artery Disease (CAD), Cancer, Chest Pain / Angina, COPD, Hypertension, Liver Disease, Osteoarthritis (OA) Additional Past Medical History / Comment(s): HX of Hepatitis C with [place]., emphysema, restless leg syndrome, has colostomy. lung cancer with radiation tx (2016), oxygen prn 2 liters, Hx stomach ulcer., Back pain, hearing loss right ear, hx of ETOH abuse History of Any Multi-Drug Resistant Organisms: None Reported Past Surgical History: Appendectomy, Bowel Resection, Cholecystectomy Additional Past Surgical History / Comment(s): HX OF AORTO BIFEMORAL GRAFT- FEM PAP BYPASS, COLOSTOMY . Past Anesthesia/Blood Transfusion Reactions: No Reported Reaction Past Psychological History: Anxiety Smoking Status: Current every day smoker Past Alcohol Use History: Daily Past Drug Use History: Marijuana - Past Family History Father Family Medical History: Cancer Additional Family Medical History / Comment(s): Prostate CA. Daughter(s) Family Medical History: Cancer Additional Family Medical History / Comment(s): BONE CANCER General Exam Limitations: no limitations General appearance: alert, in no apparent distress Head exam: Present: atraumatic, normocephalic Eye exam: Present: normal appearance, PERRL ENT exam: Present: normal exam Neck exam: Present: normal inspection. Absent: tenderness, meningismus Respiratory exam: Present: normal lung sounds bilaterally. Absent: respiratory distress Cardiovascular Exam: Present: regular rate, normal rhythm GI/Abdominal exam: Present: soft. Absent: distended, tenderness Extremities exam: Present: normal inspection, normal capillary refill. Absent: pedal edema Neurological exam: Present: alert, oriented X3, CN II-XII intact. Absent: motor sensory deficit Psychiatric exam: Present: normal affect, normal mood Skin exam: Present: warm, dry, intact. Absent: cyanosis, diaphoretic Course Vital Signs 07/02/22 07/02/22 22:43 23:45 Temperature 97.5 F L Pulse Rate 89 99 Respiratory 16 18 Rate Blood Pressure 130/72 101/70 O2 Sat by Pulse 97 94 L Oximetry Medical Decision Making - Medical Decision Making 67-year-old female with fall, head injury. Was pt. sent in by a medical professional or institution (MICHELLE Goins, LANDSCAPE PAINTER, urgent care, hospital, or halfway...) When possible be specific @ -No Did you speak to anyone other than the patient for history (EMS, parent, family, police, friend...)? What history was obtained from this source @ -Patient's daughter who is at bedside Did you review nursing and triage notes (agree or disagree)? Why? @ -I reviewed and agree with nursing and triage notes Were old charts reviewed (outside hosp., previous admission, EMS record, old EKG, old radiological studies, urgent care reports/EKG's, halfway records)? Report findings @ -No old charts were reviewed Differential Diagnosis (chest pain, altered mental status, abdominal pain women, abdominal pain men, vaginal bleeding, weakness, fever, dyspnea, syncope, he adache, dizziness, GI bleed, back pain, seizure, CVA, palpatations, mental health, musculoskeletal)? @ -Traumatic injury, intracranial hemorrhage EKG interpreted by me (3pts min.). @ -As above X-rays interpreted by me (1pt min.). @ -None done CT interpreted by me (1pt min.). @ -None done U/S interpreted by me (1pt. min.). @ -None done What testing was considered but not performed or refused? (CT, X-rays, U/S, labs)? Why? @ -None What meds were considered but not given or refused? Why? @ -None Did you discuss the management of the patient with other professionals (professionals i.e. MICHELLE Goins, LANDSCAPE PAINTER, lab, RT, psych nurse, clinical social worker, thread checker, teacher, electronic warfare officer, piano case maker)? Give summary @ -No Was smoking cessation discussed for >3mins.? @ -No Was critical care preformed (if so, how long)? @ -No Were there social determinants of health that impacted care today? How? (Homelessness, low income, unemployed, alcoholism, drug addiction, transportation, low edu. Level, literacy, decrease access to med. care, half-way, rehab)? @ -No Was there de-escalation of care discussed even if they declined (Discuss DNR or withdrawal of care, Hospice)? DNR status @ -No What co-morbidities impacted this encounter? (DM, HTN, Smoking, COPD, CAD, Cancer, CVA, ARF, Chemo, Hep., AIDS, mental health diagnosis, sleep apnea, morbid obesity)? @ -None Was patient admitted / discharged? Hospital course, mention meds given and route, prescriptions, significant lab abnormalities, going to OR and other pertinent info. @ -67-year-old female with fall and head injury. Patient well-appearing with stable vitals. Nonfocal exam. Head CT negative for intracranial hemorrhage or mass effect. Patient stable for discharge at this time. Undiagnosed new problem with uncertain prognosis? @ -No Drug Therapy requiring intensive monitoring for toxicity (Heparin, Nitro, Insulin, Cardizem)? @ -No Were any procedures done? @ -No Diagnosis/symptom? @ -Concussion Acute, or Chronic, or Acute on Chronic? @ -Acute Uncomplicated (without systemic symptoms) or Complicated (systemic symptoms)? @ -Uncomplicated Side effects of treatment? @ -No Exacerbation, Progression, or Severe Exacerbation? @ -No Poses a threat to life or bodily function? How? (Chest pain, [place], [place], pneumonia, PE, COPD, DKA, ARF, appy, cholecystitis, CVA, Diverticulitis, Homicidal, Suicidal, threat to staff... and all critical care pts) @ -No Disposition Clinical Impression: Concussion Disposition: HOME SELF-CARE Condition: Good Instructions (If sedation given, give patient instructions): Concussion (ED) Is patient prescribed a controlled substance at d/c from ED?: No Referrals: Anton Skaggs MD [Primary Care Provider] - 1-2 days Time of Disposition: 00:06
[2022-07-03 00:56] VITALS: BP 126/60; PULSE 107; RESP 14
== END 2022-07-03 01:02 | disposition home or self-care (01) ==
LOC: EC 22:40
DX: S06.0X9A Concussion with loss of consciousness of unspecified duration, initial encounter (principal); I25.10 Atherosclerotic heart disease of native coronary artery without angina pectoris; I10 Essential (primary) hypertension; J44.9 Chronic obstructive pulmonary disease, unspecified; F17.200 Nicotine dependence, unspecified, uncomplicated; F12.90 Cannabis use, unspecified, uncomplicated; Z90.89 Acquired absence of other organs; Z90.49 Acquired absence of other specified parts of digestive tract; Z79.82 Long term (current) use of aspirin; Z79.899 Other long term (current) drug therapy; W18.12XA Fall from or off toilet with subsequent striking against object, initial encounter; Y92.002 Bathroom of unspecified non-institutional (private) residence as the place of occurrence of the external cause
CPT/HCPCS: 70450; 72125; 99283

== ENCOUNTER → 2023-01-14 | Outpatient (CLI) | payer MEDICARE, OTHER ==
[2023-01-14 13:54] LABS: African American GFR (CKD) 88 (>60 ml/min/1.73 sqM); Blood Urea Nitrogen 17 mg/dL (7-17); Non-African American GFR(CKD) 76 (>60 ml/min/1.73 sqM)
--- NOTE | 2023-01-14 20:10 | CT ---
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 Subsequent scannin g of the abdomen and pelvis with bilateral lower extremity runoff with IV Contrast, patient injected with 125 mL of Isovue 370. Coronal/sagittal reconstructions performed. 3-D reconstructions generated on a dedicated independent workstation. CT DLP: 838.1 mGycm Automated exposure control for dose reduction was used. FINDINGS: Heart normal size without pericardial effusion. Emphysematous changes in the lower lungs with right b asilar pleural parenchymal scarring. No pleural effusion. Reflux of contrast into the hepatic veins. Noncontrast and arterial phase imaging of the liver, adrenal glands left kidney, spleen, and pancreas show no gross abnormal body. There is hypoenhancement at the inferior aspect of the right kidney likely due to an affected accesso ry drainage from patient's previous aortic bypass. There is an enlarging cortical hypodensity anterio r lower pole right kidney measuring 1.1 cm versus approximately 9 mm on 03/28/2021, suspected cysts. Cholecystectomy clips. There is a right mid abdominal ostomy. Similar parastomal hernia measuring 5.9 cm wide containing frank e additional nonobstructed bowel loops. No dilated small bowel, free fluid, or free air. No mesenteric or retroperitoneal adenopathy identified. Circumferential bladder wall thickening appears chronic. There is pelvic floor relaxation. Numerous p elvic phleboliths. Uterus not well delineated from adjacent clustered bowel loops. No abnormal fluid collection in the pelvis or pelvic lymphadenopathy. Bones: Degenerated levoconvex curvature of the lumbar spine. Vasculature: There are severe atherosclerotic changes throughout the abdominal aorta with bulky intraluminal calci fications. The celiac axis and SMA are patent. Early bifurcation of the left renal artery which is ot herwise patent. An accessory right renal artery is patent. There appears to be severe stenosis of the main right baylee l artery which appears to supply the lower pole. Severe atherosclerotic calcifications causing subtotal occlusion of the infrarenal abdominal aorta. P atency is noted at the level of distal abdominal aorta secondary to aortobifemoral bypass graft. Right: However, there is occlusion of the right iliac bypass pelvic collateral flow from the inferior epigas tric artery supplying the SFA and PFA. There is segmental severe atherosclerotic narrowing at the ADMISSIONS RN and its bifurcation. The SFA is patent. Scattered mild atherosclerotic change popliteal artery. Normal takeoff of the anterior tibial artery with moderate atherosclerotic calcifications of the trif urcation vessels. The peroneal artery is diminutive and enhancement is lost at the mid leg level. There is two-vessel runoff via the posterior tibial and anterior tibial arteries. Left: The left iliac bypass graft is patent. There is mild narrowing at the ADMISSIONS RN anastomosis. Both SFA and P FA are patent. Scattered mild atherosclerotic changes are present. Mild atherosclerotic changes within the popliteal artery. There is loss of enhancement at the level of the anterior tibial artery takeoff. Trifurcation vessels are not identified likely due to delayed contrast enhancement. IMPRESSION: ABDOMEN AND PELVIS: 1. Pelvic floor relaxation. Circumferential bladder wall thickening may be chronic. Correlate to excl ude cystitis. Right mid abdominal ostomy with similar 5.9 cm parastomal hernia. VASCULATURE: 2. Severe atherosclerotic changes throughout the abdominal aorta with bulky intraluminal calcificatio ns. These bulky calcifications causing subtotal occlusion of the infrarenal abdominal aorta. 3. Distal abdominal aortic patency secondary to aortobifemoral bypass graft. RIGHT: 4. However, the right iliac limb of the bypass graft is occluded. There is collateral supply to the r ight lower extremity via the inferior epigastric artery. 5. However, there is segmental severe atherosclerotic narrowing at the ADMISSIONS RN and its bifurcation. 6. Additional scattered mild atherosclerotic changes SFA and popliteal artery. 7. Moderate atherosclerotic changes in the trifurcation vessels. 8. The peroneal artery is immediately diminutive and enhancement is lost at the mid leg level. Two-ve ssel runoff on the right. LEFT: 9. The left iliac bypass graft is patent with mild narrowing at the ADMISSIONS RN anastomosis. 10. Mild atherosclerotic changes within the SFA and popliteal artery. 11. However, there is loss of enhancement at the level of the anterior tibial artery takeoff. Trifurc ation vessels do not enhance likely due to the scanner out running the contrast bolus on the left. Ru noff is not assessed on this side.
== END | disposition home or self-care (01) ==
LOC: RADCTMAIN 13:05
PROVIDERS: ATTEND Surgery
DX: I74.09 Other arterial embolism and thrombosis of abdominal aorta (principal); I70.0 Atherosclerosis of aorta; I70.203 Unspecified atherosclerosis of native arteries of extremities, bilateral legs; Z95.1 Presence of aortocoronary bypass graft
CPT/HCPCS: 82565; 84520; 75635; 36415; Q9967

== ENCOUNTER → 2023-07-10 | Outpatient (CLI) | payer MEDICARE ==
[2023-07-11 03:15] LABS: ALT 13 U/L (8-44); AST 26 U/L (13-35); Albumin 4.3 g/dL (3.8-4.9); Albumin/Globulin Ratio 1.48 Ratio (1.60-3.17); Alkaline Phosphatase 77 U/L (41-126); BUN/Creat Ratio 17.09 Ratio (12.00-20.00); Blood Urea Nitrogen 18.8 mg/dL (9.0-27.0); Calcium 10.5 mg/dL (8.7-10.3); Carbon Dioxide 28.5 mmol/L (21.6-31.8); Chloride 103 mmol/L (96-109); Chol/HDL Ratio 2.15 Ratio; Globulin 2.9 g/dL (1.6-3.3); Glucose 90 mg/dL (70-110); LDL Cholesterol,Calculated 43.2 mg/dL (0.0-131.0); Potassium 4.4 mmol/L (3.5-5.5); Sodium 141 mmol/L (135-145); Total Bilirubin 0.5 mg/dL (0.3-1.2); Total Protein 7.2 g/dL (6.2-8.2)
== END | disposition home or self-care (01) ==
LOC: LABWHC1 16:17
PROVIDERS: ATTEND Internal Medicine Interventional Cardiology
DX: E78.2 Mixed hyperlipidemia (principal)
CPT/HCPCS: 36415; 80053; 80061

== ENCOUNTER → 2023-12-16 | Outpatient (CLI) | payer MEDICARE ==
--- NOTE | 2023-12-16 15:29 | CT ---
EXAMINATION TYPE: CT chest wo con CT DLP: 101 mGycm, Automated exposure control for dose reduction was used. DATE OF EXAM: 12/16/2023 3:12 PM COMPARISON: 12/09/2022 CLINICAL INDICATION: Female, 68 years old with history of C34.12 MALIGNANT NEOPLASM UPPER LOBE, LT BR ONCHUS, f/u lung ca. prior in pacs. no contrast. TECHNIQUE: Multiple axial images were obtained through the chest. Sagittal and coronal reformats were created for review. Contrast used: mL of (None if empty) Oral contrast used: (None if empty) FINDINGS: Atelectasis of the right middle lobe new from prior. Right intrafissural lymph node measuri ng 2 mm series 3 image 30 mild centrilobular emphysema changes. Stable appearing streaky scarring ate lectasis in the left lung the mid to 12/09/2022. Apical scarring and right upper lung. AIRWAY: Calcification of the large airways. Some mucous plugging in the right middle lobe. No evidenc e for bronchiectasis or bronchial wall thickening. HEART: Size within normal limits. Aortic valve calcifications. Mild coronary artery calcifications. MEDIASTINUM: No gross evidence of adenopathy. Stable appearance of the mediastinal lymph nodes. VASCULATURE: No aortic aneurysm. Severe calcified atherosclerosis with near complete filling of the aorta. MUSCULOSKELETAL: No acute osseous abnormalities SOFT TISSUES/LYMPH NODES: Unremarkable. LOWER NECK: No significant findings. UPPER ABDOMEN: The gallbladder appears surgically absent. IMPRESSION: 1. Interval development of atelectasis of the right middle lobe. Opacified airways are present. No m asses definitively visualized. No enlarging lymphadenopathy visualized. Consider bronchoscopy. 2. Stable left midlung flat scarring/atelectasis. Unchanged from prior on 12/09/2022 3. Partially visualized severe atherosclerosis of the abdominal aorta.
== END | disposition home or self-care (01) ==
LOC: RADCTMAIN 14:50
PROVIDERS: ATTEND Radiology Radiation Oncology
DX: C34.12 Malignant neoplasm of upper lobe, left bronchus or lung
CPT/HCPCS: 71250

== ENCOUNTER → 2023-12-22 | Outpatient (CLI) | payer MEDICARE ==
[2023-12-22 14:54] LABS: African American GFR (CKD) 74 (>60 ml/min/1.73 sqM); Blood Urea Nitrogen 35 mg/dL (7-17); Non-African American GFR(CKD) 64 (>60 ml/min/1.73 sqM)
--- NOTE | 2023-12-23 17:07 | CT ---
EXAMINATION TYPE: CT abdomen pelvis noncontrast. CT abdomen pelvis Angio Kuldip with bilateral lower extremity runoff. CT DLP: 781.4 mGycm, Automated exposure control for dose reduction was used. DATE OF EXAM: 12/22/2023 3:54 PM COMPARISON:01/14/2023 CLINICAL INDICATION: Female, 68 years old with history of I70.213 HEART DIS; PHH, Bilateral leg pain and weakness TECHNIQUE: Multiple thin slice sub-millimeter images were obtained after administration of contrast. 3-D reconstructed images and maximum intensity projection images were obtained. CT angio abd aorta w /Runoff CT Contrast: Contrast used:100 mL of Isovue 370 without and with IV Contrast, Oral contrast used: None FINDINGS: CTA Abdomen and pelvis: No evidence for intramural hematoma on noncontrast imaging. Major vessels of the abdominal aorta are patent. There are scattered severe atherosclerotic plaque with large calcific ations in the lumen of the aorta. The [place] distal aorta is occluded aortobiiliac stent graft is pat ent. The external iliac and common iliac arteries are patent. CTA Lower extremities: Right: Scattered atherosclerosis without occlusion of the lower externally. The common femoral and bell perficial femoral arteries are patent. The popliteal artery is patent. Anterior and posterior tibial arteries as well as the peroneal artery are patent. Anterior and posterior tibial arteries cross the ankle. Left: Scattered atherosclerosis without occlusion of the lower externally. The common femoral and sup erficial femoral arteries are patent. The popliteal artery is patent. Anterior and posterior tibial a rteries as well as the peroneal artery are patent. Anterior and posterior tibial arteries cross the a nkle. The anterior tibial artery on the left is diminutive. LOWER CHEST: Atelectasis within the right middle lobe., No evidence of focal consolidation, pneumotho rax or pleural effusion. LIVER: Unremarkable GALLBLADDER AND BILE DUCTS: Gallbladder surgically absent. PANCREAS: Unremarkable. SPLEEN: Unremarkable. ADRENAL GLANDS: Unremarkable. KIDNEYS AND URETERS: No evidence of hydronephrosis or renal calculus. The ureters are unremarkable. PELVIS BLADDER: Unremarkable REPRODUCTIVE: Unremarkable. ABDOMEN & PELVIS STOMACH AND BOWEL: No evidence of bowel obstruction. PERITONEUM: No evidence of pneumoperitoneum or free fluid. VASCULATURE: No evidence of aortic aneurysm. MUSCULOSKELETAL: No acute osseous abnormalities LYMPH NODES: No gross evidence for lymphadenopathy. SOFT TISSUE/ABDOMINAL WALL: Right lower quadrant ostomy with parastomal hernia containing loops of charles wel. IMPRESSION ABDOMEN AND PELVIS: 1. Similar Right mid abdominal ostomy with similar 5.9 cm parastomal hernia containing loops of radha l. VASCULATURE: 1. Severe atherosclerotic changes throughout the abdominal aorta with bulky intraluminal calcificati ons. Similar bulky calcifications causing subtotal occlusion of the infrarenal abdominal aorta with o cclusion of the most distal aorta. 2. Similar distal abdominal aortic patency secondary to aortobifemoral bypass graft. 3. Bilateral external iliac and common iliac grafts are patent. 4. 2 vessels cross the ankles bilaterally anterior tibial on the left is somewhat diminutive. [facility], Workstation: [id number], 12/23/2023 5:05 PM
== END | disposition home or self-care (01) ==
LOC: RADCTMAIN 14:11
PROVIDERS: ATTEND Surgery
DX: I70.213 Atherosclerosis of native arteries of extremities with intermittent claudication, bilateral legs
CPT/HCPCS: 36415; 75635; 82565; 84520

== ENCOUNTER 2024-06-10 12:23 | Inpatient (IN) | payer MEDICARE, OTHER ==
--- NOTE | 2024-06-10 12:29 | ED ---
General Adult HPI - General Stated complaint: Matt leg pain Time Seen by Provider: 06/10/24 12:27 - History of Present Illness Initial comments: Dictation was produced using [employer] dictation software. please excuse any grammatical, word or spelling errors. Chief Complaint: 69-year-old female presents to the emergency department with weakness and numbness to the bilateral lower extremities History of Present Illness: Patient 69-year-old female with history of peripheral arterial disease. She has history of aortobifem graft with femoropopliteal bypass performed several years ago. Patient states she has been having worsening weakness paresthesias to her bilateral lower legs over the last 2 to 3 days. States that today she felt so weak could not walk. Patient reports that she has pain in her bilateral shins. Patient was brought in by EMS after patient's daughter called. EMS noted that patient had mottled legs with diminished sensation. The ROS documented in this emergency department record has been reviewed and confirmed by me. Those systems with pertinent positive or negative responses have been documented in the HPI. All other systems are other negative and/or noncontributory. - Related Data Home Medications Medication Instructions Recorded Confirmed Ergocalciferol [Vitamin D2 (1250 1,250 mcg PO QMONTHLY 08/24/20 06/10/24 Mcg = 42151 Iu)] Albuterol Sulfate [Ventolin HFA] 1 puff INHALATION RT-QID PRN 03/18/21 06/10/24 ALPRAZolam [Xanax] 0.25 mg PO BID 06/10/24 06/10/24 Atorvastatin [Lipitor] 20 mg PO HS 06/10/24 06/10/24 Budesonide/Glycopyr/Formoterol 2 puff INHALATION RT-BID 06/10/24 06/10/24 [Breztri Aerosphere Inhaler] Cyclobenzaprine [Flexeril] 5 mg PO BID PRN 06/10/24 06/10/24 Folic Acid 1 mg PO DAILY 06/10/24 06/10/24 HYDROcodone/APAP 5-325MG [[place] 1 tab PO BID 06/10/24 06/10/24 5-325] Latanoprost [Latanoprost 0.005%] 1 drop RIGHT EYE HS 06/10/24 06/10/24 Losartan [Cozaar] 25 mg PO BID 06/10/24 06/10/24 Metoprolol Succinate (ER) [Toprol 25 mg PO DAILY 06/10/24 06/10/24 Xl] Oxybutynin ER [Ditropan XL] 15 mg PO DAILY 06/10/24 06/10/24 Rivaroxaban [Xarelto] 2.5 mg PO BID 06/10/24 06/10/24 Thiamine [Vitamin B-1] 100 mg PO DAILY 06/10/24 06/10/24 buPROPion SR [Wellbutrin SR] 100 mg PO DAILY 06/10/24 06/10/24 rOPINIRole HCL [Requip] 0.5 - 1 mg PO HS 06/10/24 06/10/24 traZODone HCL [Trazodone HCl] 300 mg PO HS PRN 06/10/24 06/10/24 Allergies Allergy/AdvReac Type Severity Reaction Status Date / Time No Known Allergies Allergy Verified 06/10/24 14:08 Review of Systems ROS Statement: Those systems with pertinent positive or pertinent negative responses have been documented in the HPI. ROS Other: All systems not noted in ROS Statement are negative. Past Medical History Past Medical History: Coronary Artery Disease (CAD), Cancer, Chest Pain / Angina, COPD, Hypertension, Liver Disease, Osteoarthritis (OA) Additional Past Medical History / Comment(s): HX of Hepatitis C with [place]., emphysema, restless leg syndrome, has colostomy. lung cancer with radiation tx (2016), oxygen prn 2 liters, Hx stomach ulcer., Back pain, hearing loss right ear, hx of ETOH abuse History of Any Multi-Drug Resistant Organisms: None Reported Past Surgical History: Appendectomy, Bowel Resection, Cholecystectomy Additional Past Surgical History / Comment(s): HX OF AORTO BIFEMORAL GRAFT- FEM PAP BYPASS, COLOSTOMY . Past Anesthesia/Blood Transfusion Reactions: No Reported Reaction Past Psychological History: Anxiety Smoking Status: Current every day smoker Past Alcohol Use History: Daily Past Drug Use History: Marijuana - Past Family History Father Family Medical History: Cancer Additional Family Medical History / Comment(s): Prostate CA. Daughter(s) Family Medical History: Cancer Additional Family Medical History / Comment(s): BONE CANCER General Exam - General Exam Comments Initial Comments: PHYSICAL EXAM: General Impression: Alert and oriented x3, not in acute distress HEENT: Normocephalic atraumatic, extra-ocular movements intact, pupils equal and reactive to light bilaterally, mucous membranes moist. Cardiovascular: Heart regular rate and rhythm Chest: Able to complete full sentences, no retractions, no tachypnea Abdomen: abdomen soft, non-tender, non-distended, no organomegaly Musculoskeletal: No pulses at the bilateral femoral artery and distally Motor: no focal deficits noted Neurological: CN II-XII grossly intact, no focal motor or sensory deficits noted Skin: Mottled, pale lower extremities with diminished sensation to light touch, lower extremities are cool to touch Psych: Normal affect and mood Course Vital Signs 06/10/24 06/10/24 06/10/24 12:27 12:34 14:20 Temperature 98.4 F 98.1 F Pulse Rate 114 H Pulse Rate [ 84 Left] Respiratory 18 16 Rate Blood Pressure 140/109 Blood Pressure 211/135 [Left Arm Sitting] O2 Sat by Pulse 90 L 92 L 92 L Oximetry - Reevaluation(s) Reevaluation #1: 06/10/24 12:45 Case was discussed with Dr. Dubose on-call for vascular surgery. He is aware that CT angiography was ordered. States that Dr. Tobar is in the hospital and will come and evaluate the patient. Reevaluation #2: 06/10/24 13:27 Nurse practitioner for vascular surgery requested that patient be admitted with plans for operating room soon with vascular surgery. EKG Findings - EKG Comments: EKG Findings:: My EKG interpretation: Ventricular rate 113, sinus tachycardia, TX interval 153, QRS 126, QTc 406. No TX prolongation, no QTC prolongation, no ST or T-wave changes noted. EKG compared to March 18, 2021 showing no c hanges. Overall, this EKG is unremarkable Medical Decision Making - Medical Decision Making Was pt. sent in by a medical professional or institution (DrStevenson, PA, PAID SEARCH SPECIALIST, urgent care, hospital, or detention...) When possible be specific @ -No Did you speak to anyone other than the patient for history (EMS, parent, family, police, friend...)? What history was obtained from this source @ -No Did you review nursing and triage notes (agree or disagree)? Why? @ -I reviewed and agree with nursing and triage notes Were old charts reviewed (outside hosp., previous admission, EMS record, old EKG, old radiological studies, urgent care reports/EKG's, detention records)? Report findings @ -No old charts were reviewed Differential Diagnosis (chest pain, altered mental status, abdominal pain women, abdominal pain men, vaginal bleeding, musculoskeletal, weakness, fever, dyspnea, syncope, headache, dizziness, GI bleed, back pain, seizure, CVA, palpatations, mental health)? @ -Ischemic limb, spinal injury, DVT EKG interpreted by me (3pts min.). @ -As above X-rays interpreted by me (1pt min.). @ -None done CT interpreted by me (1pt min.). @ -Ordered, pending U/S interpreted by me (1pt. min.). @ -None done What testing was considered but not performed or refused? (CT, X-rays, U/S, labs)? Why? @ -None What meds were considered but not given or refused? Why? @ -None Was smoking cessation discussed for >3mins.? @ -No Were there social determinants of health that impacted care today? How? (Homelessness, low income, unemployed, alcoholism, drug addiction, transportation, low edu. Level, literacy, decrease access to med. care, prison, rehab)? @ -No Was there de-escalation of care discussed even if they declined (Discuss DNR or withdrawal of care, Hospice)? DNR status @ -No What co-morbidities impacted this encounter? (DM, HTN, Smoking, COPD, CAD, Cancer, CVA, ARF, Chemo, Hep., AIDS, mental health diagnosis, sleep apnea, morb id obesity)? @ -Arterial disease Was patient admitted / discharged? Hospital course, mention meds given and route, prescriptions, significant lab abnormalities, going to OR and other pertinent info. @ -69-year-old female ischemic limbs. There is concern that patient has arterial obstruction proximal to the femoral arteries. Vital signs are stable. Case discussed with vascular surgery will take the patient to the OR emergently Did you discuss the management of the patient with other professionals (professionals i.e. , PA, PAID SEARCH SPECIALIST, lab, RT, psych nurse, social media marketing analyst, lead coater, teacher, rating officer, complex case manager)? Give summary @ -See above Was critical care preformed (if so, how long)? @ -Yes, 33 minutes Undiagnosed new problem with uncertain prognosis? @ -No Drug Therapy requiring intensive monitoring for toxicity (Heparin, Nitro, Insulin, Cardizem)? @ -No Were any procedures done? @ -No Diagnosis/symptom? Acute, or Chronic, or Acute on Chronic? Uncomplicated (without systemic symptoms) or Complicated (systemic symptoms)? @ -Ischemic limb Side effects of treatment? @ -No Exacerbation, Progression, or Severe Exacerbation? @ -No Poses a threat to life or bodily function? How? (Chest pain, [place], NC, pneumonia, PE, COPD, DKA, ARF, appy, cholecystitis, CVA, Diverticulitis, Homicidal, Suicidal, threat to staff... and all critical care pts) @ -yes - Lab Data Result diagrams: 06/10/24 13:42 06/10/24 13:42 Disposition Clinical Impression: Ischemic leg Disposition: ADMITTED IP TO THIS [facility] Condition: Critical Decision Time: 14:30
[2024-06-10] MEDS ORDERED: NALOXONE 0.4 MG/ML 1 ML VIAL IV PRN (13:26)
[2024-06-10] MEDS ORDERED: HEPARIN SODIUM 1,000 UN/ML (10ML VL) IV PRN (13:29)
[2024-06-10] MEDS: HEPARIN SOD,PORK IN 0.45% NACL 25,000 UNIT in 0.45% NACL 1 250ML.BAG IV SCH (13:58)
--- NOTE | 2024-06-10 13:58 | P.GSCN ---
History of Present Illness Consult date: 06/10/24 Reason for Consult: Cold leg, bilateral leg pain Requesting physician: Melchor Miles History of present illness: This is a pleasant 69-year-old female with significant history of peripheral arterial disease with with previous aortobifem bypass and believed to be right femoral to popliteal bypass initially done by Dr. Timothy Wilson who now follows with Dr. Tobar who presented with complaints of bilateral lower extremity pain, left greater than right with numbness and tingling that started a few days ago. Patient is somewhat of a poor historian. States she thinks it may have started 3 to 4 days ago states that they are always cold and painful but became more painful with numbness and tingling and not really being able to move her left foot. Patient states she is on Xarelto she thinks she took it this morning however she states that she does admit to missing doses. She is currently smoking. Past medical history of COPD, coronary artery disease status post stenting, alcohol abuse, tobacco abuse and hepatitis C, hypertension, hyperlipidemia, lung cancer with radiation treatment in 2015, bowel resection with colostomy and history of aorto bifem bypass graft with fem-pop bypass. Patient states the former was done by Dr. Reeves several years ago. In January 2023 she underwent open thrombectomy of aortobifem with dilation of right lower extremity. patient is currently rubbing her left upper thigh saying it is painful. She is unable to flex her ankle or move her left foot. She denies any shortness of breath or chest pain at this time, no abdominal pain nausea or vomiting. Review of Systems A 14 point review systems was completed all pertinent positives and negatives as stated in the HPI. Past Medical History Past Medical History: Coronary Artery Disease (CAD), Cancer, Chest Pain / Angina, COPD, Hypertension, Liver Disease, Osteoarthritis (OA) Additional Past Medical History / Comment(s): HX of Hepatitis C with [place]., emphysema, restless leg syndrome, has colostomy. lung cancer with radiation tx (2015), oxygen prn 2 liters, Hx stomach ulcer., Back pain, hearing loss right ear, hx of ETOH abuse History of Any Multi-Drug Resistant Organisms: None Reported Past Surgical History: Appendectomy, Bowel Resection, Cholecystectomy Additional Past Surgical History / Comment(s): HX OF AORTO BIFEMORAL GRAFT- FEM PAP BYPASS, COLOSTOMY . Past Anesthesia/Blood Transfusion Reactions: No Reported Reaction Past Psychological History: Anxiety Smoking Status: Current every day smoker Past Alcohol Use History: Daily Past Drug Use History: Marijuana - Past Family History Father Family Medical History: Cancer Additional Family Medical History / Comment(s): Prostate CA. Daughter(s) Family Medical History: Cancer Additional Family Medical History / Comment(s): BONE CANCER Medications and Allergies Home Medications Medication Instructions Recorded Confirmed Type Metoprolol Tartrate [Lopressor] 25 mg PO DAILY 08/14/15 03/18/21 History traZODone HCL 150 mg PO HS 06/20/19 03/18/21 History Ergocalciferol [Vitamin D2 (1250 1,250 mcg PO Q30D 08/24/20 03/18/21 History Mcg = 27166 Iu)] lisinopriL [Zestril] 2.5 mg PO DAILY 08/24/20 03/18/21 History Albuterol Sulfate [Ventolin HFA] 1 puff INHALATION RT-QID PRN 03/18/21 03/18/21 History Aspirin EC [Ecotrin Low Dose] 81 mg PO DAILY 03/18/21 03/18/21 History Budesonide/Formoterol Fumarate 2 puff INHALATION RT-BID 03/18/21 03/18/21 History [Symbicort 160-4.5 Mcg Inhaler] Hydrocortisone Cream 1 applic TOPICAL QID PRN 03/18/21 03/18/21 History [Hydrocortisone 2.5% Cream] Ipratropium-Albuterol Nebulize 3 ml INHALATION RT-QID PRN 03/18/21 03/18/21 History [Duoneb 0.5 mg-3 mg/3 ml Soln] Latanoprost [Xalatan 0.005%] 1 drop BOTH EYES HS 03/18/21 03/18/21 History Potassium Chloride [Klor-Con 10 ER] 10 meq PO DAILY 03/18/21 03/18/21 History rOPINIRole HCL [Requip] 1 mg PO HS 03/18/21 03/18/21 History methylPREDNISolone Dose Pack 1 pack PO DAILY 7 Days #1 pack 03/25/21 Rx [Medrol Dose Pack] Allergies Allergy/AdvReac Type Severity Reaction Status Date / Time No Known Allergies Allergy Verified 07/02/22 22:51 Surgical - Exam Vital Signs Temp Pulse Resp BP Pulse Ox 98.4 F 114 H 18 140/109 90 L 06/10/24 12:27 06/10/24 12:27 06/10/24 12:27 06/10/24 12:06/10/24 12:27 General appearance: The patient is alert, oriented, appears in no acute distress. HET: Head is normocephalic and atraumatic. Pupils are equal and reactive. Neck: Supple. Heart: Regular. Lungs: Equal expansion, normal respiratory effort. Abdomen: Soft, thin, nontender, colostomy bag, nondistended. Extremities: Bilateral lower extremities thin decreased muscle. Palpable femoral pulses, nonpalpable popliteal DP or PT pulses unable to obtain popliteal PT or DP Doppler signal. Lower extremities cool to the touch and mottled. Left leg mottled up through the thigh. Right lower extremity with sensorimotor intact, able to flex at the ankle and wiggle toes a little. Left leg able to bend at the knee, no flexion or extension of the left ankle and unable to wiggle left toes. Neurological: No focal deficits. Alert and oriented x 3. Assessment and Plan Assessment: 1. Acute bilateral lower extremity ischemia with left lower extremity sensorimotor deficit 2. Bilateral lower extremity pain, left greater than right 3. History of peripheral arterial disease with previous aortobifem bypass graft and right femoral-popliteal bypass 4. Current smoker 5. Noncompliant with anticoagulation 6. History of coronary artery disease with cardiac stents 7. History of COPD 8. History of alcohol abuse 9. History of hepatitis C 10. History of lung cancer 11. Hypertension and hyperlipidemia Plan: 1. CTA aorta abdomen pelvis with runoff ordered 2. Stat CBC PT/INR, PTT, BMP and type and screen ordered 3. Start heparin drip per protocol 4. Keep n.p.o. 5. Type and cross with 2 units on hold 6. Obtain EKG 7. Tentatively plan for open thrombectomy aortobifem bypass, patient may need possible fasciotomy possible amputation 8. Further recommendations forthcoming from vascular surgeon The impression and plan of care has been dictated as directed. I performed a history and examination of this patient, discussed the same with the dictator. I agree with the dictator's note ,documented as a scribe. Any additional findings or plans will be noted.
[2024-06-10] MEDS: HEPARIN SODIUM 1,000 UN/ML (10ML VL) IV ONE (13:59)
[2024-06-10] MEDS: SODIUM CHLORIDE 0.9% 1,000 ML IV SCH (14:03)
[2024-06-10 14:05] LABS: Basophils % (A) 0 %; Eosinophils # (A) 0.1 k/uL (0-0.7); Eosinophils % (A) 0 %; HCT 51.6 % (34.0-46.0); HGB 16.7 gm/dL (11.4-16.0); Lymphocytes % (A) 8 %; MCH 33.3 pg (25.0-35.0); MCHC 32.3 g/dL (31.0-37.0); MCV 103.1 fL (80.0-100.0); Mean Platelet Volume 8.1; Monocytes # (A) 0.6 k/uL (0-1.0); Monocytes % (A) 5 %; Neutrophils # (A) 10.5 k/uL (1.3-7.7); Neutrophils % (A) 86 %; Platelet Count 201 k/uL (150-450); RBC 5.01 m/uL (3.80-5.40); RDW 11.8 % (11.5-15.5); WBC 12.2 k/uL (3.8-10.6)
[2024-06-10] MEDS: IV FLUID CONTINUATION 1,000 ML IV ONE ×3 (14:20→14:58)
[2024-06-10 14:25] LABS: Partial Thromboplastin Time 22.8 sec (22.0-30.0); Prothrombin Time 10.8 sec (10.0-12.5)
[2024-06-10 14:31] LABS: ALT 88 U/L (4-34); African American GFR (CKD) 66 (>60 ml/min/1.73 sqM); Anion Gap 15 mmol/L; Blood Urea Nitrogen 38 mg/dL (7-17); Carbon Dioxide 23 mmol/L (22-30); Chloride 94 mmol/L (98-107); Glucose 124 mg/dL (74-99); Non-African American GFR(CKD) 57 (>60 ml/min/1.73 sqM); Sodium 132 mmol/L (137-145); Total Bilirubin 1.6 mg/dL (0.2-1.3)
[2024-06-10 14:35] LABS: Magnesium 1.8 mg/dL (1.6-2.3); Potassium 5.4 mmol/L (3.5-5.1)
[2024-06-10 14:36] LABS: AST 328 U/L (14-36); Albumin 4.9 g/dL (3.5-5.0); Alkaline Phosphatase 67 U/L (38-126); Total Protein 8.7 g/dL (6.3-8.2)
[2024-06-10] MEDS: fentaNYL (PF) 50 MCG/ML 2 ML AMP IVP PRN (14:38)
[2024-06-10] MEDS: fentaNYL (PF) 50 MCG/1 ML VIAL IVP ONE (14:48)
[2024-06-10] MEDS ORDERED: hydrALAZINE HCL 20 MG/ML 1 ML VIAL ONE (15:05)
[2024-06-10] MEDS ORDERED: ROCURONIUM 10 MG/ML (5 ML VIAL) IV ONE (15:05)
[2024-06-10] MEDS ORDERED: HEPARIN SODIUM,PORCINE 5,000 UNIT/ML 1 ML VIAL ONE (15:05)
[2024-06-10] MEDS ORDERED: fentaNYL (PF) 50 MCG/ML 2 ML AMP ONE (15:05)
[2024-06-10] MEDS ORDERED: LIDOCAINE 1% INJ 10MG/ML (20 ML MDV) ONE (15:05)
[2024-06-10] MEDS ORDERED: LABETALOL 5 MG/ML VIAL MDV ONE (15:05)
[2024-06-10] MEDS ORDERED: PROTAMINE SULFATE 10 MG/ML 5 ML VIAL ONE (15:05)
[2024-06-10] MEDS ORDERED: PHENYLEPHRINE 10 MG/ML VIAL ONE (15:05)
[2024-06-10] MEDS ORDERED: SUCCINYLCHOLINE CHLORIDE 200 MG/10 ML VIAL IV ONE (15:05)
[2024-06-10] MEDS ORDERED: PROPOFOL 10 MG/ML 20 ML VIAL IV ONE (15:05)
[2024-06-10] MEDS ORDERED: ALBUMIN HUMAN 5% (25gm) 500 ML VIAL IVPB ONE (15:05)
[2024-06-10] MEDS: SODIUM CHLORIDE 0.9% 50 ML with ceFAZolin 1,000 MG IV ONE (15:15)
[2024-06-10] MEDS: HEPARIN SODIUM,PORCINE 10,000 UNIT in SODIUM CHLORIDE 0.9% 1,000 ML IRRIGATION ONE (15:59)
[2024-06-10] MEDS: ceFAZolin 4 GM in SODIUM CHLORIDE 0.9% 1,000 ML IRRIGATION ONE (16:01)
[2024-06-10] MEDS: IOPAMIDOL-370 100ML BTL INJ ONE ×2 (16:26)
[2024-06-10] MEDS: THROMBIN (BOVINE) 5,000 UNIT VIAL TOPICAL ONE (17:46)
[2024-06-10 18:45] LABS: Allen Test Performed? Yes
[2024-06-10 18:46] LABS: ABG Base Excess -3.1 mmol/L; ABG HCO3 23 mmol/L (21-25); ABG PCO2 45 mmHg (35-45); ABG PH 7.32 (7.35-7.45); ABG PO2 210 mmHg (83-108); ABG TCO2 24 mmol/L (19-24)
[2024-06-10] MEDS: LACTATED RINGERS 1,000 ML IV ONE ×2 (20:02)
[2024-06-10 20:29] LABS: Glucose,Whole Blood 94 mg/dL (70-110)
[2024-06-10 21:05] LABS: ABG PH 7.36 (7.35-7.45)
[2024-06-10 21:06] LABS: ABG Base Excess -1.2 mmol/L; ABG HCO3 24 mmol/L (21-25); ABG PCO2 43 mmHg (35-45); ABG PO2 >420 mmHg (83-108); ABG TCO2 26 mmol/L (19-24)
[2024-06-10] MEDS ORDERED: Magnesium Replacement Protocol 1 EACH MISC MISCELLANE PRN (21:07)
--- NOTE | 2024-06-10 21:07 | P.OP ---
Date of Procedure: 06/10/24 Preoperative Diagnosis: 1: Thrombosed aortobifemoral bypass graft. 2: Advanced arterial ischemia bilateral lower extremities secondary to #1. Postoperative Diagnosis: Same. Procedure(s) Performed: 1: Attempted thrombectomy aortobifemoral bypass graft. 2: Axillobifemoral bypass graft. 3: Left common femoral thromboendarterectomy. Anesthesia: GETA Surgeon: Sigifredo Dubose Assembly Lead Person #1: Austyn Tobar Estimated Blood Loss (ml): 600 Pathology: none sent Condition: critical Disposition: ICU Indications for Procedure: Patient is a 69-year-old female with a long history of peripheral vascular disease previously undergone aortobifemoral bypass grafting for aortoiliac occlusive disease. She had been maintained on oral anticoagulants. She presented today with inability to bear weight on her legs due to weakness. Physical examination revealed absent femoral pulses consistent with thrombosis of aortobifemoral bypass graft. Patient was thus taken to the operating room emergently for revascularization. Description of Procedure: Patient was brought the op room placed in the supine position administered general endotracheal anesthesia administered by the department of anesthesiology. Beaulieu catheter was placed to gravity drainage. Patient received intravenously administered prophylactic antibiotics in the perioperative phase. Patient has a right lower quadrant ileostomy and the ileostomy bag was removed. 4 x 4's were placed over the ostomy and the area sealed off with Tegaderm. Patient's lower abdomen and pelvic areas as well as both lower extremities were sterilely prepped and draped in the usual manner. Simultaneously a skin incision was made overlying the femoral arteries. Incision was deepened through the subcutaneous tissues. Scar tissue from previous surgical intervention was encountered. No pulse was noted. The respective limbs of the bypass graft were identified and dissected free of investing tissues. The origin of the profundus and superficial femoral arteries were dissected free of investing tissues and encircled with Vesseloops as was the origin of the common femoral artery. The patient had previously been heparinized and ACT was drawn and the ACT was adequate. Transverse arteriotomy was made in the jauregui of the graft bilaterally and multiple Serbian sizes of Rukhsana catheters were passed from each limb and into the aortic section of the graft however it could not be passed into normal patent king salmon vessel. Some thrombus was retrieved. Rukhsana was placed down both profundus and superficial femoral arteries with backbleeding noted. It was decided that the patient would need an axillobifemoral bypass graft. The arteriotomies were closed and all instruments were removed. The wounds were then stapled closed. The patient was then reprepped and draped with the left subclavian artery to be utilized as the inflow vessel. A skin incision was made overlying the axillary artery on the left and carried down through subcutaneous tissues. The pectoralis major muscle was mobilized and the axillary artery was identified and dissected free of investing tissues. Nerves were left undisturbed. Vessel loop was placed proximally and distally. Subsequently the skin bradly were removed from both groin wounds. A 6 mm ringed PTFE graft was selected and tunneled in the subcutaneous plane between the left groin and shoulder area. The Vesseloops surrounding the axillary artery were drawn closed in a longitudinal arteriotomy was made and extended with Orosco Salazar scissors. End-to-side anastomosis between the graft and the king salmon vessel was performed with 6-0 Prolene suture. Just prior to completion anastomotic line the artery was flushed and no thrombus was retrieved. The anastomotic line was completed and flow restored through the artery into the left upper extremity as well as the bypass graft. Excellent pulsatile flow was identified at the distal end of the bypass graft. The graft was occluded near its arterial anastomotic line. Good hemostasis was noted. Topical thrombin and Gelfoam were placed about the anastomotic line to help assure hemostasis. On the left longitudinal arteriotomy was made and the jauregui of the graft down to the bifurcation of the profundus and superficial femoral arteries. The previously placed Vesseloops were drawn closed preventing any backbleeding. The graft was spatulated to match arteriotomy and end-to-side anastomosis between the graft and the arteriotomy was performed utilizing 5-0 Prolene suture. The bypass graft and king salmon vessels were quite firm to touch and is difficult passing suture needles through this tissue. The graft was flushed and backbleeding was allowed to occur. The anastomotic line was completed. Bleeding was identified along the anastomotic line and this was controlled with 5-0 Prolene suture. Excellent pulse was identified within the graft and in the negative arterial vasculature. On the right these were the graft was opened and it was found necessary to perform endarterectomy. This was performed. The graft was then tunneled between the 2 incisions and a gentle arc fashion. End-to-side anastomosis was created between the femoral to femoral bypass graft with the axillofemoral bypass graft utilizing 6-0 Prolene suture. This resulted in excellent pulsatile flow. In the right groin the graft was cut to the appropriate length and spatulated to match the arteriotomy and end-to-side anastomosis between the graft and the artery was completed with 5-0 Prolene suture. Just prior to completion of the anastomotic line the graft and king salmon vessels were flushed and backbled no thrombus was retrieved. The anastomotic was completed and flow restored through the graft and into the right femoral system. Good pulse within the king salmon vessels was identified All wounds were irrigated with antibiotic-containing solution. Topical thrombin and Gelfoam were placed about the anastomotic line in the left femoral area. Additionally Tisseel was placed in this area. Hemostasis was judged to be adequate. All wounds were closed in multiple layers with 3-0 Vicryl for the deep layers and 4-0 Monocryl placed in running intradermal fashion. Appropriate dressings were applied. Patient tolerated the procedure well was taken to the ICU in stable although critical condition.
[2024-06-10] MEDS ORDERED: Potassium Replacement Protocol 1 EACH MISC MISCELLANE PRN (21:08)
--- NOTE | 2024-06-10 21:22 | XR ---
EXAMINATION TYPE: XR chest 1V portable DATE OF EXAM: 06/10/2024 9:16 PM COMPARISON: None. CLINICAL INDICATION: Female, 69 years old with history of Tube placement, TECHNIQUE: XR chest 1V portable views of the chest are obtained. FINDINGS: Endotracheal tube is approximately 4.5 cm from the yessi. NG tube seen coursing into the stomach. Demonstrated are scattered senescent parenchymal change. Stable elongated opacity left upper lobe is nonspecific. The heart is stable. Hilar and mediastinal structures are within normal limits. Degenerative changes are seen of the dorsal spine. IMPRESSION: 1. Chronic changes without evidence for acute pulmonary disease. Endotracheal tube and NG tube as di scussed. [facility], , 06/10/2024 9:19 PM
[2024-06-10] MEDS: CHLORHEXIDINE GLUCONATE 15 ML CUP MUCOUS MEM SCH (21:28)
[2024-06-10] MEDS: LATANOPROST 0.005% OPHTH DROPS 2.5 ML BTL RIGHT EYE SCH (21:28)
[2024-06-10] MEDS: LACTATED RINGERS 1,000 ML IV SCH (21:29)
[2024-06-10] MEDS: HYDROmorphone 0.5 MG/0.5 ML SYRINGE IVP PRN (21:54)
[2024-06-10 22:55] LABS: HCT 32.8 % (34.0-46.0); MCH 33.2 pg (25.0-35.0); MCHC 32.3 g/dL (31.0-37.0); MCV 102.9 fL (80.0-100.0); Macrocytosis Slight; Mean Platelet Volume 8.3; Platelet Count 148 k/uL (150-450); RBC 3.19 m/uL (3.80-5.40); RDW 12.1 % (11.5-15.5); WBC 10.4 k/uL (3.8-10.6)
[2024-06-10 23:00] LABS: HGB 10.6 gm/dL (11.4-16.0)
[2024-06-10 23:06] LABS: African American GFR (CKD) 63 (>60 ml/min/1.73 sqM); Anion Gap 6 mmol/L; Blood Urea Nitrogen 31 mg/dL (7-17); Calcium 7.9 mg/dL (8.4-10.2); Carbon Dioxide 26 mmol/L (22-30); Chloride 102 mmol/L (98-107); Glucose 154 mg/dL (74-99); Non-African American GFR(CKD) 54 (>60 ml/min/1.73 sqM); Potassium 4.2 mmol/L (3.5-5.1); Sodium 134 mmol/L (137-145)
[2024-06-11] MEDS: fentaNYL (PF). 1,000 MCG in SODIUM CHLORIDE 0.9% 80 ML IV SCH (00:50)
[2024-06-11 00:59] LABS: Basophils % (A) 0 %; Eosinophils % (A) 0 %; HCT 30.8 % (34.0-46.0); HGB 9.5 gm/dL (11.4-16.0); Hypochromasia Slight; Lymphocytes # (A) 0.9 k/uL (1.0-4.8); Lymphocytes % (A) 8 %; MCH 33.6 pg (25.0-35.0); Macrocytosis Moderate; Mean Platelet Volume 9.1; Monocytes # (A) 0.6 k/uL (0-1.0); Monocytes % (A) 6 %; Neutrophils # (A) 8.9 k/uL (1.3-7.7); Neutrophils % (A) 85 %; Platelet Count 127 k/uL (150-450); RBC 2.84 m/uL (3.80-5.40); RDW 12.3 % (11.5-15.5); WBC 10.6 k/uL (3.8-10.6)
[2024-06-11 01:06] LABS: MCV 108.2 fL (80.0-100.0)
[2024-06-11 05:27] LABS: Basophils % (A) 0 %; Eosinophils % (A) 0 %; HCT 28.2 % (34.0-46.0); HGB 9.2 gm/dL (11.4-16.0); Lymphocytes # (A) 0.8 k/uL (1.0-4.8); Lymphocytes % (A) 8 %; MCH 33.6 pg (25.0-35.0); MCHC 32.7 g/dL (31.0-37.0); Macrocytosis Slight; Mean Platelet Volume 8.9; Monocytes # (A) 0.4 k/uL (0-1.0); Monocytes % (A) 5 %; Neutrophils # (A) 8.1 k/uL (1.3-7.7); Neutrophils % (A) 87 %; Platelet Count 127 k/uL (150-450); RBC 2.75 m/uL (3.80-5.40); RDW 12.3 % (11.5-15.5); WBC 9.4 k/uL (3.8-10.6)
[2024-06-11 05:36] LABS: African American GFR (CKD) 53 (>60 ml/min/1.73 sqM); Anion Gap 6 mmol/L; Blood Urea Nitrogen 32 mg/dL (7-17); Calcium 7.3 mg/dL (8.4-10.2); Carbon Dioxide 24 mmol/L (22-30); Chloride 103 mmol/L (98-107); Glucose 82 mg/dL (74-99); Magnesium 1.6 mg/dL (1.6-2.3); Non-African American GFR(CKD) 46 (>60 ml/min/1.73 sqM); Potassium 4.3 mmol/L (3.5-5.1); Sodium 133 mmol/L (137-145)
[2024-06-11 06:03] LABS: MCV 102.6 fL (80.0-100.0)
[2024-06-11 06:27] LABS: ABG Base Excess -0.4 mmol/L; ABG HCO3 24 mmol/L (21-25); ABG Oxygen Saturation 98.3 % (94-97); ABG PCO2 39 mmHg (35-45); ABG PO2 104 mmHg (83-108); ABG TCO2 26 mmol/L (19-24); Allen Test Performed? Yes
--- NOTE | 2024-06-11 06:41 | XR ---
EXAMINATION TYPE: XR chest 1V portable DATE OF EXAM: 06/11/2024 COMPARISON: 06/10/2024 CLINICAL INDICATION: Female, 69 years old with history of Tube placement; TECHNIQUE: Single frontal view of the chest is obtained. Findings: ET tube is now 1.8 cm above the yessi. There is an NG tube within the stomach There is stable minimal band of atelectasis in the left lung otherwise the lungs are clear. There is no pleural effusion or pneumothorax. Heart and pulmonary vasculature are normal. The osseous structures are intact. IMPRESSION: 1. ET tube 1.8 cm above the yessi and NG tube within the stomach. 2. Stable small focal left midlung atelectasis with no significant acute cardiopulmonary disease. [facility], Workstation: [email or web address] 06/11/2024 6:39 AM
[2024-06-11] MEDS: MAGNESIUM SULFATE-D5W PMX 1 GM in DEXTROSE/WATER 1 100ML.BAG IVPB SCH (08:35)
[2024-06-11] MEDS: CISATRACURIUM 2 MG/ML 5 ML VIAL IV ONE (10:22)
[2024-06-11] MEDS: NOREPINEPHRINE 4 MG in SODIUM CHLORIDE 0.9% 250 ML IV SCH (11:38)
--- NOTE | 2024-06-11 11:45 | XR ---
EXAMINATION TYPE: XR chest 1V portable DATE OF EXAM: 06/11/2024 COMPARISON: 06/11/2024 CLINICAL INDICATION: Female, 69 years old with history of central line placement; TECHNIQUE: Single frontal view of the chest is obtained. FINDINGS: ET tube has been repositioned and is now 4.9 cm above the yessi. There is a new central venous armando ter entering the left and terminating the SVC/RA junction. There is an NG tube in the stomach. Stable focal atelectasis in the left mid lung. Right lung remains clear. There is no pneumothorax or large pleural effusion. The osseous structures are intact. IMPRESSION: 1. ET tube 4.9 cm above the yessi. 2. Central venous catheter tip in the SVC/RA junction, no pneumothorax. 3. Stable focal atelectasis in the left midlung. 4. NG tube within the stomach. [facility], Workstation: RODNEY 06/11/2024 11:42 AM
[2024-06-11] MEDS: IPRATROPIUM-ALBUTEROL 3 ML NEB INHALATION SCH (12:10)
--- NOTE | 2024-06-11 12:14 | P.PN ---
Subjective Progress Note Date: 06/11/24 Currently the patient remains intubated and sedated. There is now a new need for pressor support as her blood pressure is trending downward. Objective - Vital Signs Vital signs: Vital Signs Temp 100.1 F H 06/11/24 08:00 Pulse 112 H 06/11/24 11:45 Resp 18 06/11/24 11:45 BP 56/36 06/11/24 11:45 Pulse Ox 99 06/11/24 10:15 FiO2 40 06/11/24 08:00 Intake & Output 06/10/24 06/11/24 06/11/24 18:59 06:59 18:59 Intake Total 2252 1081.140 605.315 Output Total 1965 90 Balance 2252 -883.860 515.315 Weight 37.195 kg 40.5 kg Intake: IV 2252 950 575 Lactated Ringers 1,000 ml 750 375 @ 75 mls/hr IV .[id number] ELLEN Rx#:[id number] Magnesium Sulfate-D5w Pmx 200 1 gm In Dextrose/Water 1 100ml.bag @ 100 mls/hr IVPB Q1H ELLEN Rx#: [id number] Intake, IV Titration 131.140 30.315 Amount fentaNYL (PF). 1,000 mcg 1.736 In Sodium Chloride 0.9% 80 ml @ 0.5 MCG/KG/HR 1. 86 mls/hr IV .Q24H ELELN Rx #:[id number] propofoL 1,000 mg In 129.404 30.315 Empty Bag 1 bag @ 15 MCG/ KG/MIN 3.348 mls/hr IV . Q24H ELLEN Rx#:[id number] Output: Urine 1365 90 Estimated Blood Loss 600 Other: Voiding Method Indwelling Catheter ABP, PAP, CO, CI - Last Documented Arterial Blood Pressure 76/52 - Exam The patient's bypass graft demonstrates no palpable pulse nor detectable Doppler flow. The feet and calf areas are becoming ischemic and both are cool to touch. I did discussed the situation with the patient's daughter Loreta. I indicated that the patient is in a grave situation and there are no good options. In theory we could perform bilateral [id number] amputations to help resolve the ischemic situation however significant other medical conditions persist. I also discussed goals of care and offered comfort care. She indicated she is going to reach out to her the remainder of her family and will reach back out to me with their decisions. In the interim we will continue medical support. I also discussed this with Dr. Arreaga. - Labs CBC & Chem 7: 06/11/24 04:40 06/11/24 04:40 Labs: Abnormal Lab Results - Last 24 Hours (Table) 06/10/24 06/10/24 06/10/24 Range/Units 13:42 13:42 13:42 WBC 12.2 H (3.8-10.6) k/uL RBC (3.80-5.40) m/uL Hgb 16.7 H (11.4-16.0) gm/dL Hct 51.6 H (34.0-46.0) % MCV 103.1 H (80.0-100.0) fL Plt Count (150-450) k/uL Neutrophils # 10.5 H (1.3-7.7) k/uL Lymphocytes # (1.0-4.8) k/uL ABG pH (7.35-7.45) ABG pO2 (83-108) mmHg ABG Total CO2 (19-24) mmol/L ABG O2 Saturation (94-97) % Hemoglobin (11.4-16.0) gm/dL Sodium 132 L (137-145) mmol/L Potassium 5.4 H (3.5-5.1) mmol/L Chloride 94 L (98-107) mmol/L BUN 38 H (7-17) mg/dL Creatinine (0.52-1.04) mg/dL Glucose 124 H (74-99) mg/dL Calcium (8.4-10.2) mg/dL Total Bilirubin 1.6 H (0.2-1.3) mg/dL AST 328 H (14-36) U/L ALT 88 H (4-34) U/L Troponin I 0.039 H* (0.000-0.034) ng/mL Total Protein 8.7 H (6.3-8.2) g/dL Crossmatch 06/10/24 06/10/24 06/10/24 Range/Units 13:42 18:30 20:49 WBC (3.8-10.6) k/uL RBC (3.80-5.40) m/uL Hgb (11.4-16.0) gm/dL Hct (34.0-46.0) % MCV (80.0-100.0) fL Plt Count (150-450) k/uL Neutrophils # (1.3-7.7) k/uL Lymphocytes # (1.0-4.8) k/uL ABG pH 7.32 L (7.35-7.45) ABG pO2 210 H >420 H (83-108) mmHg ABG Total CO2 26 H (19-24) mmol/L ABG O2 Saturation 100.0 H 100.0 H (94-97) % Hemoglobin 10.0 L (11.4-16.0) gm/dL Sodium (137-145) mmol/L Potassium (3.5-5.1) mmol/L Chloride (98-107) mmol/L BUN (7-17) mg/dL Creatinine (0.52-1.04) mg/dL Glucose (74-99) mg/dL Calcium (8.4-10.2) mg/dL Total Bilirubin (0.2-1.3) mg/dL AST (14-36) U/L ALT (4-34) U/L Troponin I (0.000-0.034) ng/mL Total Protein (6.3-8.2) g/dL Crossmatch See Detail 06/10/24 06/10/24 06/11/24 Range/Units 22:33 22:33 00:10 WBC (3.8-10.6) k/uL RBC 3.19 L 2.84 L (3.80-5.40) m/uL Hgb 10.6 L D 9.5 L (11.4-16.0) gm/dL Hct 32.8 L 30.8 L (34.0-46.0) % MCV 102.9 H 108.2 H D (80.0-100.0) fL Plt Count 148 L 127 L (150-450) k/uL Neutrophils # 8.9 H (1.3-7.7) k/uL Lymphocytes # 0.9 L (1.0-4.8) k/uL ABG pH (7.35-7.45) ABG pO2 (83-108) mmHg ABG Total CO2 (19-24) mmol/L ABG O2 Saturation (94-97) % Hemoglobin (11.4-16.0) gm/dL Sodium 134 L (137-145) mmol/L Potassium (3.5-5.1) mmol/L Chloride (98-107) mmol/L BUN 31 H (7-17) mg/dL Creatinine 1.05 H (0.52-1.04) mg/dL Glucose 154 H (74-99) mg/dL Calcium 7.9 L (8.4-10.2) mg/dL Total Bilirubin (0.2-1.3) mg/dL AST (14-36) U/L ALT (4-34) U/L Troponin I (0.000-0.034) ng/mL Total Protein (6.3-8.2) g/dL Crossmatch 06/11/24 06/11/24 06/11/24 Range/Units 04:40 04:40 06:24 WBC (3.8-10.6) k/uL RBC 2.75 L (3.80-5.40) m/uL Hgb 9.2 L (11.4-16.0) gm/dL Hct 28.2 L (34.0-46.0) % MCV 102.6 H D (80.0-100.0) fL Plt Count 127 L (150-450) k/uL Neutrophils # 8.1 H (1.3-7.7) k/uL Lymphocytes # 0.8 L (1.0-4.8) k/uL ABG pH (7.35-7.45) ABG pO2 (83-108) mmHg ABG Total CO2 26 H (19-24) mmol/L ABG O2 Saturation 98.3 H (94-97) % Hemoglobin 9.1 L (11.4-16.0) gm/dL Sodium 133 L (137-145) mmol/L Potassium (3.5-5.1) mmol/L Chloride (98-107) mmol/L BUN 32 H (7-17) mg/dL Creatinine 1.20 H (0.52-1.04) mg/dL Glucose (74-99) mg/dL Calcium 7.3 L (8.4-10.2) mg/dL Total Bilirubin (0.2-1.3) mg/dL AST (14-36) U/L ALT (4-34) U/L Troponin I (0.000-0.034) ng/mL Total Protein (6.3-8.2) g/dL Crossmatch Assessment and Plan Assessment: Irreversible ischemia bilateral lower extremities Blood loss anemia. Hypotension with need for pressor support. Impending renal failure. Plan: I await family's decisions. Time with Patient: Greater than 30
--- NOTE | 2024-06-11 12:56 | PCN ---
PROCEDURE NOTE PROCEDURE: Right brachial arterial line. PREOPERATIVE DIAGNOSIS: Frequent blood draws and blood gas monitoring. POSTOPERATIVE DIAGNOSIS: Frequent blood draws and blood gas monitoring. There was informed consent and universal timeout. The procedure was done in room 261. PEDIATRIC NURSE: Dr. Arreaga, assisted by Dr. Whitley and Dr. Keating. We used the right brachial artery. There was good blood return and waveform. The patient tolerated the procedure well. The catheter was sutured in place. Sterile dressing was applied by the nurse. There was no immediate complication. MMODL / IJN: [id number] /
--- NOTE | 2024-06-11 12:56 | PCN ---
PROCEDURE NOTE PROCEDURE: Left internal jugular triple-lumen catheter. PREOPERATIVE DIAGNOSIS: Administration of fluids and pressors. POSTOPERATIVE DIAGNOSIS: Administration of fluids and pressors. ORTHOPEDIC RN: Dr. Arreaga and he was assisted by Dr. Whitley and Dr. Keating. The patient's procedure took place in room 261. We used the left internal jugular triple-lumen site. We went via the posterior approach. There was informed consent and universal timeout. TRIPLE LUMEN CATHETER PLACEMENT: Indication: Hemodynamic monitoring/Intravenous access. A time-out was completed verifying correct patient, procedure, site, positioning, and implant(s) or special equipment if applicable. The patient was placed in a dependent position appropriate for triple lumen catheter placement based on the vein to be cannulated. The patient's left shoulder or left neck or left groin was prepped and draped in sterile fashion. 1% Lidocaine was used to anesthetize the surrounding skin area. A triple lumen 9F Cordis catheter was introduced into the left internal jugular vein using Seldinger technique. The catheter was threaded smoothly over the guide wire and appropriate blood return was obtained. Each lumen of the catheter was evacuated of air and flushed with sterile saline. The catheter was then sutured in place to the skin and a sterile dressing applied. Perfusion to the extremity distal to the point of catheter insertion was checked and found to be adequate. We used the left internal jugular site. There was good blood return from all 3 ports. The catheter was sutured in place. Sterile dressing was applied by the nurse. There was no immediate complication. The tip of the catheter was seen in the junction of superior vena cava and right atrium. A chest x-ray was ordered. MMODL / IJN: [id number] /
--- NOTE | 2024-06-11 13:23 | P.CNPUL ---
History of Present Illness Consult date: 06/11/24 Requesting physician: Sigifredo Dubose Reason for consult: other (Mechanical ventilator/ICU management) Chief complaint: Bilateral lower extremity pain, tingling, numbness History of present illness: This is a 69-year-old female patient with a known history of lung cancer with previous radiation treatments back in 2016, oxygen dependent chronic obstructive pulmonary disease, treated hepatitis C, colon resection with colostomy, hypertension, peripheral vascular disease aortobifem grafting and femoropopliteal bypass, chronic and ongoing tobacco dependence. Room yesterday with complaints of bilateral lower extremity pain, tingling and numbness. Taken to the operating room and was found to have a thrombosed aortobifemoral bypass graft. Advanced arterial ischemia bilateral lower extremities. She had undergone attempted thrombectomy aortobifemoral bypass graft. Excellent femoral bypass graft. Left common femoral thromboendarterectomy. She was brought into the intensive care unit following a lengthy surgery last evening remained intubated on the mechanical ventilator. She is currently on assist-control mode at a rate of 18, tidal volume 350, FiO2 40% and a PEEP of 5. Morning blood gases revealed a PaO2 of 104, pCO2 39 and a pH of 7.40. She is sedated with propofol at 50 mcg/kg/min. She is currently on fentanyl at 1.5 mcg/kg/h. She has lactated Ringer's at 75 mL/h. Atelectasis of the left midlung. Endotracheal tube and gastric tubes in good position. No evidence of pneumothorax. White count 9.4. Hemoglobin 9.2. Platelets 127. Sodium 133. Potassium 4.3. Bicarb 24. BUN 32. Creatinine 1.20. She has not had any pulses in her right leg. Doppler pulses in the left leg only. Nursing staff thought the patient was to return to the OR today for possible bilateral amputations however the vascular surgeon says she is not a good candidate. She would not survive the surgery. Review of Systems ROS unobtainable: due to endotracheal tube Past Medical History Past Medical History: Coronary Artery Disease (CAD), Cancer, Chest Pain / Angina, COPD, Hypertension, Liver Disease, Osteoarthritis (OA) Additional Past Medical History / Comment(s): HX of Hepatitis C with [place]., emphysema, restless leg syndrome, has colostomy. lung cancer with radiation tx (2015), oxygen prn 2 liters, Hx stomach ulcer., Back pain, hearing loss right ear, hx of ETOH abuse History of Any Multi-Drug Resistant Organisms: None Reported Past Surgical History: Appendectomy, Bowel Resection, Cholecystectomy Additional Past Surgical History / Comment(s): HX OF AORTO BIFEMORAL GRAFT- FEM PAP BYPASS, COLOSTOMY . Past Anesthesia/Blood Transfusion Reactions: No Reported Reaction Past Psychological History: Anxiety Smoking Status: Current every day smoker Past Alcohol Use History: Daily Additional Past Alcohol Use History / Comment(s): SMOKES 1 PPD ., SMOKING FOR OVER 50 years. Drinks 2 beers per day. Past Drug Use History: Marijuana Additional Drug Use History / Comment(s): CURRENT MARIJUANA USE. - Past Family History Father Family Medical History: Cancer Additional Family Medical History / Comment(s): Prostate CA. Daughter(s) Family Medical History: Cancer Additional Family Medical History / Comment(s): BONE CANCER Medications and Allergies Home Medications Medication Instructions Recorded Confirmed Type Ergocalciferol [Vitamin D2 (1250 1,250 mcg PO QMONTHLY 08/24/20 06/10/24 History Mcg = 23993 Iu)] Albuterol Sulfate [Ventolin HFA] 1 puff INHALATION RT-QID PRN 03/18/21 06/10/24 History ALPRAZolam [Xanax] 0.25 mg PO BID 06/10/24 06/10/24 History Atorvastatin [Lipitor] 20 mg PO HS 06/10/24 06/10/24 History Budesonide/Glycopyr/Formoterol 2 puff INHALATION RT-BID 06/10/24 06/10/24 History [Breztri Aerosphere Inhaler] Cyclobenzaprine [Flexeril] 5 mg PO BID PRN 06/10/24 06/10/24 History Folic Acid 1 mg PO DAILY 06/10/24 06/10/24 History HYDROcodone/APAP 5-325MG [[place] 1 tab PO BID 06/10/24 06/10/24 History 5-325] Latanoprost [Latanoprost 0.005%] 1 drop RIGHT EYE HS 06/10/24 06/10/24 History Losartan [Cozaar] 25 mg PO BID 06/10/24 06/10/24 History Metoprolol Succinate (ER) [Toprol 25 mg PO DAILY 06/10/24 06/10/24 History Xl] Oxybutynin ER [Ditropan XL] 15 mg PO DAILY 06/10/24 06/10/24 History Rivaroxaban [Xarelto] 2.5 mg PO BID 06/10/24 06/10/24 History Thiamine [Vitamin B-1] 100 mg PO DAILY 06/10/24 06/10/24 History buPROPion SR [Wellbutrin SR] 100 mg PO DAILY 06/10/24 06/10/24 History rOPINIRole HCL [Requip] 0.5 - 1 mg PO HS 06/10/24 06/10/24 History traZODone HCL [Trazodone HCl] 300 mg PO HS PRN 06/10/24 06/10/24 History Allergies Allergy/AdvReac Type Severity Reaction Status Date / Time No Known Allergies Allergy Verified 06/10/24 15:17 Physical Exam Vitals: Vital Signs Temp Pulse Pulse Resp BP BP Pulse Ox 06/11/24 12:45 106 H 18 94 L 06/11/24 12:30 110 H 18 90 L 06/11/24 12:28 110 H 06/11/24 12:15 110 H 18 95 06/11/24 12:13 06/11/24 12:10 108 H 06/11/24 12:00 98.8 F 110 H 18 95 06/11/24 11:45 112 H 18 56/36 06/11/24 11:30 115 H 18 55/38 06/11/24 11:15 118 H 18 109/88 06/11/24 11:00 118 H 18 109/88 06/11/24 10:45 115 H 14 58/40 06/11/24 10:30 114 H 18 99/75 06/11/24 10:15 110 H 18 97/76 99 06/11/24 10:00 110 H 18 106/74 92 L 06/11/24 09:45 111 H 18 90/71 98 06/11/24 09:30 111 H 18 92/74 06/11/24 09:15 111 H 18 93/75 06/11/24 09:00 108 H 18 101/70 06/11/24 08:45 17 97/74 99 06/11/24 08:30 111 H 18 103/73 99 06/11/24 08:15 111 H 18 104/77 99 06/11/24 08:00 100.1 F H 109 H 18 112/81 99 06/11/24 07:45 105 H 18 06/11/24 07:30 105 H 18 120/81 06/11/24 07:15 104 H 18 108/76 99 06/11/24 07:00 105 H 18 100/75 98 06/11/24 06:45 105 H 18 99/72 100 06/11/24 06:30 107 H 18 91/72 98 06/11/24 06:15 110 H 18 94/72 97 06/11/24 06:00 100.4 F H 111 H 18 92/68 97 06/11/24 05:45 112 H 18 92/72 97 06/11/24 05:30 101.7 F H 113 H 18 100/79 97 06/11/24 05:15 111 H 15 94/70 96 06/11/24 05:00 110 H 18 91/70 97 06/11/24 04:45 107 H 18 106/70 97 06/11/24 04:30 106 H 18 96/69 98 06/11/24 04:15 105 H 18 103/76 98 06/11/24 04:00 99.5 F 105 H 18 99/71 98 06/11/24 03:45 103 H 18 98/70 98 06/11/24 03:30 104 H 18 93/70 98 06/11/24 03:22 06/11/24 03:15 101 H 18 98/66 98 06/11/24 03:00 97.9 F 102 H 18 99/66 98 06/11/24 02:45 102 H 18 100/68 98 06/11/24 02:30 101 H 18 99/87 97 06/11/24 02:15 101 H 18 106/72 96 06/11/24 02:00 98 18 102/72 96 06/11/24 01:45 93 14 93/65 96 06/11/24 01:30 93 18 104/69 97 06/11/24 01:15 92 18 116/79 99 06/11/24 01:00 93 18 132/85 100 06/11/24 00:45 91 18 132/60 98 06/11/24 00:30 90 20 116/73 98 06/11/24 00:15 92 20 99/85 98 03/08/25 00:07 06/11/24 00:00 96.5 F L 90 28 H 107/93 97 06/10/24 23:45 89 22 131/98 95 06/10/24 23:30 89 21 113/92 100 06/10/24 23:15 90 17 126/88 97 06/10/24 23:00 94 19 173/86 98 06/10/24 22:45 89 20 173/86 96 06/10/24 22:30 84 21 157/102 98 06/10/24 22:15 84 19 180/110 98 06/10/24 22:00 88 18 174/118 98 06/10/24 21:45 90 21 206/122 100 06/10/24 21:30 88 18 197/119 100 06/10/24 21:15 88 18 220/124 100 06/10/24 21:00 93.4 F L 90 18 206/133 100 06/10/24 20:59 06/10/24 20:45 89 26 H 201/109 98 06/10/24 20:30 06/10/24 20:28 06/10/24 14:20 98.1 F 84 16 211/135 92 L FiO2 06/11/24 12:45 06/11/24 12:30 06/11/24 12:28 06/11/24 12:15 06/11/24 12:13 40 06/11/24 12:10 06/11/24 12:00 40 06/11/24 11:45 06/11/24 11:30 06/11/24 11:15 06/11/24 11:00 06/11/24 10:45 06/11/24 10:30 06/11/24 10:15 06/11/24 10:00 06/11/24 09:45 06/11/24 09:30 06/11/24 09:15 06/11/24 09:00 06/11/24 08:45 06/11/24 08:30 06/11/24 08:15 06/11/24 08:00 40 06/11/24 07:45 06/11/24 07:30 06/11/24 07:15 06/11/24 07:00 06/11/24 06:45 06/11/24 06:30 06/11/24 06:15 06/11/24 06:00 06/11/24 05:45 06/11/24 05:30 06/11/24 05:15 06/11/24 05:00 06/11/24 04:45 06/11/24 04:30 06/11/24 04:15 06/11/24 04:00 40 06/11/24 03:45 06/11/24 03:30 06/11/24 03:22 40 06/11/24 03:15 06/11/24 03:00 06/11/24 02:45 06/11/24 02:30 06/11/24 02:15 06/11/24 02:00 06/11/24 01:45 06/11/24 01:30 06/11/24 01:15 40 06/11/24 01:00 06/11/24 00:45 06/11/24 00:30 06/11/24 00:15 06/11/24 00:07 40 06/11/24 00:00 40 06/10/24 23:45 06/10/24 23:30 06/10/24 23:15 06/10/24 23:00 06/10/24 22:45 06/10/24 22:30 06/10/24 22:15 06/10/24 22:00 06/10/24 21:45 06/10/24 21:30 06/10/24 21:15 06/10/24 21:00 06/10/24 20:59 40 06/10/24 20:45 06/10/24 20:30 100 06/10/24 20:28 100 06/10/24 14:20 Intake and Output 06/10/24 06/11/24 06/11/24 22:59 06:59 14:59 Intake Total 2235.388 797.752 611.024 Output Total 1200 765 90 Balance 1035.388 32.752 521.024 Intake: IV 2227 675 575 Lactated Ringers 1,000 ml 75 675 375 @ 75 mls/hr IV .[id number] ELLEN Rx#:[id number] Magnesium Sulfate-D5w Pmx 200 1 gm In Dextrose/Water 1 100ml.bag @ 100 mls/hr IVPB Q1H ELLEN Rx#: [id number] Intake, IV Titration 8.388 122.752 36.024 Amount Norepinephrine 4 mg In 5.709 Sodium Chloride 0.9% 250 ml @ 0.03 MCG/KG/MIN 4. 629 mls/hr IV .Q24H ELLEN Rx#:[id number] fentaNYL (PF). 1,000 mcg 1.736 In Sodium Chloride 0.9% 80 ml @ 0.5 MCG/KG/HR 1. 86 mls/hr IV .Q24H ELLEN Rx #:[id number] propofoL 1,000 mg In 8.388 121.016 30.315 Empty Bag 1 bag @ 15 MCG/ KG/MIN 3.348 mls/hr IV . Q24H ELLEN Rx#:[id number] Output: Urine 600 765 90 Estimated Blood Loss 600 Other: Voiding Method Indwelling Catheter Weight 40.5 kg ABP, PAP, CO, CI - Last 8 Hours Arterial Blood Pressure 90/48 Arterial Blood Pressure 87/54 Arterial Blood Pressure 84/54 Arterial Blood Pressure 86/56 Arterial Blood Pressure 76/52 Arterial Blood Pressure 71/50 Arterial Blood Pressure 81/56 Arterial Blood Pressure 77/55 GENERAL EXAM: Intubated, sedated, cachectic 69-year-old female, on the mechanical ventilator. HEAD: Normocephalic. EYES: Normal reaction of pupils, equal size. NOSE: Clear with pink turbinates. THROAT: No erythema or exudates. NECK: No masses, no JVD. CHEST: No chest wall deformity. LUNGS: Equal air entry with no crackles, wheeze, rhonchi or dullness. CVS: S1 and S2 normal with no audible murmur, regular rhythm. ABDOMEN: No hepatosplenomegaly, normal bowel sounds, no guarding or rigidity. SPINE: No scoliosis or deformity SKIN: No rashes CENTRAL NERVOUS SYSTEM: No focal deficits, tone is normal in all 4 extremities. EXTREMITIES: There is no peripheral edema. Peripheral pulses are absent in the right lower extremity. Doppler pulses on the left t. Results - Laboratory Findings CBC and BMP: 06/11/24 04:40 06/11/24 04:40 ABG ABG pH 7.40 (7.35-7.45) 06/11/24 06:24 ABG pCO2 39 mmHg (35-45) 06/11/24 06:24 ABG pO2 104 mmHg (83-108) 06/11/24 06:24 ABG O2 Saturation 98.3 % (94-97) H 06/11/24 06:24 PT/INR, D-dimer PT 10.8 sec (10.0-12.5) 06/10/24 13:42 INR 1.0 (<1.2) 06/10/24 13:42 Abnormal lab findings: Abnormal Labs 06/10/24 06/10/24 06/10/24 13:42 13:42 13:42 WBC 12.2 H RBC Hgb 16.7 H Hct 51.6 H MCV 103.1 H Plt Count Neutrophils # 10.5 H Lymphocytes # ABG pH ABG pO2 ABG Total CO2 ABG O2 Saturation Hemoglobin Sodium 132 L Potassium 5.4 H Chloride 94 L BUN 38 H Creatinine Glucose 124 H Calcium Total Bilirubin 1.6 H AST 328 H ALT 88 H Troponin I 0.039 H* Total Protein 8.7 H Crossmatch 06/10/24 06/10/24 06/10/24 13:42 18:30 20:49 WBC RBC Hgb Hct MCV Plt Count Neutrophils # Lymphocytes # ABG pH 7.32 L ABG pO2 210 H >420 H ABG Total CO2 26 H ABG O2 Saturation 100.0 H 100.0 H Hemoglobin 10.0 L Sodium Potassium Chloride BUN Creatinine Glucose Calcium Total Bilirubin AST ALT Troponin I Total Protein Crossmatch See Detail 06/10/24 06/10/24 06/11/24 22:33 22:33 00:10 WBC RBC 3.19 L 2.84 L Hgb 10.6 L D 9.5 L Hct 32.8 L 30.8 L MCV 102.9 H 108.2 H D Plt Count 148 L 127 L Neutrophils # 8.9 H Lymphocytes # 0.9 L ABG pH ABG pO2 ABG Total CO2 ABG O2 Saturation Hemoglobin Sodium 134 L Potassium Chloride BUN 31 H Creatinine 1.05 H Glucose 154 H Calcium 7.9 L Total Bilirubin AST ALT Troponin I Total Protein Crossmatch 06/11/24 06/11/24 06/11/24 04:40 04:40 06:24 WBC RBC 2.75 L Hgb 9.2 L Hct 28.2 L MCV 102.6 H D Plt Count 127 L Neutrophils # 8.1 H Lymphocytes # 0.8 L ABG pH ABG pO2 ABG Total CO2 26 H ABG O2 Saturation 98.3 H Hemoglobin 9.1 L Sodium 133 L Potassium Chloride BUN 32 H Creatinine 1.20 H Glucose Calcium 7.3 L Total Bilirubin AST ALT Troponin I Total Protein Crossmatch - Diagnostic Findings Chest x-ray: image reviewed Assessment and Plan Assessment: Bilateral lower extremity pain, tingling and numbness secondary to thrombosed aortobifemoral bypass graft and advanced arterial ischemia of the bilateral lower extremities. Attempted thrombectomy of the aortobifemoral graft, axillof emoral bypass graft. Left common femoral thromboendarterectomy performed yesterday June 10, 2024. Postoperative day #1 Routine postoperative ventilator management, expected outcome of surgery Previous history of peripheral arterial disease with previous aortobifem bypass and possible right femoral to popliteal bypass Coronary artery disease History of bowel resection with colostomy History of lung cancer with previous previous radiation treatments back in 2016 Oxygen dependent chronic obstructive pulmonary disease Chronic and ongoing tobacco dependence History of alcohol abuse History of anxiety Marijuana use Hypertension Plan: The patient was seen and evaluated Imaging, labs and medications reviewed Operative report reviewed Spoke with the vascular surgery No further plans for surgical intervention The patient would not survive surgery They spoke to the family about possible comfort care They are awaiting family members from [place] and may proceed tomorrow In the interim we will continue with full supportive care To remain on the mechanical ventilator Central line and arterial lines placed Continue norepinephrine as needed Propofol for sedation Lactated Ringer's at 75 mL/h Continue to monitor pulses of the lower extremities We will continue to follow and make further recommendations based on her clinical status I have personally seen and examined the patient, performed the documentation and the assessment and plan as written. Number of minutes spent on the visit: 20 Dictation was produced using [employer] dictation software. Please excuse any grammatical, word or spelling errors.
--- NOTE | 2024-06-12 03:15 | HP ---
HISTORY AND PHYSICAL CHIEF COMPLAINT: Weakness, pain, and numbness in both lower extremities. HISTORY OF PRESENT ILLNESS: This is another admission for this 69-year-old female who has been in poor health. She has a longstanding history of nicotine use and abuse. She has had advanced problems with ASCVD including PVOD. She has also had a partial colectomy with temporary colostomy. She has had procedures in the past for aortic atherosclerosis and occlusion. She also has a history of right lung cancer, which has been stable over the years. In the emergency room, she was recognized having acute lower extremity ischemia and was taken to the operating room by Vascular Surgery. REVIEW OF SYSTEMS: Was not obtained. Past medical history, family history, and personal and social histories are essentially otherwise unremarkable. MEDICATIONS: She has been on: 1. Bupropion. 2. Atorvastatin. 3. Trazodone. 4. Vicodin. 5. Xarelto. 6. Xanax. 7. Oxybutynin. 8. Losartan. 9. Breztri. 10.Midodrine. 11.DuoNeb updrafts. She does continue to smoke. PHYSICAL EXAMINATION: HEAD, EARS, EYES, NOSE, MOUTH: Normal. LUNGS: She is on a ventilator. Breath sounds are heard bilaterally. ABDOMEN: Soft. EXTREMITIES: Lower extremities are cool and pulseless. IMPRESSION: 1. Acute ischemia of lower extremities. 2. Atherosclerotic cardiovascular disease. 3. Pulmonary veno-occlusive disease. 4. Chronic obstructive pulmonary disease. 5. History of carcinoma of the right lung. PLAN: Follow with Intensive Medicine, Vascular Surgery, and Cardiology. MMODL / IJN: [id number] /
[2024-06-12 04:35] LABS: Basophils % (A) 0 %; Eosinophils % (A) 1 %; HCT 25.6 % (34.0-46.0); HGB 8.3 gm/dL (11.4-16.0); Lymphocytes # (A) 0.8 k/uL (1.0-4.8); Lymphocytes % (A) 9 %; MCHC 32.4 g/dL (31.0-37.0); MCV 105.2 fL (80.0-100.0); Macrocytosis Slight; Mean Platelet Volume 8.2; Monocytes # (A) 0.4 k/uL (0-1.0); Monocytes % (A) 5 %; Neutrophils # (A) 7.4 k/uL (1.3-7.7); Neutrophils % (A) 84 %; Platelet Count 113 k/uL (150-450); RBC 2.43 m/uL (3.80-5.40); WBC 8.8 k/uL (3.8-10.6)
[2024-06-12 04:57] LABS: African American GFR (CKD) 27 (>60 ml/min/1.73 sqM); Anion Gap 7 mmol/L; Blood Urea Nitrogen 38 mg/dL (7-17); Calcium 7.4 mg/dL (8.4-10.2); Carbon Dioxide 22 mmol/L (22-30); Chloride 103 mmol/L (98-107); Glucose 105 mg/dL (74-99); Magnesium 2.5 mg/dL (1.6-2.3); Non-African American GFR(CKD) 24 (>60 ml/min/1.73 sqM); Sodium 132 mmol/L (137-145)
[2024-06-12 06:09] LABS: ABG Base Excess -3.7 mmol/L; ABG HCO3 22 mmol/L (21-25); ABG Oxygen Saturation 87.6 % (94-97); ABG PCO2 43 mmHg (35-45); ABG PH 7.32 (7.35-7.45); ABG TCO2 23 mmol/L (19-24); Allen Test Performed? Yes
[2024-06-12 06:10] LABS: ABG PO2 58 mmHg (83-108)
--- NOTE | 2024-06-12 06:55 | XR ---
EXAMINATION TYPE: XR chest 1V portable DATE OF EXAM: 06/12/2024 COMPARISON: 06/11/2024 CLINICAL INDICATION: Female, 69 years old with history of Tube placement; TECHNIQUE: Single frontal view of the chest is obtained. FINDINGS: ET tube is 5.8 cm above the yessi. There is an NG tube in the stomach. There is a left central venou s catheter tip in the SVC/RA junction. There is no change in the bandlike opacity in the left midlung most likely atelectasis. The right teetee g is clear. There is no pleural effusion or pneumothorax. The heart and pulmonary vasculature are normal. The osseous structures are intact. IMPRESSION: 1. ET tube 5.8 cm above the yessi. NG tube within stomach. 2. No change in the small focal atelectasis in the left midlung [facility] Ralph Carvajal, , 06/12/2024 6:53 AM
[2024-06-12 08:05] VITALS: TEMP 99.6
[2024-06-12] MEDS ORDERED: ARTIFICIAL TEARS-HYPROMELLOSE DROPS 15 ML BTL BOTH EYES PRN (12:03)
[2024-06-12] MEDS ORDERED: ATROPINE OPHTH SOLN 1% 5ML BTL SUBLINGUAL PRN (12:03)
[2024-06-12] MEDS: MORPHINE SULFATE 4 MG/ML SYRINGE IVP PRN (12:31)
--- NOTE | 2024-06-12 12:35 | P.PN ---
Subjective Progress Note Date: 06/12/24 This is a 69-year-old female patient with a known history of lung cancer with previous radiation treatments back in 2016, oxygen dependent chronic obstructive pulmonary disease, treated hepatitis C, colon resection with colostomy, hypertension, peripheral vascular disease aortobifem grafting and femoropop liteal bypass, chronic and ongoing tobacco dependence. Room yesterday with complaints of bilateral lower extremity pain, tingling and numbness. Taken to the operating room and was found to have a thrombosed aortobifemoral bypass graft. Advanced arterial ischemia bilateral lower extremities. She had undergone attempted thrombectomy aortobifemoral bypass graft. Excellent femoral bypass graft. Left common femoral thromboendarterectomy. She was brought into the intensive care unit following a lengthy surgery last evening remained intubated on the mechanical ventilator. She is currently on assist-control mode at a rate of 18, tidal volume 350, FiO2 40% and a PEEP of 5. Morning blood gase s revealed a PaO2 of 104, pCO2 39 and a pH of 7.40. She is sedated with propofol at 50 mcg/kg/min. She is currently on fentanyl at 1.5 mcg/kg/h. She has lactated Ringer's at 75 mL/h. Atelectasis of the left midlung. Endotracheal tube and gastric tubes in good position. No evidence of pneumotho rax. White count 9.4. Hemoglobin 9.2. Platelets 127. Sodium 133. Potassium 4.3. Bicarb 24. BUN 32. Creatinine 1.20. She has not had any pulses in her right leg. Doppler pulses in the left leg only. Nursing staff thought the patient was to return to the OR today for possible bilateral amputations however the vascular surgeon says she is not a good candidate. She would not survive the surgery. The patient is seen today June 12, 2024 in the intensive care unit. She remains intubated on mechanical ventilator and assist-control mode at a rate of 18, tidal volume 350, FiO2 60% and a PEEP of 5. Morning blood gases revealed a PaO2 of 58, pCO2 of 43 and a pH of 7.32 on 40% FiO2. She is on norepinephrine at 2.8 mcg/min. Propofol at 55 mcg/kg/min. Lactated Ringer's at 75 mL/h. She is on fentanyl at 1.5 mcg/kg/h. Normal saline at 20 mL/h. Chest x-ray reveals no change in small focal atelectasis of the left midlung. Endotracheal tube and nasogastric tubes in good position. White count 8.8. Hemoglobin 8.3. Platelets 113. Sodium 132. Potassium 4.0. Bicarb 22. BUN 38. Creatinine 2.089. Glucose 105. The patient has had no significant urine output. She remains with no pulses in the bilateral lower extremities. Too high risk for amputation per surgical services. Objective - Vital Signs Vital signs: Vital Signs Temp 99.6 F 06/12/24 08:00 Pulse 121 H 06/12/24 12:21 Resp 18 06/12/24 11:00 BP 56/36 06/11/24 11:45 Pulse Ox 92 L 06/12/24 11:00 FiO2 60 06/12/24 11:48 Intake & Output 06/11/24 06/12/24 06/12/24 17:59 06:59 18:59 Intake Total 555.460 Output Total 5 Balance 550.460 Weight Intake: IV 467 0.9 @ 20 80 Lactated Ringers 1,000 ml 375 @ 75 mls/hr IV .[id number] ELLEN Rx#:[id number] Magnesium Sulfate-D5w Pmx 1 gm In Dextrose/Water 1 100ml.bag @ 100 mls/hr IVPB Q1H ELL[facility] Rx#: [id number] pressure bag 12 Intake, IV Titration 88.460 Amount Norepinephrine 4 mg In 41.778 Sodium Chloride 0.9% 250 ml @ 0.03 MCG/KG/MIN 4. 629 mls/hr IV .Q24H ELLEN Rx#:[id number] fentaNYL (PF). 1,000 mcg In Sodium Chloride 0.9% 80 ml @ 0.5 MCG/KG/HR 1. 86 mls/hr IV .Q24H ELLEN Rx #:[id number] propofoL 1,000 mg In 46.682 Empty Bag 1 bag @ 15 MCG/ KG/MIN 3.348 mls/hr IV . Q24H ELLEN Rx#:[id number] Output: Urine 5 Stool Other: Voiding Method Indwelling Catheter ABP, PAP, CO, CI - Last Documented Arterial Blood Pressure 111/61 - Exam GENERAL EXAM: Intubated, sedated, 69-year-old female, on the mechanical venti lator. HEAD: Normocephalic. EYES: Normal reaction of pupils, equal size. NOSE: Clear with pink turbinates. THROAT: No erythema or exudates. NECK: No masses, no JVD. CHEST: No chest wall deformity. LUNGS: Equal air entry with no crackles, wheeze, rhonchi or dullness. CVS: S1 and S2 normal with no audible murmur, regular rhythm. ABDOMEN: No hepatosplenomegaly, normal bowel sounds, no guarding or rigidity. SPINE: No scoliosis or deformity SKIN: No rashes CENTRAL NERVOUS SYSTEM: No focal deficits, tone is normal in all 4 extremities. EXTREMITIES: There is no peripheral edema. Peripheral pulses are absent in the bilateral lower extremities. - Labs CBC & Chem 7: 06/12/24 04:15 06/12/24 04:15 Labs: Abnormal Lab Results - Last 24 Hours (Table) 06/12/24 06/12/24 06/12/24 Range/Units 04:15 04:15 06:03 RBC 2.43 L (3.80-5.40) m/uL Hgb 8.3 L (11.4-16.0) gm/dL Hct 25.6 L (34.0-46.0) % MCV 105.2 H (80.0-100.0) fL Plt Count 113 L (150-450) k/uL Lymphocytes # 0.8 L (1.0-4.8) k/uL ABG pH 7.32 L (7.35-7.45) ABG pO2 58 L* (83-108) mmHg ABG O2 Saturation 87.6 L (94-97) % Hemoglobin 8.2 L (11.4-16.0) gm/dL Sodium 132 L (137-145) mmol/L BUN 38 H (7-17) mg/dL Creatinine 2.09 H (0.52-1.04) mg/dL Glucose 105 H (74-99) mg/dL Calcium 7.4 L (8.4-10.2) mg/dL Magnesium 2.5 H (1.6-2.3) mg/dL Assessment and Plan Assessment: Bilateral lower extremity pain, tingling and numbness secondary to thrombosed aortobifemoral bypass graft and advanced arterial ischemia of the bilateral lower extremities. Attempted thrombectomy of the aortobifemoral graft, axillofemoral bypass graft. Left common femoral thromboendarterectomy performed yesterday June 10, 2024. Postoperative day #2 Routine postoperative ventilator management, expected outcome of surgery Previous history of peripheral arterial disease with previous aortobifem bypass and possible right femoral to popliteal bypass Coronary artery disease History of bowel resection with colostomy History of lung cancer with previous previous radiation treatments back in 2016 Oxygen dependent chronic obstructive pulmonary disease Chronic and ongoing tobacco dependence History of alcohol abuse History of anxiety Marijuana use Hypertension Plan: The patient was seen and evaluated Imaging, labs and medications reviewed Remains with no pulses of the bilateral lower extremities Would not tolerate any surgical intervention at this point Family is at the bedside and are requesting comfort care Comfort care order set will be placed I have personally seen and examined the patient, performed the documentation and the assessment and plan as written. Number of minutes spent on the visit: 15 Dictation was produced using [employer] dictation software. Please excuse any grammatical, word or spelling errors.
[2024-06-12] MEDS: MORPHINE SULFATE 100 MG in SODIUM CHLORIDE 0.9% 90 ML IV SCH (12:40)
[2024-06-12] MEDS: LORazepam 1 MG/0.5 ML VIAL IV PRN (13:11)
--- NOTE | 2024-06-12 13:50 | PN ---
PROGRESS NOTE DATE OF SERVICE: 06/11/2024 CHIEF COMPLAINT: Aortic occlusion and ischemia of both legs. HISTORY OF PRESENT ILLNESS: This lady is placed on a ventilator and her attempted bypass to the lower extremities apparently is not successful. She has warmth down to the mid thighs, but not past that. PHYSICAL EXAMINATION: VITAL SIGNS: Blood pressure is normal. She is on a ventilator. LUNGS: Breath sounds are heard on both sides. CARDIAC: Normal. ABDOMEN: Soft. EXTREMITIES: Cool from the knees down and there are no pulses. IMPRESSION: 1. Acute aortic occlusion. 2. Chronic obstructive pulmonary disease. 3. History of carcinoma of the lung. PLAN: Follow with Vascular Surgery, Cardiology, and Intensive Medicine. Family has been approached regarding bilateral [place] amputations as a possible next step. MMODL / IJN: [id number] /
[2024-06-12 15:46] VITALS: BP 104/55; PULSE 130; RESP 16
[2024-06-12] MEDS: MORPHINE SULFATE 2 MG/ML SYRINGE IVP PRN (16:34)
--- NOTE | 2024-06-13 07:41 | PN ---
PROGRESS NOTE DATE OF SERVICE: 06/12/2024 CHIEF COMPLAINT: Aortic occlusion. HISTORY OF PRESENT ILLNESS: This lady is still on the ventilator, and the family has decided to take her off and make her NO CODE. She has not re-established any circulation in the lower extremities. PHYSICAL EXAMINATION: LUNGS: On the ventilator, breath sounds are heard bilaterally. CARDIAC: She is in sinus rhythm. ABDOMEN: Soft. IMPRESSION: Peripheral vascular occlusive disease with lower extremity ischemia with aortic occlusion. PLAN: Family is going to take her off the ventilator today. MMODL / IJN: [id number] /
--- NOTE | 2024-06-13 15:49 | P.ANPRN ---
Procedure Note - Anesthesia - Invasive Line Left Arterial Line Time Out Performed: Yes ([id number]) Date of Procedure: 06/10/24 Time of Procedure: 14:55 Location of Patient: PreOp Preparation: Sterile Prep, Sterile Dressing Arterial Line Location: Radial (left) Ultrasound Used: No Purpose - Visualization and Identification of Vasculature: No Needle Guage: 20g Image Stored and Saved: No Narrative: Invasive line placement per sterile protocol utilized. Attempt x 1. Lumen blood and flushed. Secured and dressed
--- NOTE | 2024-06-14 14:18 | CDI ---
Documentation Clarification Form Date: 06/14/2024 02:03:08 PM From: Janina Alejandre Admit Date: 06/10/2024 01:27:00 PM Patient Name: Madeline Zapata V Visit Number: [id number] Discharge Date: 06/13/2024 07:46:00 AM ATTENTION: The Clinical Documentation Specialists (CDI) and [facility] Coding Staff appreciate your assistance in clarifying documentation. Please respond to the clarification below the line at the bottom and electronically sign. The CDI & [facility] Coding staff will review the response and follow-up if needed. Please note: Queries are made part of the Legal Health Record. If you have any questions, please contact the author of this message via ITS. Doctor/Provider: Sigifredo Dubose Blood loss anemia is documented in your progress note 06/11/24. Additional specificity regarding the acuity of anemia is requested. History/Risk Factors: patient is a 69 year old female who has a long standing history of nicotine and alcohol abuse. She has advanced health problems including ASCVD, PVOD, and history of a colectomy with colostomy. She has had procedures in the past for aortic atherosclerosis and occlusion including aortobifemoral graft with femoropopliteal bypass. Clinical indicators: patient presented with worsening weakness and paresthesia to her bilateral lower legs for the past 2-3 days. She was so weak she could not walk. Pain in bilateral shins, mottled legs with diminished sensation, and cold bilateral lower legs. Patient underwent surgical intervention. Post op day 1, diagnosed with blood loss anemia. Hemoglobin: 06/10/24: 16.7, 06/11/24: 9.2 Hematocrit: 06/10/24: 51.6, 06/11/24: 28.2 Please clarify the acuity of anemia: [ ] Acute blood loss anemia [ x] Not clinically significant [ ] Unable to determine [ ] Other, please specify ___ MTDD
--- NOTE | 2024-06-14 21:11 | DS ---
DISCHARGE SUMMARY DATE OF : 06/13/2024. CHIEF COMPLAINT: Weakness, pain, and hypoesthesias of lower extremities. HISTORY OF PRESENT ILLNESS AND PHYSICAL EXAMINATION: Details of this lady's history and physical can be found in the initial workup. LABORATORY STUDIES: While she was in the hospital, she had laboratory studies, details of which can be found in the laboratory section of her chart. COURSE IN THE HOSPITAL: After she was seen in the emergency room, she was taken to the optical laboratory mechanic. She underwent attempted salvage of the lower extremities after occlusion of the inferior aorta. Axillofemoral bypass was apparently constructed. After that, she was taken back to the intensive care unit and the graft failed and she continued to have ischemia of the lower legs. Family was consulted and they were given the option of attempting the bilateral [id number] amputations with the understanding that with her age, COPD, and atherosclerosis that she may not survive. They elected to make her comfort only. She was extubated and she on the morning of the . FINAL DIAGNOSES: 1. Acute limb ischemia. 2. Aortic occlusion. 3. Atherosclerotic cardiovascular disease. 4. Chronic obstructive pulmonary disease. 5. Carcinoma of the lung. 6. Arthritis. OPERATIONS: Attempted bypass of occluded aorta. CONSULTATIONS: Vascular Surgery, Cardiology, and Pulmonology. MMODL / IJN: [id number] /
--- NOTE | 2024-06-27 12:49 | CDI ---
Documentation Clarification Form Date: 06/27/2024 12:14:14 PM From: Roberta Hanna RN, CCDS Email: [email or web address] Admit Date: 06/10/2024 01:27:00 PM Patient Name: Madeline Zapata V Visit Number: [id number] Discharge Date: 06/13/2024 07:46:00 AM ATTENTION: The Clinical Documentation Specialists (CDI) and [facility] Coding Staff appreciate your assistance in clarifying documentation. Please respond to the clarification below the line at the bottom and electronically sign. The CDI & [facility] Coding staff will review the response and follow-up if needed. Please note: Queries are made part of the Legal Health Record. If you have any questions, please contact the author of this message via ITS. Dr. Edwin Arreaga The patient had acute limb ischemia, was s/p extensive vascular surgery on 06/10, remained on mechanical ventilation in the ICU and ultimately . Based on this information and the findings below, is there an additional diagnosis that is clinically appropriate for this patient? History/Risk Factors: Lung Ca, Emphysema, Hepatitis C, HTN, PAD with previous aortobifemoral bypass and colon resection with colostomy. Presents with BL leg numbness, pain and ischemia. S/P attempted thrombectomy of aortobifemoral bypass graft, axillobifemoral bypass graft and left common femoral thromboendarterectomy on 06/10. Tobacco use: current everyday smoker Home oxygen: yes 2LNC Clinical Indicators: 06/10 BP: 50/32-155/99 06/11 Vital signs: HR 101-128, 77/55-111/62 06/11 Pulse oximetry: 89-94% 06/10 ABG: pH 7.32 pO2 210 pCO2 24 06/11 ABG: pH 7.40 pO2 104 pCO2 39 06/12 ABG: pH 7.32 pO2 58 pCO2 23 Treatment: Breathing tx: A/A Q4H scheduled 06/11-06/12 O2/Vent: mechanical ventilator 06/11-06/12 Is there an additional diagnosis that is clinically appropriate for this patient? [ ] Acute Hypoxic Respiratory Failure [ ] Acute Hypercapnic Respiratory Failure [ x ] Acute on Chronic Respiratory Failure [ ] No additional diagnosis/not clinically significant [ ] Other Diagnosis, please specify [ ] Unable to determine MTDD
--- NOTE | 2024-06-27 13:21 | CDI ---
Documentation Clarification Form Date: 06/27/2024 12:48:49 PM From: Roberta Hanna RN, CCDS Email: [email or web address] Admit Date: 06/10/2024 01:27:00 PM Patient Name: Madeline Zapata V Visit Number: [id number] Discharge Date: 06/13/2024 07:46:00 AM ATTENTION: The Clinical Documentation Specialists (CDI) and [facility] Coding Staff appreciate your assistance in clarifying documentation. Please respond to the clarification below the line at the bottom and electronically sign. The CDI & [facility] Coding staff will review the response and follow-up if needed. Please note: Queries are made part of the Legal Health Record. If you have any questions, please contact the author of this message via ITS. Doctor Edwin Arreaga The patient had acute limb ischemia, was s/p extensive vascular surgery on 06/10, became hypotensive and ultimately . Based on this information and the findings below, is there an additional diagnosis that is clinically appropriate for this patient? History/Risk Factors: lung Ca, emphysema, Hepatitis C, HTN, PAD with previous aortobifem bypass and colon resection with colostomy. Presents with BL leg numbness, pain and ischemia. S/P attempted thrombectomy of aortobifemoral bypass graft, axillobifemoral bypass graft and left common femoral thromboendarterectomy on 06/10. Clinical Indicators: 06/11 Vascular surgery: "Hypotension with need for pressor support." 06/12 Pulmonary: "The patient remains on mechanical ventilation. She is on volume assist-control, rate 18, tidal volume 350, FiO2 60%, PEEP of 5. Blood gases on the same settings, but on 40%, showed pO2 of 58, pCO2 43, pH is 7.32. The patient continues on Norepinephrine at 2.8 mcg/min, propofol at 55 mcg/kg/min, and fentanyl 1.5 mcg/kg/h. The patient is getting Lactated Ringer's at 75 cc an hour, and saline at 20 cc an hour." 06/10 Arterial BP: low of 50/32 06/11 Arterial BP: low of 82/55 06/11 Vital signs: HR 101-128, 77/55-111/62 06/10 ABG: pH 7.32 pO2 210 pCO2 24 06/11 ABG: pH 7.40 pO2 104 pCO2 39 06/12 ABG: pH 7.32 pO2 58 pCO2 23 Treatment: IV Norepinephrine titrated 06/11-06/12; mechanical ventilator 06/11-06/12; LR @75mL/hr Is there an additional diagnosis that is clinically appropriate for this patient? [ ] Hypovolemic Shock [ ] Other Shock, please specify [ ] No additional diagnosis/Not clinically significant [ ] Unable to determine [ ] Other, please specify MTDD
--- NOTE | 2024-06-27 13:24 | CDI ---
Documentation Clarification Form Date: 06/27/2024 01:05:11 PM From: Roberta Hanna RN, CCDS Email: [email or web address] Admit Date: 06/10/2024 01:27:00 PM Patient Name: Madeline Zapata V Visit Number: [id number] Discharge Date: 06/13/2024 07:46:00 AM ATTENTION: The Clinical Documentation Specialists (CDI) and [facility] Coding Staff appreciate your assistance in clarifying documentation. Please respond to the clarification below the line at the bottom and electronically sign. The CDI & [facility] Coding staff will review the response and follow-up if needed. Please note: Queries are made part of the Legal Health Record. If you have any questions, please contact the author of this message via ITS. Doctor Edwin Arreaga The patient had an increased Cr level. Based on this information and the findings below, is there an additional diagnosis that is clinically appropriate for this patient? Patient history/risk factors: lung Ca, emphysema, hepatitis C, HTN, PAD with previous aortobifemoral bypass and colon resection with colostomy. Presents with BL leg numbness, pain and ischemia. S/P attempted thrombectomy of aortobifemoral bypass graft, axillobifemoral bypass graft and left common femoral thromboendarterectomy on 06/10. Clinical Indicators: 06/10 BUN/Cr/GFR: 31/1.01/54 06/11 BUN/Cr/GFR: 32/1.20/46 06/12 BUN/Cr/GFR: 38/2.09/24 06/10 Arterial BP: low of 50/32 06/11 Arterial BP: low of 82/55 06/11 Vascular surgery: "Hypotension with need for pressor support. Impending renal failure." Treatment: Monitor electrolyte panel 06/10-06/12; IV 0.9 NS @130mL/hr 06/10; IV LR @ 75mL/hr 06/11-06/12; IV Levophed titrated 06/11-06/12 Is there an additional diagnosis that is clinically appropriate for this patient? [ ] Acute Kidney Injury [ ] Acute Renal Failure [ ] Acute on Chronic Renal Failure (please stage) [ ] No additional diagnosis/Not clinically significant [ ] Unable to determine [ ] Other, please specify Reference: KDIGO ABUNDIO Criteria An increase in serum creatinine by greater than or equal to 0.3 mg/dL within 48 hours; An increase in serum creatinine by greater than or equal to 1.5 times baseline, which is known or presumed to have occurred within the prior 7 days; A urine volume less than 0.5 ml/kg/h for 6 hours. When the baseline is unknown the lowest creatinine during admission assumed to be baseline MTDD
--- NOTE | 2024-06-30 16:51 | CDI ---
Documentation Clarification Form Date: 06/27/2024 12:48:00 PM From: Roberta Hanna RN, CCDS Email: [email or web address] Admit Date: 06/10/2024 01:27:00 PM Patient Name: Madeline Zapata V Visit Number: [id number] Discharge Date: 06/13/2024 07:46:00 AM ATTENTION: The Clinical Documentation Specialists (CDI) and [facility] Coding Staff appreciate your assistance in clarifying documentation. Please respond to the clarification below the line at the bottom and electronically sign. The CDI & [facility] Coding staff will review the response and follow-up if needed. Please note: Queries are made part of the Legal Health Record. If you have any questions, please contact the author of this message via ITS. Doctor Edwin Arreaga The patient had acute limb ischemia, was s/p extensive vascular surgery on 06/10, became hypotensive and ultimately . Based on this information and the findings below, is there an additional diagnosis that is clinically appropriate for this patient? History/Risk Factors: lung Ca, emphysema, Hepatitis C, HTN, PAD with previous aortobifem bypass and colon resection with colostomy. Presents with BL leg numbness, pain and ischemia. S/P attempted thrombectomy of aortobifemoral bypass graft, axillobifemoral bypass graft and left common femoral thromboendarterectomy on 06/10. Clinical Indicators: 06/11 Vascular surgery: "Hypotension with need for pressor support." 06/12 Pulmonary: "The patient remains on mechanical ventilation. She is on volume assist-control, rate 18, tidal volume 350, FiO2 60%, PEEP of 5. Blood gases on the same settings, but on 40%, showed pO2 of 58, pCO2 43, pH is 7.32. The patient continues on Norepinephrine at 2.8 mcg/min, propofol at 55 mcg/kg/min, and Fentanyl 1.5 mcg/kg/h. The patient is getting Lactated Ringer's at 75 cc an hour, and Saline at 20 cc an hour." 06/10 Arterial BP: low of 50/32 06/11 Arterial BP: low of 82/55 06/11 Vital signs: HR 101-128, 77/55-111/62 06/10 ABG: pH 7.32 pO2 210 pCO2 24 06/11 ABG: pH 7.40 pO2 104 pCO2 39 06/12 ABG: pH 7.32 pO2 58 pCO2 23 Treatment: IV Norepinephrine titrated 06/11-06/12; mechanical ventilator 06/11-06/12; LR @75mL/hr Is there an additional diagnosis that is clinically appropriate for this patient? [ ] Hypovolemic Shock [ x ] Other Shock, please specify___Probably a combination of septic and hypovolemic shock. [ ] No additional diagnosis/Not clinically significant [ ] Unable to determine [ ] Other, please specify MTDD
--- NOTE | 2024-06-30 16:54 | CDI ---
Documentation Clarification Form Date: 06/27/2024 01:05:00 PM From: Roberta Hanna RN, CCDS Email: [email or web address] Admit Date: 06/10/2024 01:27:00 PM Patient Name: Madeline Zapata V Visit Number: [id number] Discharge Date: 06/13/2024 07:46:00 AM ATTENTION: The Clinical Documentation Specialists (CDI) and [facility] Coding Staff appreciate your assistance in clarifying documentation. Please respond to the clarification below the line at the bottom and electronically sign. The CDI & [facility] Coding staff will review the response and follow-up if needed. Please note: Queries are made part of the Legal Health Record. If you have any questions, please contact the author of this message via ITS. Doctor Edwin Arreaga The patient had an increased BUN/Cr level. Based on this information and the findings below, is there an additional diagnosis that is clinically appropriate for this patient? Patient history/risk factors: lung Ca, emphysema, hepatitis C, HTN, PAD with previous aortobifemoral bypass and colon resection with colostomy. Presents with BL leg numbness, pain and ischemia. S/P attempted thrombectomy of aortobifemoral bypass graft, axillobifemoral bypass graft and left common femoral thromboendarterectomy on 06/10. Clinical Indicators: 06/10 BUN/Cr/GFR: 31/1.01/54 06/11 BUN/Cr/GFR: 32/1.20/46 06/12 BUN/Cr/GFR: 38/2.09/24 06/10 Arterial BP: low of 50/32 06/11 Arterial BP: low of 82/55 06/11 Vascular surgery: "Hypotension with need for pressor support. Impending renal failure." Treatment: Monitor electrolyte panel 06/10-06/12; IV 0.9 NS @130mL/hr 06/10; IV LR @ 75mL/hr 06/11-06/12; IV Levophed titrated 06/11-06/12 Is there an additional diagnosis that is clinically appropriate for this patient? [ ] Acute Kidney Injury [ ] Acute Renal Failure [ ] No additional diagnosis/Not clinically significant [ ] Unable to determine [X ] Other, please specify __This is a better question for nephrology Reference: KDIGO ABUNDIO Criteria An increase in serum creatinine by greater than or equal to 0.3 mg/dL within 48 hours; An increase in serum creatinine by greater than or equal to 1.5 times baseline, which is known or presumed to have occurred within the prior 7 days; A urine volume less than 0.5 ml/kg/h for 6 hours. When the baseline is unknown the lowest creatinine during admission assumed to be baseline MTDD
== END 2024-06-13 07:46 | disposition expired | DRG 268 ==
LOC: EC 12:23 → 3SCARD 13:27 → 2SICU 16:47 → 5NMEDONC 06-12 16:20
PROVIDERS: ADMIT Family Medicine; ATTEND Family Medicine
PROC: 04C00ZZ Extirpation of Matter from Abdominal Aorta, Open Approach (ICD-10-PCS; principal; 2024-06-10 13:15)
PROC: 04CK0ZZ Extirpation of Matter from Right Femoral Artery, Open Approach (ICD-10-PCS; principal; 2024-06-10 13:15)
PROC: 031 Upper Arteries, Bypass (ICD-10-PCS; principal; 2024-06-10 13:15)
PROC: 02HV33Z Insertion of Infusion Device into Superior Vena Cava, Percutaneous Approach (ICD-10-PCS; 2024-06-11)
PROC: 4A133J1 Monitoring of Arterial Pulse, Peripheral, Percutaneous Approach (ICD-10-PCS; 2024-06-11)
PROC: 4A133B1 Monitoring of Arterial Pressure, Peripheral, Percutaneous Approach (ICD-10-PCS; 2024-06-11)
PROC: 03HY32Z Insertion of Monitoring Device into Upper Artery, Percutaneous Approach (ICD-10-PCS; 2024-06-11)
PROC: 3E043XZ Introduction of Vasopressor into Central Vein, Percutaneous Approach (ICD-10-PCS; 2024-06-11)
DX: T82.868A Thrombosis due to vascular prosthetic devices, implants and grafts, initial encounter (principal); A41.9 Sepsis, unspecified organism; R65.21 Severe sepsis with septic shock; J96.20 Acute and chronic respiratory failure, unspecified whether with hypoxia or hypercapnia; R57.1 Hypovolemic shock; I74.5 Embolism and thrombosis of iliac artery; J43.9 Emphysema, unspecified; F10.10 Alcohol abuse, uncomplicated; I10 Essential (primary) hypertension; G25.81 Restless legs syndrome; J98.11 Atelectasis; Z93.3 Colostomy status; Z51.5 Encounter for palliative care; Z66 Do not resuscitate; I99.8 Other disorder of circulatory system; I73.9 Peripheral vascular disease, unspecified; T45.516A Underdosing of anticoagulants, initial encounter; Z91.148 Patient's other noncompliance with medication regimen for other reason; F17.210 Nicotine dependence, cigarettes, uncomplicated; I25.10 Atherosclerotic heart disease of native coronary artery without angina pectoris; I70.0 Atherosclerosis of aorta; I95.9 Hypotension, unspecified; E78.5 Hyperlipidemia, unspecified; M19.90 Unspecified osteoarthritis, unspecified site; M54.9 Dorsalgia, unspecified; H91.91 Unspecified hearing loss, right ear; F41.9 Anxiety disorder, unspecified; Z99.81 Dependence on supplemental oxygen; Z79.899 Other long term (current) drug therapy; Z79.82 Long term (current) use of aspirin; Z79.51 Long term (current) use of inhaled steroids; Z79.01 Long term (current) use of anticoagulants; Z95.5 Presence of coronary angioplasty implant and graft; Z86.19 Personal history of other infectious and parasitic diseases; Z85.118 Personal history of other malignant neoplasm of bronchus and lung; Z92.3 Personal history of irradiation
CPT/HCPCS: 36415; 71045; 80048; 80053; 82805; 83605; 83735; 84484; 85025; 85027; 85610; 85730; 86850; 86900; 86901; 86920; 88304; 88311; 93005; 94002; 94003; 94640; 96365; 99291